=== PATIENT | female | born 1975 | race Caucasian/White ===

== ENCOUNTER 2024-03-06 19:29 | Inpatient (IN) ==
--- OUTSIDE RECORDS SUMMARY | 2024-03-06 19:34 | External Medical Summary | Summary of Care ---
Author Name Unknown Organization [facility] Address [address] [place] [address] Phone [phone] Care Team Providers Care Postie Name Role Phone Unavailable Primary Care Provider Unavailabl e Encounter Details Date Type Department Care Team (Late st Contact Info) Description 03/04/2024 Patient Reported Data Patient Survey Ortho OBERD Allergies Active Allergy Reactions Criticality Noted Date Comments Prochlorperazine Edisylate 8 Feeling of skin crawling Gabapentin 04/06/2018 Paresthesias Pregabalin 04/06/2018 [place] suicidal Penicillins 04/06/2018 Mom was allergic to PCN - they told her she was too Prochlorperazine 10/28/2019 Phenazopyridine Hcl Hives 04/06/2018 Sulfa Antibiotics Anaphylaxis High 04/06/2018 Closes airway documented as of this encounter (statuses as of 03/04/2024) Medications Medication Sig Dispensed Refills Start Date End Date Status [place]-3 Fatty Acids (FISH OIL) 1000 MG Capsule Take 1 Capsule by mouth in the morning. Active nystatin 454959 UNIT/GM creamIndications:Cu taneous candidiasis Apply topically to affected area 2 times a day. To affacted area for two weeks. 30 g 2 10/19/2019 Active Ventolin HFA 108 (90 Base) MCG/ACT Inhalation Aerosol SolutionIndications :Bronchitis, complicated Inhale 2 Puffs by mouth every 4 hours as needed for Cough, Shortness of Breath or Wheezing. 8 g 1 02/19/2021 Active Red Yeast Rice Extract 600 MG Oral Tablet Take by mouth . Active CPAP every night at bedtime . Active Ondansetron HCl 4 MG Oral Tablet (Zofran) Take 1 Tablet by mouth every 8 hours as needed for Nausea. 30 Tablet 09/19/2022 Active Clindamycin HCl 150 MG Oral Capsule (Cleocin) Take 1 Capsule by mouth. Take 4 capsules prior to procedures Active Naproxen Sodium 220 MG Oral Capsule Take 1 Capsule by mouth as needed for Headache. Active Aspirin 325 MG Oral Tablet Delayed ReleaseIndications: Hypertension goal BP (blood pressure) < 140/90 TAKE 1 TABLET BY MOUTH EVERY DAY IN THE MORNING 90 Tablet 3 05/06/2023 Active Probiotic Daily Oral Capsule Take 1 Capsule by mouth in the morning. Active Montelukast Sodium 10 MG Oral Tablet (Singulair) Take 1 Tablet by mouth in the morning. 90 Tablet 3 07/17/2023 Active Potassium Chloride ER 20 MEQ Oral Tablet Extended Release TAKE 1 TABLET BY MOUTH EVERY DAY IN THE MORNING 90 Tablet 3 09/17/2023 Active Rizatriptan Benzoate 10 MG Oral Tablet (Maxalt)Indications :Intractable migraine with aura without status migrainosus Take 1 Tablet by mouth as needed for Migraine. Can take a second dose 2 hours later if needed. No more than 20 mg (2 tablets) in 24 hours 10 Tablet 5 09/30/2023 Active Premarin 0.625 MG/GM Vaginal Cream (Estrogens Conjugated)Indicati ons:Vaginal dryness ADMINISTER INTO THE VAGINA AT BEDTIME. DIRECTED. 30 g 5 10/02/2023 Active Esomeprazole Magnesium 20 MG Oral Capsule Delayed ReleaseIndications: Epigastric pain,Nausea and vomiting, unspecified vomiting type Take 1 Capsule by mouth in the morning and 1 Capsule in the evening. 180 Capsule 3 11/12/2023 Active traZODone HCl 100 MG Oral Tablet (Desyrel) TAKE 2 TABLETS BY MOUTH AT BEDTIME 60 Tablet 3 12/26/2023 Active Cetirizine HCl 10 MG Oral Tablet (ZyrTEC) Take 1 Tablet by mouth in the morning. Active Losartan Potassium 25 MG Oral Tablet (Cozaar)Indications :HTN, goal below 130/80 Take 1 Tablet by mouth in the morning. 90 Tablet 1 02/24/2024 Active Fluticasone Propionate 50 MCG/ACT Nasal Suspension (Flonase)Indication s:Nasal congestion,Rhinorrh ea Administer 1 [place] into each nostril in the morning and 1 [place] before bedtime. 1 Each 5 02/25/2024 Active documented as of this encounter (statuses as of 03/04/2024) Active Problems Problem Noted Date Diagnosed Date S/P total knee arthroplasty, right 12/04/2022 On pre-exposure prophylaxis for HIV 10/17/2022 Status post total left knee replacement 09/07/19 Encounter for counseling bef ore starting and about pre-exposure prophylaxis for HIV 07/19/2022 High risk bisexual behavior 07/19/2022 Hyperlipidemia with target LDL less than 130 Restless legs syndrome (RLS) 04/01/2022 Athlete's foot, right 07/19/2021 Seasonal allergic rhinitis due to pollen 020 Tinnitus of both ears 10/01/2018 HTN, goal below 130/80 08/19/2018 Status post splenectomy 05/04/2018 Medical marijuana use 05/04/2018 Chronic left shoulder pain 05/04/2018 Fibromyalgia 04/06/2018 History of ITP 04/06/2018 Gastroesophageal reflux disease with esophagitis 04/06/2018 Pseudotumor cerebri 04/06/2018 Premature menopause 04/06/2018 documented as of this encounter (statuses as of 03/04/2024) Resolved Problems Problem Noted Date Diagnosed Date Resolved Date Disorder of iron metabolism, unspecified 04/01/2022 07/19/2022 Hypokalemia 04/01/2022 07/19/2022 Psychosocial stressors 10/18/202007/19 Female stress incontinence 05/04/2018 0 07/19/2022 Arthritis of right knee 04/10/201801/03 Chronic arthralgias of knees and hips 04/06/2018 01/17/2023 documented as of this encounter (statuses as of 03/04/2024) Immunizations Name Administration Dates Next Due COVID-19 mRNA, LNP-s, No Pre serve, 2-Dose Series (Values of n) 09/23/2020,08/23/2020 DTaP Dipth/Tet/Acell Pertussis (Infanrix), Peds 08/07/2016 Hepatitis B, 20+ yrs 01/20/2023,08/20/19 23,07/19/2022,2022(Deferred: Contraindication - Given 1st dose today . Other order Def) Meningococcal B, 2/3-Dose [place] (TRUMENBA) 07/19/2021,08/19/2018 Meningococcal MCV4O Conjugat e Vaccine (Menveo) 07/19/2021,08/19/2018 Pneumococcal Conjugate Vacc, 13 Valent (Prevnar) 08/19/2018 Pneumococcal Polysaccharide PPV23 (Pneumovax) 07/19/2021 Seasonal Influenza, PF, 6 M & above, IM , (FluLaval or Fluzone) 04/06/2018 TDAP (age 10 and older)(Boostrix) 03/05/2009 documented as of this encounter Social History Tobacco Use Types Packs/Day Years Used Date Smoking Tobacco: Former Cigarettes Q uit: 05/05/2005 Vaporizer Passive Smoke Exposure: Past Smokeless Tobacco: Never Comments:Quit smoking in 200 6 - Currently Vapes and smokes medical marijuana Alcohol Use Standard Drinks/Week Comments Yes 0 (1 standard drink = 0.6 oz pur e alcohol) occasional PHQ-2 Answer Date Recorded PHQ Adult Total Score 0 07/19/2022 Hunger Vital Sign Answer Date Recorded Within the past 12 months, y ou worried that your food would run out before you got the money to buy more. Never true 07/20/19 23 Within the past 12 months, t he food you bought just didn't last and you didn't have money to get more. Never true 07/19/2022 Personal Safety Answer Date Recorded Do you feel unsafe or have concerns for your saf ety? No 12/04/2022 Do you have concerns for you r family's safety? (Household - for ages 0-17 years) Not on file 12/04/2022 Utilities Answer Date Recorded Do you have trouble paying y our heating, water, or electric bill? (Adult - for ages 18 years and over) Not on file 12/05/2023 Is your family able to pay t he heat, water, or electric bill? (Household - for ages 0-17 years) Not on file 12/05/2023 Does your family have access to good internet? (Household - for ages 0-17 years) Not on file 12/05/2023 Social Connections Answer Date Recorded How often do you feel lonely or isolated from those around you? (Adult - for ages 18 years and over) Not on file 10/21/2023 Transportation Needs Answer Date Record ed READ ONLY Do you have troubl e getting a ride to medical visits or work? Never True 12/04/2022 Does your family have a hard time getting a ride to doctors visits? (Household - for ages 0-17 years) Not on file 12/04/2022 Has lack of transportation k ept you from medical appointments, meetings, work, or from getting things needed for daily living? Check all that apply. (Adult - for ages 18 years and over) Not on file 12/04/2022 Do you (or your family) have trouble finding or paying for a ride (transportation)? (Household - for ages 0-17 years) Not on file 12/04/2022 Housing Stability Answer Date Recorded Do you currently live in a s helter or have no steady place to sleep at night? (Adult - for ages 18 years and over) Not on file 12/04/2022 READ ONLY Do you think you a re at risk of becoming homeless? No 12/04/2022 Does your family worry about paying for your home or becoming homeless? (Household - for ages 0-17 years) Not on file 0 12/04/2022 Are you homeless or worried that you might be in the future? (Adult - for ages 18 years and over) Not on file Are you (or your family) neil eless or worried that you might be in the future? (Household - for ages 0-17 years) Not on file Food Insecurity Answer Date Recorded Do you need food for this week? No 12/04/2022 Are you able to get enough f ood for your family? (Household - for ages 0-17 years) Not on file 12/04/2022 Does your family need food t his week? (Household - for ages 0-17 years) Not on file 12/04/2022 Do you always have enough fo od for your family? (Household - for ages 0-17 years) Not on file 12/04/2022 Sex and Gender Information Value Date Recorded Sex Assigned at Female 08/27/2022 11:30 AM EDT Gender Identity Female 08/27/2022 11:30 AM EDT Sexual Orientation Bisexual 08/27/2022 11 :30 AM EDT Job Start Date Occupation Industry Not on file Not on file Not on file documented as of this encounter Functional Status Functional Status Response Date of Assess ment Are you deaf or do you have serious difficulty h earing? No 12/04/2022 Are you blind or do you have serious difficulty seeing, even when wearing glasses? No 12/04/2022 Do you have serious difficul ty walking or climbing stairs? (5 years old or older) No 12/04/2022 Do you have difficulty dress ing or bathing? (5 years old or older) No 12/04/2022 Because of a physical, menta l, or emotional condition, do you have difficulty doing errands alone such as visiting a doctor s office or shopping? (15 years old or older) No 12/05/19 Cognitive Status Response Date of Assessm ent Because of a physical, menta l, or emotional condition, do you have serious difficulty concentrating, remembering, or making decisions? (5 years old or older) No 12/04/2022 documented as of this encounter Plan of Treatment Upcoming Encounters Date Type Department Care Team (Late st Contact Info) Description 03/05/2024 9:30 AM EDT Office Visit Orthopaedics [facility] [address] [address] Dario Monge MD [address] [phone] 03/11/2024 1:30 PM EST Office Visit Orthopaedics [facility] [address] [address] Bobby Colunga PA-C [address] [place] [address] 08/04/2024 1:30 PM EDT Imaging Radiology [address] [place] [address] 11/08/2024 11:00 AM EDT Office Visit Family Medicine [address] [place] [phone] Vidya Mai MD [address] [place] [address] [place] [id number] Scheduled Procedures Name Priority Associated Diagnoses Date/Ti me COLONOSCOPY FLEXIBLE PROXIMA L DIAGNOSTIC Recall History of colonic polyps Health Maintenance Due Date Last Done Comments Cologuard 2022 Fecal Occult Blood Test 2022 Sigmoidoscopy 2022 Meningitis B Vaccine (Bexsero/Trumemba) (3 of 4 - Increased Risk Trumenba 3-dose series) 07/19/2022 07/19/2021, 08/19/2018 Depression Screening 07/20/2023 07/19/2022 COVID-19 Vaccine ( - season) 2024 09/23/2020, 08/23/2020 Influenza Vaccine (FLU shot) (#1) 2024 04/06/2018, 04/06/2018 Albumin/Creatinine Ratio 07/26/2024 07/26/2021 Mammogram 08/03/2024 08/04/2023, 04/0 05/2023, 07/30/2022, Additional history exists GFR 02/15/2025 02/16/2024, 01/04, 07/08/2023, Additional history exists Colonoscopy 10/29/2025 10/29/2022, 10/29/2022 Colorectal Cancer Screening 10/29/2025 MENINGOCOCCAL (MENACTRA/MENVEO) (3 - Risk 2-dose series) 07/19/2026 07/19/2021, 08/19/2018 Pneumococcal Vaccine: Pediatrics (0 to 5 Years) and At-Risk Patients (6 to 64 Years) (3 of 3 - PPSV23 or PCV20) 07/19/2026 07/19/2021, 08/19/2018 DTap/Tdap Vaccines (3 - Td or Tdap) 08/07/2026 08/07/2016, 03/05/2009 Diabetes Screening 02/15/2027 02/16/2024, 0 01/29/2024, 07/08/2023, Additional history exists Lipid Panel 01/28/2029 01/29/2024, 09/02, 07/19/2022, Additional history exists Hepatitis B Vaccine Completed 01/20/2023, 08/19/2022, 07/19/2022 HPV (Gardasil) Vaccine Aged Out No lo nger eligible based on patient's age to complete this topic documented as of this encounter Medical Devices Implanted Type Area Aerographer Device Identifier Shelf Expiration Date Model / Serial / Lot Zilver 518 Vascular Stent Implanted:Qty: 1 on 02/16/2020 by Remi Michaud MD at OR [facility] [place] [employer] 01/12/2023 ZIV5-1 8-12 5-8-80 / / [id number] Knee Triathlon Bead No Dmitri L 2 - [id number] Implanted:Qty: 1 on 08/13/2021 by Solomon Leon DO at OR [facility] Left: Knee NICHOLAS : ORTHOPAEDICS 09/23/2025 5517-F-201 / / [id number] Baseplate #2 Tritanium - [id number] Implanted:Qty: 1 on 08/13/2021 by Solomon Leon DO at OR [facility] Left: Knee NICHOLAS : ORTHOPAEDICS 10/12/2025 5536-B-200 / / [id number] Triathlon X3 Tibial Bearing Insert - Cs Implanted:Qty: 1 on 08/13/2021 by Solomon Leon DO at OR [facility] Left: Knee NICHOLAS : ORTHOPAEDICS 08/21/2025 5531-G-210 -E / / [id number] Cement Bone Simplex Hv & G - [id number] Implanted:Qty: 2 on 12/04/2022 by Solomon Leon DO at OR [facility] Right: Knee NICHOLAS : ORTHOPAEDICS 01/03/2024 6195-1-010 / / [id number] Knee Tria Syetric X3 8x27 - [id number] Implanted:Qty: 1 on 12/04/2022 by Solomon Leon DO at OR [facility] Right: Knee NICHOLAS : ORTHOPAEDICS 06/22/2024 5550-G-278 -E / / 51VA Knee Triathlon Cruciate Fe 2 R - [id number] Implanted:Qty: 1 on 12/04/2022 by Solomon Leon, DO at OR [facility] Right: Knee NICHOLAS : ORTHOPAEDICS 12/20/2026 5510-F-202 / / [id number] Knee Baseplate Tri Tib Sz 2 - [id number] Implanted:Qty: 1 on 12/04/2022 by Solomon Leon, DO at OR [facility] Right: Knee NICHOLAS : ORTHOPAEDICS 12/17/2025 5521-B-200 / / [id number] Triathlon X3 Tibial Bearing Insert- Cs Implanted:Qty: 1 on 12/04/2022 by Solomon Leon, DO at OR [facility] Right: Knee 10/16/2027 5531-G-210 -E / / [id number] documented as of this encounter Advance Directives * Full Code (Latest Code Status on File) Date Activated Date Inactivated Comments 12/04/2022 1:52 PM 12/05/2022 2:58 PM This order ref lects the patients wishes and were consensually agreed upon. Question Answer Comments Discussion of Advance Directives occurred with: Patient * Full Code Date Activated Date Inactivated Comments 08/13/2021 9:39 AM 08/14/2021 2:36 PM This order r eflects the patients wishes and were consensually agreed upon. * Full Code Date Activated Date Inactivated Comments 02/16/2020 11:48 AM 02/17/2020 6:55 PM This orde r reflects the patients wishes and were consensually agreed upon. * Full Code Date Activated Date Inactivated Comments 02/16/2020 9:10 AM 02/16/2020 11:48 AM This orde r reflects the patients wishes and were consensually agreed upon. * Full Code Date Activated Date Inactivated Comments 01/06/2020 1:16 PM 01/07/2020 4:50 PM This order ref lects the patients wishes and were consensually agreed upon. Question Answer Comments Discussion of Advance Directives occurred with: Not Discussed
--- OUTSIDE RECORDS SUMMARY | 2024-03-06 19:34 | External Medical Summary | Summary of Care ---
Author Name Unknown Organization [facility] Address [address] [place] [address] Phone [phone] Care Team Providers Care Caul Puller Name Role Phone Unavailable Primary Care Provider Unavailabl e Encounter Details Date Type Department Care Team (Late st Contact Info) Description 03/04/2024 Patient Reported Data Patient Survey Ortho OBERD Allergies Active Allergy Reactions Criticality Noted Date Comments Prochlorperazine Edisylate 8 Feeling of skin crawling Gabapentin 04/06/2018 Paresthesias Pregabalin 04/06/2018 [place] suicidal Penicillins 04/06/2018 Mom was allergic to PCN - they told her she was too Prochlorperazine 10/28/2019 Phenazopyridine Hcl Hives 04/06/2018 Sulfa Antibiotics Anaphylaxis High 04/06/2018 Closes airway documented as of this encounter (statuses as of 03/04/2024) Medications Medication Sig Dispensed Refills Start Date End Date Status [place]-3 Fatty Acids (FISH OIL) 1000 MG Capsule Take 1 Capsule by mouth in the morning. Active nystatin 314915 UNIT/GM creamIndications:Cu taneous candidiasis Apply topically to [...] Suspension (Flonase)Indication s:Nasal congestion,Rhinorrh ea Administer 1 [place] into each nostril in the morning and 1 [place] before bedtime. 1 Each 5 02/25/2024 Active [...] mRNA, LNP-s, No Pre serve, 2-Dose Series (Swyft) 09/23/2020,08/23/2020 DTaP Dipth/Tet/Acell Pertussis (Infanrix), Peds 08/07/2016 [...] 03/05/2024 9:30 AM EDT Office Visit Orthopaedics [facility] [address] [address] Dario Monge MD [address] [phone] 03/11/2024 1:30 PM EST Office Visit Orthopaedics [facility] [address] [address] Bobby Colunga PA-C [address] [place] [address] 08/04/2024 1:30 PM EDT Imaging Radiology [address] [place] [address] 11/08/2024 11:00 AM EDT Office Visit Family Medicine [address] [place] [phone] Vidya Mai MD [address] [place] [address] [place] [address] Scheduled Procedures Name [...] this encounter Medical Devices Implanted Type Area Wall Insulation Sprayer Device Identifier Shelf Expiration Date Model / Serial / Lot Zilver 518 Vascular Stent Implanted:Qty: 1 on 02/16/2020 [place] Remi Michaud [place] [facility] [place] [employer] 01/12/2023 ZIV5-1 8-12 5-8-80 / / [id number] Knee Triathlon Bead No Dmitri L 2 - [id number] Implanted:Qty: 1 on 08/13/2021 by [facility]: Knee NICHOLAS : ORTHOPAEDICS 09/23/2025 5517-F-201 / / [id number] Baseplate #2 Tritanium - [id number] Implanted:Qty: 1 on 08/13/2021 by [facility] DO [facility] Left: Knee NICHOLAS : ORTHOPAEDICS 10/12/2025 5536-B-200 / / [id number] Triathlon X3 Tibial Bearing Insert - Cs Implanted:Qty: 1 on 08/13/2021 by [facility] DO [facility] Left: Knee NICHOLAS : ORTHOPAEDICS 08/21/2025 5531-G-210 -E / / [id number] Cement Bone Simplex Hv & G - [id number] Implanted:Qty: 2 on 12/04/2022 by [facility] DO [facility] Right: Knee NICHOLAS : ORTHOPAEDICS 01/03/2024 6195-1-010 / / [id number] Knee Tria Syetric X3 8x27 - [id number] Implanted:Qty: 1 on 12/04/2022 by [facility] Right: Knee NICHOLAS : ORTHOPAEDICS 06/22/2024 5550-G-278 -E / / 51VA Knee Triathlon Cruciate Fe 2 R - [id number] Implanted:Qty: 1 on 12/04/2022 by Solomon Leon[facility] DO [facility] Right: Knee NICHOLAS : ORTHOPAEDICS 12/20/2026 5510-F-202 / / [id number] Knee Baseplate Tri Tib Sz 2 - [id number] Implanted:Qty: 1 on 12/04/2022 by Solomon Leon, DO [facility] Right: Knee NICHOLAS : ORTHOPAEDICS 12/17/2025 5521-B-200 / / [id number] Triathlon X3 Tibial Bearing Insert- Cs Implanted:Qty: 1 on 12/04/2022 by Solomon Leon[facility] DO [facility] Right: Knee 10/16/2027 5531-G-210 -E / / [...]
--- OUTSIDE RECORDS SUMMARY | 2024-03-06 19:34 | External Medical Summary | Summary of Care ---
Author Name Unknown Organization [facility] Address [address] [place] [address] Phone [phone] Care Team Providers Care Outsole Cutter Machine Name Role Phone Unavailable Primary Care Provider Unavailabl e Encounter Details Date Type Department Care Team (Late st Contact Info) Description 03/04/2024 Patient Reported Data Patient Survey Ortho OBERD Allergies Active Allergy Reactions Criticality Noted Date Comments Prochlorperazine Edisylate 8 Feeling of skin crawling Gabapentin 04/06/2018 Paresthesias Pregabalin 04/06/2018 [place] suicidal Penicillins 04/06/2018 Mom was allergic to PCN - they told her she was too Prochlorperazine 10/28/2019 Phenazopyridine Hcl Hives 04/06/2018 Sulfa Antibiotics Anaphylaxis High 04/06/2018 Closes airway documented as of this encounter (statuses as of 03/04/2024) Medications Medication Sig Dispensed Refills Start Date End Date Status [place]-3 Fatty Acids (FISH OIL) 1000 MG Capsule Take 1 Capsule by mouth in the morning. Active nystatin 743263 UNIT/GM creamIndications:Cu taneous candidiasis Apply topically to [...] Suspension (Flonase)Indication s:Nasal congestion,Rhinorrh ea Administer 1 [place] into each nostril in the morning and 1 [place] before bedtime. 1 Each 5 02/25/2024 Active [...] mRNA, LNP-s, No Pre serve, 2-Dose Series (Reunify) 09/23/2020,08/23/2020 DTaP Dipth/Tet/Acell Pertussis (Infanrix), Peds 08/07/2016 [...] 03/05/2024 9:30 AM EDT Office Visit Orthopaedics [facility] [address] [address] Dario Monge MD [address] [phone] 03/11/2024 1:30 PM EST Office Visit Orthopaedics [facility] [address] [address] Bobby Colunga PA-C [address] [place] [address] 08/04/2024 1:30 PM EDT Imaging Radiology [address] [place] [address] 11/08/2024 11:00 AM EDT Office Visit Family Medicine [address] [place] [phone] Vidya Mai MD [address] [place] [address] [place] [address] Scheduled Procedures Name [...] this encounter Medical Devices Implanted Type Area Quality Control Checker Device Identifier Shelf Expiration Date Model / Serial / Lot Zilver 518 Vascular Stent Implanted:Qty: 1 on 02/16/2020 by Remi Michaud [place] [facility] [place] [employer] 01/12/2023 ZIV5-1 8-12 5-8-80 / / [id number] Knee Triathlon Bead No Dmitri L 2 - [id number] Implanted:Qty: 1 on 08/13/2021 by Solomon Leon DO at OR [facility] Left: Knee NICHOLAS : ORTHOPAEDICS 09/23/2025 5517-F-201 / / [id number] Baseplate #2 Tritanium - [id number] Implanted:Qty: 1 on 08/13/2021 by Solomon Leon DO at OR [facility] Left: Knee NICHOLAS : ORTHOPAEDICS 10/12/2025 5536-B-200 / / [id number] Triathlon X3 Tibial Bearing Insert - Cs Implanted:Qty: 1 on 08/13/2021 by Solomon Leon DO at OR [facility] Left: Knee NICHOLAS : ORTHOPAEDICS 08/21/2025 5531-G-210 -E / / [id number] Cement Bone Simplex Hv & G - [id number] Implanted:Qty: 2 on 12/04/2022 by Solomon Leon DO at OR [facility] Right: Knee NICHOLAS : ORTHOPAEDICS 01/03/2024 6195-1-010 / / [id number] Knee Tria Syetric X3 8x27 - [id number] Implanted:Qty: 1 on 12/04/2022 by Solomon Leon DO at OR [facility] Right: Knee NICHOLAS : ORTHOPAEDICS 06/22/2024 5550-G-278 -E / / 51VA Knee Triathlon Cruciate Fe 2 R - [id number] Implanted:Qty: 1 on 12/04/2022 by Solomon Leon, DO at OR [facility] Right: Knee NICHOLAS : ORTHOPAEDICS 12/20/2026 5510-F-202 / / [id number] Knee Baseplate Tri Tib Sz 2 - [id number] Implanted:Qty: 1 on 12/04/2022 by Solomon Leon, DO at OR [facility] Right: Knee NICHOLAS : ORTHOPAEDICS 12/17/2025 5521-B-200 / / [id number] Triathlon X3 Tibial Bearing Insert- Cs Implanted:Qty: 1 on 12/04/2022 by Solomon Leon, DO at OR [facility] Right: Knee 10/16/2027 5531-G-210 -E / / [...]
--- OUTSIDE RECORDS SUMMARY | 2024-03-06 19:34 | External Medical Summary | Summary of Care ---
Author Name Unknown Organization [facility] Address [address] [place] [address] Phone [phone] Care Team Providers Care Manuscripts Archivist Name Role Phone Unavailable Primary Care Provider Unavailabl e Encounter Details Date Type Department Care Team (Late st Contact Info) Description 03/04/2024 Patient Reported Data Patient Survey Ortho [facility]BERD Allergies Active Allergy Reactions Criticality Noted Date Comments Prochlorperazine Edisylate 8 Feeling of skin crawling Gabapentin 04/06/2018 Paresthesias Pregabalin 04/06/2018 [place] suicidal Penicillins 04/06/2018 Mom was allergic to PCN - they told her she was too Prochlorperazine 10/28/2019 Phenazopyridine Hcl Hives 04/06/2018 Sulfa Antibiotics Anaphylaxis High 04/06/2018 Closes airway documented as of this encounter (statuses as of 03/04/2024) Medications Medication Sig Dispensed Refills Start Date End Date Status [place]-3 Fatty Acids (FISH OIL) 1000 MG Capsule Take 1 Capsule by mouth in the morning. Active nystatin 232580 UNIT/GM creamIndications:Cu taneous candidiasis Apply topically to [...] Suspension (Flonase)Indication s:Nasal congestion,Rhinorrh ea Administer 1 [place] into each nostril in the morning and 1 [place] before bedtime. 1 Each 5 02/25/2024 Active [...] mRNA, LNP-s, No Pre serve, 2-Dose Series ([employer]) 09/23/2020,08/23/2020 DTaP Dipth/Tet/Acell Pertussis (Infanrix), Peds 08/07/2016 [...] 03/05/2024 9:30 AM EDT Office Visit Orthopaedics [facility] [address] [address] Dario Monge MD [address] [phone] 03/11/2024 1:30 PM EST Office Visit Orthopaedics [facility] [address] [address] Bobby Colunga PA-C [address] [place] [address] 08/04/2024 1:30 PM EDT Imaging Radiology [address] [place] [address] 11/08/2024 11:00 AM EDT Office Visit Family Medicine [address] [place] [phone] Vidya Mai MD [address] [place] [address] [place] [id number] Scheduled Procedures Name [...] this encounter Medical Devices Implanted Type Area Oil Burner Journeyman Device Identifier Shelf Expiration Date Model / Serial / Lot Zilver 518 Vascular Stent Implanted:Qty: 1 on 02/16/2020 by Remi Michaud MD [place] [facility] [employer] 01/12/2023 ZIV5-1 8-12 5-8-80 / / [id number] Knee Triathlon Bead No Dmitri L 2 - [id number] Implanted:Qty: 1 on 08/13/2021 by Solomon Leon DO at OR [facility] Left: Knee NICHOLAS : ORTHOPAEDICS 09/23/2025 5517-F-201 / / [id number] Baseplate #2 Tritanium - [id number] Implanted:Qty: 1 on 08/13/2021 by Solomon Leon DO at OR [facility] Left: Knee NICHOLAS : ORTHOPAEDICS 10/12/2025 5536-B-200 / / [id number] Triathlon X3 Tibial Bearing Insert - Cs Implanted:Qty: 1 on 08/13/2021 by Solomon Leon DO at OR [facility] Left: Knee NICHOLAS : ORTHOPAEDICS 08/21/2025 5531-G-210 -E / / [id number] Cement Bone Simplex Hv & G - [id number] Implanted:Qty: 2 on 12/04/2022 by Solomon Leon DO at OR [facility] Right: Knee NICHOLAS : ORTHOPAEDICS 01/03/2024 6195-1-010 / / [id number] Knee Tria Syetric X3 8x27 - [id number] Implanted:Qty: 1 on 12/04/2022 by Solomon Leon DO at OR [facility] Right: Knee NICHOLAS : ORTHOPAEDICS 06/22/2024 5550-G-278 -E / / 51VA Knee Triathlon Cruciate Fe 2 R - [id number] Implanted:Qty: 1 on 12/04/2022 by Solomon Leon, DO at OR [facility] Right: Knee NICHOLAS : ORTHOPAEDICS 12/20/2026 5510-F-202 / / [id number] Knee Baseplate Tri Tib Sz 2 - [id number] Implanted:Qty: 1 on 12/04/2022 by Solomon Leon, DO at OR [facility] Right: Knee NICHOLAS : ORTHOPAEDICS 12/17/2025 5521-B-200 / / [id number] Triathlon X3 Tibial Bearing Insert- Cs Implanted:Qty: 1 on 12/04/2022 by Solomon Leon, DO at OR [facility] Right: Knee 10/16/2027 5531-G-210 -E / [...]
--- OUTSIDE RECORDS SUMMARY | 2024-03-06 19:34 | External Medical Summary | Summary of Care ---
Author Name Unknown Organization [facility] Address [address] [place] [address] Phone [phone] Care Team Providers Care Accounting Machine Operator Name Role Phone Unavailable Primary Care Provider Unavailabl e Encounter Details Date Type Department Care Team (Late st Contact Info) Description 03/04/2024 Patient Reported Data Patient Survey Ortho [facility] Allergies Active Allergy Reactions Criticality Noted Date Comments Prochlorperazine Edisylate 8 Feeling of skin crawling Gabapentin 04/06/2018 Paresthesias Pregabalin 04/06/2018 [place] suicidal Penicillins 04/06/2018 Mom was allergic to PCN - they told her she was too Prochlorperazine 10/28/2019 Phenazopyridine Hcl Hives 04/06/2018 Sulfa Antibiotics Anaphylaxis High 04/06/2018 Closes airway documented as of this encounter (statuses as of 03/04/2024) Medications Medication Sig Dispensed Refills Start Date End Date Status [place]-3 Fatty Acids (FISH OIL) 1000 MG Capsule Take 1 Capsule by mouth in the morning. Active nystatin 165870 UNIT/GM creamIndications:Cu taneous candidiasis Apply topically to [...] Suspension (Flonase)Indication s:Nasal congestion,Rhinorrh ea Administer 1 [place] into each nostril in the morning and 1 [place] before bedtime. 1 Each 5 02/25/2024 Active [...] mRNA, LNP-s, No Pre serve, 2-Dose Series ([employer]) 09/23/2020,08/23/2020 DTaP Dipth/Tet/Acell Pertussis (Infanrix), Peds 08/07/2016 [...] 03/05/2024 9:30 AM EDT Office Visit Orthopaedics [facility] [address] [address] Dario Monge MD [address] [phone] 03/11/2024 1:30 PM EST Office Visit Orthopaedics [facility] [address] [address] Bobby Colunga PA-C [address] [place] [address] 08/04/2024 1:30 PM EDT Imaging Radiology [address] [place] [address] 11/08/2024 11:00 AM EDT Office Visit Family Medicine [address] [place] [phone] Vidya Mai MD [address] [place] [address] [place] [address] Scheduled Procedures Name [...] this encounter Medical Devices Implanted Type Area Blind Hooker Device Identifier Shelf Expiration Date Model / Serial / Lot Zilver 518 Vascular Stent Implanted:Qty: 1 on 02/16/2020 by Remi Michaud MD at OR [facility] [employer] 01/12/2023 ZIV5-1 8-12 5-8-80 / / [id number] Knee Triathlon Bead No Dmitri L 2 - [id number] Implanted:Qty: 1 on 08/13/2021 by Solomon Leon DO at OR [facility] Left: Knee NICHOLAS : ORTHOPAEDICS 09/23/2025 5517-F-201 / / [id number] Baseplate #2 Tritanium - [id number] Implanted:Qty: 1 on 08/13/2021 by Solomon Leon DO at OR [facility] Left: Knee NICHOLAS : ORTHOPAEDICS 10/12/2025 5536-B-200 / / [id number] Triathlon X3 Tibial Bearing Insert - Cs Implanted:Qty: 1 on 08/13/2021 by Solomon Leon DO at OR [facility] Left: Knee NICHOLAS : ORTHOPAEDICS 08/21/2025 5531-G-210 -E / / [id number] Cement Bone Simplex Hv & G - [id number] Implanted:Qty: 2 on 12/04/2022 by Solomon Leon DO at OR [facility] Right: Knee NICHOLAS : ORTHOPAEDICS 01/03/2024 6195-1-010 / / [id number] Knee Tria Syetric X3 8x27 - [id number] Implanted:Qty: 1 on 12/04/2022 by Solomon Leon DO at OR [facility] Right: Knee NICHOLAS : ORTHOPAEDICS 06/22/2024 5550-G-278 -E / / 51VA Knee Triathlon Cruciate Fe 2 R - [id number] Implanted:Qty: 1 on 12/04/2022 by Solomon Leon, DO at OR [facility] Right: Knee NICHOLAS : ORTHOPAEDICS 12/20/2026 5510-F-202 / / [id number] Knee Baseplate Tri Tib Sz 2 - [id number] Implanted:Qty: 1 on 12/04/2022 by Solomon Leon, DO at OR [facility] Right: Knee NICHOLAS : ORTHOPAEDICS 12/17/2025 5521-B-200 / / [id number] Triathlon X3 Tibial Bearing Insert- Cs Implanted:Qty: 1 on 12/04/2022 by Solomon Leon, DO at OR [facility] Right: Knee 10/16/2027 5531-G-210 -E / [...]
--- OUTSIDE RECORDS SUMMARY | 2024-03-06 19:34 | External Medical Summary | Summary of Care ---
Author Name Unknown Organization [facility] Address [address] [place] [address] Phone [phone] Care Team Providers Care Firebrick And Refractory Tile Repairer Name Role Phone Unavailable Primary Care Provider Unavailabl e Encounter Details Date Type Department Care Team (Late st Contact Info) Description 03/04/2024 Patient Reported Data Patient Survey Ortho [facility] Allergies Active Allergy Reactions Criticality Noted Date Comments Prochlorperazine Edisylate 8 Feeling of skin crawling Gabapentin 04/06/2018 Paresthesias Pregabalin 04/06/2018 [place] suicidal Penicillins 04/06/2018 Mom was allergic to PCN - they told her she was too Prochlorperazine 10/28/2019 Phenazopyridine Hcl Hives 04/06/2018 Sulfa Antibiotics Anaphylaxis High 04/06/2018 Closes airway documented as of this encounter (statuses as of 03/04/2024) Medications Medication Sig Dispensed Refills Start Date End Date Status [place]-3 Fatty Acids (FISH OIL) 1000 MG Capsule Take 1 Capsule by mouth in the morning. Active nystatin 406836 UNIT/GM creamIndications:Cu taneous candidiasis Apply topically to [...] Suspension (Flonase)Indication s:Nasal congestion,Rhinorrh ea Administer 1 [place] into each nostril in the morning and 1 [place] before bedtime. 1 Each 5 02/25/2024 Active [...] mRNA, LNP-s, No Pre serve, 2-Dose Series ([employer]) 09/23/2020,08/23/2020 DTaP Dipth/Tet/Acell Pertussis (Infanrix), Peds 08/07/2016 [...] AM EDT Office Visit Orthopaedics [facility] [address] [address] Dario Monge MD [address] [phone] 03/11/2024 1:30 PM EST Office Visit Orthopaedics [facility] [address] [address] Bobby Colunga PA-C [address] [place] [address] 08/04/2024 1:30 PM EDT Imaging Radiology [address] [place] [address] 11/08/2024 11:00 AM EDT Office Visit Family Medicine [address] [place] [phone] Vidya aMi MD [address] [place] [address] [place] [id number] Scheduled Procedures Name [...] this encounter Medical Devices Implanted Type Area C Application Developer Device Identifier Shelf Expiration Date Model / Serial / Lot Zilver 518 Vascular Stent Implanted:Qty: 1 on 02/16/2020 by Remi Michaud MD at OR [facility] [employer] 01/12/2023 ZIV5-1 8-12 5-8-80 / / [id number] Knee Triathlon Bead No Dmitri L 2 - [id number] Implanted:Qty: 1 on 08/13/2021 by Solomon Leon DO at OR [facility] Left: Knee NICHOLAS : ORTHOPAEDICS 09/23/2025 5517-F-201 / / [id number] Baseplate #2 Tritanium - [id number] Implanted:Qty: 1 on 08/13/2021 by Solomon Leon DO at OR [facility] Left: Knee NICHOLAS : ORTHOPAEDICS 10/12/2025 5536-B-200 / / [id number] Triathlon X3 Tibial Bearing Insert - Cs Implanted:Qty: 1 on 08/13/2021 by Solomon Leon DO at OR [facility] Left: Knee NICHOLAS : ORTHOPAEDICS 08/21/2025 5531-G-210 -E / / [id number] Cement Bone Simplex Hv & G - [id number] Implanted:Qty: 2 on 12/04/2022 by Solomon Leon DO at OR [facility] Right: Knee NICHOLAS : ORTHOPAEDICS 01/03/2024 6195-1-010 / / [id number] Knee Tria Syetric X3 8x27 - [id number] Implanted:Qty: 1 on 12/04/2022 by Solomon Leon DO at OR [facility] Right: Knee NICHOLAS : ORTHOPAEDICS 06/22/2024 5550-G-278 -E / / 51VA Knee Triathlon Cruciate Fe 2 R - [id number] Implanted:Qty: 1 on 12/04/2022 by Solomon Leon, DO at OR [facility] Right: Knee NICHOLAS : ORTHOPAEDICS 12/20/2026 5510-F-202 / / [id number] Knee Baseplate Tri Tib Sz 2 - [id number] Implanted:Qty: 1 on 12/04/2022 by Soolmon Leon, DO at OR [facility] Right: Knee NICHOLAS : ORTHOPAEDICS 12/17/2025 5521-B-200 / / [id number] Triathlon X3 Tibial Bearing Insert- Cs Implanted:Qty: 1 on 12/04/2022 by Solomon Leon, DO at OR [facility] Right: Knee 10/16/2027 5531-G-210 -E / [...]
--- OUTSIDE RECORDS SUMMARY | 2024-03-06 19:34 | External Medical Summary | Summary of Care ---
Author Name Unknown Organization [facility] Address [address] [place] [address] Phone [phone] Care Team Providers Care Counter Clerk [employer]ractor [employer] Name Role Phone Unavailable Primary Care Provider Unavailabl e Reason for Referral * Evaluate & Treat - Unlimited Visits (Within 30 days (routine)) - Pending Review Specialty Diagnoses / Procedures Referred By Contact Referred To Contact Sports Medicine / Orthopedics Diagnoses Arthritis of both acromioclavicular joints Dario Monge MD [address] [place] [address] Referral ID Status Reason Start Date Expiration Date Visits Requested Visits Authorized [id number] Pending Review Specialty Services Required 03/05/[phone] Question Answer What body part is the patient being seen for? Shoulder What condition is the patient being seen for? Arthritis including related infection Referral Priority Within 30 days (routine) Where should this appointment be scheduled? [facility] Comments Ultrasound-guided AC joint injection left shoulder Reason for Visit * Reason Comments NEW PATIENT Left shoulder * Evaluate & Treat - Unlimited Visits (Within 10 days (routine)) - Pending Review Specialty Diagnoses / Procedures Referred By Ronnie kline Referred To Contact Orthopaedic Surgery / Orthopedics Diagnoses Chronic left shoulder pain June Horne CRNP [address] [place] [address] Referral ID Status Reason Start Date Expiration Date Visits Requested Visits Authorized [id number] Pending Review Specialty Services Required [phone] Encounter Details Date Type Department Care Team (Latest Contact Info) Description 03/05/2024 9:30 AM EDT Office Visit Orthopaedics [facility] [address] [place] [address] Dario Monge MD [address] [place] [phone] Arthritis of both acromioclavicular joints* Allergies Active Allergy Reactions Criticality Noted Date Comments Prochlorperazine Edisylate 8 Feeling of skin crawling Gabapentin 04/06/2018 Paresthesias Pregabalin 04/06/2018 [place] suicidal Penicillins 04/06/2018 Mom was allergic to PCN - they told her she was too Prochlorperazine 10/28/2019 Phenazopyridine Hcl Hives 04/06/2018 Sulfa Antibiotics Anaphylaxis High 04/06/2018 Closes airway documented as of this encounter (statuses as of 03/05/2024) Medications Medication Sig Dispensed Refills Start Date End Date Status Luray-3 Fatty Acids (FISH OIL) 1000 MG Capsule Take 1 Capsule by mouth in the morning. Active nystatin 066208 UNIT/GM creamIndications:Cu taneous candidiasis Apply topically to [...] Suspension (Flonase)Indication s:Nasal congestion,Rhinorrh ea Administer 1 Charlotte into each nostril in the morning and 1 [place] before bedtime. 1 Each 5 02/25/2024 Active documented as of this encounter (statuses as of 03/05/2024) Active Problems Problem Noted Date Diagnosed Date [...] as of this encounter (statuses as of 03/05/2024) Resolved Problems Problem Noted Date Diagnosed Date Resolved Date Disorder of iron metabolism, unspecified 04/01/2022 07/19/2022 Hypokalemia 04/01/2022 07/19/2022 Psychosocial stressors 10/18/202007/19 Female stress incontinence 05/04/2018 0 07/19/2022 Arthritis of right knee 04/10/201801/03 Chronic arthralgias of knees and hips 04/06/2018 01/17/2023 documented as of this encounter (statuses as of 03/05/2024) Immunizations Name Administration Dates Next Due COVID-19 mRNA, LNP-s, No Pre serve, 2-Dose Series (Pfizer) 09/23/2020,08/23/2020 DTaP Dipth/Tet/Acell Pertussis (Infanrix), Peds 08/07/2016 [...] No 12/04/2022 documented as of this encounter Progress Notes * Dario Monge MD - 03/05/2024 10:24 AM EDT CHIEF COMPLAINT: Chief Complaint Patient presents with NEW PATIENT Left shoulder Impression: (M19.011, M19.012) Arthritis of both acromioclavicular joints (primary encounter diagnosis) Left symptomatic Plan: We discussed the diagnosis and treatment options with the patient today. Patient's symptoms are consistent with AC joint inflammation impingement. At this time we feel she would benefit from a course of physical therapy which he is already scheduled for. We instructed her on ice and ppgi-obj-urditls anti-inflammatories. If her symptoms persist she may benefit from ultrasound-guided diagnostic injection to the AC joint. Follow Up: Return for Referral to nonoperative Sports Medicine, Clinic Visit. | For: Referral to nonoperative Sports Medicine, Clinic Visit There are no Patient Instructions on file for this visit. HISTORY OF PRESENT ILLNESS: Keiry York is a 48 year old right hand dominant female who presents to orthopedic Sports Medicine for consultation at the request of June MACIAS to us with a history of left shoulder pain . Patient states that she has been having left shoulder pain for the last 2 weeks. She localizes symptoms over the top of the shoulder. She states she thinks her symptoms have started when she was doing an exercise workout using her [employer] headset. She states she has difficulty with sleeping on that side. She has difficulty with raising the arm above her head. She denies any previous injury. Wakes at night? no. Physical Therapy? no. Injections? no. Nursing Notes: Hollie Barnard, MED ASSIST 11/01/24 0947 Signed Here for Today's visit regarding: shoulder side: left Injury: working out, heard pop in shoulder Recent Imaging: no Prior treatment: no Prior Surgery: no Date of injury or symptoms started: 2 weeks ago Goals for this appointment: Past Surgical History: Procedure Laterality Date ANESTHESIA, KNEE JOINT ARTHROSCOPY Right 1994 ARTHROPLASTY KNEE TOTAL Left 08/13/2021 ROBOTIC ARTHROPLASTY KNEE TOTAL performed by Solomon Leon DO at [facility] ARTHROPLASTY KNEE TOTAL Right 12/04/2022 ROBOTIC ARTHROPLASTY KNEE TOTAL performed by Solomon Leon DO at OR [facility] BREAST BIOPSY Right benign CAROTID (INTERNAL) ARTERY CATHETHER PLACEMENT N/A 12/24/2019 CATHETER PLACEMENT INTERNAL CAROTID ARTERY performed by Remi Michaud MD at [place] [facility] CAROTID (INTERNAL) ARTERY CATHETHER PLACEMENT Right 02/16/2020 CATHETER PLACEMENT INTERNAL CAROTID ARTERY performed by Remi Michaud MD at [facility] COLONOSCOPY, DIAGNOSTIC (RECTUM) 10/29/2022 diverticulosis/hemorrhoids/biopsies show adenomatous polyps/recall 3 years/COLONOSCOPY FLEXIBLE PROXIMAL DIAGNOSTIC performed by Rosendo Rodriguez MD at [facility] CREATE SPINAL SHUNT, W/LAMINECTOMY 2013 AUTO ELECTRICIAN Shunt EGD, FLEXIBLE, DIAGNOSTIC 04/10/2018 normal bx/ESOPHAGOGASTRODUODENOSCOPY (EGD), FLEXIBLE, TRANSORAL, DIAGNOSTIC performed by Barrett Petersen MD at [facility] EGD, FLEXIBLE, DIAGNOSTIC 09/23/2022 biopsies normal/ESOPHAGOGASTRODUODENOSCOPY (EGD), FLEXIBLE, TRANSORAL, DIAGNOSTIC performed by MD Genny at [facility] INFORMATION Right R CTR INFORMATION Laparoscopy for endometriosis x 4. INFORMATION . INTRACRANIAL INTRAVASCULAR STENT,INCL ANGIO Right 02/16/2020 TRANSCATHETER PLACEMENT OF INTRAVASCULAR STENTS, INTRACRANIAL performed by Remi Michaud MD at OR [facility] REMOVAL OF APPENDIX age 14 REMOVAL OF SPINAL SHUNT SYSTEM N/A 01/06/2020 REMOVAL SHUNT LUMBAR PERITONEAL WITHOUT REPLACEMENT performed by Remi Michaud MD at [facility] REMOVAL OF SPLEEN, TOTAL age 16 Dx ITP REMOVAL OF TONSILS, AGE 12+ age 16 REMOVE GALLBLADDER 2017 SINUS SURGERY PROCEDURE NEC 2002 TOTAL HYSTERECTOMY 2009 dx endometriosis VERTEBRAL ARTERY CATHETER PLACEMENT N/A 12/24/2019 CATHETER PLACEMENT VERTEBRAL ARTERY, performed by Remi Michaud MD at [facility] VERTEBRAL ARTERY CATHETER PLACEMENT Right 02/16/2020 CATHETER PLACEMENT VERTEBRAL ARTERY, performed by Remi Michaud MD at OR [facility] Review of patient's allergies indicates: Allergen Reactions Sulfa Antibiotics Anaphylaxis Closes airway Compazine [Prochlorperazine Edisylate] Feeling of skin crawling Gabapentin Paresthesias Lyrica [Pregabalin] [place] suicidal Penicillins Mom was allergic to PCN - they told her she was too Prochlorperazine Pyridium [Phenazopyridine Hcl] Hives Current Outpatient Medications Medication Sig Dispense Refill Luray-3 Fatty Acids (FISH OIL) 1000 MG Capsule Take 1 Capsule by mouth in the morning. nystatin 734057 UNIT/GM cream Apply topically to affected area 2 times a day. To affacted area for two weeks. 30 g 2 Ventolin HFA 108 (90 Base) MCG/ACT Inhalation Aerosol Solution Inhale 2 Puffs by mouth every 4 hours as needed for Cough, Shortness of Breath or Wheezing. 8 g 1 Red Yeast Rice Extract 600 MG Oral Tablet Take by mouth . CPAP every night at bedtime . (Patient not taking: Reported on 02/23/2024) Ondansetron HCl 4 MG Oral Tablet (Zofran) Take 1 Tablet by mouth every 8 hours as needed for Nausea. 30 Tablet 0 Clindamycin HCl 150 MG Oral Capsule (Cleocin) Take 1 Capsule by mouth. Take 4 capsules prior to procedures Naproxen Sodium 220 MG Oral Capsule Take 1 Capsule by mouth as needed for Headache. Aspirin 325 MG Oral Tablet Delayed Release TAKE 1 TABLET BY MOUTH EVERY DAY IN THE MORNING 90 Tablet 3 Probiotic Daily Oral Capsule Take 1 Capsule by mouth in the morning. Montelukast Sodium 10 MG Oral Tablet (Singulair) Take 1 Tablet by mouth in the morning. 90 Tablet 3 Potassium Chloride ER 20 MEQ Oral Tablet Extended Release TAKE 1 TABLET BY MOUTH EVERY DAY IN THE MORNING 90 Tablet 3 Rizatriptan Benzoate 10 MG Oral Tablet (Maxalt) Take 1 Tablet by mouth as needed for Migraine. Can take a second dose 2 hours later if needed. No more than 20 mg (2 tablets) in 24 hours 10 Tablet 5 Premarin 0.625 MG/GM Vaginal Cream (Estrogens Conjugated) ADMINISTER INTO THE VAGINA AT BEDTIME. ASDIRECTED. 30 g 5 Esomeprazole Magnesium 20 MG Oral Capsule Delayed Release Take 1 Capsule by mouth in the morning and 1 Capsule in the evening. 180 Capsule 3 traZODone HCl 100 MG Oral Tablet (Desyrel) TAKE 2 TABLETS BY MOUTH AT BEDTIME 60 Tablet 3 Cetirizine HCl 10 MG Oral Tablet (ZyrTEC) Take 1 Tablet by mouth in the morning. Losartan Potassium 25 MG Oral Tablet (Cozaar) Take 1 Tablet by mouth in the morning. 90 Tablet 1 Fluticasone Propionate 50 MCG/ACT Nasal Suspension (Flonase) Administer 1 Charlotte into each nostril in the morning and 1 Charlotte before bedtime. 1 Each 5 No current facility-administered medications for this visit. Social History Socioeconomic History Marital status: Tobacco Use Smoking status: Former Current packs/day: 0.00 Types: Cigarettes, Vaporizer Quit date: 05/05/2005 Years since quittin.8 Passive exposure: Past Smokeless tobacco: Never Tobacco comments: Quit smoking in 2005 - Currently Vapes and smokes medical marijuana Vaping Use Vaping status: Every Day Substances: THC Devices: Pre-filled or refillable cartridge Substance and Sexual Activity Alcohol use: Yes Comment: occasional Drug use: Yes Frequency: 14.0 times per week Types: Marijuana Comment: Medical marijuana. Social Determinants of Health Food Insecurity: No Food Insecurity (12/04/2022) Food Insecurity Do you need food for this week? (Adult - for ages 18 years and over): No Transportation Needs: No Transportation Needs (12/04/2022) Transportation Needs Do you have trouble getting a ride to medical visits or work? (Adult - for ages 18 years and over):Never True Social Connections Housing Stability: Low Risk (12/04/2022) Housing Stability Do you think you are at risk of becoming homeless? (Adult - for ages 18 years and over): No Family History Problem Relation Name Age of Onset Arthritis Mother knees replaced Other (ITP) Mother Prostate cancer Father Migraines Father Autism spectrum disorder Daughter Blood Disorder Daughter Arthritis Brother cervical spinal fusion Migraines Brother Breast Cancer No significant family history Past Medical History: Diagnosis Date Anxiety Cervical cancer (HCC) Chronic headaches Chronic pain of right knee 04/06/2018 COVID 05/24/2021 Endometriosis Esophageal ulcer Fibromyalgia Gastric ulcer GERD (gastroesophageal reflux disease) History of ITP age 16 HLD (hyperlipidemia) HTN (hypertension) Idiopathic thrombocytopenic purpura (ITP) (HCC) Medical marijuana use OA (osteoarthritis) Sleep apnea CPAP Sleep apnea, obstructive ROS: Constitional: No change in weight, No weakness, No fatigue, and No fevers, sweats, or chills Skin: No edema, No rash, and No itching Psychiatric: No depression, No anxiety, and No psychosis Xray: I personally reviewed the xrays. Patient underwent x-rays of the left shoulder. Those x-rays do not show any evidence fracture. No dislocation. No evidence of loose bodies. There is evidence ofdegeneration of the AC joint. PHYSICAL EXAM: General: generally well-nourished and in no acute distress HEENT: normocephalic, atraumatic, EOMI, sclera anicteric. Psych: mood and affect normal , cooperative Card: Peripheral pulses: normal in affected extremity (s) Resp: equal chest rise, non-tachypneic, non-labored breathing Skin: no rash, normal Neuro: Coordination: normal; Sensation: normal on affected extremity (s) Skin: normal. C-Spine evaluation: Does patient have neck symptoms and/or numbness/tingling in upper extremities: no Inspection: bilateral and symmetrical without apparent abnormality Shoulder ROM: ABD (170') - FROM Bilaterally ER (40') - FROM Bilaterally Passive ER -FROM Bilaterally IR (T10) - right T10 left T10 with the pain FF (180') - FROM Bilaterally Scapular elevation with forward flexion:negativeBilateral Tenderness/Location: yes - AC Inspection AC Joint Prominence: normal Cross-arm maneuver: positive Impingement sign: positive Sulcus sign: negative Lift-off test: negative Apprehension:negative [place]'s test: negative Load and shift: negative Speed's test: negative Drop-arm test: negative Instability Testing: Shoulder instability testing: not examined negative scapular winging negative scapular dyskinesis Strength: ABD: Right - 5/5 Left - 5/5 ER: Right - 5/5 Left - 5/5 IR: Right - 5/5 Left - 5/5 Biceps: Right - 5/5 Left - 5/5 "Empty can": Right - 5/5 Left - 5/5 Neurovascular assessment: negative for deficit Neck ROM: Extension 10 Flexion to the chest Spurlings test: Right negative Left negative Lateral bending and rotation pain: right negative left negative TTP: negative Ligamentous laxity testing: negative Bilateral Dario Monge MD Orthopaedics [facility] [address] [place] [address] Orthopedic Sports Medicine Surgery 03/05/2024 10:28 AM This chart was completed in part utilizing [employer] Speech Voice Recognition Software. Grammatical errors, random word insertions, pronoun errors, and incomplete sentences are an occasional consequence of this system due to software limitations, ambient noise, and hardware issues. Any formal questions or concerns about the content, text, or information contained within the body of this dictation should be directly addressed to the provider for clarification. documented in this encounter Nursing Notes * Hollie Barnard MED ASSIST - 03/05/2024 9:46 AM EDT Here for Today's visit regarding: shoulder side: left Injury: working out, heard pop in shoulder Recent Imaging: no Prior treatment: no Prior Surgery: no Date of injury or symptoms started: 2 weeks ago Goals for this appointment: documented in this encounter Plan of Treatment Upcoming Encounters Date Type Department Care Team (Late st Contact Info) Description 03/11/2024 1:30 PM EST Office Visit Orthopaedics [facility] [address] [place] [address] Bobby Colunga PA-C [facility] [place] [address] 03/29/2024 1:00 PM EST Office Visit Orthopaedics [facility] [address] [place] [address] Shannan Guerrero MD [address] [place] [address] 08/04/2024 1:30 PM EDT Imaging Radiology [address] [place] [address] 11/08/2024 11:00 AM EDT Office Visit Family Medicine [address] [place] [phone] Vidya Mai MD [address] [place] [address] [place] [address] Pending Results Name Type Priority Associated Diagnoses Date /Time XR SHOULDER, 2 OR MORE VIEWS Medical Imaging Routine 03/05/2024 9:54 AM EDT Scheduled Procedures Name Priority Associated Diagnoses Date/Ti me COLONOSCOPY FLEXIBLE PROXIMA L DIAGNOSTIC Recall History of colonic polyps Scheduled Referrals Name Type Priority Associated Diagnoses Orde r Schedule SPORTS MEDICINE REFERRAL OP Referral Within 30 days (routine) Arthritis of both acromioclavicular joints Ordered: 03/05/2024 Health Maintenance Due Date Last Done Comments Cologuard 2022 Fecal Occult Blood Test 2022 Sigmoidoscopy 2022 Meningitis B Vaccine (Bexsero/Trumemba) (3 of 4 - Increased Risk Trumenba 3-dose series) 07/19/2022 07/19/2021, 08/19/2018 Depression Screening 07/20/2023 07/19/2022 COVID-19 Vaccine ( season) 2024 09/23/2020, 08/23/2020 Influenza Vaccine (FLU [...] this encounter Medical Devices Implanted Type Area Life Management Teacher Device Identifier Shelf Expiration Date Model / Serial / Lot Zilver 518 Vascular Stent Implanted:Qty: 1 on 02/16/2020 by Remi Michaud MD at OR [facility] [employer] 01/12/2023 ZIV5-1 8-12 5-8-80 / / [id number] Knee Triathlon Bead No Dmitri L 2 - [id number] Implanted:Qty: 1 on 08/13/2021 by Solomon Leon DO at OR [facility] Left: Knee NICHOLAS : ORTHOPAEDICS 09/23/2025 5517-F-201 / / [id number] Baseplate #2 Tritanium - [id number] Implanted:Qty: 1 on 08/13/2021 by Solomon Leon DO at OR [facility] Left: Knee NICHOLAS : ORTHOPAEDICS 10/12/2025 5536-B-200 / / [id number] Triathlon X3 Tibial Bearing Insert - Cs Implanted:Qty: 1 on 08/13/2021 by Solomon Leon DO at OR [facility] Left: Knee NICHOLAS : ORTHOPAEDICS 08/21/2025 5531-G-210 -E / / [id number] Cement Bone Simplex Hv & G - [id number] Implanted:Qty: 2 on 12/04/2022 by Solomon Leon DO at OR [facility] Right: Knee NICHOLAS : ORTHOPAEDICS 01/03/2024 6195-1-010 / / [id number] Knee Tria Syetric X3 8x27 - [id number] Implanted:Qty: 1 on 12/04/2022 by Solomon Leon, DO at OR [facility] Right: Knee NICHOLAS : ORTHOPAEDICS 06/22/2024 5550-G-278 -E / / 51VA Knee Triathlon Cruciate Fe 2 R - [id number] Implanted:Qty: 1 on 12/04/2022 by Solomon Leon, DO at OR [facility] Right: Knee NICHOLAS : ORTHOPAEDICS 12/20/2026 5510-F-202 / / [id number] Knee Baseplate Tri Tib Sz 2 - [id number] Implanted:Qty: 1 on 12/04/2022 by Solomon Leon, DO at OR [facility] Right: Knee NICHOLAS : ORTHOPAEDICS 12/17/2025 5521-B-200 / / [id number] Triathlon X3 Tibial Bearing Insert- Cs Implanted:Qty: 1 on 12/04/2022 by Solomon Leon, at OR [facility] Right: Knee 10/16/2027 5531-G-210 -E / / [id number] documented as of this encounter Visit Diagnoses Diagnosis Arthritis of both acromioclavicular joints- Primary documented in this encounter Advance Directives * Full Code [...]
--- OUTSIDE RECORDS SUMMARY | 2024-03-06 19:34 | External Medical Summary | Summary of Care ---
Author Name Unknown Organization [facility] Address [address] [place] [address] Phone [phone] Care Team Providers Care Mogul Operator Name Role Phone Unavailable Primary Care Provider Unavailabl e Encounter Details Date Type Department Care Team (Late st Contact Info) Description 03/04/2024 Patient Reported Data Patient Survey Ortho [facility] Allergies Active Allergy Reactions Criticality Noted Date Comments Prochlorperazine Edisylate 8 Feeling of skin crawling Gabapentin 04/06/2018 Paresthesias Pregabalin 04/06/2018 [place] suicidal Penicillins 04/06/2018 Mom was allergic to PCN - they told her she was too Prochlorperazine 10/28/2019 Phenazopyridine Hcl Hives 04/06/2018 Sulfa Antibiotics Anaphylaxis High 04/06/2018 Closes airway documented as of this encounter (statuses as of 03/04/2024) Medications Medication Sig Dispensed Refills Start Date End Date Status Dowell-3 Fatty Acids (FISH OIL) 1000 MG Capsule Take 1 Capsule by mouth in the morning. Active nystatin 387923 UNIT/GM creamIndications:Cu taneous candidiasis Apply topically to [...] Suspension (Flonase)Indication s:Nasal congestion,Rhinorrh ea Administer 1 Roxana into each nostril in the morning and 1 Roxana before bedtime. 1 Each 5 02/25/2024 Active [...] mRNA, LNP-s, No Pre serve, 2-Dose Series ([place]) 09/23/2020,08/23/2020 DTaP Dipth/Tet/Acell Pertussis (Infanrix), Peds 08/07/2016 [...] 03/05/2024 9:30 AM EDT Office Visit Orthopaedics [facility] [address] [place] [address] Dario Monge MD [address] [place] [phone] 03/11/2024 1:30 PM EST Office Visit Orthopaedics [facility] [address] [place] [address] Bobby Colunga PA-C [address] [place] [address] 08/04/2024 1:30 PM EDT Imaging Radiology [address] [place] [address] 11/08/2024 11:00 AM EDT Office Visit Family Medicine [address] [place] [phone] Vidya Mai MD [address] [place] [address] [place] [address] Scheduled Procedures Name [...] this encounter Medical Devices Implanted Type Area Buffing Wheel Former Automatic Device Identifier Shelf Expiration Date Model / Serial / Lot Zilver 518 Vascular Stent Implanted:Qty: 1 on 02/16/2020 by Remi Michaud MD [place] [facility] [employer] 01/12/2023 ZIV5-1 8-12 5-8-80 / / [id number] Knee Triathlon Bead No Dmitri L 2 - [id number] Implanted:Qty: 1 on 08/13/2021 by Solomon Leon DO at OR [facility] Left: Knee NICHOLAS : ORTHOPAEDICS 09/23/2025 5517-F-201 / / [id number] Baseplate #2 Tritanium - [id number] Implanted:Qty: 1 on 08/13/2021 by Solomon Leon DO at OR [facility] Left: Knee NICHOLAS : ORTHOPAEDICS 10/12/2025 5536-B-200 / / [id number] Triathlon X3 Tibial Bearing Insert - Cs Implanted:Qty: 1 on 08/13/2021 by Solomon Leon DO at OR [facility] Left: Knee NICHOLAS : ORTHOPAEDICS 08/21/2025 5531-G-210 -E / / [id number] Cement Bone Simplex Hv & G - [id number] Implanted:Qty: 2 on 12/04/2022 by Solomon Leon DO at OR [facility] Right: Knee NICHOLAS : ORTHOPAEDICS 01/03/2024 6195-1-010 / / [id number] Knee Tria Syetric X3 8x27 - [id number] Implanted:Qty: 1 on 12/04/2022 by Solomon Leon DO at OR [facility] Right: Knee NICHOLAS : ORTHOPAEDICS 06/22/2024 5550-G-278 -E / / 51VA Knee Triathlon Cruciate Fe 2 R - [id number] Implanted:Qty: 1 on 12/04/2022 by Solomon Leon, DO at OR [facility] Right: Knee NICHOLAS : ORTHOPAEDICS 12/20/2026 5510-F-202 / / [id number] Knee Baseplate Tri Tib Sz 2 - [id number] Implanted:Qty: 1 on 12/04/2022 by Solomon Leon, DO at OR [facility] Right: Knee NICHOLAS : ORTHOPAEDICS 12/17/2025 5521-B-200 / / [id number] Triathlon X3 Tibial Bearing Insert- Cs Implanted:Qty: 1 on 12/04/2022 by Solomon Leon, DO at OR [facility] Right: Knee 10/16/2027 5531-G-210 -E [...]
--- OUTSIDE RECORDS SUMMARY | 2024-03-06 19:34 | External Medical Summary | Summary of Care ---
Author Name Unknown Organization [facility] Address [address] [place] [address] Phone [phone] Care Team Providers Care Wood Cutter Name Role Phone Unavailable Primary Care Provider Unavailabl e Encounter Details Date Type Department Care Team (Late st Contact Info) Description 03/04/2024 Patient Reported Data Patient Survey Ortho [facility] Allergies Active Allergy Reactions Criticality Noted Date Comments Prochlorperazine Edisylate 8 Feeling of skin crawling Gabapentin 04/06/2018 Paresthesias Pregabalin 04/06/2018 [place] suicidal Penicillins 04/06/2018 Mom was allergic to PCN - they told her she was too Prochlorperazine 10/28/2019 Phenazopyridine Hcl Hives 04/06/2018 Sulfa Antibiotics Anaphylaxis High 04/06/2018 Closes airway documented as of this encounter (statuses as of 03/04/2024) Medications Medication Sig Dispensed Refills Start Date End Date Status [place]-3 Fatty Acids (FISH OIL) 1000 MG Capsule Take 1 Capsule by mouth in the morning. Active nystatin 471474 UNIT/GM creamIndications:Cu taneous candidiasis Apply topically to [...] Suspension (Flonase)Indication s:Nasal congestion,Rhinorrh ea Administer 1 [place] into each nostril in the morning and 1 L[place] before bedtime. 1 Each 5 02/25/2024 Active [...] mRNA, LNP-s, No Pre serve, 2-Dose Series ([employer]) 09/23/2020,08/23/2020 DTaP Dipth/Tet/Acell Pertussis (Infanrix), Peds 08/07/2016 [...] 03/05/2024 9:30 AM EDT Office Visit Orthopaedics [facility] [address] [id number] Dario Monge MD [address] [phone] 03/11/2024 1:30 PM EST Office Visit Orthopaedics [facility] [address] [address] Bobby Colunga PA-C [address] [place] [address] 08/04/2024 1:30 PM EDT Imaging Radiology [address] [place] [id number] 11/08/2024 11:00 AM EDT Office Visit Family Medicine [address] [place] [phone] Vidya Mai MD [address] [place] [address] [place] [id number] Scheduled Procedures Name [...] this encounter Medical Devices Implanted Type Area Folder Inspector Device Identifier Shelf Expiration Date Model / Serial / Lot Zilver 518 Vascular Stent Implanted:Qty: 1 on 02/16/2020 by Remi Michaud [place] [facility] [employer] 01/12/2023 ZIV5-1 8-12 5-8-80 / / [id number] Knee Triathlon Bead No Dmitri L 2 - [id number] Implanted:Qty: 1 on 08/13/2021 by Solomon Leon DO at OR [facility] Left: Knee NICHOLAS : ORTHOPAEDICS 09/23/2025 5517-F-201 / / [id number] Baseplate #2 Tritanium - [id number] Implanted:Qty: 1 on 08/13/2021 by Solomon Leon DO at OR [facility] Left: Knee NICHOLAS : ORTHOPAEDICS 10/12/2025 5536-B-200 / / [id number] Triathlon X3 Tibial Bearing Insert - Cs Implanted:Qty: 1 on 08/13/2021 by Solomon Leon DO at OR [facility] Left: Knee NICHOLAS : ORTHOPAEDICS 08/21/2025 5531-G-210 -E / / [id number] Cement Bone Simplex Hv & G - [id number] Implanted:Qty: 2 on 12/04/2022 by Solomon Leon DO at OR [facility] Right: Knee NICHOLAS : ORTHOPAEDICS 01/03/2024 6195-1-010 / / [id number] Knee Tria Syetric X3 8x27 - [id number] Implanted:Qty: 1 on 12/04/2022 by Solomon Leon DO at OR [facility] Right: Knee NICHOLAS : ORTHOPAEDICS 06/22/2024 5550-G-278 -E / / 51VA Knee Triathlon Cruciate Fe 2 R - [id number] Implanted:Qty: 1 on 12/04/2022 by Solomon Leon, DO at OR [facility] Right: Knee NICHOLAS : ORTHOPAEDICS 12/20/2026 5510-F-202 / / [id number] Knee Baseplate Tri Tib Sz 2 - [id number] Implanted:Qty: 1 on 12/04/2022 by Solomon Leon, DO at OR [facility] Right: Knee NICHOLAS : ORTHOPAEDICS 12/17/2025 5521-B-200 / / [id number] Triathlon X3 Tibial Bearing Insert- Cs Implanted:Qty: 1 on 12/04/2022 by Solomon Leon, DO at OR [facility] Right: Knee 10/16/2027 5531-G-210 -E / [...]
--- OUTSIDE RECORDS SUMMARY | 2024-03-06 19:35 | External Medical Summary | Summary of Care ---
Author Name Unknown Organization [facility] Address [address] [place] [address] Phone [phone] Care Team Providers Care Vibration Analyst Name Role Phone Unavailable Primary Care Provider Unavailabl e Encounter Details Date Type Department Care Team (Late st Contact Info) Description 02/10/2024 Patient Reported Data Patient Survey Ortho [facility] Allergies Active Allergy Reactions Criticality Noted Date Comments Prochlorperazine Edisylate 8 Feeling of skin crawling Gabapentin 04/06/2018 Paresthesias Pregabalin 04/06/2018 [place] suicidal Penicillins 04/06/2018 Mom was allergic to PCN - they told her she was too Prochlorperazine 10/28/2019 Phenazopyridine Hcl Hives 04/06/2018 Sulfa Antibiotics Anaphylaxis High 04/06/2018 Closes airway documented as of this encounter (statuses as of 02/10/2024) Medications Medication Sig Dispensed Refills Start Date End Date Status [place]-3 Fatty Acids (FISH OIL) 1000 MG Capsule Take 1 Capsule by mouth in the morning. Active nystatin 171680 UNIT/GM creamIndications:Cu taneous candidiasis Apply topically to [...] needed for Nausea. 30 Tablet 09/19/2022 Active Fluticasone Propionate 50 MCG/ACT Nasal Suspension (Flonase)Indication s:Chronic maxillary sinusitis Administer 2 Sprays into each nostril in the morning. 1 Each 5 10/23/2022 Active Clindamycin HCl 150 MG Oral Capsule [...] THE VAGINA AT BEDTIME. DIRECTED. 30 g 10/02/2023 Active Esomeprazole Magnesium 20 MG Oral [...] 1 Tablet by mouth in the morning. 30 Tablet 5 01/29/2024 Active documented as of this encounter (statuses as of 02/10/2024) Active Problems Problem Noted Date Diagnosed Date [...] as of this encounter (statuses as of 02/10/2024) Resolved Problems Problem Noted Date Diagnosed Date Resolved Date Disorder of iron metabolism, unspecified 04/01/2022 07/19/2022 Hypokalemia 04/01/2022 07/19/2022 Psychosocial stressors 10/18/202007/19 Female stress incontinence 05/04/2018 0 07/19/2022 Arthritis of right knee 04/10/201801/03 Chronic arthralgias of knees and hips 04/06/2018 01/17/2023 documented as of this encounter (statuses as of 02/10/2024) Immunizations Name Administration Dates Next Due COVID-19 mRNA, LNP-s, No Pre serve, 2-Dose Series ([employer]) 09/23/2020,08/23/2020 DTaP Dipth/Tet/Acell Pertussis (Infanrix), Peds 08/07/2016 [...] Care Team (Late st Contact Info) Description 02/16/2024 11:20 AM EDT Office Visit Family Medicine [address] [place] [phone] David Limon[address] [place] [address] 02/24/2024 10:20 AM EDT Telemedicine Sleep Disorders [facility] [address] [phone] Bridgette Norwood DO [address] [address] 02/25/2024 11:00 AM EDT Office Visit Otolaryngology [facility] [address] [address] Geeg Duncan PA-C [address] [address] 03/11/2024 1:30 PM EST Office Visit Orthopaedics [facility] [address] [place] [address] Bobby Colunga PA-C [address] [place] [address] 08/04/2024 1:30 PM EDT Imaging Radiology [address] [place] [address] 11/08/2024 11:00 AM EDT Office Visit Family Medicine [address] [place] [phone] Vidya Mai MD [address] [place] [address] [place] [address] 11/14/2025 11:00 AM EDT Office Visit Family Medicine [address] [place] [phone] Vidya Mai MD [address] [place] [address] [place] [id number] Scheduled Procedures Name Priority Associated Diagnoses Date/Ti [...] Albumin/Creatinine Ratio 07/26/2024 07/26/2021 Mammogram 08/03/2024 08/04/2023, 0 05/2023, 07/30/2022, Additional history exists GFR 01/28/2025 01/29/2024, 09/2023, 04/14/2023, Additional history exists Colonoscopy 10/29/2025 10/29/2022, 10/29/2022 Colorectal Cancer Screening 10/29/2025 MENINGOCOCCAL (MENACTRA/MENVEO) (3 - Risk 2-dose series) 07/19/2026 07/19/2021, 08/19/2018 Pneumococcal Vaccine: Pediatrics (0 to 5 Years) and At-Risk Patients (6 to 64 Years) (3 of 3 - PPSV23 or PCV20) 07/19/2026 07/19/2021, 08/19/2018 DTap/Tdap Vaccines (3 - Td or Tdap) 08/07/2026 08/07/2016, 03/05/2009 Diabetes Screening 01/28/2027 01/29/2024, 0 07/08/2023, 04/14/2023, Additional history exists Lipid Panel 01/28/2029 01/29/2024, 09/02, 07/19/2022, Additional history exists Hepatitis B Vaccine Completed 01/20/2023, 08/19/2022, 07/19/2022 HPV (Gardasil) Vaccine Aged Out No lo nger eligible based on patient's age to complete this topic documented as of this encounter Medical Devices Implanted Type Area Prevocational/Rehabilitation Counselor Device Identifier Shelf Expiration Date Model / Serial / Lot Zilver 518 Vascular Stent Implanted:Qty: 1 on 02/16/2020 by Remi Michaud MD [place] [facility] [employer] 01/12/2023 ZIV5-1 8-12 5-8-80 / / [id number] Knee Triathlon Bead No Dmitri L 2 - [id number] Implanted:Qty: 1 on 08/13/2021 by Solomon Leon DO at OR [facility] Left: Knee NICHOLAS : ORTHOPAEDICS 09/23/2025 5517-F-201 / / [id number] Baseplate #2 Tritanium - [id number] Implanted:Qty: 1 on 08/13/2021 by Solomon Leon DO at OR [facility] Left: Knee NICHOLAS : ORTHOPAEDICS 10/12/2025 5536-B-200 / / [id number] Triathlon X3 Tibial Bearing Insert - Cs Implanted:Qty: 1 on 08/13/2021 by Solomon Leon DO at OR [facility] Left: Knee NICHOLAS : ORTHOPAEDICS 08/21/2025 5531-G-210 -E / / [id number] Cement Bone Simplex Hv & G - [id number] Implanted:Qty: 2 on 12/04/2022 by Solomon Leon DO at OR [facility] Right: Knee NICHOLAS : ORTHOPAEDICS 01/03/2024 6195-1-010 / / [id number] Knee Tria Syetric X3 8x27 - [id number] Implanted:Qty: 1 on 12/04/2022 by Solomon Leon DO at OR [facility] Right: Knee NICHOLAS : ORTHOPAEDICS 06/22/2024 5550-G-278 -E / / 51VA Knee Triathlon Cruciate Fe 2 R - [id number] Implanted:Qty: 1 on 12/04/2022 by Solomon Leon DO at OR [facility] Right: Knee NICHOLAS : ORTHOPAEDICS 12/20/2026 5510-F-202 / / [id number] Knee Baseplate Tri Tib Sz 2 - [id number] Implanted:Qty: 1 on 12/04/2022 by Solomon Leon DO at OR [facility] Right: Knee NICHOLAS : ORTHOPAEDICS 12/17/2025 5521-B-200 / / [id number] Triathlon X3 Tibial Bearing Insert- Cs Implanted:Qty: 1 on 12/04/2022 by Solomon Leon DO at OR [facility] Right: Knee 10/16/2027 5531-G-210 -E / [...]
--- OUTSIDE RECORDS SUMMARY | 2024-03-06 19:35 | External Medical Summary | Summary of Care ---
Author Name Unknown Organization [facility] Address [address] [place] [facility] [address] Phone [phone] Care Team Providers Care Branch Billing Payroll Clerk Name Role Phone Unavailable Primary Care Provider Unavailabl e Reason for Visit * Reason Comments NEW PATIENT * Evaluate & Treat - Unlimited Visits (Within 30 days (routine)) - Pending Review Specialty Diagnoses / Procedures Referred By Ronnie kline Referred To Contact Otolaryngology Diagnoses Sinus pressure Nasal congestion David Limon CRNP [address] [place] [address] [place] [id number] Referral ID Status Reason Start Date Expiration Date Visits Requested Visits Authorized [id number] Pending Review Specialty Services Required 01/29/[phone] Encounter Details Date Type Department Care Team (Late st Contact Info) Description 02/25/2024 11:00 AM EDT Office Visit Otolaryngology [facility] [address] [facility] [place] [address] Gege Duncan PA-C [address] [place] [address] Nasal congestion*; Rhinorrhea; Sinus pressure [J34.89] Allergies Active Allergy Reactions Criticality Noted Date Comments Prochlorperazine Edisylate 8 Feeling of skin crawling Gabapentin 04/06/2018 Paresthesias Pregabalin 04/06/2018 Beacon suicidal Penicillins 04/06/2018 Mom was allergic to PCN - they told her she was too Prochlorperazine 10/28/2019 Phenazopyridine Hcl Hives 04/06/2018 Sulfa Antibiotics Anaphylaxis High 04/06/2018 Closes airway documented as of this encounter (statuses as of 02/25/2024) Medications Medication Sig Dispensed Refills Start Date End Date Status [place]-3 Fatty Acids (FISH OIL) 1000 MG Capsule Take 1 Capsule by mouth in the morning. Active nystatin 879773 UNIT/GM creamIndications :Cutaneous candidiasis Apply topically to affected area 2 times a day. To affacted area for two weeks. 30 g 2 10/19/2019 Active Ventolin HFA 108 (90 Base) MCG/ACT Inhalation Aerosol SolutionIndicati ons:Bronchitis, complicated Inhale 2 Puffs by mouth every [...] Active Aspirin 325 MG Oral Tablet Delayed ReleaseIndicatio ns:Hypertension goal BP (blood pressure) < 140/90 TAKE [...] Active Rizatriptan Benzoate 10 MG Oral Tablet (Maxalt)Indicati ons:Intractable migraine with aura without status migrainosus Take 1 Tablet by mouth as needed for Migraine. Can take a second dose 2 hours later if needed. No more than 20 mg (2 tablets) in 24 hours 10 Tablet 5 09/30/2023 Active Premarin 0.625 MG/GM Vaginal Cream (Estrogens Conjugated)Indic ations:Vaginal dryness ADMINISTER INTO THE VAGINA AT BEDTIME. DIRECTED. 30 g 5 10/02/2023 Active Esomeprazole Magnesium 20 MG Oral Capsule Delayed ReleaseIndicatio ns:Epigastric pain,Nausea and vomiting, unspecified vomiting type Take [...] Active Losartan Potassium 25 MG Oral Tablet (Cozaar)Indicati ons:HTN, goal below 130/80 Take 1 Tablet by mouth in the morning. 90 Tablet 1 02/24/2024 Active Fluticasone Propionate 50 MCG/ACT Nasal Suspension (Flonase)Indicat ions:Nasal congestion,Rhino rrhea Administer 1 Hayden into each nostril in the morning and 1 Hayden before bedtime. 1 Each 5 02/25/2024 Active Fluticasone Propionate 50 MCG/ACT Nasal Suspension (Flonase)Indicat ions:Chronic maxillary sinusitis Administer 2 Sprays into each nostril in the morning. 1 Each 5 10/23/2022 4 Discontinued documented as of this encounter (statuses as of 02/25/2024) Active Problems Problem Noted Date Diagnosed Date S/P total knee arthroplasty, right 12/04/2022 On pre-exposure prophylaxis for HIV 10/17/2022 Status post total left knee replacement 09/07/19 Encounter for counseling bef [facility] starting and about pre-exposure prophylaxis for HIV [...] as of this encounter (statuses as of 02/25/2024) Resolved Problems Problem Noted Date Diagnosed Date Resolved Date Disorder of iron metabolism, unspecified 04/01/2022 07/19/2022 Hypokalemia 04/01/2022 07/19/2022 Psychosocial stressors 10/18/202007/19 Female stress incontinence 05/04/2018 0 07/19/2022 Arthritis of right knee 04/10/201801/03 Chronic arthralgias of knees and hips 04/06/2018 01/17/2023 documented as of this encounter (statuses as of 02/25/2024) Immunizations Name Administration Dates Next Due COVID-19 [...] on file documented as of this encounter Last Filed Vital Signs Vital Sign Reading Time Taken Comments Blood Pressure - - Pulse - - Temperature 36.3 C (97.4 F) 02/25/2024 10:39 AM E DT Respiratory Rate - - Oxygen Saturation - - Inhaled Oxygen Concentration - - Weight 89.9 kg (198 lb 4.8 oz) 02/25/2024 10:39 AM EDT Height 165.1 cm (5' 5") 02/25/2024 10:39 AM EDT Body Mass Index 33 02/25/2024 10:39 AM EDT documented in this encounter Functional Status Functional Status Response [...] No 12/04/2022 documented as of this encounter Patient Instructions * Patient Instructions* Gege Duncan PA-C - 02/25/2024 11:47 AM EDT Recommended nasal saline rinses twice daily. Use distilled water. Perform saline rinse in the shower leaning over so your nose is below your mouth. With gentle pressure use half of this saline rinse in each nostril. Following the saline rinse, instructed the patient to use a nasal steroid spray taking care to NOT spray towards the septum, but to point the spray outward toward the ear on the same side. Emphasized that this regimen needs to be repeated twice a day, everyday for 6 weeks to reach maximum effect, NOT on an as needed basis. documented in this encounter Progress Notes * Gege Duncan PA-C - 02/25/2024 11:09 AM EDT 02/25/2024 Nursing Notes: Sofia Jay LPN 02/25/24 1046 Signed Patient present today with Mom. She notes in 2000 had sinus surgery - in [place]. Had polyps removed. She is now having pressure under her eyes which is uncomfortable. In 2018 allergy testing was WNL. When she wakes up she can breath fine but then after that she has congestion and runny nose. She notes she has to take singulair in the morning. Then will find herself taking zyrtec. That will helpwith her symptoms. She will use Flonase as needed. Does not use any saline irrigation. She does wear bilateral hearing aids. She notes she quit smoking 2005. She Vapes and smoke marijuana. HISTORY OF PRESENT ILLNESS This 48 year old female is seen at the request of David MACIAS for the initial evaluationof sinus pressure, hx of nasal polyps. Pt here c/o sinus pressure for a long time, along with nasal congestion and rhinorrhea. Typically the congestion and drainage starts as soon as she wakes up. Can be either nostril for congestion and drianage. Drainage is always clear. Getting frontal and maxillary sinus pressure 24/7. Pt had sinus surgery in 2000 (in [place]), had polyps removed. Recalls having similar complaints back before her surgery. She moved to [place] in 2019 and felt her symptoms started again. Per allergy testing in 2019, blood testing came back normal although she is taking singulair and cetirizine. Using flonase as needed. Was told not to use routinely. She does get HAs from pseudotumor cerebri. Has trouble distinguishing those CONCEPCION from sinus issues attimes. Does not use routine nasal saline spray or irrigations. Had childhood asthma, no issues as an adult. Hx of smoking, quit in 2005. She currently vapes and uses medical marijuana. She does have a prior history of cocaine use. Problem List Patient Active Problem List Diagnosis Fibromyalgia History of ITP Gastroesophageal reflux disease with esophagitis Pseudotumor cerebri Premature menopause Status post splenectomy Medical marijuana use Chronic left shoulder pain HTN, goal below 130/80 Tinnitus of both ears Seasonal allergic rhinitis due to pollen Athlete's foot, right Restless legs syndrome (RLS) Encounter for counseling before starting and about pre-exposure prophylaxis for HIV High risk bisexual behavior Hyperlipidemia with target LDL less than 130 Status post total left knee replacement On pre-exposure prophylaxis for HIV S/P total knee arthroplasty, right Past Medical History: Diagnosis Date Anxiety Cervical cancer (HCC) Chronic headaches Chronic pain of right knee 04/06/2018 COVID 05/24/2021 Endometriosis Esophageal ulcer Fibromyalgia Gastric ulcer GERD (gastroesophageal reflux disease) History of ITP age 16 HLD (hyperlipidemia) HTN (hypertension) Idiopathic thrombocytopenic purpura (ITP) (HCC) Medical marijuana use OA (osteoarthritis) Sleep apnea CPAP Sleep apnea, obstructive Past Surgical History: Procedure Laterality Date ANESTHESIA, KNEE JOINT ARTHROSCOPY Right 1994 ARTHROPLASTY KNEE TOTAL Left 08/13/2021 ROBOTIC ARTHROPLASTY KNEE TOTAL performed by Solomon Leon DO at OR [facility] ARTHROPLASTY KNEE TOTAL Right 12/04/2022 ROBOTIC ARTHROPLASTY KNEE TOTAL performed by Solomon Leon DO at OR [facility] BREAST BIOPSY Right benign CAROTID (INTERNAL) ARTERY CATHETHER PLACEMENT N/A 12/24/2019 CATHETER PLACEMENT INTERNAL CAROTID ARTERY performed by Remi Michaud MD [place] [facility] CAROTID (INTERNAL) ARTERY CATHETHER PLACEMENT Right 02/16/2020 CATHETER PLACEMENT INTERNAL CAROTID ARTERY performed by Remi Michaud MD at [place] [facility] COLONOSCOPY, DIAGNOSTIC (RECTUM) 10/29/2022 diverticulosis/hemorrhoids/biopsies show adenomatous polyps/recall 3 years/COLONOSCOPY FLEXIBLE PROXIMAL DIAGNOSTIC performed by Rosendo Rodriguez MD at ENDOSCOPY [facility] CREATE SPINAL SHUNT, W/LAMINECTOMY 2013 [employer] Shunt EGD, FLEXIBLE, DIAGNOSTIC 04/10/2018 normal bx/ESOPHAGOGASTRODUODENOSCOPY (EGD), FLEXIBLE, TRANSORAL, DIAGNOSTIC performed by Barrett Petersen MD at ENDOSCOPY [facility] EGD, FLEXIBLE, DIAGNOSTIC 09/23/2022 biopsies normal/ESOPHAGOGASTRODUODENOSCOPY (EGD), FLEXIBLE, TRANSORAL, DIAGNOSTIC performed by MD Genny at ENDOSCOPY [facility] INFORMATION Right R CTR INFORMATION Laparoscopy for endometriosis x 4. INFORMATION . INTRACRANIAL INTRAVASCULAR STENT,INCL ANGIO Right 02/16/2020 TRANSCATHETER PLACEMENT OF INTRAVASCULAR STENTS, INTRACRANIAL performed by Remi Michaud MD at [place] [facility] REMOVAL OF APPENDIX age 14 REMOVAL OF SPINAL SHUNT SYSTEM N/A 01/06/2020 REMOVAL SHUNT LUMBAR PERITONEAL WITHOUT REPLACEMENT performed by Remi Michaud MD at [place] [facility] REMOVAL OF SPLEEN, TOTAL age 16 Dx ITP REMOVAL OF TONSILS, AGE 12+ age 16 REMOVE GALLBLADDER 2017 SINUS SURGERY PROCEDURE NEC 2002 TOTAL HYSTERECTOMY 2009 dx endometriosis VERTEBRAL ARTERY CATHETER PLACEMENT N/A 12/24/2019 CATHETER PLACEMENT VERTEBRAL ARTERY, performed by Remi Michaud MD at [place] [facility] VERTEBRAL ARTERY CATHETER PLACEMENT Right 02/16/2020 CATHETER PLACEMENT VERTEBRAL ARTERY, performed by Remi Michaud MD at [place] [facility] Medications Current Outpatient Medications Medication Sig Dispense Refill [place]-3 Fatty Acids (FISH OIL) 1000 MG Capsule Take 1 Capsule by mouth in the morning. nystatin 100202 UNIT/GM cream Apply topically to affected area [...] as needed for Nausea. 30 Tablet 0 Fluticasone Propionate 50 MCG/ACT Nasal Suspension (Flonase) Administer 2 Sprays into each nostril in the morning. 1 Each 5 Clindamycin HCl 150 MG Oral Capsule (Cleocin) [...] mouth in the morning. 90 Tablet 1 No current facility-administered medications for this visit. Allergies Review of patient's allergies indicates: Allergen Reactions Sulfa Antibiotics Anaphylaxis Closes airway Compazine [Prochlorperazine Edisylate] Feeling of skin crawling Gabapentin Paresthesias Lyrica [Pregabalin] Beacon suicidal Penicillins Mom was allergic to PCN - they told her she was too Prochlorperazine Pyridium [Phenazopyridine Hcl] Hives Family History Family History Problem Relation Name Age of Onset Arthritis Mother knees replaced Other (ITP) Mother Prostate cancer Father Migraines Father Autism spectrum disorder Daughter Blood Disorder Daughter Arthritis Brother cervical spinal fusion Migraines Brother Breast Cancer No significant family history Social History Social History Tobacco Use Smoking status: Former Current packs/day: 0.00 Types: Cigarettes, Vaporizer Quit date: 05/05/2005 Years since quittin.8 Passive exposure: Past Smokeless tobacco: Never Tobacco comments: Quit smoking in 2006 - Currently Vapes and smokes medical marijuana Substance Use Topics Alcohol use: Yes Comment: occasional Vaping/E-Cigarette Use Vaping/E-Cigarette Use Current Every Day User Comments prescribed Vaping/E-Cigarette Substances Nicotine No Other No Flavoring No THC Yes Cannabidiol (CBD) No Vaping/E-Cigarette Devices Disposable No Pre-filled or Refillable Cartridge Yes Refillable Tank No Pre-filled Pod No Review of Systems Negative for constitutional, eyes, cardiac, pulmonary, hepatic, renal, digestive, hematologic, epileptic, syncopal, musculo-skeletal, mental health, integumentary, hypertensive, lipid, arthritic, diabetic, thyroid, or neurologic disorders (except as listed in the PMH and Problem List). Physical Examination: Temp 36.3 C (97.4 F) (Tympanic) | Ht 1.651 m (5' 5") | Wt 89.9 kg (198 lb 4.8 oz) | BMI 33.00 kg/m | BSA 2.03 m Vital Signs: Filed Vitals: 02/25/24 1039 Temp: 36.3 C (97.4 F) TempSrc: Tympanic Weight: 89.9 kg (198 lb 4.8 oz) Height: 1.651 m (5' 5") General: this is a healthy appearing female who appears her stated age. The patient is alert and appropriately verbally conversant without hoarseness. Face: The face was inspected and no cutaneous masses or lesions were visualized. There was no erythema or edema noted. Facial movement was symmetric without weakness. No skin lesions were detected. There was no sinus tenderness elicited. The parotid and submandibular glands were normal to palpation. Eyes: Extra-ocular muscle function was intact. No nystagmus was observed. Pupils were equal. Nose: Examination of the nose revealed no masses, polyps, mucopus, or other lesion. There was clearrhinorrhea present. The nasal septum was non-obstructing. The turbinates were without acute abnormality. See procedure below: Oral Cavity: Examination of the oral cavity revealed no mass lesions nor infection. The palate was noted to be intact without evidence of clefting. The tongue exhibited normal mobility. Mucosa was moist without lesion. The lips were free of lesion. Gums were free of inflammation. Dentition: Unremarkable Oropharynx: The oral pharynx was free of mass lesion or mucosal abnormality. The palate was noted to be without lesion. The uvula was normal appearing. Ears: Examination of the ears revealed that the auricles were normally formed with no lesions. The external auditory canals were clear. The tympanic membranes were intact. There are no significant retraction pockets. There is no inflammation visualized. No effusions are seen. Neck: Visualization and palpation of the neck revealed no mass lesions, no thyromegaly or thyroid masses. No skin lesions or inflammatory processes were detected. The cervical musculature was normal to palpation. Lymphatics (cervical): There were no palpable lymph nodes in the posterior triangle, submandibular triangle, jugulodigastric region, or central neck. Lungs: The lungs were auscultated and breath sounds were clear bilaterally. Procedure: In order to assess the paranasal sinuses, endoscopy of the nose and paranasal sinuses was performed. The nose was decongested with topical oxymetazoline 0.05% spray and then anesthetized with topicalLidocaine 4% spray. The scope was used to examine each side of the nose. There were no masses visualized. The nasal mucosa was without lesion. The middle meatus on each side was clear of mass, polyp,or mucopus. There was clear rhinorrhea present. The septum was non- obstructing. The nasopharynx waswithout lesion. The patient tolerated the procedure well. Assessment: 48-year-old female with clear rhinorrhea, nasal congestion, and chronic sinus pressure. Plan: Advised to start nasal saline irrigations twice daily followed by routine Flonase nasal steroid spray 1 spray each nostril twice daily. Prescription sent to the pharmacy. No polyps visualized on exam today. Given clear nasal drainage we will repeat [place] allergen testing, we will contact her with the results once finalized. Can consider Astelin nasal spray if allergy testing comes positive or if clear nasal drainage persists Could consider CT of the sinuses if symptoms fail to resolve with conservative measures noted above. Follow-up in 8-10 weeks for recheck I spent a total of 30-39 minutes (exact time 30 mins) on the date of service in preparation, delivery, and documentation of the care provided to Keiry York excluding any time spent in the performance of separately billed services or time spent by another provider/QHP. Gege Duncan PA-C [facility]Y [facility] 02/25/2024 documented in this encounter Nursing Notes * Sofia Jay LPN - 02/25/2024 10:40 AM EDT Patient present today with Mom. She notes in 2000 had sinus surgery - in [place]. Had polyps removed. She is now having pressure under her eyes which is uncomfortable. In 2018 allergy testing was WNL. When she wakes up she can breath fine but then after that she has congestion and runny nose. She notes she has to take singulair in the morning. Then will find herself taking zyrtec. That will helpwith her symptoms. She will use Flonase as needed. Does not use any saline irrigation. She does wear bilateral hearing aids. She notes she quit smoking 2005. She Vapes and smoke marijuana. documented in this encounter Plan of Treatment Upcoming Encounters Date Type Department Care Team (Late st Contact Info) Description 03/11/2024 1:30 PM EST Office Visit Orthopaedics [facility] [address] [facility] [place] [address] Bobby Colunga PA-C [facility] [address] [place] [address] 08/04/2024 1:30 PM EDT Imaging Radiology [address] [place] [id number] 11/08/2024 11:00 AM EDT Office Visit Family Medicine [address] [place] [phone] Vidya Mai MD [address] [place] [address] [place] [phone] Pending Results Name Type Priority Associated Diagnoses Date /Time [facility] Lab Routine Nasal congestion Rhinorrhea 02/25/2024 12:04 PM EDT Scheduled Orders Name Type Priority Associated Diagnoses Orde r Schedule [facility] Lab Routine Nasal congestion Rhinorrhea Expected: 02/25/2024, Expires: 02/24/2025 Scheduled Procedures Name Priority Associated Diagnoses Date/Ti [...] this encounter Medical Devices Implanted Type Area Thread Cutter Tender Device Identifier Shelf Expiration Date Model / Serial / Lot Zilver 518 Vascular Stent Implanted:Qty: 1 on 02/16/2020 by Remi Michaud MD [place] [facility] [employer] 01/12/2023 [id number] 8-12 5-8-80 / / [id number] Knee Triathlon Bead No Dmitri L 2 - [id number] Implanted:Qty: 1 on 08/13/2021 by Solomon Leon DO at OR [facility] Left: Knee NICHOLAS : ORTHOPAEDICS 09/23/2025 5517-F-201 / / [id number] Baseplate #2 Tritanium - [id number] Implanted:Qty: 1 on 08/13/2021 by Solomon Leon DO at OR [facility] Left: Knee NICHOLAS : ORTHOPAEDICS 10/12/2025 5536-B-200 / / [id number] Triathlon X3 Tibial Bearing Insert - Cs Implanted:Qty: 1 on 08/13/2021 by Solomon Leon DO at OR [facility] Left: Knee NICHOLAS : ORTHOPAEDICS 08/21/2025 5531-G-210 -E / / [id number] Cement Bone Simplex Hv & G - [id number] Implanted:Qty: 2 on 12/04/2022 by Solomon Leon DO at OR [facility] Right: Knee NICHOLAS : ORTHOPAEDICS 01/03/2024 6195-1-010 / / [id number] Knee Tria Syetric X3 8x27 - [id number] Implanted:Qty: 1 on 12/04/2022 by Solomon Leon, DO at OR [facility] Right: Knee NICHOLAS : ORTHOPAEDICS 06/22/2024 5550-G-278 -E / / [id number] Knee Triathlon Cruciate Fe 2 R - [id number] Implanted:Qty: 1 on 12/04/2022 by Solomon Leon, DO at OR [facility] Right: Knee NICHOLAS : ORTHOPAEDICS 12/20/2026 5510-F-202 / / [id number] Knee Baseplate Tri Tib Sz 2 - [id number] Implanted:Qty: 1 on 12/04/2022 by Solomon Leon, DO at OR [facility] Right: Knee NICHOLAS : ORTHOPAEDICS 12/17/2025 5521-B-200 / / [id number] Triathlon X3 Tibial Bearing Insert- Cs Implanted:Qty: 1 on 12/04/2022 by Solomon Leon, at OR [facility] Right: Knee 10/16/2027 5531-G-210 -E / / [id number] documented as of this encounter Visit Diagnoses Diagnosis Nasal congestion- Primary Other diseases of nasal cavity and sinuses Rhinorrhea Other diseases of nasal cavity and sinuses Sinus pressure [J34.89] Other diseases of nasal cavity and sinuses documented in this encounter Advance Directives * [...]
--- OUTSIDE RECORDS SUMMARY | 2024-03-06 19:35 | External Medical Summary | Summary of Care ---
Author Name Unknown Organization [facility] Address [address] [place] [address] Phone [phone] Care Team Providers Care Refractory Tile Helper Name Role Phone Unavailable Primary Care Provider Unavailabl e Encounter Details Date Type Department Care Team (Late st Contact Info) Description 02/23/2024 Orders Only Outcomes Research Department [address] [place], [place] [id number] Merline Walter CHRA MyCode Research Other*[id number] Allergies Active Allergy Reactions Criticality Noted Date Comments Prochlorperazine Edisylate 8 Feeling of skin crawling Gabapentin 04/06/2018 Paresthesias Pregabalin 04/06/2018 [place] suicidal Penicillins 04/06/2018 Mom was allergic to PCN - they told her she was too Prochlorperazine 10/28/2019 Phenazopyridine Hcl Hives 04/06/2018 Sulfa Antibiotics Anaphylaxis High 04/06/2018 Closes airway documented as of this encounter (statuses as of 02/23/2024) Medications Medication Sig Dispensed Refills Start Date End Date Status [place]-3 Fatty Acids (FISH OIL) 1000 MG Capsule Take 1 Capsule by mouth in the morning. Active nystatin 517235 UNIT/GM creamIndications:Cu taneous candidiasis Apply topically to [...] as of this encounter (statuses as of 02/23/2024) Active Problems Problem Noted Date Diagnosed Date [...] as of this encounter (statuses as of 02/23/2024) Resolved Problems Problem Noted Date Diagnosed Date Resolved Date Disorder of iron metabolism, unspecified 04/01/2022 07/19/2022 Hypokalemia 04/01/2022 07/19/2022 Psychosocial stressors 10/18/202007/19 Female stress incontinence 05/04/2018 0 07/19/2022 Arthritis of right knee 04/10/201801/03 Chronic arthralgias of knees and hips 04/06/2018 01/17/2023 documented as of this encounter (statuses as of 02/23/2024) Immunizations Name Administration Dates Next Due COVID-19 mRNA, LNP-s, No Pre serve, 2-Dose Series ([employer]) 09/23/2020,08/23/2020 DTaP Dipth/Tet/Acell Pertussis (Infanrix), Peds 08/07/2016 [...] Care Team (Late st Contact Info) Description 02/24/2024 10:20 AM EDT Telemedicine Sleep Disorders Ctr [facility] [address] [place] [address] [phone] Bridgette Norwood DO [address] [address] 02/25/2024 11:00 AM EDT Office Visit Otolaryngology [facility] [address] [address] Gege Duncan PA-C [address] [address] 03/11/2024 1:30 PM EST Office Visit Orthopaedics [facility] [address] [place] [address] [address] Bobby Colunga PA-C [address] [address] [employer] [place] [address] 08/04/2024 1:30 PM EDT Imaging Radiology [address] [place] [address] 11/08/2024 11:00 AM EDT Office Visit Family Medicine [address] [place] [phone] Vidya Mai MD [address] [place] [address] [place] [id number] Scheduled Orders Name Type Priority Associated Diagnoses Orde r Schedule MYCODE SUBSEQUENT ADULT Lab Routine MyCode Research Other*[id number] Every 6 Months for 2 Occurrences starting 02/23/2024 until 03/14/2025 Scheduled Procedures Name Priority Associated Diagnoses Date/Ti [...] this encounter Medical Devices Implanted Type Area Stock Ranch Supervisor Device Identifier Shelf Expiration Date Model / Serial / Lot Zilver 518 Vascular Stent Implanted:Qty: 1 on 02/16/2020 by Remi Michaud MD at OR [facility] [place] [employer] 01/12/2023 ZIV5-1 8-12 5-8-80 / / [id number] Knee Triathlon Bead No Dmitri L 2 - [id number] Implanted:Qty: 1 on 08/13/2021 by Solomon Leon DO at OR [facility] Left: Knee NICHOLAS : [employer] 09/23/2025 5517-F-201 / / [id number] Baseplate #2 Tritanium - [id number] Implanted:Qty: 1 on 08/13/2021 by Solomon Leon DO at OR [facility] Left: Knee NICHOLAS : ORTHOPAEDICS 10/12/2025 5536-B-200 / / [id number] Triathlon X3 Tibial Bearing Insert - Cs Implanted:Qty: 1 on 08/13/2021 by Solomon Leon DO at OR [facility] Left: Knee NICHOLAS : ORTHOPAEDICS 08/21/2025 5531-G-210 -E / / [id number] Cement Bone Simplex Hv & G - [id number] Implanted:Qty: 2 on 12/04/2022 by Solomon Leon, DO at OR [facility] Right: Knee NCIHOLAS : ORTHOPAEDICS 01/03/2024 6195-1-010 / / [id number] Knee Tria Syetric X3 8x27 - [id number] Implanted:Qty: 1 on 12/04/2022 by Solomon Leon, at OR [facility] Right: Knee NICHOLAS : ORTHOPAEDICS 06/22/2024 5550-G-278 -E / / 51VA Knee Triathlon Cruciate Fe 2 R - [id number] Implanted:Qty: 1 on 12/04/2022 by Solomon Leon, at OR [facility] Right: Knee NICHOLAS : ORTHOPAEDICS 12/20/2026 5510-F-202 / / [id number] Knee Baseplate Tri Tib Sz 2 - [id number] Implanted:Qty: 1 on 12/04/2022 by Solomon Leon, at OR [facility] Right: Knee NICHOLAS : ORTHOPAEDICS 12/17/2025 5521-B-200 / / [id number] Triathlon X3 Tibial Bearing Insert- Cs Implanted:Qty: 1 on 12/04/2022 by Solomon Leon, at OR [facility] Right: Knee 10/16/2027 5531-G-210 -E / / [id number] documented as of this encounter Visit Diagnoses Diagnosis MyCode Research Other*[id number] documented in this encounter Advance Directives * [...]
--- OUTSIDE RECORDS SUMMARY | 2024-03-06 19:35 | External Medical Summary | Summary of Care ---
Author Name Unknown Organization [facility] Address [address] [place] [address] Phone [phone] Care Team Providers Care Dioramist Name Role Phone Unavailable Primary Care Provider Unavailabl e Reason for Visit * Reason Comments Outpatient Testing Encounter Details Date Type Department Care Team (Late st Contact Info) Description 02/16/2024 12:00 PM EDT Laboratory Laboratory [address] [place] [phone] [address] [place] [address] HTN, goal below 130/80 Allergies Active Allergy Reactions Criticality Noted Date Comments Prochlorperazine Edisylate 8 Feeling of skin crawling Gabapentin 04/06/2018 Paresthesias Pregabalin 04/06/2018 [place] suicidal Penicillins 04/06/2018 Mom was allergic to PCN - they told her she was too Prochlorperazine 10/28/2019 Phenazopyridine Hcl Hives 04/06/2018 Sulfa Antibiotics Anaphylaxis High 04/06/2018 Closes airway documented as of this encounter (statuses as of 02/16/2024) Medications Medication Sig Dispensed Refills Start Date End Date Status [place]-3 Fatty Acids (FISH OIL) 1000 MG Capsule Take 1 Capsule by mouth in the morning. Active nystatin 859049 UNIT/GM creamIndications:Cu taneous candidiasis Apply topically to [...] as of this encounter (statuses as of 02/16/2024) Active Problems Problem Noted Date Diagnosed Date [...] as of this encounter (statuses as of 02/16/2024) Resolved Problems Problem Noted Date Diagnosed Date Resolved Date Disorder of iron metabolism, unspecified 04/01/2022 07/19/2022 Hypokalemia 04/01/2022 07/19/2022 Psychosocial stressors 10/18/202007/19 Female stress incontinence 05/04/2018 0 07/19/2022 Arthritis of right knee 04/10/201801/03 Chronic arthralgias of knees and hips 04/06/2018 01/17/2023 documented as of this encounter (statuses as of 02/16/2024) Immunizations Name Administration Dates Next Due COVID-19 [...] money to buy more. Never true 07/20/19 Within the past 12 months, t he [...] 10:20 AM EDT Telemedicine Sleep Disorders Ctr [facility] [address] [phone] Bridgette Norwood DO [address] [address] 02/25/2024 11:00 AM EDT Office Visit Otolaryngology [facility] [address] [address] Gege Duncan PA-C [address] [address] 03/11/2024 1:30 PM EST Office Visit Orthopaedics [facility] [address] [place] [address] Bobby Colunga PA-C [address] [place] [address] 08/04/2024 1:30 PM EDT Imaging Radiology [address] [place] [address] 11/08/2024 11:00 AM EDT Office Visit Family Medicine [address] [phone] Vidya Mai MD [address] [place] [address] [place] [address] 11/14/2025 11:00 AM EDT Office Visit Family Medicine [address] [place] [phone] Vidya Mai MD [address] [place] [address] [place] [id number] Pending Results Name Type Priority Associated Diagnoses Date /Time BASIC METABOLIC PANEL Lab Routine HTN, goal below 130/80 02/16/2024 11:36 AM EDT Scheduled Procedures Name Priority Associated [...] this encounter Medical Devices Implanted Type Area Personnel Arbitrator Device Identifier Shelf Expiration Date Model / Serial / Lot Zilver 518 Vascular Stent Implanted:Qty: 1 on 02/16/2020 by Remi Michaud MD at OR [facility] [place] [place] [employer] 01/12/2023 ZIV5-1 8-12 5-8-80 / / [id number] Knee Triathlon Bead No Dmitri L 2 - [id number] Implanted:Qty: 1 on 08/13/2021 by Solomon Leon DO at OR [facility] Left: Knee NICHOLAS : ORTHOPAEDICS 09/23/2025 5517-F-201 / / [id number] Baseplate #2 Tritanium - [id number] Implanted:Qty: 1 on 08/13/2021 by Solomon Leon DO at OR [facility] Left: Knee NICHOLAS : ORTHOPAEDICS 10/12/2025 5536-B-200 / / [id number] Triathlon X3 Tibial Bearing Insert - Cs Implanted:Qty: 1 on 08/13/2021 by Solomon Leon DO at OR [facility] Left: Knee NICHOLAS : ORTHOPAEDICS 08/21/2025 5531-G-210 -E / / [id number] Cement Bone Simplex Hv & G - [id number] Implanted:Qty: 2 on 12/04/2022 by Solomon Leon DO at OR [facility] Right: Knee NICHOLAS : ORTHOPAEDICS 01/03/2024 6195-1-010 / / [id number] Knee Tria Syetric X3 8x27 - [id number] Implanted:Qty: 1 on 12/04/2022 by Solomon Leon DO at OR [facility] Right: Knee NICHOLAS : ORTHOPAEDICS 06/22/2024 5550-G-278 -E / / 51VA Knee Triathlon Cruciate Fe 2 R - [id number] Implanted:Qty: 1 on 12/04/2022 by Solomon Leon DO at OR [facility] Right: Knee NICHOLAS : ORTHOPAEDICS 12/20/2026 5510-F-202 / / [id number] Knee Baseplate Tri Tib Sz 2 - [id number] Implanted:Qty: 1 on 12/04/2022 by Solomon Leon DO at OR [facility] Right: Knee NICHOLAS : ORTHOPAEDICS 12/17/2025 5521-B-200 / / [id number] Triathlon X3 Tibial Bearing Insert- Cs Implanted:Qty: 1 on 12/04/2022 by Solomon Leon DO at OR [facility] Right: Knee 10/16/2027 5531-G-210 -E / / [id number] documented as of this encounter Visit Diagnoses Diagnosis HTN, goal below 130/80 Unspecified essential hypertension documented in this encounter Advance Directives * [...]
--- OUTSIDE RECORDS SUMMARY | 2024-03-06 19:35 | External Medical Summary ---
Author Name Unknown Address Unknown Organization K01:LABORATORY [facility] [place] - [facility] [address] [facility] [address] Laboratory Report Ordering Provider Test Date Status BAILEY CHEATHAM 02/16/2024 11:36:38 Final Observation Date Value Abnormality Reference (Units ) Status BUN 02/16/2024 11:36:38 13 6-20 (mg/dL) Final Creatinine 02/16/2024 11:36:38 0.9 0.5-1.0 (mg/dL) Final Glomerular filtration rate/1.73 sq M.predicted [Volume Rate/Area] in Serum, Plasma or Blood by Creatinine-based formula (CKD-EPI) 02/16/2024 11:36:38 83 >=60 (mL/min) Final eGFR is calculated based on the CKD-EPI 2020 equation. Sodium 02/16/2024 11:36:38 143 135-146 (m mol/L) Final Potassium 02/16/2024 11:36:38 4.3 3.5-5.1 (m mol/L) Final Cl 02/16/2024 11:36:38 107 98-107 (mm ol/L) Final CO2 02/16/2024 11:36:38 24 22-32 (mmo l/L) Final Anion gap 02/16/2024 11:36:38 12 7-15 (mmol /L) Final Glucose 02/16/2024 11:36:38 86 70-120 (mg /dL) Final Calcium 02/16/2024 11:36:38 9.6 8.4-10.2 ( mg/dL) Final Performing Location LAB[facility]ORY [facility] - [facility] [address] [facility] [address]
--- OUTSIDE RECORDS SUMMARY | 2024-03-06 19:35 | External Medical Summary | Summary of Care ---
Author Name Unknown Organization [facility] Address [address] [facility] [place] [address] Phone [phone] Care Team Providers Care Coil Former Name Role Phone Unavailable Primary Care Provider Unavailabl e Reason for Visit * Reason Comments Physical-Exam Encounter Details Date Type Department Care Team (Late st Contact Info) Description 02/16/2024 11:20 AM EDT Office Visit Family Medicine [address] [phone] David Limon [address] [place], [place] [id number] HTN, goal below 130/80*; Hyperlipidemia with target LDL less than 130; Gastroesophageal reflux disease with esophagitis without hemorrhage; Seasonal allergic rhinitis due to pollen; Intractable migraine with aura without status migrainosus Allergies Active Allergy Reactions Criticality Noted Date Comments Prochlorperazine Edisylate 8 Feeling of skin crawling Gabapentin 04/06/2018 Paresthesias Pregabalin 04/06/2018 [place] suicidal Penicillins 04/06/2018 Mom was allergic to PCN - they told her she was too Prochlorperazine 10/28/2019 Phenazopyridine Hcl Hives 04/06/2018 Sulfa Antibiotics Anaphylaxis High 04/06/2018 Closes airway documented as of this encounter (statuses as of 02/16/2024) Medications Medication Sig Dispensed Refills Start Date End Date Status [place]-3 Fatty Acids (FISH OIL) 1000 MG Capsule Take 1 Capsule by mouth in the morning. Active nystatin 311038 UNIT/GM creamIndications:Cu taneous candidiasis Apply topically to [...] Passive Smoke Exposure: Past Smokeless Tobacco: Never Tobacco Cessation:Counseling Given: Not Answered Comments:Quit smoking in 2005 - Currently Vapes and [...] Sign Reading Time Taken Comments Blood Pressure 120/72 02/16/2024 11:05 AM EDT Pulse 75 02/16/2024 11:05 AM EDT Temperature 36.2 C (97.1 F) 02/16/2024 11:05 AM E DT Respiratory Rate 16 02/16/2024 11:05 AM EDT Oxygen Saturation 95% 02/16/2024 11:05 AM EDT Inhaled Oxygen Concentration - - Weight 90.9 kg (200 lb 8 oz) 02/16/2024 11:05 AM EDT Height - - Body Mass Index 33.36 06/30/2023 9:23 AM EST documented in this encounter Functional Status Functional [...] as of this encounter Progress Notes * David Limon CRNP - 02/16/2024 11:11 AM EDT Images from the original note were not included. History of Present Illness Keiry York is a 48 year old female that presents for Physical-Exam Past medical hx of HTN, HLD, fibromyalgia, pseudotumor cerebri, allergic rhinitis, GERD, RLS, migraines. HTN evaluated about 2 weeks ago. Stopped hctz and started Losartan. Since starting medication has been doing well without any adverse effects. Checking bp at home which has been running 120's/70-80's. Asymptomatic denies any headaches, vision changes, chest pain, sob. Hx of JONY following with sleep medicine / not currently requiring CPAP. HLD not on any statin / recent LDL was 181. Recently restarted taking red yeast rice and omega 3 and made lifestyle changes. Opting to try these measures first. GERD on esomeprazole. Well controlled. Migraine hx / worse with season changes Has Rizatriptan for abortive therapy using occasionally. Also uses Tylenol/Ibuprofen which helps. Not on any preventative therapy. Allergic rhinitis on Zyrtec, Singulair, flonase. Ongoing nasal congestion/lost of smell and hx of nasal polyps. Going to be seeing ENT in a few weeks for this. Patient Active Problem List Diagnosis Fibromyalgia History [...] for HIV S/P total knee arthroplasty, right Current Outpatient Medications Medication Sig Dispense Refill [place]-3 Fatty Acids (FISH OIL) 1000 MG Capsule Take 1 Capsule by mouth in the morning. nystatin 058357 UNIT/GM cream Apply topically to affected area [...] . CPAP every night at bedtime . Ondansetron HCl 4 MG Oral Tablet (Zofran) [...] mouth in the morning. 30 Tablet 5 No current facility-administered medications for this visit. Review of patient's allergies indicates: Allergen Reactions Sulfa Antibiotics Anaphylaxis Closes airway Compazine [Prochlorperazine Edisylate] Feeling of skin crawling Gabapentin Paresthesias Lyrica [Pregabalin] [place] suicidal Penicillins Mom was allergic to PCN - they told her she was too Prochlorperazine Pyridium [Phenazopyridine Hcl] Hives Past Medical History: Diagnosis Date Anxiety Cervical [...] 08/13/2021 ROBOTIC ARTHROPLASTY KNEE TOTAL performed by oSlomon Leon DO at [facility] ARTHROPLASTY KNEE TOTAL Right 12/04/2022 ROBOTIC ARTHROPLASTY KNEE TOTAL performed by Solomon Leon DO at OR [facility] BREAST BIOPSY Right benign CAROTID (INTERNAL) ARTERY CATHETHER PLACEMENT N/A 12/24/2019 CATHETER PLACEMENT INTERNAL CAROTID ARTERY performed by Remi Michaud MD at OR [facility] CAROTID (INTERNAL) ARTERY CATHETHER PLACEMENT Right 02/16/2020 CATHETER PLACEMENT INTERNAL CAROTID ARTERY performed by Remi Michaud MD at [facility] COLONOSCOPY, DIAGNOSTIC (RECTUM) 10/29/2022 diverticulosis/hemorrhoids/biopsies show adenomatous polyps/recall 3 years/COLONOSCOPY FLEXIBLE PROXIMAL DIAGNOSTIC performed by Rosendo Rodriguez MD at ENDOSCOPY [facility] [address] CREATE SPINAL SHUNT, W/LAMINECTOMY 2013 [employer] Shunt EGD, FLEXIBLE, DIAGNOSTIC 04/10/2018 normal bx/ESOPHAGOGASTRODUODENOSCOPY (EGD), FLEXIBLE, TRANSORAL, DIAGNOSTIC performed by Barrett Petersen MD at ENDOSCOPY [facility] [address] EGD, FLEXIBLE, DIAGNOSTIC 09/23/2022 biopsies normal/ESOPHAGOGASTRODUODENOSCOPY (EGD), FLEXIBLE, TRANSORAL, DIAGNOSTIC performed by MD Genny at ENDOSCOPY [facility] [address] INFORMATION Right R CTR INFORMATION Laparoscopy for endometriosis x 4. INFORMATION . INTRACRANIAL INTRAVASCULAR STENT,INCL ANGIO Right 02/16/2020 TRANSCATHETER PLACEMENT OF INTRAVASCULAR STENTS, INTRACRANIAL performed by Remi Michaud MD at OR [facility] REMOVAL OF APPENDIX age 14 REMOVAL OF SPINAL SHUNT SYSTEM N/A 01/06/2020 REMOVAL SHUNT LUMBAR PERITONEAL WITHOUT REPLACEMENT performed by Remi Michaud MD at [facility] REMOVAL OF SPLEEN, TOTAL age 16 Dx ITP REMOVAL OF TONSILS, AGE 12+ age 16 REMOVE GALLBLADDER 2017 SINUS SURGERY PROCEDURE NEC 2002 TOTAL HYSTERECTOMY 2009 dx endometriosis VERTEBRAL ARTERY CATHETER PLACEMENT N/A 12/24/2019 CATHETER PLACEMENT VERTEBRAL ARTERY, performed by Remi Michaud MD at [facility] VERTEBRAL ARTERY CATHETER PLACEMENT Right 02/16/2020 CATHETER PLACEMENT VERTEBRAL ARTERY, performed by Remi Michaud MD at OR [facility] Social History Socioeconomic History Marital status: Spouse name: Not on file Number of children: Not on file Years of education: Not on file Highest education level: Not on file Occupational History Not on file Tobacco Use Smoking status: Former Current packs/day: 0.00 Types: Cigarettes, Vaporizer Quit date: 05/05/2005 Years since quittin.7 Passive exposure: Past Smokeless tobacco: Never Tobacco comments: Quit smoking in 2006 - Currently Vapes and smokes medical marijuana Vaping Use Vaping status: Every Day Substances: THC Devices: Pre-filled or refillable cartridge Substance and Sexual Activity Alcohol use: Yes Comment: occasional Drug use: Yes Frequency: 28.0 times per week Types: Marijuana Comment: Medical marijuana. Sexual activity: Not on file Other Topics Concern Not on file Social History Narrative Not on file Social Determinants of Health Financial Resource Strain: Not on file Food Insecurity: No Food Insecurity (12/04/2022) Food Insecurity Do you need food for this week? (Adult - for ages 18 years and over): No Are you able to get enough food for your family? (Household - for ages 0-17 years): Not on file Does your family need food this week? (Household - for ages 0-17 years): Not on file Do you always have enough food for your family? (Household - for ages 0-17 years): Not on file Transportation Needs: No Transportation Needs (12/04/2022) Transportation Needs Do you have trouble getting a ride to medical visits or work? (Adult - for ages 18 years and over):Never True Does your family have a hard time getting a ride to doctors visits? (Household - for ages 0-17 years): Not on file Has lack of transportation kept you from medical appointments, meetings, work, or from getting things needed for daily living? Check all that apply. (Adult - for ages 18 years and over): Not on file Do you (or your family) have trouble finding or paying for a ride (transportation)? (Household - for ages 0-17 years): Not on file Social Connections: Unknown (10/21/2023) Social Connections How often do you feel lonely or isolated from those around you? (Adult - for ages 18 years and over): Not on file Housing Stability: Low Risk (12/04/2022) Housing Stability Do you currently live in a prison or have no steady place to sleep at night? (Adult - for ages 18 years and over): Not on file Do you think you are at risk of becoming homeless? (Adult - for ages 18 years and over): No Does your family worry about paying for your home or becoming homeless? (Household - for ages 0-17 years): Not on file Are you homeless or worried that you might be in the future? (Adult - for ages 18 years and over): Not on file Are you (or your family) homeless or worried that you might be in the future? (Household - for ages0-17 years): Not on file Physical Exam Vitals: 02/16/24 1105 Temp: 36.2 C (97.1 F) Pulse: 75 Resp: 16 SpO2: 95% BP: 120/72 General: A&Ox3 and no distress Head: Normocephalic and atraumatic Eye Exam: PERRLA, conjunctiva are pink and non-injected, sclera clear Ears: External ears normal, Canals clear, TM's Normal / wears hearing aides Nose: no mucosal erythema, no mucosal edema, no purulent discharge Oropharynx: no exudate, no erythema, lips, buccal mucosa, and tongue normal, and mucous membranes are moist Neck: supple, no adenopathy, thyroid normal size, non-tender, without nodularity Heart: regular rate & rhythm, no murmur, no gallops, S-1 normal, and S-2 normal Lungs: normal respiratory rate and rhythm, lungs clear to auscultation Abdomen: abdomen soft, non-tender, normal bowel sounds Extremities: no BLE edema Skin: warm and dry Psych: normal mood and normal affect I have reviewed the following results: BMP results Recent Labs Units 01/29/24 1036 07/08/23 1626 04/14/23 1036 SODIUM - [facility] mmol/L 141 139 140 POTASSIUM - [facility] mmol/L 4.2 4.1 4.1 CHLORIDE - [facility] mmol/L 105 102 102 CO2 - [facility] mmol/L 25 28 27 CREATININE - [facility] mg/dL 0.8 0.9 0.9 BUN - [facility] mg/dL 19 15 14 Lipid panel results Recent Labs Units 01/29/24 1036 07/19/22 1557 CHOLESTEROL - [facility] mg/dL 257* 264* HDL CHOLESTEROL - [facility] mg/dL 49* 48* TRIGLYCERIDES - [facility] mg/dL 135 116 Assessment and Plan HTN, goal below 130/80 - recheck BMP since starting Lisinopril - BASIC METABOLIC PANEL; Future Hyperlipidemia with target LDL less than 130 - opting for supplements/lifestyle changes - discussed rechecking in about 6 months Gastroesophageal reflux disease with esophagitis without hemorrhage - well controlled on Esomeprazole Seasonal allergic rhinitis due to pollen - continue singulair and zyrtec - follow up with ENT as scheduled Intractable migraine with aura without status migrainosus - discussed magnesium/riboflavin for prevention - Rizatriptan for abortive - OTC Tylenol/Ibuprofen as needed Wrap-Up Check-out note: 6-8 months as scheduled with Dr. Yang in November Time: I spent a total of 30-39 minutes (exact time 33 mins) on the date of service in preparation, delivery, and documentation of the care provided to Keiry York excluding any time spent in the performance of separately billed services. documented in this encounter Nursing Notes * Elena Gómez LPN - 02/16/2024 11:03 AM EDT Physical Doing well with Losartan. documented in this encounter Plan of Treatment Upcoming Encounters Date Type Department Care Team (Late st Contact Info) Description 02/16/2024 12:00 PM EDT Laboratory Laboratory [address] [place] [phone] [place] [address] HTN, goal below 130/80 02/24/2024 10:20 AM EDT Telemedicine Sleep Disorders Ctr [facility] [address] [facility] [place] [phone] Bridgette Norwood, [address] [place] [address] 02/25/2024 11:00 AM EDT Office Visit Otolaryngology [facility] [address] [place] [address] Gege Duncan PA-C [address] [place] [address] 03/11/2024 1:30 PM EST Office Visit Orthopaedics [facility] [address] [place] [address] Bobby Colunga PA-C [address] [place] [address] 08/04/2024 1:30 PM EDT Imaging Radiology [address] [place] [address] 11/08/2024 11:00 AM EDT [address] [address] [phone] Vidya Mai MD [address] [place] [address] [place] [address] 11/14/2025 11:00 AM EDT Office Visit Family Medicine [address] [place] [phone] Vidya Mai MD [address] [place] [address] [place] [address] Pending Results Name Type Priority Associated Diagnoses Date /Time BASIC METABOLIC PANEL Lab Routine HTN, goal below 130/80 02/16/2024 11:36 AM EDT Scheduled Orders Name Type Priority Associated Diagnoses Orde r Schedule BASIC METABOLIC PANEL Lab Routine HTN, goal below 130/80 Expected: 02/16/2024 (Approximate), Expires: 02/15/2025 Scheduled Procedures Name Priority Associated Diagnoses Date/Ti [...] 04/0 05/2023, 07/30/2022, Additional history exists GFR 01/28/2025 01/29/2024, 03/0 09/2023, 04/14/2023, Additional history exists Colonoscopy 10/29/2025 [...] Additional history exists Lipid Panel 01/28/2029 01/29/2024, 051 12/2022, 07/19/2022, Additional history exists Hepatitis B Vaccine Completed 01/20/2023, 08/19/2022, 07/19/2022 HPV (Gardasil) Vaccine Aged Out No lo nger eligible based on patient's age to complete this topic documented as of this encounter Medical Devices Implanted Type Area Medical Associate Device Identifier Shelf Expiration Date Model / Serial / Lot [id number] Vascular Stent Implanted:Qty: 1 on 02/16/2020 by Remi Michaud MD at OR [facility] [employer] 01/12/2023 ZIV5-1 8-12 5-8-80 / / [id number] Knee Triathlon Bead No Dmitri L 2 - [id number] Implanted:Qty: 1 on 08/13/2021 by Solomon Leon DO at OR [facility] Left: Knee NICHOLAS : ORTHOPAEDICS 09/23/2025 5517-F-201 / / [id number] Baseplate #2 Tritanium - [id number] Implanted:Qty: 1 on 08/13/2021 by Solomon Leon DO at OR [facility] Left: Knee NICHOLAS : ORTHOPAEDICS 10/12/2025 5536-B-200 / / [id number] Triathlon X3 Tibial Bearing Insert - Cs Implanted:Qty: 1 on 08/13/2021 by Solomon Leon DO at OR [facility] Left: Knee NICHOLAS : ORTHOPAEDICS 08/21/2025 5531-G-210 -E / / [id number] Cement Bone Simplex Hv & G - [id number] Implanted:Qty: 2 on 12/04/2022 by Solomon Leon DO at OR [facility] Right: Knee NICHOLAS : ORTHOPAEDICS 01/03/2024 6195-1-010 / / [id number] Knee Tria Syetric X3 8x27 - [id number] Implanted:Qty: 1 on 12/04/2022 by Solomon Leon DO at OR [facility] Right: Knee NICHOLAS : ORTHOPAEDICS 06/22/2024 5550-G-278 -E / / [id number] Knee Triathlon Cruciate Fe 2 R - [id number] Implanted:Qty: 1 on 12/04/2022 by Solomon Leon DO at OR [facility] Right: Knee NICHOLAS : ORTHOPAEDICS 12/20/2026 5510-F-202 / / [id number] Knee Baseplate Tri Tib Sz 2 - [id number] Implanted:Qty: 1 on 12/04/2022 by Solomon Leon, at OR [facility] Right: Knee NICHOLAS : ORTHOPAEDICS 12/17/2025 5521-B-200 / / [id number] Triathlon X3 Tibial Bearing Insert- Cs Implanted:Qty: 1 on 12/04/2022 by Solomon Leon, at OR [facility] Right: Knee 10/16/2027 5531-G-210 -E / / [id number] documented as of this encounter Visit Diagnoses Diagnosis HTN, goal below 130/80- Primary Unspecified essential hypertension Hyperlipidemia with target LDL less than 130 Other and unspecified hyperlipidemia Gastroesophageal reflux disease with esophagitis without hemorrhage Seasonal allergic rhinitis due to pollen Intractable migraine with aura without status migrainosus Migraine with aura, with intractable migraine, so stated, without mention of status migrainosus HTN, goal below 130/80 Unspecified essential hypertension [...]
--- OUTSIDE RECORDS SUMMARY | 2024-03-06 19:35 | External Medical Summary ---
Author Name Unknown Address Unknown Organization [id number]:LABORATORY [facility] - [address] [place] [address] Laboratory Report Ordering Provider Test Date Status CRYSTAL SILVESTRE 02/25/2024 12:04:36 Final Observation Date Value Abnormality Reference (Units ) Status MYCODE SPECIMEN-SST 02/25/2024 12:04:36 Freezing of extracted DNA, whole blood and/or serum. Final Performing Location [facility] [address] [facility] [address]
--- OUTSIDE RECORDS SUMMARY | 2024-03-06 19:35 | External Medical Summary | Summary of Care ---
Author Name Unknown Organization [facility] Address [address] [place] [address] Phone [phone] Care Team Providers Care Group Teacher Name Role Phone Unavailable Primary Care Provider Unavailabl e Encounter Details Date Type Department Care Team (Late st Contact Info) Description 02/10/2024 Patient Reported Data Patient Survey Ortho [facility] Allergies Active Allergy Reactions Criticality Noted Date Comments Prochlorperazine Edisylate 8 Feeling of skin crawling Gabapentin 04/06/2018 Paresthesias Pregabalin 04/06/2018 [place] suicidal Penicillins 04/06/2018 Mom was allergic to PCN - they told her she was too Prochlorperazine 10/28/2019 Phenazopyridine Hcl Hives 04/06/2018 Sulfa Antibiotics Anaphylaxis High 04/06/2018 Closes airway documented as of this encounter (statuses as of 02/10/2024) Medications Medication Sig Dispensed Refills Start Date End Date Status [place]-3 Fatty Acids (FISH OIL) 1000 MG Capsule Take 1 Capsule by mouth in the morning. Active nystatin 640061 UNIT/GM creamIndications:Cu taneous candidiasis Apply topically to [...] mRNA, LNP-s, No Pre serve, 2-Dose Series (CTB Group) 09/23/2020,08/23/2020 DTaP Dipth/Tet/Acell Pertussis (Infanrix), Peds 08/07/2016 [...] 11:20 AM EDT Office Visit Family Medicine [address] [place] [phone] David Limon[address] [place] [address] 02/24/2024 10:20 AM EDT Telemedicine Sleep Disorders Ctr [facility] [address] [place] [phone] Bridgette Norwood DO [address] [place] [address] 02/25/2024 11:00 AM EDT Office Visit Otolaryngology [facility] [address] [place] [address] Gege Duncan PA-C [address] [place] [address] 03/11/2024 1:30 PM EST Office Visit Orthopaedics [facility] [address] [place] [address] Bobby Colunga PA-C [address] [place] [address] 08/04/2024 1:30 PM EDT Imaging Radiology [address] [place] [address] 11/08/2024 11:00 AM EDT Office Visit Family Medicine [address] [place] [phone] Vidya Mai MD [address] [place] [address] [place] [address] 11/14/2025 11:00 AM EDT Office Visit Family Medicine [address] [place] [phone] Vidya Mai MD [address] [place] [address] [place] [address] Scheduled Procedures Name Priority Associated Diagnoses Date/Ti [...] this encounter Medical Devices Implanted Type Area Bottom Filler Device Identifier Shelf Expiration Date Model / Serial / Lot Zilver 518 Vascular Stent Implanted:Qty: 1 on 02/16/2020 by Remi Michaud MD at OR [facility] [employer] 01/12/2023 ZIV5-1 8-12 5-8-80 / / [id number] Knee Triathlon Bead No Dmitri L 2 - [id number] Implanted:Qty: 1 on 08/13/2021 by Solomon Leon DO at OR [facility] Left: Knee NICHOLAS : ORTHOPAEDICS 09/23/2025 5517-F-201 / / [id number] Baseplate #2 Tritanium - [id number] Implanted:Qty: 1 on 08/13/2021 by Solomon Leon DO at OR [facility] Left: Knee NICHOLAS : ORTHOPAEDICS 10/12/2025 5536-B-200 / / [id number] Triathlon X3 Tibial Bearing Insert - Cs Implanted:Qty: 1 on 08/13/2021 by Solomon Leon DO at OR [facility] Left: Knee NICHOLAS : ORTHOPAEDICS 08/21/2025 5531-G-210 -E / / [id number] Cement Bone Simplex Hv & G - [id number] Implanted:Qty: 2 on 12/04/2022 by Solomon Leon DO at OR [facility] Right: Knee NICHOLAS : ORTHOPAEDICS 01/03/2024 6195-1-010 / / [id number] Knee Tria Syetric X3 8x27 - [id number] Implanted:Qty: 1 on 12/04/2022 by Solomon Leon DO at OR [facility] Right: Knee NICHOLAS : ORTHOPAEDICS 06/22/2024 5550-G-278 -E / / 51VA Knee Triathlon Cruciate Fe 2 R - [id number] Implanted:Qty: 1 on 12/04/2022 by Solomon Leon DO at OR [facility] Right: Knee NICHOLAS : ORTHOPAEDICS 12/20/2026 5510-F-202 / / [id number] Knee Baseplate Tri Tib Sz 2 - [id number] Implanted:Qty: 1 on 12/04/2022 by Solomon Leon DO at OR [facility] Right: Knee NICHOLAS : ORTHOPAEDICS 12/17/2025 5521-B-200 / / [id number] Triathlon X3 Tibial Bearing Insert- Cs Implanted:Qty: 1 on 12/04/2022 by Solomon Leon DO at OR [facility] Right: Knee 10/16/2027 5531-G-210 -E [...]
--- OUTSIDE RECORDS SUMMARY | 2024-03-06 19:35 | External Medical Summary | Summary of Care ---
Author Name Unknown Organization [facility] Address [address] [place] [address] Phone [phone] Care Team Providers Care Story Writer Name Role Phone Unavailable Primary Care Provider Unavailabl e Encounter Details Date Type Department Care Team (Late st Contact Info) Description 02/10/2024 Patient Reported Data Patient Survey Ortho OBERD Allergies Active Allergy Reactions Criticality Noted Date Comments Prochlorperazine Edisylate 8 Feeling of skin crawling Gabapentin 04/06/2018 Paresthesias Pregabalin 04/06/2018 [place] suicidal Penicillins 04/06/2018 Mom was allergic to PCN - they told her she was too Prochlorperazine 10/28/2019 Phenazopyridine Hcl Hives 04/06/2018 Sulfa Antibiotics Anaphylaxis High 04/06/2018 Closes airway documented as of this encounter (statuses as of 02/10/2024) Medications Medication Sig Dispensed Refills Start Date End Date Status [place]-3 Fatty Acids (FISH OIL) 1000 MG Capsule Take 1 Capsule by mouth in the morning. Active nystatin 720831 UNIT/GM creamIndications:Cu taneous candidiasis Apply topically to [...] mRNA, LNP-s, No Pre serve, 2-Dose Series (ActionPlanner) 09/23/2020,08/23/2020 DTaP Dipth/Tet/Acell Pertussis (Infanrix), Peds 08/07/2016 [...] 11:20 AM EDT Office Visit Family Medicine [address] [place] [phone] David Limon[address] [place] [address] 02/24/2024 10:20 AM EDT Telemedicine Sleep Disorders Ctr [facility] [place] [address] [place] [phone] Bridgette Norwood DO [address] [place] [address] 02/25/2024 11:00 AM EDT Office Visit Otolaryngology [facility] [address] [place] [address] Gege Duncan PA-C [address] [place] [address] 03/11/2024 1:30 PM EST Office Visit Orthopaedics [facility] [address] [place] [address] Bobby Colunga PA-C [address] [place] [address] 08/04/2024 1:30 PM EDT Imaging Radiology [address] [place] [address] 11/08/2024 11:00 AM EDT Office Visit Family Medicine [address] [place] [phone] Vidya Mai MD [address] [place] [address] [place] [address] 11/14/2025 11:00 AM EDT Office Visit Family Medicine [address] [place] [phone] Vidya Mai MD [address] [place] [address] [place] [address] Scheduled Procedures Name Priority Associated Diagnoses Date/Ti [...] this encounter Medical Devices Implanted Type Area Real Estate Financial Analyst Device Identifier Shelf Expiration Date Model / Serial / Lot Zilver 518 Vascular Stent Implanted:Qty: 1 on 02/16/2020 by Remi Michaud MD at OR [facility] [employer] 01/12/2023 ZIV5-1 8-12 5-8-80 / / [id number] Knee Triathlon Bead No Dmitri L 2 - [id number] Implanted:Qty: 1 on 08/13/2021 by Solomon Leon DO at OR [facility] Left: Knee NICHOLAS : ORTHOPAEDICS 09/23/2025 5517-F-201 / / [id number] Baseplate #2 Tritanium - [id number] Implanted:Qty: 1 on 08/13/2021 by Solomon Leon DO at OR [facility] Left: Knee NICHOLAS : ORTHOPAEDICS 10/12/2025 5536-B-200 / / [id number] Triathlon X3 Tibial Bearing Insert - Cs Implanted:Qty: 1 on 08/13/2021 by Solomon Leon DO at OR [facility] Left: Knee NICHOLAS : ORTHOPAEDICS 08/21/2025 5531-G-210 -E / / [id number] Cement Bone Simplex Hv & G - [id number] Implanted:Qty: 2 on 12/04/2022 by Solomon Leon DO at OR [facility] Right: Knee NICHOLAS : ORTHOPAEDICS 01/03/2024 6195-1-010 / / [id number] Knee Tria Syetric X3 8x27 - [id number] Implanted:Qty: 1 on 12/04/2022 by Solomon Leon DO at OR [facility] Right: Knee NICHOLAS : ORTHOPAEDICS 06/22/2024 5550-G-278 -E / / 51VA Knee Triathlon Cruciate Fe 2 R - [id number] Implanted:Qty: 1 on 12/04/2022 by Solomon Leon DO at OR [facility] Right: Knee NICHOLAS : ORTHOPAEDICS 12/20/2026 5510-F-202 / / [id number] Knee Baseplate Tri Tib Sz 2 - [id number] Implanted:Qty: 1 on 12/04/2022 by Solomon Leon DO at OR [facility] Right: Knee NICHOLAS : ORTHOPAEDICS 12/17/2025 5521-B-200 / / [id number] Triathlon X3 Tibial Bearing Insert- Cs Implanted:Qty: 1 on 12/04/2022 by Solomon Leon DO at OR [facility] Right: Knee 10/16/2027 5531-G-210 -E / [...]
--- OUTSIDE RECORDS SUMMARY | 2024-03-06 19:35 | External Medical Summary | Summary of Care ---
Author Name Unknown Organization [facility] Address [address] [place] [facility] [place] [address] Phone [phone] Care Team Providers Care Audit Clerks Supervisor Name Role Phone Unavailable Primary Care Provider Unavailabl e Reason for Visit * Reason Onset Date Comments Medication Refill 02/23/2024 Encounter Details Date Type Department Care Team (Late st Contact Info) Description 02/23/2024 Refill Family Medicine [address] [phone] David Limon [address] [place] [phone] HTN, goal below 130/80 Allergies Active Allergy Reactions Criticality Noted Date Comments Prochlorperazine Edisylate 8 Feeling of skin crawling Gabapentin 04/06/2018 Paresthesias Pregabalin 04/06/2018 [place] suicidal Penicillins 04/06/2018 Mom was allergic to PCN - they told her she was too Prochlorperazine 10/28/2019 Phenazopyridine Hcl Hives 04/06/2018 Sulfa Antibiotics Anaphylaxis High 04/06/2018 Closes airway documented as of this encounter (statuses as of 02/24/2024) Medications Medication Sig Dispensed Refills Start Date End Date Status [place]-3 Fatty Acids (FISH OIL) 1000 MG Capsule Take 1 Capsule by mouth in the morning. Active nystatin 134806 UNIT/GM creamIndications: Cutaneous candidiasis Apply topically to affected area 2 times a day. To affacted area for two weeks. 30 g 2 10/19/2019 Active Ventolin HFA 108 (90 Base) MCG/ACT Inhalation Aerosol SolutionIndicatio ns:Bronchitis, complicated Inhale 2 Puffs by mouth every [...] Active Fluticasone Propionate 50 MCG/ACT Nasal Suspension (Flonase)Indicati ons:Chronic maxillary sinusitis Administer 2 Sprays into each nostril in the morning. 1 Each 5 10/23/2022 Active Clindamycin HCl 150 MG Oral Capsule (Cleocin) Take 1 Capsule by mouth. Take 4 capsules prior to procedures Active Naproxen Sodium 220 MG Oral Capsule Take 1 Capsule by mouth as needed for Headache. Active Aspirin 325 MG Oral Tablet Delayed ReleaseIndication s:Hypertension goal BP (blood pressure) < 140/90 TAKE [...] Active Rizatriptan Benzoate 10 MG Oral Tablet (Maxalt)Indicatio ns:Intractable migraine with aura without status migrainosus Take 1 Tablet by mouth as needed for Migraine. Can take a second dose 2 hours later if needed. No more than 20 mg (2 tablets) in 24 hours 10 Tablet 5 09/30/2023 Active Premarin 0.625 MG/GM Vaginal Cream (Estrogens Conjugated)Indica tions:Vaginal dryness ADMINISTER INTO THE VAGINA AT BEDTIME. DIRECTED. 30 g 5 10/02/2023 Active Esomeprazole Magnesium 20 MG Oral Capsule Delayed ReleaseIndication s:Epigastric pain,Nausea and vomiting, unspecified vomiting type Take [...] Active Losartan Potassium 25 MG Oral Tablet (Cozaar)Indicatio ns:HTN, goal below 130/80 Take 1 Tablet by mouth in the morning. 90 Tablet 1 02/24/2024 Active Losartan Potassium 25 MG Oral Tablet (Cozaar)Indicatio ns:HTN, goal below 130/80 Take 1 Tablet by mouth in the morning. 30 Tablet 5 01/29/2024 Discontinue d(Refill) documented as of this encounter (statuses as of 02/24/2024) Active Problems Problem Noted Date Diagnosed Date [...] as of this encounter (statuses as of 02/24/2024) Resolved Problems Problem Noted Date Diagnosed Date Resolved Date Disorder of iron metabolism, unspecified 04/01/2022 07/19/2022 Hypokalemia 04/01/2022 07/19/2022 Psychosocial stressors 10/18/202007/19 Female stress incontinence 05/04/2018 0 07/19/2022 Arthritis of right knee 04/10/201801/03 Chronic arthralgias of knees and hips 04/06/2018 01/17/2023 documented as of this encounter (statuses as of 02/24/2024) Immunizations Name Administration Dates Next Due COVID-19 [...] No 12/04/2022 documented as of this encounter Miscellaneous Notes * Telephone Encounter - Lena Solomon MD - 02/24/2024 10:15 AM EDT Signed Prescriptions: Disp Refills Losartan Potassium 25 MG Oral Tablet (Coza*90 Tab*1 Sig: Take 1 Tablet by mouth in the morning. Authorizing Provider: LENA SOLOMON * Telephone Encounter - Pearl Fang RN - 02/24/2024 7:49 AM EDTPending Prescriptions: Disp Refills Losartan Potassium 25 MG Oral Tablet (Coza*90 Tab*1 Sig: Take 1 Tablet by mouth in the morning. * Telephone Encounter - Lily Roper OSA - 02/23/2024 3:13 PM EDT Did you pend patient's preferred pharmacy and medication before forwarding?yes Pharmacy: [id number] Pending Prescriptions: Disp Refills Losartan Potassium 25 MG Oral Tablet (Coz*30 Tab*5 Sig: Take 1 Tablet by mouth in the morning. Last Visit: 02/16/2024 (in office), 07/25/2023 (telemedicine) Next Visit: 11/08/2024 If no future appointments scheduled, and last appointment is greater than a year ago, please schedule patient for a follow-up appointment Last date the medication was ordered: 01.29.24 Is this request for a controlled substance?No Urine Drug Screen:No results found for this or any previous visit. Patient Phone Numbers Labs: Lab Results Component Value Date/Time CREAT 0.9 02/16/2024 11:36 AM CREAT 0.7 02/17/2020 03:48 AM POTASSIUM 4.3 02/16/2024 11:36 AM POTASSIUM 3.9 02/17/2020 03:48 AM TSH 1.72 04/01/2022 01:08 PM TSH 1.18 01/14/2019 02:09 PM LDL 181 (H) 01/29/2024 10:36 AM LDLCALC 166 08/21/2017 12:00 AM ALT 14 01/29/2024 10:36 AM ALT 24 10/15/2019 02:24 PM HGBA1C 5.3 11/13/2022 09:24 AM documented in this encounter Plan of Treatment Upcoming Encounters Date Type Department Care Team (Late st Contact Info) Description 02/25/2024 11:00 AM EDT Office Visit Otolaryngology [facility] [address] [facility] [place] [address] Gege Duncan PA-C 132 [facility] [place] [address] 03/11/2024 1:30 PM EST Office Visit Orthopaedics [facility] [address] [facility] [place] [address] Bobby Colunga PA-C [address] [place] [address] 08/04/2024 1:30 PM EDT Imaging Radiology [address] [place] [address] 11/08/2024 11:00 AM EDT Office Visit Family Medicine [address] [place] [phone] Vidya Mai MD [address] [place] [address] [place] [address] Scheduled Procedures Name Priority Associated Diagnoses Date/Ti [...] Albumin/Creatinine Ratio 07/26/2024 07/26/2021 Mammogram 08/03/2024 08/04/2023, /05/2023, 07/30/2022, Additional history exists GFR 02/15/2025 02/16/2024, [...] this encounter Medical Devices Implanted Type Area Sheet Finisher Device Identifier Shelf Expiration Date Model / Serial / Lot Zilver 518 Vascular Stent Implanted:Qty: 1 on 02/16/2020 by Remi iMchaud MD at [place] [facility] [employer] 01/12/2023 ZIV5-1 8-12 5-8-80 / / [id number] Knee Triathlon Bead No Dmitri L 2 - [id number] Implanted:Qty: 1 on 08/13/2021 by Solomon Leon DO at OR [facility] Left: Knee NICHOLAS : ORTHOPAEDICS 09/23/2025 5517-F-201 / / [id number] Baseplate #2 Tritanium - [id number] Implanted:Qty: 1 on 08/13/2021 by Solomon Leon DO at OR [facility] Left: Knee NICHOLAS : ORTHOPAEDICS 10/12/2025 5536-B-200 / / [id number] Triathlon X3 Tibial Bearing Insert - Cs Implanted:Qty: 1 on 08/13/2021 by Solomon Leon DO at OR [facility] Left: Knee NICHOLAS : ORTHOPAEDICS 08/21/2025 5531-G-210 -E / / [id number] Cement Bone Simplex Hv & G - [id number] Implanted:Qty: 2 on 12/04/2022 by Solomon Leon DO at OR [facility] Right: Knee NICHOLAS : ORTHOPAEDICS 01/03/2024 6195-1-010 / / [id number] Knee Tria Syetric X3 8x27 - [id number] Implanted:Qty: 1 on 12/04/2022 by Solomon Leon DO at OR [facility] Right: Knee NICHOLAS : ORTHOPAEDICS 06/22/2024 5550-G-278 -E / / 51VA Knee Triathlon Cruciate Fe 2 R - [id number] Implanted:Qty: 1 on 12/04/2022 by Solomon Leon DO at OR [facility] Right: Knee NICHOLAS : ORTHOPAEDICS 12/20/2026 5510-F-202 / / [id number] Knee Baseplate Tri Tib Sz 2 - [id number] Implanted:Qty: 1 on 12/04/2022 by Solomon Leon DO at OR [facility] Right: Knee NICHOLAS : ORTHOPAEDICS 12/17/2025 5521-B-200 / / [id number] Triathlon X3 Tibial Bearing Insert- Cs Implanted:Qty: 1 on 12/04/2022 by Solomon Leon, at OR [facility] Right: Knee 10/16/2027 5531-G-210 -E [...]
--- OUTSIDE RECORDS SUMMARY | 2024-03-06 19:35 | External Medical Summary | Summary of Care ---
Author Name Unknown Organization [facility] Address [address] [place] [facility] [place] [address] Phone [phone] Care Team Providers Care Procurement Director Name Role Phone Unavailable Primary Care Provider Unavailabl e Reason for Visit * Reason Comments Follow Up Encounter Details Date Type Department Care Team (Late st Contact Info) Description 02/24/2024 10:20 AM EDT Telemedicine Sleep Disorders Ctr [facility] [address] [place] [phone] [facility] [address] [place] [address] Insomnia, unspecified type*; RLS (restless legs syndrome); JONY (obstructive sleep apnea) Allergies Active Allergy Reactions Criticality Noted Date Comments Prochlorperazine Edisylate 8 Feeling of skin crawling Gabapentin 04/06/2018 Paresthesias Pregabalin 04/06/2018 [place] suicidal Penicillins 04/06/2018 Mom was allergic to PCN - they told her she was too Prochlorperazine 10/28/2019 Phenazopyridine Hcl Hives 04/06/2018 Sulfa Antibiotics Anaphylaxis High 04/06/2018 Closes airway documented as of this encounter (statuses as of 02/24/2024) Medications Medication Sig Dispensed Refills Start Date End Date Status [place]-3 Fatty Acids (FISH OIL) 1000 MG Capsule Take 1 Capsule by mouth in the morning. Active nystatin 570992 UNIT/GM creamIndications: Cutaneous candidiasis Apply topically to [...] in the morning. 30 Tablet 5 01/29/2024 4 Discontinue d(Refill) documented as of this encounter [...] Pressure - - Pulse - - Temperature - - Respiratory Rate - - Oxygen Saturation - - Inhaled Oxygen Concentration - - Weight - - Height 165.1 cm (5' 5") 02/23/2024 8:31 AM EDT Body Mass Index - - documented in this encounter Functional Status Functional [...] as of this encounter Progress Notes * Bridgette Norwood, - 02/24/2024 10:41 AM EDT Sleep Medicine Follow-Up Patient location: HOME. I was in a hospital or clinic location. After connecting through televideo,patient was verified with two unique identifiers. Patient (or authorized legal business banking representative) was then informed that this was a Telemedicine visit and being conducted confidentially over secure lines. Methods to assure confidentiality were taken. Patient acknowledged consent and understanding of pr ivacy and security of the Telemedicine visit. The patient agreed to participate. HISTORY: Keiry York is a 48 year old female for follow up of JONY, insomnia. Initially seen 06/17/2019 with sleep-maintenance insomnia, snoring, fatigue/feeling like in a fog, hx JONY which had improved with weight loss. Tinnitus made it more difficult to fall asleep after nighttime awakenings. Nocturia x2. Snoring, morning headaches, RLS symptoms. [place] was 6. Hx HTN, pseudotumor cerebri, fibromyalgia. PSG 10/29/2019 with AHI 5.4, REM AHI 10.4, SpO2 blanca 88%, time <89% 0.1 minute. Used CPAP initially 5-20 cwp, subsequently adjusted to 9-18 cwp, then 6-12 cwp following weight loss. PSG 05/22/23 (188 lbs): no sleep apnea. AHI 0.8, RDI 1.1. SpO2 blanca in sleep 89%. Limited by the absence of supine sleep. Mildly elevated PLMI of 17.5, PLMAI 0.1. Ferritin 86. She sleeps on her side. Sleeping well with trazodone 200 mg nightly. No SEs. Weight stable. Still working to lose more weight, but has had some knee and shoulder issues. Not using CPAP since the updated PSG had showed sleep apnea resolved after weight loss. Occasional very light snoring noted by her . No gasping or witnessed apneas (which he had noticed previously). Restless legs: "the same". Not keeping her awake. She awakens at least once to go to the bathroom, and will notice restless legs sxs then. Able to get to sleep and back to sleep okay with being on the trazodone. Daytime sleepiness: no Daytime napping: occasionally watching TV and relaxing Drowsy driving: none Morning headaches: stable, no recent changes, "headaches all the time" [place] Sleepiness Scale: 6 [place] Sleepiness Scale Question 02/23/2024 8:34 AM EDT - Filed by Janny Diaz LPN What is the chance you will doze off in the following situation? Sitting and reading Slight chance of dozing Watching TV Moderate chance of dozing Sitting inactive in a public place, such as a theater or meeting No chance of dozing As a passenger in a car for an hour without a break Slight chance of dozing Lying down to rest in the afternoon when circumstances permit Moderate chance of dozing When sitting and talking to someone No chance of dozing When sitting quietly after lunch without alcohol No chance of dozing In a car, while stopped for a few minutes in traffic No chance of dozing Score (range: 0 - 24) 6 Patient Active Problem List Diagnosis Fibromyalgia History [...] Current Outpatient Medications Medication Sig Dispense Refill Cetirizine HCl 10 MG Oral Tablet (ZyrTEC) Take 1 Tablet by mouth in the morning. traZODone HCl 100 MG Oral Tablet (Desyrel) TAKE 2 TABLETS BY MOUTH AT BEDTIME 60 Tablet 3 Esomeprazole Magnesium 20 MG Oral Capsule Delayed Release Take 1 Capsule by mouth in the morning and 1 Capsule in the evening. 180 Capsule 3 Premarin 0.625 MG/GM Vaginal Cream (Estrogens Conjugated) ADMINISTER INTO THE VAGINA AT BEDTIME. ASDIRECTED. 30 g 5 Rizatriptan Benzoate 10 MG Oral Tablet (Maxalt) Take 1 Tablet by mouth as needed for Migraine. Can take a second dose 2 hours later if needed. No more than 20 mg (2 tablets) in 24 hours 10 Tablet 5 Potassium Chloride ER 20 MEQ Oral Tablet Extended Release TAKE 1 TABLET BY MOUTH EVERY DAY IN THE MORNING 90 Tablet 3 Montelukast Sodium 10 MG Oral Tablet (Singulair) Take 1 Tablet by mouth in the morning. 90 Tablet 3 Probiotic Daily Oral Capsule Take 1 Capsule by mouth in the morning. Aspirin 325 MG Oral Tablet Delayed Release TAKE 1 TABLET BY MOUTH EVERY DAY IN THE MORNING 90 Tablet 3 Clindamycin HCl 150 MG Oral Capsule (Cleocin) Take 1 Capsule by mouth. Take 4 capsules prior to procedures Naproxen Sodium 220 MG Oral Capsule Take 1 Capsule by mouth as needed for Headache. Fluticasone Propionate 50 MCG/ACT Nasal Suspension (Flonase) Administer 2 Sprays into each nostril in the morning. 1 Each 5 Ondansetron HCl 4 MG Oral Tablet (Zofran) Take 1 Tablet by mouth every 8 hours as needed for Nausea. 30 Tablet 0 Red Yeast Rice Extract 600 MG Oral Tablet Take by mouth . Ventolin HFA 108 (90 Base) MCG/ACT Inhalation Aerosol Solution Inhale 2 Puffs by mouth every 4 hours as needed for Cough, Shortness of Breath or Wheezing. 8 g 1 nystatin 771520 UNIT/GM cream Apply topically to affected area 2 times a day. To affacted area for two weeks. 30 g 2 [place]-3 Fatty Acids (FISH OIL) 1000 MG Capsule Take 1 Capsule by mouth in the morning. Losartan Potassium 25 MG Oral Tablet (Cozaar) Take 1 Tablet by mouth in the morning. 90 Tablet 1 CPAP every night at bedtime . (Patient not taking: Reported on 02/23/2024) No current facility-administered medications for this visit. PHYSICAL EXAM: Filed Vitals: 02/23/24 0831 Height: 1.651 m (5' 5") Recent weight 200 lbs Body mass index is 33.36 kg/m. PE limited due to telemedicine. Patient does not appear to be in distress. No rash on visible skin on face. Breathing does not appear to be labored. No audible stridor. Speech is clear and appropriate. Appropriate affect. ASSESSMENT/PLAN: Obstructive sleep apnea - resolved with weight loss. Discussed to return to care if sxs recur. - Continue to avoid driving when feeling sleepy/drowsy. Chronic insomnia - well managed with trazodone 200 mg nightly, without SEs. Continue with current dosing. Restless legs sxs, PLMS (without significant associated arousals) - note ferritin >75 - discussed symptomatic relief (stretching, massage, warm vs cool, pressure), evening leg stretching - not significantly interrupting sleep; no additional medication for RLS needed at this time. Follow-up with Sleep Medicine in 1 year (or PRN). If sleep remains stable and PCP is okay with managing trazodone, then okay to follow up with PCP. Bridgette Norwood DO documented in this encounter Nursing Notes * Janny Diaz LPN - 02/23/2024 8:34 AM EDT Pt for f/u JONY, not using CPAP. [place] Sleepiness Scale Question 02/23/2024 8:34 AM EDT - Filed by Janny Diaz LPN What is the chance you will doze off in the following situation? Sitting and reading Slight chance of dozing Watching TV Moderate chance of dozing Sitting inactive in a public place, such as a theater or meeting No chance of dozing As a passenger in a car for an hour without a break Slight chance of dozing Lying down to rest in the afternoon when circumstances permit Moderate chance of dozing When sitting and talking to someone No chance of dozing When sitting quietly after lunch without alcohol No chance of dozing In a car, while stopped for a few minutes in traffic No chance of dozing Score (range: 0 - 24) 6 documented in this encounter Plan of Treatment Upcoming Encounters Date Type Department Care Team (Late st Contact Info) Description 02/25/2024 11:00 AM EDT Office Visit [facility] [address] [place] [address] Gege Duncan PA-C [address] [place] [address] 03/11/2024 1:30 PM EST Office Visit [facility]opaedics [facility] [address] [place] [address] Bobby Colunga PA-C [address] [place] [address] 08/04/2024 1:30 PM EDT Imaging Radiology [address] [place] [address] 11/08/2024 11:00 AM EDT Office Visit Family Medicine [address] [place] [phone] Vidya Mai MD [address] [place] [address] [place] [address] Scheduled Procedures Name [...] this encounter Medical Devices Implanted Type Area Ultrasonic Hand Solderer Device Identifier Shelf Expiration Date Model / Serial / Lot Zilver 518 Vascular Stent Implanted:Qty: 1 on 02/16/2020 by Remi Michaud MD [place] [facility] [employer] 01/12/2023 ZIV5-1 8-12 5-8-80 / / [id number] Knee Triathlon Bead No Dmitri L 2 - [id number] Implanted:Qty: 1 on 08/13/2021 by Solomon Leon DO at OR [facility] Left: Knee NICHOLAS : ORTHOPAEDICS 09/23/2025 5517-F-201 / / [id number] Baseplate #2 Tritanium - [id number] Implanted:Qty: 1 on 08/13/2021 by Solomon Leon DO at OR [facility] Left: Knee NICHOLAS : ORTHOPAEDICS 10/12/2025 5536-B-200 / / [id number] Triathlon X3 Tibial Bearing Insert - Cs Implanted:Qty: 1 on 08/13/2021 by Solomon Leon DO at OR [facility] Left: Knee NICHOLAS : ORTHOPAEDICS 08/21/2025 5531-G-210 -E / / [id number] Cement Bone Simplex Hv & G - [id number] Implanted:Qty: 2 on 12/04/2022 by Solomon Leon DO at OR [facility] Right: Knee NICHOLAS : ORTHOPAEDICS 01/03/2024 6195-1-010 / / [id number] Knee Tria Syetric X3 8x27 - [id number] Implanted:Qty: 1 on 12/04/2022 by Solomon Leon DO at OR [facility] Right: Knee NICHOLAS : ORTHOPAEDICS 06/22/2024 5550-G-278 -E / / 51VA Knee Triathlon Cruciate Fe 2 R - [id number] Implanted:Qty: 1 on 12/04/2022 by Solomon Leon, DO at OR [facility] Right: Knee NICHOLAS : ORTHOPAEDICS 12/20/2026 5510-F-202 / / [id number] Knee Baseplate Tri Tib Sz 2 - [id number] Implanted:Qty: 1 on 12/04/2022 by Solomon Leon, DO at OR [facility] Right: Knee NICHOLSA : ORTHOPAEDICS 12/17/2025 5521-B-200 / / [id number] Triathlon X3 Tibial Bearing Insert- Cs Implanted:Qty: 1 on 12/04/2022 by Solomon Leon, DO at OR [facility] Right: Knee 10/16/2027 5531-G-210 -E / / [id number] documented as of this encounter Visit Diagnoses Diagnosis Insomnia, unspecified type- Primary RLS (restless legs syndrome) Restless legs syndrome (RLS) JONY (obstructive sleep apnea) Obstructive sleep apnea (adult) (pediatric) documented in this encounter Advance Directives * [...]
--- OUTSIDE RECORDS SUMMARY | 2024-03-06 19:35 | External Medical Summary ---
Author Name Unknown Address Unknown Organization K01:LAB[facility]ATORY [facility] [place] - [address] [place] [address] Laboratory Report Ordering Provider Test Date Status CRYSTAL SILVESTRE 02/25/2024 12:04:36 Final Observation Date Value Abnormality Reference (Units ) Status MYCODE SPECIMEN-SST 02/25/2024 12:04:36 Freezing of extracted DNA, whole blood and/or serum. Final Performing Location [facility] [place] - [address] [facility] [address]
--- OUTSIDE RECORDS SUMMARY | 2024-03-06 19:35 | External Medical Summary | Summary of Care ---
Author Name Unknown Organization [facility] Address [address] [place] [address] Phone [phone] Care Team Providers Care Outside Cutter Name Role Phone Unavailable Primary Care Provider Unavailabl e Reason for Visit * Reason Comments Outpatient Testing Encounter Details Date Type Department Care Team (Late st Contact Info) Description 02/25/2024 12:20 PM EDT Laboratory Laboratory, [facility] [address] [place] [phone] [facility] [address] [place] [address] Breather Other*[id number]; Nasal congestion; Rhinorrhea Allergies Active Allergy Reactions Criticality Noted Date Comments Prochlorperazine Edisylate 8 Feeling of skin crawling Gabapentin 04/06/2018 Paresthesias Pregabalin 04/06/2018 [place] suicidal Penicillins 04/06/2018 Mom was allergic to PCN - they told her she was too Prochlorperazine 10/28/2019 Phenazopyridine Hcl Hives 04/06/2018 Sulfa Antibiotics Anaphylaxis High 04/06/2018 Closes airway documented as of this encounter (statuses as of 02/25/2024) Medications Medication Sig Dispensed Refills Start Date End Date Status [place]-3 Fatty Acids (FISH OIL) 1000 MG Capsule Take 1 Capsule by mouth in the morning. Active nystatin 344527 UNIT/GM creamIndications:Cu taneous candidiasis Apply topically to [...] Suspension (Flonase)Indication s:Nasal congestion,Rhinorrh ea Administer 1 [place] into each nostril in the morning and 1 [place] before bedtime. 1 Each 5 02/25/2024 Active [...] PM EST Office Visit Orthopaedics [facility] [address] [facility] [place] [address] Bobby Colunga PA-C [address] [place] [id number] 08/04/2024 1:30 PM EDT Imaging Radiology [address] [place] [address] 11/08/2024 11:00 AM EDT Office Visit Family Medicine [address] [place] [phone] Vidya Mai MD [address] [place] [address] [place] [id number] Pending Results Name Type Priority Associated Diagnoses Date /Time MYCODE SUBSEQUENT ADULT Lab Routine MyCode Research Other*[id number] 02/25/2024 12:04 PM EDT [facility] Lab Routine Nasal congestion Rhinorrhea 02/25/2024 12:04 PM EDT MYCODE SST1 Lab Routine MyCode Research Other*[id number] 02/25/2024 12:04 PM EDT MYCODE SST2 Lab Routine MyCode Research Other*[id number] 02/25/2024 12:04 PM EDT Scheduled Procedures Name Priority Associated Diagnoses [...] this encounter Medical Devices Implanted Type Area Slurry Mixer Device Identifier Shelf Expiration Date Model / Serial / Lot Zilver 518 Vascular Stent Implanted:Qty: 1 on 02/16/2020 by Remi Michaud MD at OR [facility] [place] [employer] 01/12/2023 ZIV5-1 8-12 5-8-80 / / [id number] Knee Triathlon Bead No Dmitri L 2 - [id number] Implanted:Qty: 1 on 08/13/2021 by Solomon Leon DO at OR [facility] Left: Knee NICHOLAS : ORTHOPAEDICS 09/23/2025 5517-F-201 / / [id number] Baseplate #2 Tritanium - [id number] Implanted:Qty: 1 on 08/13/2021 by Solomon Leon DO at OR [facility] Left: Knee NICHOLAS : ORTHOPAEDICS 10/12/2025 5536-B-200 / / [id number] Triathlon X3 Tibial Bearing Insert - Cs Implanted:Qty: 1 on 08/13/2021 by Solomon Leon DO at OR [facility] Left: Knee NICHOLAS : ORTHOPAEDICS 08/21/2025 5531-G-210 -E / / [id number] Cement Bone Simplex Hv & G - [id number] Implanted:Qty: 2 on 12/04/2022 by Solomon Leon DO at OR [facility] Right: Knee NICHOLAS : ORTHOPAEDICS 01/03/2024 6195-1-010 / / [id number] Knee Tria Syetric X3 8x27 - [id number] Implanted:Qty: 1 on 12/04/2022 by Solomon Leon, at OR [facility] Right: Knee NICHOLAS : ORTHOPAEDICS 06/22/2024 5550-G-278 -E / / [id number] Knee Triathlon Cruciate Fe 2 R - [id number] Implanted:Qty: 1 on 12/04/2022 by Solomon Leon, at OR [facility] Right: Knee NICHOLAS : ORTHOPAEDICS 12/20/2026 5510-F-202 / / [id number] Knee Baseplate Tri Tib Sz 2 - [id number] Implanted:Qty: 1 on 12/04/2022 by Solomon Leon, at OR [facility] Right: Knee NICHOLAS : ORTHOPAEDICS 12/17/2025 5521-B-200 / / [id number] Triathlon X3 Tibial Bearing Insert- Cs Implanted:Qty: 1 on 12/04/2022 by Solomon Leon DO at OR [facility] Right: Knee 10/16/2027 5531-G-210 -E / / [id number] documented as of this encounter Visit Diagnoses Diagnosis MyCode Research Other*[id number] Nasal congestion Other diseases of nasal cavity and sinuses [...]
--- OUTSIDE RECORDS SUMMARY | 2024-03-06 19:35 | External Medical Summary ---
Author Name Unknown Address Unknown Organization K01:[place] [facility] [place] [address] [facility] [address] Laboratory Report Ordering Provider Test Date Status SUZY ARAUJO 02/25/2024 12:04:36 Final Observation Date Value Abnormality Reference (Units ) Status Dust Mite IgE, pteronyssinus 02/25/2024 12:04:36 <0.10 <0.10 (kUa/L) Final Dust Mite IgE, farinae 02/25/2024 12:04:36 <0.10 <0.10 (kUa/L) Final Cat Epithelium IgE 02/25/2024 12:04:36 <0.10 <0.10 (kUa/L) Final Dog Dander IgE 02/25/2024 12:04:36 <0.10 <0.10 (kUa/L) Final Bermuda grass IgE 02/25/2024 12:04:36 <0.10 <0.10 (kUa/L) Final Jeovanny IgE 02/25/2024 12:04:36 <0.10 <0.10 (kUa/L) Final Penicillium notatum IgE 02/25/2024 12:04:36 <0.10 <0.10 (kUa/L) Final Cladosporium IgE 02/25/2024 12:04:36 <0.10 <0.10 (kUa/L) Final Aspergillus IgE 02/25/2024 12:04:36 <0.10 <0.10 (kUa/L) Final Alternaria IgE 02/25/2024 12:04:36 <0.10 <0.10 (kUa/L) Final Setomelanomma rostrata IgE Ab [Units/volume] in Serum 02/25/2024 12:04:36 <0.10 <0.10 (kUa/L) Final Pullularia IgE 02/25/2024 12:04:36 <0.10 <0.10 (kUa/L) Final Acremonium sp IgE Ab [Units/volume] in Serum 02/25/2024 12:04:36 <0.10 <0.10 (kUa/L) Final Maple IgE Ab [Units/volume] in Serum 02/25/2024 12:04:36 <0.10 <0.10 (kUa/L) Final Silver Birch IgE Ab [Units/volume] in Serum 02/25/2024 12:04:36 <0.10 <0.10 (kUa/L) Final Avera IgE 02/25/2024 12:04:36 <0.10 <0.10 (kUa/L) Final Elm IgE 02/25/2024 12:04:36 <0.10 <0.10 (kUa/L) Final Bon [place] tree IgE 02/25/2024 12:04:36 <0.10 <0.10 (kUa/L) Final Hayes IgE 02/25/2024 12:04:36 <0.10 <0.10 (kUa/L) Final White Jamie IgE 02/25/2024 12:04:36 <0.10 <0.10 (kUa/L) Final Pecan or [place] Tree IgE 02/25/2024 12:04:36 <0.10 <0.10 (kUa/L) Final Common ragweed [place] (nAmb a) 1 IgE Ab [Units/volume] in Serum 02/25/2024 12:04:36 <0.10 <0.10 (kUa/L) Final Mugwort IgE 02/25/2024 12:04:36 <0.10 <0.10 (kUa/L) Final Plaintain (Panamanian) IgE 02/25/2024 12:04:36 <0.10 <0.10 (kUa/L) Final Flores's Quarters IgE 02/25/2024 12:04:36 <0.10 <0.10 (kUa/L) Final Cocklebur IgE Ab [Units/volume] in Serum 02/25/2024 12:04:36 <0.10 <0.10 (kUa/L) Final Pigweed common IgE 02/25/2024 12:04:36 <0.10 <0.10 (kUa/L) Final Sheep sorrel IgE 02/25/2024 12:04:36 <0.10 <0.10 (kUa/L) Final Performing Location [facility] [facility] [place] [address] [facility] [address]
--- OUTSIDE RECORDS SUMMARY | 2024-03-06 19:35 | External Medical Summary | Summary of Care ---
Author Name Unknown Organization [facility] Address [address] [place] [address] Phone [phone] Care Team Providers Care Necktie Maker Name Role Phone Unavailable Primary Care Provider Unavailabl e Reason for Referral * Evaluate & Treat - Unlimited Visits (Within 10 days (routine)) - Pending Review Specialty Diagnoses / Procedures Referred By Ronnie kline Referred To Contact Orthopaedic Surgery / Orthopedics Diagnoses Chronic left shoulder pain June Horne CRNP [address] [place] [address] Referral ID Status Reason Start Date Expiration Date Visits Requested Visits Authorized [id number] Pending Review Specialty Services Required [phone] Question Answer Referral Priority Within 10 days (routine) Where should this appointment be scheduled? [facility] What body part is the patient being seen for? Shoulder What condition is the patient being seen for? Sprain/Strain/Tear/Other * Evaluate & Treat - Unlimited Visits (Within 10 days (routine)) - Pending Review Specialty Diagnoses / Procedures Referred By Ronnie kline Referred To Contact Physical Therapy / Physical Medicine And Rehab Diagnoses Chronic left shoulder pain June Horne CRNP [address] [place] [address] Referral ID Status Reason Start Date Expiration Date Visits Requested Visits Authorized [id number] Pending Review Specialty Services Required [phone] Question Answer Referral Priority Within 10 days (routine) Where should this appointment be scheduled? [facility] Encounter Details Date Type Department Care Team (Late st Contact Info) Description 03/02/2024 1:20 PM EDT Telemedicine Family Practice [facility] [address] [place] [address] June Horne CRNP [address] [place] [address] Chronic left shoulder pain* Allergies Active Allergy Reactions Criticality Noted Date Comments Prochlorperazine Edisylate 8 Feeling of skin crawling Gabapentin 04/06/2018 Paresthesias Pregabalin 04/06/2018 [place] suicidal Penicillins 04/06/2018 Mom was allergic to PCN - they told her she was too Prochlorperazine 10/28/2019 Phenazopyridine Hcl Hives 04/06/2018 Sulfa Antibiotics Anaphylaxis High 04/06/2018 Closes airway documented as of this encounter (statuses as of 03/02/2024) Medications Medication Sig Dispensed Refills Start Date End Date Status [place]-3 Fatty Acids (FISH OIL) 1000 MG Capsule Take 1 Capsule by mouth in the morning. Active nystatin 654568 UNIT/GM creamIndications:Cu taneous candidiasis Apply topically to [...] Suspension (Flonase)Indication s:Nasal congestion,Rhinorrh ea Administer 1 [place] into each nostril in the morning and 1 [place] before bedtime. 1 Each 5 02/25/2024 Active documented as of this encounter (statuses as of 03/02/2024) Active Problems Problem Noted Date Diagnosed Date [...] as of this encounter (statuses as of 03/02/2024) Resolved Problems Problem Noted Date Diagnosed Date Resolved Date Disorder of iron metabolism, unspecified 04/01/2022 07/19/2022 Hypokalemia 04/01/2022 07/19/2022 Psychosocial stressors 10/18/202007/19 Female stress incontinence 05/04/2018 0 07/19/2022 Arthritis of right knee 04/10/201801/03 Chronic arthralgias of knees and hips 04/06/2018 01/17/2023 documented as of this encounter (statuses as of 03/02/2024) Immunizations Name Administration Dates Next Due COVID-19 [...] as of this encounter Progress Notes * June Horne CRNP - 03/02/2024 1:43 PM EDT Images from the original note were not included. History of Present Illness Keiry York is a 48 year old female that presents for No chief complaint on file. HPI Video visit for L shoulder pain Has been doing [employer] fitness program with [employer] L shoulder pain started Friday before past Friday No specific injury or at least not that she can tell because of her fibro pain Really noticeable when she woke up in morning Pain is in anterior shoulder Can't reach behind her Using cannabis because she doesn't like opiates for pain Also using some tylenol and motrin Pain is worst at night when trying to go to bed Neck is a little more stiff than usual No numbness or tingling into the hand Current Outpatient Medications Medication Sig Dispense Refill Fluticasone Propionate 50 MCG/ACT Nasal Suspension (Flonase) Administer 1 [place] into each nostril in the morning and 1 [place] before bedtime. 1 Each 5 Losartan Potassium 25 MG Oral Tablet (Cozaar) Take 1 Tablet by mouth in the morning. 90 Tablet 1 Cetirizine HCl 10 MG Oral Tablet (ZyrTEC) [...] Capsule by mouth as needed for Headache. Ondansetron HCl 4 MG Oral Tablet (Zofran) Take 1 Tablet by mouth every 8 hours as needed for Nausea. 30 Tablet 0 CPAP every night at bedtime . (Patient not taking: Reported on 02/23/2024) Red Yeast Rice Extract 600 MG Oral Tablet Take by mouth . Ventolin HFA 108 (90 Base) MCG/ACT Inhalation Aerosol Solution Inhale 2 Puffs by mouth every 4 hours as needed for Cough, Shortness of Breath or Wheezing. 8 g 1 nystatin 862439 UNIT/GM cream Apply topically to affected area 2 times a day. To affacted area for two weeks. 30 g 2 [place]-3 Fatty Acids (FISH OIL) 1000 MG Capsule Take 1 Capsule by mouth in the morning. No current facility-administered medications for this visit. Physical Exam There were no vitals filed for this visit. Physical Exam Constitutional: General: She is not in acute distress. Musculoskeletal: Comments: Tender to palpation of anterior shoulder Neurological: Mental Status: She is alert and oriented to person, place, and time. Psychiatric: Behavior: Behavior normal. Thought Content: Thought content normal. Assessment and Plan Chronic left shoulder pain She'd like to start with some PT and schedule ortho follow up in case she does not have good improvement as she's concerned about wait time to get into ortho - PHYSICAL THERAPY REFERRAL OP - ORTHOPAEDICS REFERRAL OP Wrap-Up Check-out note: PT referral - [facility] Schedule ortho Time: I spent a total of 20-29 minutes (exact time 20 mins) on the date of service in preparation, delivery, and documentation of the care provided to Keiry York excluding any time spent in the performance of separately billed services. documented in this encounter Plan of Treatment Upcoming Encounters Date Type Department Care Team (Late st Contact Info) Description 03/11/2024 1:30 PM EST Office Visit Orthopaedics [facility] [address] [facility] [place] [address] Bobby Colunga PA-C [address] [place] [address] 08/04/2024 1:30 PM EDT Imaging Radiology [address] [place] [address] 11/08/2024 11:00 AM EDT Office Visit Family Medicine [address] [place] [phone] Vidya Mai MD [address] [place] [address] [place] [address] Scheduled Procedures Name Priority Associated Diagnoses Date/Ti me COLONOSCOPY FLEXIBLE PROXIMA L DIAGNOSTIC Recall History of colonic polyps Scheduled Referrals Name Type Priority Associated Diagnoses Order Schedule PHYSICAL THERAPY REFERRAL OP Referral Within 10 days (routine) Chronic left shoulder pain Ordered: 03/02/2024 ORTHOPAEDICS REFERRAL OP Referral Within 10 days (routine) Chronic left shoulder pain Ordered: 03/02/2024 Health Maintenance Due Date Last Done Comments [...] this encounter Medical Devices Implanted Type Area Occupational Analyst Device Identifier Shelf Expiration Date Model / Serial / Lot Zilver 518 Vascular Stent Implanted:Qty: 1 on 02/16/2020 by Remi Michaud MD at OR [facility] [place] [employer] 01/12/2023 ZIV5-1 8-12 5-8-80 / / [id number] Knee Triathlon Bead No Dmitri L 2 - [id number] Implanted:Qty: 1 on 08/13/2021 by Solomon Leon DO at OR [facility] Left: Knee NICHOLAS : ORTHOPAEDICS 09/23/2025 5517-F-201 / / [id number] Baseplate #2 Tritanium - [id number] Implanted:Qty: 1 on 08/13/2021 by Solomon Leon DO at OR [facility] Left: Knee NICHOLAS : ORTHOPAEDICS 10/12/2025 5536-B-200 / / [id number] Triathlon X3 Tibial Bearing Insert - Cs Implanted:Qty: 1 on 08/13/2021 by Solomon Leon DO at OR [facility] Left: Knee NICHOLAS : ORTHOPAEDICS 08/21/2025 5531-G-210 -E / / [id number] Cement Bone Simplex Hv & G - [id number] Implanted:Qty: 2 on 12/04/2022 by Solomon Leon DO at OR [facility] Right: Knee NICHOLAS : ORTHOPAEDICS 01/03/2024 6195-1-010 / / [id number] Knee Tria Syetric X3 8x27 - [id number] Implanted:Qty: 1 on 12/04/2022 by Solomon Leon DO at OR [facility] Right: Knee NICHOLAS : ORTHOPAEDICS 06/22/2024 5550-G-278 -E / / 51VA Knee Triathlon Cruciate Fe 2 R - [id number] Implanted:Qty: 1 on 12/04/2022 by Solomon Leon DO at OR [facility] Right: Knee NICHOLAS : ORTHOPAEDICS 12/20/2026 5510-F-202 / / [id number] Knee Baseplate Tri Tib Sz 2 - [id number] Implanted:Qty: 1 on 12/04/2022 by Solomon Leon DO at OR [facility] Right: Knee NICHOLAS : ORTHOPAEDICS 12/17/2025 5521-B-200 / / [id number] Triathlon X3 Tibial Bearing Insert- Cs Implanted:Qty: 1 on 12/04/2022 by Solomon Leon DO at OR [facility] Right: Knee 10/16/2027 5531-G-210 -E / / [id number] documented as of this encounter Visit Diagnoses Diagnosis Chronic left shoulder pain- Primary Pain in joint, shoulder region documented in this encounter Advance Directives * [...] 02/16/2020 11:48 AM 02/17/2020 6:55 PM This ord er reflects the patients wishes and were consensually [...]
--- OUTSIDE RECORDS SUMMARY | 2024-03-06 19:36 | External Medical Summary ---
Author Name Unknown Address Unknown Organization K01:[place] [facility] [place] [address] [facility] [address] Laboratory Report Ordering Provider Test Date Status BAILEY CHEATHAM 01/29/2024 10:36:19 Final Observation Date Value Abnormality Reference (Units ) Status Triglyceride 01/29/2024 10:36:19 135 <=174 ( mg/dL) Final Triglyceride Reference Range s (mg/dL):
<150 Acceptable
150-174 Borderline high
175-499 High
>=500 Very high Cholesterol 01/29/2024 10:36:19 257 Above high normal <200 (mg/dL) Final Total Cholesterol Reference Ranges (mg/dL):
<200 Desirable
200-239 Borderline high
>=240 High HDL 01/29/2024 10:36:19 49 Below low normal >49 (mg/dL) Final HDL Cholesterol Reference Ra nges (mg/dL):
>=60 High (Desirable)
<50 Low (Undesirable) For Females
<40 Low (Undesirable) For Males NON-HDL CHOLESTEROL 01/29/2024 10:36:19 208 Above high normal <=159 (mg/dL) Final Non-HDL Cholesterol Referenc e Range (mg/dL):
<100 Target level for high risk ASCVD patient
<130 Optimal for general population
130-159 Near optimal for general population
160-189 Borderline High
190-219 High
>=220 Very High LDL, (calculated) 01/29/2024 10:36:19 181 Above high n ormal <=129 (mg/dL) Final LDL Cholesterol Reference Ra nges (mg/dL):
<70 Target level for high risk ASCVD patient
<100 Optimal for general population
100-129 Near optimal for general population
130-159 Borderline high
160-189 High
>=190 Very high Performing Location [facility] [facility] [place] [address] [facility] [address]
--- OUTSIDE RECORDS SUMMARY | 2024-03-06 19:36 | External Medical Summary | Summary of Care ---
Author Name Unknown Organization [facility] Address [address] [place] [address] Phone [phone] Care Team Providers Care Drill Instructor Name Role Phone Unavailable Primary Care Provider Unavailabl e Encounter Details Date Type Department Care Team (Late st Contact Info) Description 12/01/2023 Patient Reported Data Patient Survey Ortho OBERD Allergies Active Allergy Reactions Criticality Noted Date Comments Prochlorperazine Edisylate 8 Feeling of skin crawling Gabapentin 04/06/2018 Paresthesias Pregabalin 04/06/2018 [place] suicidal Penicillins 04/06/2018 Mom was allergic to PCN - they told her she was too Prochlorperazine 10/28/2019 Phenazopyridine Hcl Hives 04/06/2018 Sulfa Antibiotics Anaphylaxis High 04/06/2018 Closes airway documented as of this encounter (statuses as of 12/01/2023) Medications Medication Sig Dispensed Refills Start Date End Date Status [place]-3 Fatty Acids (FISH OIL) 1000 MG Capsule Take 1 Capsule by mouth in the morning. Active nystatin 869700 UNIT/GM creamIndications:Cu taneous candidiasis Apply topically to [...] the morning. 90 Tablet 3 07/17/2023 Active traZODone HCl 100 MG Oral Tablet (Desyrel) TAKE 2 TABLETS BY MOUTH AT BEDTIME 60 Tablet 3 08/19/2023 Active Potassium Chloride ER 20 MEQ Oral [...] the evening. 180 Capsule 3 11/12/2023 Active hydroCHLOROthiazide 12.5 MG Oral CapsuleIndications: HTN, goal below 130/80 Take 1 Capsule by mouth in the morning. Every morning.. 90 Capsule 1 11/12/2023 Active documented as of this encounter (statuses as of 12/01/2023) Active Problems Problem Noted Date Diagnosed Date [...] as of this encounter (statuses as of 12/01/2023) Resolved Problems Problem Noted Date Diagnosed Date Resolved Date Disorder of iron metabolism, unspecified 04/01/2022 07/19/2022 Hypokalemia 04/01/2022 07/19/2022 Psychosocial stressors 10/18/202007/19 Female stress incontinence 05/04/2018 0 07/19/2022 Arthritis of right knee 04/10/201801/03 Chronic arthralgias of knees and hips 04/06/2018 01/17/2023 documented as of this encounter (statuses as of 12/01/2023) Immunizations Name Administration Dates Next Due COVID-19 [...] y our heating, water, or electric bill? No 12/04/2022 Is your family able to pay t he heat, water, or electric bill? (Household - for ages 0-17 years) Not on file 12/04/2022 Does your family have access to good internet? (Household - for ages 0-17 years) Not on file 12/04/2022 Social Connections Answer Date Recorded How often [...] Care Team (Late st Contact Info) Description 01/01/2024 1:00 PM EDT Office Visit Orthopaedics [facility] 132 [facility] [place] [address] Bobby Colunga PA-C [facility] [employer] [place] [id number] 08/04/2024 1:30 PM EDT Imaging Radiology [address] [place] [address] Scheduled Procedures Name Priority Associated Diagnoses Date/Ti me COLONOSCOPY FLEXIBLE PROXIMA L DIAGNOSTIC Recall History of colonic polyps Health Maintenance Due Date Last Done Comments Cologuard 2022 Fecal Occult Blood Test 2022 Sigmoidoscopy 2022 Meningitis B Vaccine (Bexsero/Trumemba) (3 of 4 - Increased Risk Trumenba 3-dose series) 07/19/2022 07/19/2021, 08/19/2018 COVID-19 Vaccine (3 - 2022- season) 2023 09/23/2020, 08/23/2020 Depression Screening 07/20/2023 07/19/2022 Influenza Vaccine (FLU shot) (#1) 2024 04/06/2018, 04/06/2018 GFR 07/07/2024 07/08/2023, 04/04, 02/03/2023, Additional history exists Albumin/Creatinine Ratio 07/26/2024 07/26/2021 Mammogram 08/03/2024 08/04/2023, 04/0 05/2023, 07/30/2022, Additional history exists Colonoscopy 10/29/2025 10/29/2022, 10/29/2022 Colorectal Cancer Screening 10/29/2025 Diabetes Screening 07/07/2026 07/08/2023, 1 06/15/2022, 02/03/2023, Additional history exists MENINGOCOCCAL (MENACTRA/MENVEO) (3 - Risk 2-dose series) 07/19/2026 07/19/2021, 08/19/2018 Pneumococcal Vaccine: Pediatrics (0 to 5 Years) and At-Risk Patients (6 to 64 Years) (3 of 3 - PPSV23 or PCV20) 07/19/2026 07/19/2021, 08/19/2018 DTaP,Tdap,and Td Vaccines (3 - Td or Tdap) 08/07/2026 08/07/2016, 03/05/2009 Lipid Panel 09/20/2027 09/19/2022, 07/03, 08/21/2017 Hepatitis B Vaccine Completed 01/20/2023, 08/19/2022, 07/19/2022 HPV (Gardasil) Vaccine Aged Out No lo nger eligible based on patient's age to complete this topic documented as of this encounter Medical Devices Implanted Type Area Traffic Maintenance Supervisor Device Identifier Shelf Expiration Date Model / Serial / Lot Zilver 518 Vascular Stent Implanted:Qty: 1 on 02/16/2020 by Remi Michaud MD [place] [facility] [place] [employer] 01/12/2023 ZIV5-1 8-12 5-8-80 / / [id number] Knee Triathlon Bead No Dmitri L 2 - [id number] Implanted:Qty: 1 on 08/13/2021 by Solomon Leon DO at OR [facility] Left: Knee NICHOLAS : ORTHOPAEDICS 09/23/2025 5517-F-201 / / [id number] Baseplate #2 Tritanium - [id number] Implanted:Qty: 1 on 08/13/2021 by Solomon Leon DO at OR [facility] Left: Knee NICHOLAS : ORTHOPAEDICS 10/12/2025 5536-B-200 / / [id number] Triathlon X3 Tibial Bearing Insert - Cs Implanted:Qty: 1 on 08/13/2021 by Solomon Leon DO at OR [facility] Left: Knee NICHOLAS : ORTHOPAEDICS 08/21/2025 5531-G-210 -E / / [id number] Cement Bone Simplex Hv & G - [id number] Implanted:Qty: 2 on 12/04/2022 by Solomon Leon DO at OR [facility] Right: Knee NICHOLAS : ORTHOPAEDICS 01/03/2024 6195-1-010 / / [id number] Knee Tria Syetric X3 8x27 - [id number] Implanted:Qty: 1 on 12/04/2022 by Solomon Leon DO at OR [facility] Right: Knee NICHOLAS : ORTHOPAEDICS 06/22/2024 5550-G-278 -E / / 51VA Knee Triathlon Cruciate Fe 2 R - [id number] Implanted:Qty: 1 on 12/04/2022 by Solomon Leon DO at OR [facility] Right: Knee NICHOLAS : ORTHOPAEDICS 12/20/2026 5510-F-202 / / [id number] Knee Baseplate Tri Tib Sz 2 - [id number] Implanted:Qty: 1 on 12/04/2022 by Solomon Leon DO at OR [facility] Right: Knee NICHOLAS : ORTHOPAEDICS 12/17/2025 5521-B-200 / / [id number] Triathlon X3 Tibial Bearing Insert- Cs Implanted:Qty: 1 on 12/04/2022 by Solomon Leon DO at OR [facility] Right: Knee 10/16/2027 5531-G-210 -E / [...]
--- OUTSIDE RECORDS SUMMARY | 2024-03-06 19:36 | External Medical Summary | Summary of Care ---
Author Name Unknown Organization [facility] Address [address] [place] [address] Phone [phone] Care Team Providers Care Industrial Engineering Name Role Phone Unavailable Primary Care Provider Unavailabl e Encounter Details Date Type Department Care Team (Late st Contact Info) Description 12/01/2023 Patient Reported Data Patient Survey Ortho OBERD Allergies Active Allergy Reactions Criticality Noted Date Comments Prochlorperazine Edisylate 8 Feeling of skin crawling Gabapentin 04/06/2018 Paresthesias Pregabalin 04/06/2018 [place] suicidal Penicillins 04/06/2018 Mom was allergic to PCN - they told her she was too Prochlorperazine 10/28/2019 Phenazopyridine Hcl Hives 04/06/2018 Sulfa Antibiotics Anaphylaxis High 04/06/2018 Closes airway documented as of this encounter (statuses as of 12/01/2023) Medications Medication Sig Dispensed Refills Start Date End Date Status [place]-3 Fatty Acids (FISH OIL) 1000 MG Capsule Take 1 Capsule by mouth in the morning. Active nystatin 760464 UNIT/GM creamIndications:Cu taneous candidiasis Apply topically to [...] 01/01/2024 1:00 PM EDT Office Visit Orthopaedics [facility] 132 [facility] [place] [address] Bobby Colunga PA-C [facility] [employer] [place] [phone] 08/04/2024 1:30 PM EDT Imaging Radiology [address] [place] [address] Scheduled Procedures Name Priority Associated Diagnoses Date/Ti [...] this encounter Medical Devices Implanted Type Area Vice President Of Engineering Device Identifier Shelf Expiration Date Model / Serial / Lot Zilver 518 Vascular Stent Implanted:Qty: 1 on 02/16/2020 by Remi Michaud MD at [place] [facility] [place] [employer] 01/12/2023 ZIV5-1 8-12 5-8-80 / / [id number] Knee Triathlon Bead No Dmitri L 2 - [id number] Implanted:Qty: 1 on 08/13/2021 by Solomon Leon DO at OR [facility] Left: Knee NICHOLAS : ORTHOPAEDICS 09/23/2025 5517-F-201 / / [id number] Baseplate #2 Tritanium - [id number] Implanted:Qty: 1 on 08/13/2021 by Solomon Leon DO at OR [facility] Left: Knee NICHOLAS : ORTHOPAEDICS 10/12/2025 5536-B-200 / / [id number] Triathlon X3 Tibial Bearing Insert - Cs Implanted:Qty: 1 on 08/13/2021 by Solomon Leon DO at OR [facility] Left: Knee NICHOLAS : ORTHOPAEDICS 08/21/2025 5531-G-210 -E / / [id number] Cement Bone Simplex Hv & G - [id number] Implanted:Qty: 2 on 12/04/2022 by Solomon Leon DO at OR [facility] Right: Knee NICHOLAS : ORTHOPAEDICS 01/03/2024 6195-1-010 / / [id number] Knee Tria Syetric X3 8x27 - [id number] Implanted:Qty: 1 on 12/04/2022 by Solomon Leon DO at OR [facility] Right: Knee NICHOLAS : ORTHOPAEDICS 06/22/2024 5550-G-278 -E / / 51VA Knee Triathlon Cruciate Fe 2 R - [id number] Implanted:Qty: 1 on 12/04/2022 by Solomon Leon DO at OR [facility] Right: Knee NICHOLAS : ORTHOPAEDICS 12/20/2026 5510-F-202 / / [id number] Knee Baseplate Tri Tib Sz 2 - [id number] Implanted:Qty: 1 on 12/04/2022 by Solomon Leon [...]
--- OUTSIDE RECORDS SUMMARY | 2024-03-06 19:36 | External Medical Summary | Summary of Care ---
Author Name Unknown Organization [facility] Address [address] [place] [address] Phone [phone] Care Team Providers Care Oil Seal Assembler Name Role Phone Unavailable Primary Care Provider Unavailabl e Encounter Details Date Type Department Care Team (Late st Contact Info) Description 12/05/2023 Patient Reported Data Patient Survey Ortho OBERD Allergies Active Allergy Reactions Criticality Noted Date Comments Prochlorperazine Edisylate 8 Feeling of skin crawling Gabapentin 04/06/2018 Paresthesias Pregabalin 04/06/2018 [place] suicidal Penicillins 04/06/2018 Mom was allergic to PCN - they told her she was too Prochlorperazine 10/28/2019 Phenazopyridine Hcl Hives 04/06/2018 Sulfa Antibiotics Anaphylaxis High 04/06/2018 Closes airway documented as of this encounter (statuses as of 12/05/2023) Medications Medication Sig Dispensed Refills Start Date End Date Status [place]-3 Fatty Acids (FISH OIL) 1000 MG Capsule Take 1 Capsule by mouth in the morning. Active nystatin 562630 UNIT/GM creamIndications:Cu taneous candidiasis Apply topically to [...] as of this encounter (statuses as of 12/05/2023) Active Problems Problem Noted Date Diagnosed Date [...] as of this encounter (statuses as of 12/05/2023) Resolved Problems Problem Noted Date Diagnosed Date Resolved Date Disorder of iron metabolism, unspecified 04/01/2022 07/19/2022 Hypokalemia 04/01/2022 07/19/2022 Psychosocial stressors 10/18/202007/19 Female stress incontinence 05/04/2018 0 07/19/2022 Arthritis of right knee 04/10/201801/03 Chronic arthralgias of knees and hips 04/06/2018 01/17/2023 documented as of this encounter (statuses as of 12/05/2023) Immunizations Name Administration Dates Next Due COVID-19 [...] 01/01/2024 1:00 PM EDT Office Visit Orthopaedics [facility] 132 [facility] [place] [address] Bobby Colunga PA-C [facility] [employer] [place] [phone] 08/04/2024 1:30 PM EDT Imaging Radiology [address] [place] [address] Scheduled Procedures Name Priority Associated Diagnoses Date/Ti [...] Hepatitis B Vaccine Completed 01/20/2023, 08/19/2022, 07/19/2022 Hepatitis C Screening Completed 02/03/2023 , 02/03/2023, 02/03/2023, Additional history exists HIV Screening Completed 07/08/2023, 04/04, 02/03/2023, Additional history exists HPV (Gardasil) Vaccine Aged Out No lo nger eligible based on patient's age to complete this topic documented as of this encounter Medical Devices Implanted Type Area Adjunct Professor Of Voice Device Identifier Shelf Expiration Date Model / Serial / Lot Zilver 518 Vascular Stent Implanted:Qty: 1 on 02/16/2020 by Remi Michaud MD at OR [facility] [place] [email or web address] 01/12/2023 ZIV5-1 8-12 5-8-80 / / [id number] Knee Triathlon Bead No Dmitri L 2 - [id number] Implanted:Qty: 1 on 08/13/2021 by Solomon Leon DO at OR [facility] Left: Knee NICHOLAS : ORTHOPAEDICS 09/23/2025 5517-F-201 / / [id number] Baseplate #2 Tritanium - [id number] Implanted:Qty: 1 on 08/13/2021 by Solomon Leon DO at OR [facility] Left: Knee NICHOLAS : ORTHOPAEDICS 10/12/2025 5536-B-200 / / [id number] Triathlon X3 Tibial Bearing Insert - Cs Implanted:Qty: 1 on 08/13/2021 by Solomon Leon DO at OR [facility] Left: Knee NICHOLAS : ORTHOPAEDICS 08/21/2025 5531-G-210 -E / / [id number] Cement Bone Simplex Hv & G - [id number] Implanted:Qty: 2 on 12/04/2022 by Solomon Leon DO at OR [facility] Right: Knee NICHOLAS : ORTHOPAEDICS 01/03/2024 6195-1-010 / / [id number] Knee Tria Syetric X3 8x27 - [id number] Implanted:Qty: 1 on 12/04/2022 by Solomon Leon DO at OR [facility] Right: Knee INCHOLAS : ORTHOPAEDICS 06/22/2024 5550-G-278 -E / / 51VA Knee Triathlon Cruciate Fe 2 R - [id number] Implanted:Qty: 1 on 12/04/2022 by Solomon Leon DO at OR [facility] Right: Knee NICHOLAS : ORTHOPAEDICS 12/20/2026 5510-F-202 / / [id number] Knee Baseplate Tri Tib Sz 2 - [id number] Implanted:Qty: 1 on 12/04/2022 by Solomon Leon DO at OR [facility] Right: Knee NICHOLAS : ORTHOPAEDICS 12/17/2025 5521-B-200 / / [id number] Triathlon X3 Tibial Bearing Insert- Cs Implanted:Qty: 1 on 12/04/2022 by Solomon Leon DO at OR [facility] Right: Knee 10/16/2027 5531-G-210 -E [...]
--- OUTSIDE RECORDS SUMMARY | 2024-03-06 19:36 | External Medical Summary | Summary of Care ---
Author Name Unknown Organization [facility] Address [address] [place] [address] Phone [phone] Care Team Providers Care Veterans Employment Representative Name Role Phone Unavailable Primary Care Provider Unavailabl e Reason for Visit * Reason Comments Outpatient Testing Encounter Details Date Type Department Care Team (Late st Contact Info) Description 01/29/2024 10:40 AM EDT Laboratory Laboratory [address] [place] [phone] [place] [address] [employer] Other*[id number]; HTN, goal below 130/80 Allergies Active Allergy Reactions Criticality Noted Date Comments Prochlorperazine Edisylate 8 Feeling of skin crawling Gabapentin 04/06/2018 Paresthesias Pregabalin 04/06/2018 [place] suicidal Penicillins 04/06/2018 Mom was allergic to PCN - they told her she was too Prochlorperazine 10/28/2019 Phenazopyridine Hcl Hives 04/06/2018 Sulfa Antibiotics Anaphylaxis High 04/06/2018 Closes airway documented as of this encounter (statuses as of 01/29/2024) Medications Medication Sig Dispensed Refills Start Date End Date Status [place]-3 Fatty Acids (FISH OIL) 1000 MG Capsule Take 1 Capsule by mouth in the morning. Active nystatin 056633 UNIT/GM creamIndications:Cu taneous candidiasis Apply topically to [...] as of this encounter (statuses as of 01/29/2024) Active Problems Problem Noted Date Diagnosed Date [...] as of this encounter (statuses as of 01/29/2024) Resolved Problems Problem Noted Date Diagnosed Date Resolved Date Disorder of iron metabolism, unspecified 04/01/2022 07/19/2022 Hypokalemia 04/01/2022 07/19/2022 Psychosocial stressors 10/18/202007/19 Female stress incontinence 05/04/2018 0 07/19/2022 Arthritis of right knee 04/10/201801/03 Chronic arthralgias of knees and hips 04/06/2018 01/17/2023 documented as of this encounter (statuses as of 01/29/2024) Immunizations Name Administration Dates Next Due COVID-19 [...] 11:20 AM EDT Office Visit Family Medicine [address] [place] [phone] David Limon [address] [place] [address] 02/25/2024 11:00 AM EDT Office Visit Otolaryngology [facility] [address] [place] [address] Gege Duncan PA-C 132 [place] [address] 03/11/2024 1:30 PM EST Office Visit Orthopaedics [facility] [address] [place] [place] [address] Bobby Colunga PA-C [address] [place] [address] 08/04/2024 1:30 PM EDT Imaging Radiology [address] [place] [address] 11/08/2024 11:00 AM EDT Office Visit Family Medicine [address] [place] [phone] Vidya Mai MD [address] [place] [address] [place] [address] 11/14/2025 11:00 AM EDT Office Visit Family [address] [place] [phone] Vidya Mai MD [address] [place] [address] [place] [address] Scheduled Orders Name Type Priority Associated Diagnoses Orde r Schedule MYCODE SST1 Lab Routine [employer] Other*[id number] Ordered: 01/29/2024 MYCODE SST2 Lab Routine [employer] Other*[id number] Ordered: 01/29/2024 Scheduled Procedures Name Priority Associated Diagnoses Date/Ti [...] this encounter Medical Devices Implanted Type Area Instrumentation Technician Device Identifier Shelf Expiration Date Model / Serial / Lot Zilver 518 Vascular Stent Implanted:Qty: 1 on 02/16/2020 by Remi Michaud MD at OR [facility] [place] [employer] 01/12/2023 ZIV5-1 8-12 5-8-80 / / [id number] Knee Triathlon Bead No Dmitri L 2 - [id number] Implanted:Qty: 1 on 08/13/2021 by Solomon Leon DO at OR [facility] Left: Knee NICHOLAS : ORTHOPAEDICS 09/23/2025 5517-F-201 / / [id number] Baseplate #2 Tritanium - [id number] Implanted:Qty: 1 on 08/13/2021 by Solomon Leon DO at OR [facility] Left: Knee NICHOLAS : ORTHOPAEDICS 10/12/2025 5536-B-200 / / [id number] Triathlon X3 Tibial Bearing Insert - Cs Implanted:Qty: 1 on 08/13/2021 by Solomon Leon DO at OR [facility] Left: Knee NICHOLAS : ORTHOPAEDICS 08/21/2025 5531-G-210 -E / / [id number] Cement Bone Simplex Hv & G - [id number] Implanted:Qty: 2 on 12/04/2022 by Solomon Leon DO at OR [facility] Right: Knee NICHOLAS : ORTHOPAEDICS 01/03/2024 6195-1-010 / / [id number] Knee Tria Syetric X3 8x27 - [id number] Implanted:Qty: 1 on 12/04/2022 by Solomon Leon DO at OR [facility] Right: Knee NICHOLAS : ORTHOPAEDICS 06/22/2024 5550-G-278 -E / / 51VA Knee Triathlon Cruciate Fe 2 R - [id number] Implanted:Qty: 1 on 12/04/2022 by Solomon Leon DO at OR [facility] Right: Knee NICHOLAS : ORTHOPAEDICS 12/20/2026 5510-F-202 / / [id number] Knee Baseplate Tri Tib Sz 2 - [id number] Implanted:Qty: 1 on 12/04/2022 by Solomon Leon DO at OR [facility] Right: Knee NICHOLAS : ORTHOPAEDICS 12/17/2025 5521-B-200 / / [id number] Triathlon X3 Tibial Bearing Insert- Cs Implanted:Qty: 1 on 12/04/2022 by Solomon Leon DO at OR [facility] Right: Knee 10/16/2027 5531-G-210 -E / / [id number] documented as of this encounter Visit Diagnoses Diagnosis [employer] Other*[id number] HTN, goal below 130/80 Unspecified essential hypertension [...]
--- OUTSIDE RECORDS SUMMARY | 2024-03-06 19:36 | External Medical Summary | Summary of Care ---
Author Name Unknown Organization [facility] Address [address] [place] [address] Phone [phone] Care Team Providers Care Maintenance Machine Repairer Name Role Phone Unavailable Primary Care Provider Unavailabl e Encounter Details Date Type Department Care Team (Late st Contact Info) Description 01/28/2024 Patient Reported Data Patient Survey Ortho FORCE Allergies Active Allergy Reactions Criticality Noted Date Comments Prochlorperazine Edisylate 8 Feeling of skin crawling Gabapentin 04/06/2018 Paresthesias Pregabalin 04/06/2018 [place] suicidal Penicillins 04/06/2018 Mom was allergic to PCN - they told her she was too Prochlorperazine 10/28/2019 Phenazopyridine Hcl Hives 04/06/2018 Sulfa Antibiotics Anaphylaxis High 04/06/2018 Closes airway documented as of this encounter (statuses as of 01/28/2024) Medications Medication Sig Dispensed Refills Start Date End Date Status [place]-3 Fatty Acids (FISH OIL) 1000 MG Capsule Take 1 Capsule by mouth in the morning. Active nystatin 131173 UNIT/GM creamIndications:Cu taneous candidiasis Apply topically to [...] Every morning.. 90 Capsule 1 11/12/2023 Active traZODone HCl 100 MG Oral Tablet (Desyrel) TAKE 2 TABLETS BY MOUTH AT BEDTIME 60 Tablet 3 12/26/2023 Active documented as of this encounter (statuses as of 01/28/2024) Active Problems Problem Noted Date Diagnosed Date [...] as of this encounter (statuses as of 01/28/2024) Resolved Problems Problem Noted Date Diagnosed Date Resolved Date Disorder of iron metabolism, unspecified 04/01/2022 07/19/2022 Hypokalemia 04/01/2022 07/19/2022 Psychosocial stressors 10/18/202007/19 Female stress incontinence 05/04/2018 0 07/19/2022 Arthritis of right knee 04/10/201801/03 Chronic arthralgias of knees and hips 04/06/2018 01/17/2023 documented as of this encounter (statuses as of 01/28/2024) Immunizations Name Administration Dates Next Due COVID-19 [...] Team (Late st Contact Info) Description 01/29/2024 10:00 AM EDT Office Visit Family Medicine [address] [place] [phone] David Limon [address] [place] [address] 03/11/2024 1:30 PM EST Office Visit Orthopaedics [facility] 132 [facility] [place] [address] Bobby Colunga PA-C [facility] [employer] [place] [address] 08/04/2024 1:30 PM EDT Imaging Radiology [address] [place] [address] Scheduled Procedures Name Priority Associated Diagnoses Date/Ti me COLONOSCOPY FLEXIBLE PROXIMA L DIAGNOSTIC Recall History of colonic polyps Health Maintenance Due Date Last Done Comments Cologuard 2022 Fecal Occult Blood Test 2022 Sigmoidoscopy 2022 Meningitis B Vaccine (Bexsero/Trumemba) (3 of 4 - Increased Risk Trumenba 3-dose series) 07/19/2022 07/19/2021, 08/19/2018 Depression Screening 07/20/2023 07/19/2022 COVID-19 Vaccine (3 - 2023- season) 2024 09/23/2020, 08/23/2020 Influenza Vaccine (FLU shot) (#1) 2024 04/06/2018, 04/06/2018 GFR 07/07/2024 07/08/2023, 04/04, 02/03/2023, Additional history exists Albumin/Creatinine Ratio 07/26/2024 07/26/2021 Mammogram 08/03/2024 08/04/2023, 04/05/2023, 07/30/2022, Additional history exists Colonoscopy 10/29/2025 10/29/2022, [...] this encounter Medical Devices Implanted Type Area Narrow Gauge Brakeman Device Identifier Shelf Expiration Date Model / Serial / Lot Zilver 518 Vascular Stent Implanted:Qty: 1 on 02/16/2020 by Remi Michaud MD at OR [facility] 01/12/2023 ALEXV5-1 8-12 5-8-80 / / [id number] Knee Triathlon Bead No Dmitri L 2 - [id number] Implanted:Qty: 1 on 08/13/2021 by Solomon Leon DO at OR [facility] Left: Knee NICHOLAS : ORTHOPAEDICS 09/23/2025 5517-F-201 / / [id number] Baseplate #2 Tritanium - [id number] Implanted:Qty: 1 on 08/13/2021 by Solomon Leon DO at OR [facility] Left: Knee NICHOLAS : ORTHOPAEDICS 10/12/2025 5536-B-200 / / [id number] Triathlon X3 Tibial Bearing Insert - Cs Implanted:Qty: 1 on 08/13/2021 by Solomon Leon DO at OR [facility] Left: Knee NICHOLAS : ORTHOPAEDICS 08/21/2025 5531-G-210 -E / / [id number] Cement Bone Simplex Hv & G - [id number] Implanted:Qty: 2 on 12/04/2022 by Solomon Leon DO at OR [facility] Right: Knee NICHOLAS : ORTHOPAEDICS 01/03/2024 6195-1-010 / / [id number] Knee Tria Syetric X3 8x27 - [id number] Implanted:Qty: 1 on 12/04/2022 by Solomon Leon DO at OR [facility] Right: Knee NICHOLAS : ORTHOPAEDICS 06/22/2024 5550-G-278 -E / / 51VA Knee Triathlon Cruciate Fe 2 R - [id number] Implanted:Qty: 1 on 12/04/2022 by Solomon Leon DO at OR [facility] Right: Knee NICHOLAS : ORTHOPAEDICS 12/20/2026 5510-F-202 / / [id number] Knee Baseplate Tri Tib Sz 2 - [id number] Implanted:Qty: 1 on 12/04/2022 by Solomon Leon DO at OR [facility] Right: Knee NICHOLAS : ORTHOPAEDICS 12/17/2025 5521-B-200 / / [id number] Triathlon X3 Tibial Bearing Insert- Cs Implanted:Qty: 1 on 12/04/2022 by Solomon Leon, at OR [facility] Right: Knee 10/16/2027 5531-G-210 -E / [...]
--- OUTSIDE RECORDS SUMMARY | 2024-03-06 19:36 | External Medical Summary | Summary of Care ---
Author Name Unknown Organization [facility] Address [address] [facility]WORKMarifer [facility] [address] Phone [phone] Care Team Providers Care Assistant Customer Service Manager Name Role Phone Unavailable Primary Care Provider Unavailabl e Reason for Referral * Evaluate & Treat - Unlimited Visits (Within 3 days (urgent)) - Pending Review Specialty Diagnoses / Procedures Referred By Ronnie kline Referred To Contact Physical Therapy / Physical Medicine And Rehab Diagnoses Acute pain of left knee Pes anserinus bursitis of left knee Pes anserinus tendinitis of left lower extremity Bobby Colunga PA-C [address] [place] [address] Referral ID Status Reason Start Date Expiration Date Visits Requested Visits Authorized [id number] Pending Review Specialty Services Required 11/20/[phone] Question Answer Referral Priority Within 3 days (urgent) Where should this appointment be scheduled? [facility] Comments Left knee rehabilitation for pes anserinus bursitis and tendinitis. Strengthening, pain relief, and modalities as indicated. Reason for Visit * Reason Comments Follow Up Right TKA Encounter Details Date Type Department Care Team (Late st Contact Info) Description 11/20/2023 1:00 PM EDT Office Visit Orthopaedics [address] [place] [address] Bobby Colunga PA-C [address] [place] [address] Status post total right knee replacement*; Acute pain of left knee; Pes anserinus bursitis of left knee; Pes anserinus tendinitis of left lower extremity Allergies Active Allergy Reactions Criticality Noted Date Comments Prochlorperazine Edisylate 8 Feeling of skin crawling Gabapentin 04/06/2018 Paresthesias Pregabalin 04/06/2018 [place] suicidal Penicillins 04/06/2018 Mom was allergic to PCN - they told her she was too Prochlorperazine 10/28/2019 Phenazopyridine Hcl Hives 04/06/2018 Sulfa Antibiotics Anaphylaxis High 04/06/2018 Closes airway documented as of this encounter (statuses as of 11/20/2023) Medications Medication Sig Dispensed Refills Start Date End Date Status [place]-3 Fatty Acids (FISH OIL) 1000 MG Capsule Take 1 Capsule by mouth in the morning. Active nystatin 955786 UNIT/GM creamIndications:Cu taneous candidiasis Apply topically to [...] as of this encounter (statuses as of 11/20/2023) Active Problems Problem Noted Date Diagnosed Date [...] as of this encounter (statuses as of 11/20/2023) Resolved Problems Problem Noted Date Diagnosed Date Resolved Date Disorder of iron metabolism, unspecified 04/01/2022 07/19/2022 Hypokalemia 04/01/2022 07/19/2022 Psychosocial stressors 10/18/202007/19 Female stress incontinence 05/04/2018 0 07/19/2022 Arthritis of right knee 04/10/201801/03 Chronic arthralgias of knees and hips 04/06/2018 01/17/2023 documented as of this encounter (statuses as of 11/20/2023) Immunizations Name Administration Dates Next Due COVID-19 [...] as of this encounter Progress Notes * Bobby Colunga PA-C - 11/20/2023 12:44 PM EDT ORTHOPAEDIC SURGERY - Clinic Note SUBJECTIVE: Keiry York is a 48 year old female. Chief Complaint Patient presents with Follow Up Right TKA HPI: Keiry is a very pleasant 48-year-old female who presents to the clinic today for her 1 year postoperative visit after total right knee arthroplasty. Today she reports that she is doing remarkably well with regard to her right knee. She reports excellent range of motion, excellent function, and no pain. She reports that her knee feels like it did when she was a teenager. She is quite pleasedwith her surgical outcome. Of note She is also roughly 2 years removed from total left knee replacement. She does report increased pain and feelings of stiffness in the left knee which she states has been ongoing for roughly 2months. She localizes the majority of the pain to the medial aspect pointing to the distal quad and following the line of the pes anserinus tendons. She reports that she is quite active with boxing a nd extensive workouts including bicycling, plyometric work, and squatting. She reports no instability, loss of range of motion, or significant swelling. Review of Systems: Constitutional ROS: No fevers, sweats, or chills Cardiovascular ROS: No chest pain Respiratory ROS: No breathing difficulty Gastrointestinal ROS: No abdominal pain Musculoskeletal/Extremities ROS: Left knee pain Neurologic ROS: No numbness or tingling Review of patient's allergies indicates: Allergen Reactions Sulfa Antibiotics Anaphylaxis Closes airway Compazine [Prochlorperazine Edisylate] Feeling of skin crawling Gabapentin Paresthesias Lyrica [Pregabalin] [place] suicidal Penicillins Mom was allergic to PCN - they told her she was too Prochlorperazine Pyridium [Phenazopyridine Hcl] Hives Current Outpatient Medications Medication Sig Dispense Refill [place]-3 Fatty Acids (FISH OIL) 1000 MG Capsule Take 1 Capsule by mouth in the morning. nystatin [id number] UNIT/GM cream Apply topically to affected area [...] mouth in the morning. 90 Tablet 3 traZODone HCl 100 MG Oral Tablet (Desyrel) TAKE 2 TABLETS BY MOUTH AT BEDTIME 60 Tablet 3 Potassium Chloride ER 20 MEQ [...] Capsule in the evening. 180 Capsule 3 hydroCHLOROthiazide 12.5 MG Oral Capsule Take 1 Capsule by mouth in the morning. Every morning.. 90Capsule 1 No current facility-administered medications for this visit. Patient Active Problem List Diagnosis Fibromyalgia History [...] performed by Solomon Leon DO at OR [facility] ARTHROPLASTY KNEE TOTAL Right 12/04/2022 ROBOTIC ARTHROPLASTY KNEE TOTAL performed by Solomon Leon DO at [facility] BREAST BIOPSY Right benign CAROTID (INTERNAL) ARTERY CATHETHER PLACEMENT N/A 12/24/2019 CATHETER PLACEMENT INTERNAL CAROTID ARTERY performed by Remi Michaud MD at [facility] CAROTID (INTERNAL) ARTERY CATHETHER PLACEMENT Right 02/16/2020 CATHETER PLACEMENT INTERNAL CAROTID ARTERY performed by Remi Michaud MD at [facility] COLONOSCOPY, DIAGNOSTIC (RECTUM) 10/29/2022 diverticulosis/hemorrhoids/biopsies show adenomatous polyps/recall 3 years/COLONOSCOPY FLEXIBLE PROXIMAL DIAGNOSTIC performed by Rosendo Rodriguez MD at [facility] CREATE SPINAL SHUNT, W/LAMINECTOMY 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 INFORMATION . INTRACRANIAL INTRAVASCULAR STENT,INCL ANGIO Right 02/16/2020 TRANSCATHETER PLACEMENT OF INTRAVASCULAR STENTS, INTRACRANIAL performed by Remi Michaud MD at OR [facility] REMOVAL OF APPENDIX age 14 REMOVAL OF SPINAL SHUNT SYSTEM N/A 01/06/2020 REMOVAL SHUNT LUMBAR PERITONEAL WITHOUT REPLACEMENT performed by Remi Michaud MD at [facility] REMOVAL OF SPLEEN, TOTAL age 16 Dx ITP REMOVAL OF TONSILS, AGE 12+ age 16 REMOVE GALLBLADDER 2017 SINUS SURGERY PROCEDURE NEC 2002 TOTAL HYSTERECTOMY 2009 dx endometriosis VERTEBRAL ARTERY CATHETER PLACEMENT N/A 12/24/2019 CATHETER PLACEMENT VERTEBRAL ARTERY, performed by Remi Michaud MD at [facility] VERTEBRAL ARTERY CATHETER PLACEMENT Right 02/16/2020 CATHETER PLACEMENT VERTEBRAL ARTERY, performed by Remi Michaud MD at OR [facility] Social History Tobacco Use Smoking status: Former Current packs/day: 0.00 Types: Cigarettes, Vaporizer Quit date: 05/05/2005 Years since quittin.5 Passive exposure: Past Smokeless tobacco: Never Tobacco comments: Quit smoking in 2006 - Currently Vapes and smokes medical marijuana Vaping Use Vaping status: Every Day Substances: THC Devices: Pre-filled or refillable cartridge Substance Use Topics Alcohol use: Yes Comment: occasional Drug use: Yes Frequency: 28.0 times per week Types: Marijuana Comment: Medical marijuana. Family history: Noncontributory OBJECTIVE: Diagnostic Testing: Updated radiographs of the right knee obtained in the office today were viewed, independently interpreted, compared with previous, and demonstrate a stable total right knee arthroplasty prosthesis without evidence of hardware complication or loosening. Updated radiographs of the left knee obtained in the office today were viewed, independently interpreted, compared with previous, and demonstrate a stable total left knee arthroplasty prosthesis without evidence of hardware complication or loosening. Vital Signs: There were no vitals taken for this visit. Physical Exam: General: Alert and oriented x3 female, in no acute distress, appears currently stated age, appears well nourished, and converses appropriately. Psych: Mood and affect pleasant, cooperative, and without any positive/concerning findings. HEENT: Head is atraumatic, normocephalic, eyes are equal and round and without appreciated scleral injection, oral and nasal cavities are patent without obvious exudate. Respiratory: Patient's breathing is unlabored. Skin: Generally pink, warm and dry without gross visible diaphoresis, rash, erythema, ecchymosis, breakdown, or visible trauma. Musculoskeletal: Examination of the right knee reveals a well-healed surgical incision without evidence of complication or infection. There is no erythema, ecchymosis, deformity, or skin breakdown. There is no tenderness to palpation. She is able to demonstrate a a straight leg raise and range the knee from full extension to roughly 140 flexion without difficulty or pain. Collateral stability is intact. She demonstrates excellent strength. Calf is supple and nontender. She is distally neurovascularly intact with appropriate sensation to light touch, palpable pulses, and intact distal motor function. Examination of the left knee reveals no deformity, erythema, ecchymosis, or skin breakdown. There is no palpable effusion. There is a well-healed surgical incision without evidence of complication. There is tenderness to palpation quite exquisitely over the pes anserinus bursa and tenderness to palpation of a similar significant degree over the pes anserinus tendons. No significant tenderness to palpation elsewhere. She is able to demonstrate a straight leg raise and excellent range of motion from full extension to roughly 130-135 degrees flexion without difficulty. There is some pain with range of motion. Collateral stability is intact and without laxity. Calf is supple and nontender. She is distally neurovascularly intact with appropriate sensation to light touch, palpable pulses, and intact distal motor function. Gait assessment is minimally antalgic and protected for the left lower extremity. ASSESSMENT: Status post total right knee replacement (Primary) - XR KNEE 3 VIEWS Acute pain of left knee - XR KNEE 1-2 VIEWS - PHYSICAL THERAPY REFERRAL OP Pes anserinus bursitis of left knee - PHYSICAL THERAPY REFERRAL OP Pes anserinus tendinitis of left lower extremity - PHYSICAL THERAPY REFERRAL OP Follow Up: Return in about 2 months (around 01/21/2024) for Clinic Visit. | For: Clinic Visit PLAN: She is doing remarkably well 1 year removed from her right knee replacement. Her x-rays were reviewed in the office today. She demonstrates excellent function and is quite pleased with her surgical outcome. She has no pain and is tolerating all of her activities to include her strict workout regimen. I recommended continued progression of her activities as tolerated. I would like patient to follow up in 2 years for repeat x-rays and re-evaluation for the right knee. With regard to the left knee, I do believe patient's symptoms are most consistent with pes anserinus bursitis and tendinitis which is quite apparent on exam today. We discussed her updated left knee x-rays to demonstrate no obvious evidence of periprosthetic complication or loosening. I recommendeda formal course of physical therapy of which she is in agreement. A referral was placed accordinglytoday. I would like patient to follow up in roughly 2 months for clinical re-evaluation and assessment of response. Certainly corticosteroid injection may be discussed at that time, however we will attempt to avoid if possible given her TKA status. Patient was certainly urged to contact clinic in the interim with any questions, concerns, or worsening of symptoms. Patient is comfortable with the plan, and all questions were answered. This chart was completed in part utilizing [employer] Speech Voice Recognition Software. Grammatical errors, random word insertions, pronoun errors, and incomplete sentences are an occasional consequence of this system due to software limitations, ambient noise, and hardware issues. Any formal questions or concerns about the content, text, or information contained within the body of this dictation should be directly addressed to the provider for clarification. Bobby Colunga PA-C 11/20/2023 12:44 PM documented in this encounter Nursing Notes * Hollie Barnard MED ASSIST - 11/20/2023 12:53 PM EDT Here for 9 month follow up on right TKA. Doing well with right knee. Does note that she is still having some stiffness and pain with her left knee after her TKA. documented in this encounter Plan of Treatment Upcoming Encounters Date Type Department Care Team (Late st Contact Info) Description 01/01/2024 1:00 PM EDT Office Visit Orthopaedics [facility] [address] [facility] [place] [address] Bobby Colunga PA-C [facility] [employer] [facility] [place] [address] 08/04/2024 1:30 PM EDT Imaging Radiology [address] [place] [address] Pending Results Name Type Priority Associated Diagnoses Date /Time XR KNEE 3 VIEWS Medical Imaging Routine Status post total right knee replacement 11/20/2023 1:00 PM EDT XR KNEE 1-2 VIEWS Medical Imaging Routine Acute pain of left knee 11/20/2023 1:22 PM EDT Scheduled Procedures Name Priority Associated Diagnoses Date/Ti me COLONOSCOPY FLEXIBLE PROXIMA L DIAGNOSTIC Recall History of colonic polyps Scheduled Referrals Name Type Priority Associated Diagnoses Orde r Schedule PHYSICAL THERAPY REFERRAL OP Referral Within 3 days (urgent) Acute pain of left knee Pes anserinus bursitis of left knee Pes anserinus tendinitis of left lower extremity Ordered: 11/20/2023 Health Maintenance Due Date Last Done Comments [...] this encounter Medical Devices Implanted Type Area Blacking Machine Operator Device Identifier Shelf Expiration Date Model / Serial / Lot Zilver 518 Vascular Stent Implanted:Qty: 1 on 02/16/2020 by Remi Michaud MD at OR [facility] [employer] 01/12/2023 ZIV5-1 8-12 5-8-80 / / [id number] Knee Triathlon Bead No Dmitri L 2 - [id number] Implanted:Qty: 1 on 08/13/2021 by Solomon Leon DO at OR [facility] Left: Knee NICHOLAS : ORTHOPAEDICS 09/23/2025 5517-F-201 / / [id number] Baseplate #2 Tritanium - [id number] Implanted:Qty: 1 on 08/13/2021 by Solomon Leon DO at OR [facility] Left: Knee NICHOLAS : ORTHOPAEDICS 10/12/2025 5536-B-200 / / [id number] Triathlon X3 Tibial Bearing Insert - Cs Implanted:Qty: 1 on 08/13/2021 by Solomon Leon DO at OR [facility] Left: Knee NICHOLAS : ORTHOPAEDICS 08/21/2025 5531-G-210 -E / / [id number] Cement Bone Simplex Hv & G - [id number] Implanted:Qty: 2 on 12/04/2022 by Solomon Leon DO at OR [facility] Right: Knee NICHOLAS : ORTHOPAEDICS 01/03/2024 6195-1-010 / / [id number] Knee Tria Syetric X3 8x27 - [id number] Implanted:Qty: 1 on 12/04/2022 by Solomon Leon DO at OR [facility] Right: Knee NICHOLAS : ORTHOPAEDICS 06/22/2024 5550-G-278 -E / / [id number] Knee Triathlon Cruciate Fe 2 R - [id number] Implanted:Qty: 1 on 12/04/2022 by Solomon Leon DO at OR [facility] Right: Knee NICHOLAS : ORTHOPAEDICS 12/20/2026 5510-F-202 / / [id number] Knee Baseplate Tri Tib Sz 2 - [id number] Implanted:Qty: 1 on 12/04/2022 by Solomon Leon DO at OR [facility] Right: Knee NICHOLAS : ORTHOPAEDICS 12/17/2025 5521-B-200 / / [id number] Triathlon X3 Tibial Bearing Insert- Cs Implanted:Qty: 1 on 12/04/2022 by Solomon Leon DO at OR [facility] Right: Knee 10/16/2027 5531-G-210 -E / / [id number] documented as of this encounter Visit Diagnoses Diagnosis Status post total right knee replacement- Primary Acute pain of left knee Pes anserinus bursitis of left knee Pes anserinus tendinitis or bursitis Pes anserinus tendinitis of left lower extremity documented in this encounter Advance Directives * [...] 02/16/2020 9:10 AM 02/16/2020 11:48 AM This ord er reflects the patients wishes and were consensually agreed upon. * Full Code Date Activated Date Inactivated Comments 01/06/2020 1:16 PM 01/07/2020 4:50 PM This order ref lects the patients wishes and were consensually agreed upon. Question Answer Comments Discussion of Advance Directives occurred with: Not Discussed"
--- OUTSIDE RECORDS SUMMARY | 2024-03-06 19:36 | External Medical Summary | Summary of Care ---
Author Name Unknown Organization [facility] Address [address] [facility] [place] [address] Phone [phone] Care Team Providers Care Director Emergency Services Name Role Phone Unavailable Primary Care Provider Unavailabl e Reason for Visit * Reason Comments eRx-Medication Refill Encounter Details Date Type Department Care Team (Late st Contact Info) Description 12/24/2023 Refill [facility] [address] [place] [phone] Elisabeth York DO [address] [place] [address] Allergies Active Allergy Reactions Criticality Noted Date Comments Prochlorperazine Edisylate 8 Feeling of skin crawling Gabapentin 04/06/2018 Paresthesias Pregabalin 04/06/2018 [place] suicidal Penicillins 04/06/2018 Mom was allergic to PCN - they told her she was too Prochlorperazine 10/28/2019 Phenazopyridine Hcl Hives 04/06/2018 Sulfa Antibiotics Anaphylaxis High 04/06/2018 Closes airway documented as of this encounter (statuses as of 12/26/2023) Medications Medication Sig Dispensed Refills Start Date End Date Status [place]-3 Fatty Acids (FISH OIL) 1000 MG Capsule Take 1 Capsule by mouth in the morning. Active nystatin 437790 UNIT/GM creamIndications :Cutaneous candidiasis Apply topically to [...] the evening. 180 Capsule 3 11/12/2023 Active hydroCHLOROthiaz sia 12.5 MG Oral CapsuleIndicatio ns:HTN, goal below 130/80 Take 1 Capsule by mouth in the morning. Every morning.. 90 Capsule 1 11/12/2023 Active traZODone HCl 100 MG Oral Tablet (Desyrel) TAKE 2 TABLETS BY MOUTH AT BEDTIME 60 Tablet 3 12/26/2023 Active traZODone HCl 100 MG Oral Tablet (Desyrel) TAKE 2 TABLETS BY MOUTH AT BEDTIME 60 Tablet 3 08/19/2023 Discontinued documented as of this encounter (statuses as of 12/26/2023) Active Problems Problem Noted Date Diagnosed Date [...] as of this encounter (statuses as of 12/26/2023) Resolved Problems Problem Noted Date Diagnosed Date Resolved Date Disorder of iron metabolism, unspecified 04/01/2022 07/19/2022 Hypokalemia 04/01/2022 07/19/2022 Psychosocial stressors 10/18/202007/19 Female stress incontinence 05/04/2018 0 07/19/2022 Arthritis of right knee 04/10/201801/03 Chronic arthralgias of knees and hips 04/06/2018 01/17/2023 documented as of this encounter (statuses as of 12/26/2023) Immunizations Name Administration Dates Next Due COVID-19 [...] encounter Miscellaneous Notes * Telephone Encounter - Elisabeth York DO - 12/26/2023 9:04 AM EDTSigned Prescriptions: Disp Refills traZODone HCl 100 MG Oral Tablet (Desyrel) 60 Tab*3 Sig: TAKE 2TABLETS BY MOUTH AT BEDTIMEAuthorizing Provider: ELISABETH YORK documented in this encounter Plan of Treatment Upcoming Encounters Date Type Department Care Team (Late st Contact Info) Description 01/01/2024 1:00 PM EDT Office Visit Orthopaedics [facility] [address] [place] [address] Bobby Colunga PA-C [address] [place] [address] 08/04/2024 1:30 PM EDT Imaging Radiology [address] [place] [address] Scheduled Procedures Name Priority Associated Diagnoses Date/Ti me COLONOSCOPY FLEXIBLE PROXIMA L DIAGNOSTIC Recall History of colonic polyps Health Maintenance Due Date Last Done Comments Cologuard 2022 Fecal Occult Blood Test 2022 Sigmoidoscopy 2022 Meningitis B Vaccine (Bexsero/Trumemba) (3 of 4 - Increased Risk Trumenba 3-dose series) 07/19/2022 07/19/2021, 08/19/2018 COVID-19 Vaccine ( - season) 2023 09/23/2020, 08/23/2020 Depression Screening 07/20/2023 [...] this encounter Medical Devices Implanted Type Area Endoscopy Registered Nurse Device Identifier Shelf Expiration Date Model / Serial / Lot Zilver 518 Vascular Stent Implanted:Qty: 1 on 02/16/2020 by Remi Michaud MD at OR [facility] [employer] 01/12/2023 ZIV5-1 8-12 5-8-80 / / [id number] Knee Triathlon Bead No Dmitri L 2 - [id number] Implanted:Qty: 1 on 08/13/2021 by Solomon Leon DO at OR [facility] Left: Knee NICHOLAS : ORTHOPAEDICS 09/23/2025 5517-F-201 / / [id number] Baseplate #2 Tritanium - [id number] Implanted:Qty: 1 on 08/13/2021 by Solomon Leon DO at OR [facility] Left: Knee NICHOLAS : ORTHOPAEDICS 10/12/2025 5536-B-200 / / [id number] Triathlon X3 Tibial Bearing Insert - Cs Implanted:Qty: 1 on 08/13/2021 by Solomon Leon DO at OR [facility] Left: Knee NICHOLAS : ORTHOPAEDICS 08/21/2025 5531-G-210 -E / / [id number] Cement Bone Simplex Hv & G - [id number] Implanted:Qty: 2 on 12/04/2022 by Solomon Leon DO at OR [facility] Right: Knee NICHOLAS : ORTHOPAEDICS 01/03/2024 6195-1-010 / / [id number] Knee Tria Syetric X3 8x27 - [id number] Implanted:Qty: 1 on 12/04/2022 by Solomon Leon DO at OR [facility] Right: Knee NICHOLAS : ORTHOPAEDICS 06/22/2024 5550-G-278 -E / / 51VA Knee Triathlon Cruciate Fe 2 R - [id number] Implanted:Qty: 1 on 12/04/2022 by Solomon Leon DO at OR [facility] Right: Knee NICHOLAS : ORTHOPAEDICS 12/20/2026 5510-F-202 / / [id number] Knee Baseplate Tri Tib Sz 2 - [id number] Implanted:Qty: 1 on 12/04/2022 by Solomon Leon DO at OR [facility] Right: Knee NICHOLAS : ORTHOPAEDICS 12/17/2025 5521-B-200 / / [id number] Triathlon X3 Tibial Bearing Insert- Cs Implanted:Qty: 1 on 12/04/2022 by Solomon Leon DO at OR [facility] Right: Knee 10/16/2027 5531-G-210 -E / [...]
--- OUTSIDE RECORDS SUMMARY | 2024-03-06 19:36 | External Medical Summary ---
Author Name Unknown Address Unknown Organization K01:[facility] [place] [address] [facility] [place] [facility] [address] Laboratory Report Ordering Provider Test Date Status KONRADCRYSTAL 01/29/2024 10:36:19 Final Observation Date Value Abnormality Reference (Units ) Status MYCODE SPECIMEN-SST 01/29/2024 10:36:19 Freezing of extracted DNA, whole blood and/or serum. Final Performing Location [facility] [place] [address] [facility] [address]
--- OUTSIDE RECORDS SUMMARY | 2024-03-06 19:36 | External Medical Summary | Summary of Care ---
Author Name Unknown Organization [facility] Address [address] [place] [address] Phone [phone] Care Team Providers Care Warehouse Shipping Supervisor Name Role Phone Unavailable Primary Care Provider Unavailabl e Encounter Details Date Type Department Care Team (Late st Contact Info) Description 11/16/2023 Patient Reported Data Patient Survey Ortho OBERD Allergies Active Allergy Reactions Criticality Noted Date Comments Prochlorperazine Edisylate 8 Feeling of skin crawling Gabapentin 04/06/2018 Paresthesias Pregabalin 04/06/2018 [place] suicidal Penicillins 04/06/2018 Mom was allergic to PCN - they told her she was too Prochlorperazine 10/28/2019 Phenazopyridine Hcl Hives 04/06/2018 Sulfa Antibiotics Anaphylaxis High 04/06/2018 Closes airway documented as of this encounter (statuses as of 11/16/2023) Medications Medication Sig Dispensed Refills Start Date End Date Status D [place]-3 Fatty Acids (FISH OIL) 1000 MG Capsule Take 1 Capsule by mouth in the morning. Active nystatin 558441 UNIT/GM creamIndications:Cu taneous candidiasis Apply topically to [...] as of this encounter (statuses as of 11/16/2023) Active Problems Problem Noted Date Diagnosed Date [...] as of this encounter (statuses as of 11/16/2023) Resolved Problems Problem Noted Date Diagnosed Date Resolved Date Disorder of iron metabolism, unspecified 04/01/2022 07/19/2022 Hypokalemia 04/01/2022 07/19/2022 Psychosocial stressors 10/18/202007/19 Female stress incontinence 05/04/2018 0 07/19/2022 Arthritis of right knee 04/10/201801/03 Chronic arthralgias of knees and hips 04/06/2018 01/17/2023 documented as of this encounter (statuses as of 11/16/2023) Immunizations Name Administration Dates Next Due COVID-19 [...] 11/20/2023 1:00 PM EDT Office Visit Orthopaedics [facility] [address] [facility] [place] [address] Bobby Colunga PA-C [facility] [employer] [place] [phone] 08/04/2024 1:30 PM EDT Imaging Radiology [address] [place] [address] Scheduled Procedures Name Priority Associated Diagnoses Date/Ti [...] this encounter Medical Devices Implanted Type Area Freight Clerk Device Identifier Shelf Expiration Date Model / Serial / Lot Zilver 518 Vascular Stent Implanted:Qty: 1 on 02/16/2020 by Remi Michaud MD at OR [facility] [employer] 01/12/2023 ZIV5-1 8-12 5-8-80 / / [id number] Knee Triathlon Bead No Dmitri L 2 - [id number] Implanted:Qty: 1 on 08/13/2021 by Solomon Leon DO at OR [facility] Left: Knee NICHOLAS : ORTHOPAEDICS 09/23/2025 5517-F-201 / / [id number] Baseplate #2 Tritanium - [id number] Implanted:Qty: 1 on 08/13/2021 by Solomon Leon DO at OR [facility] Left: Knee NICHOLAS : ORTHOPAEDICS 10/12/2025 5536-B-200 / / [id number] Triathlon X3 Tibial Bearing Insert - Cs Implanted:Qty: 1 on 08/13/2021 by Solomon Leon DO at OR [facility] Left: Knee NICHOLAS : ORTHOPAEDICS 08/21/2025 5531-G-210 -E / / [id number] Cement Bone Simplex Hv & G - [id number] Implanted:Qty: 2 on 12/04/2022 by Solomon Leon DO at OR [facility] Right: Knee NICHOLAS : ORTHOPAEDICS 01/03/2024 6195-1-010 / / [id number] Knee Tria Syetric X3 8x27 - [id number] Implanted:Qty: 1 on 12/04/2022 by Solomon Leon DO at OR [facility] Right: Knee NICHOLAS : ORTHOPAEDICS 06/22/2024 5550-G-278 -E / / [id number] Knee Triathlon Cruciate Fe 2 R - [id number] Implanted:Qty: 1 on 12/04/2022 by Solomon Leon DO at OR [facility] Right: Knee NICHOLAS : ORTHOPAEDICS 12/20/2026 5510-F-202 / / [id number] Knee Baseplate Tri Tib Sz 2 - [id number] Implanted:Qty: 1 on 12/04/2022 by Solomon Leon DO at OR [facility] Right: Knee NICHOLAS : ORTHOPAEDICS 12/17/2025 5521-B-200 / / [id number] Triathlon X3 Tibial Bearing Insert- Cs Implanted:Qty: 1 on 12/04/2022 by Solomon Leon DO at OR [facility] Right: Knee 10/16/2027 5531-G-210 -E / [...]
--- OUTSIDE RECORDS SUMMARY | 2024-03-06 19:36 | External Medical Summary | Summary of Care ---
Author Name Unknown Organization [facility] Address [address] [place] [address] Phone [phone] Care Team Providers Care Optomechanical Technician Name Role Phone Unavailable Primary Care Provider Unavailabl e Encounter Details Date Type Department Care Team (Late st Contact Info) Description 12/01/2023 Patient Reported Data Patient Survey Ortho OBERD Allergies Active Allergy Reactions Criticality Noted Date Comments Prochlorperazine Edisylate 8 Feeling of skin crawling Gabapentin 04/06/2018 Paresthesias Pregabalin 04/06/2018 [place] suicidal Penicillins 04/06/2018 Mom was allergic to PCN - they told her she was too Prochlorperazine 10/28/2019 Phenazopyridine Hcl Hives 04/06/2018 Sulfa Antibiotics Anaphylaxis High 04/06/2018 Closes airway documented as of this encounter (statuses as of 12/01/2023) Medications Medication Sig Dispensed Refills Start Date End Date Status [place]-3 Fatty Acids (FISH OIL) 1000 MG Capsule Take 1 Capsule by mouth in the morning. Active nystatin 960645 UNIT/GM creamIndications:Cu taneous candidiasis Apply topically to [...] 01/01/2024 1:00 PM EDT Office Visit Orthopaedics [facility] [address] [facility] [place] [address] Bobby Colunga PA-C [facility] [employer] [place] [id number] 08/04/2024 1:30 PM EDT Imaging Radiology [address] [place] [address] Scheduled Procedures Name Priority Associated Diagnoses Date/Ti [...] this encounter Medical Devices Implanted Type Area Infection Control Rn Device Identifier Shelf Expiration Date Model / Serial / Lot Zilver 518 Vascular Stent Implanted:Qty: 1 on 02/16/2020 by Remi Michaud MD at OR [facility] [employer] 01/12/2023 ZIV5-1 8-12 5-8-80 / / [id number] Knee Triathlon Bead No Dmitri L 2 - [id number] Implanted:Qty: 1 on 08/13/2021 by Solomon Leon DO at OR [facility] Left: Knee NICHOLAS : ORTHOPAEDICS 09/23/2025 5517-F-201 / / [id number] Baseplate #2 Tritanium - [id number] Implanted:Qty: 1 on 08/13/2021 by Solomon Leon DO at OR [facility] Left: Knee NICHOLAS : ORTHOPAEDICS 10/12/2025 5536-B-200 / / [id number] Triathlon X3 Tibial Bearing Insert - Cs Implanted:Qty: 1 on 08/13/2021 by Solomon Leon DO at OR [facility] Left: Knee NICHOLAS : ORTHOPAEDICS 08/21/2025 5531-G-210 -E / / [id number] Cement Bone Simplex Hv & G - [id number] Implanted:Qty: 2 on 12/04/2022 by Solomon Leon DO at OR [facility] Right: Knee NICHOLAS : ORTHOPAEDICS 01/03/2024 6195-1-010 / / [id number] Knee Tria Syetric X3 8x27 - [id number] Implanted:Qty: 1 on 12/04/2022 by Solomon Leon DO at OR [facility] Right: Knee NICHOLAS : ORTHOPAEDICS 06/22/2024 5550-G-278 -E / / 51VA Knee Triathlon Cruciate Fe 2 R - [id number] Implanted:Qty: 1 on 12/04/2022 by Solomon Leon DO at OR [facility] Right: Knee NICHOLAS : ORTHOPAEDICS 12/20/2026 5510-F-202 / / [id number] Knee Baseplate Tri Tib Sz 2 - [id number] Implanted:Qty: 1 on 12/04/2022 by Solomon Leon DO at OR [facility] Right: Knee NICHOLAS : ORTHOPAEDICS 12/17/2025 5521-B-200 / / [id number] Triathlon X3 Tibial Bearing Insert- Cs Implanted:Qty: 1 on 12/04/2022 by Solomon Leon DO at OR [facility] Right: Knee 10/16/2027 5531-G-210 -E [...]
--- OUTSIDE RECORDS SUMMARY | 2024-03-06 19:36 | External Medical Summary | Summary of Care ---
Author Name Unknown Organization [facility] Address [address] [facility] [address] Phone [phone] Care Team Providers Care Commercial Finance Analyst Name Role Phone Unavailable Primary Care Provider Unavailabl e Reason for Referral * Evaluate & Treat - Unlimited Visits (Within 3 days (urgent)) - Pending Review Specialty Diagnoses / Procedures Referred By Ronnie kline Referred To Contact Physical Therapy / Physical Medicine And Rehab Diagnoses It band syndrome, left Bobby Colunga PA-C [address] [place] [id number] Referral ID Status Reason Start Date Expiration Date Visits Requested Visits Authorized [id number] Pending Review Specialty Services Required 01/01/[phone] Question Answer Referral Priority Within 3 days (urgent) Where should this appointment be scheduled? [facility] Comments Rehabilitation for left IT band syndrome. Range of motion, strengthening, pain relief, and modalities as indicated. Reason for Visit * Reason Comments Follow Up L knee Encounter Details Date Type Department Care Team (Late st Contact Info) Description 01/01/2024 1:00 PM EDT Office Visit Orthopaedics [facility] [address] [facility] [place] [address] Bobby Colunga PA-C [address] [id number] Pes anserinus bursitis of left knee*; It band syndrome, left Allergies Active Allergy Reactions Criticality Noted Date Comments Prochlorperazine Edisylate 8 Feeling of skin crawling Gabapentin 04/06/2018 Paresthesias Pregabalin 04/06/2018 [place] suicidal Penicillins 04/06/2018 Mom was allergic to PCN - they told her she was too Prochlorperazine 10/28/2019 Phenazopyridine Hcl Hives 04/06/2018 Sulfa Antibiotics Anaphylaxis High 04/06/2018 Closes airway documented as of this encounter (statuses as of 01/01/2024) Medications Medication Sig Dispensed Refills Start Date End Date Status [place]-3 Fatty Acids (FISH OIL) 1000 MG Capsule Take 1 Capsule by mouth in the morning. Active nystatin 123405 UNIT/GM creamIndications:Cu taneous candidiasis Apply topically to [...] as of this encounter (statuses as of 01/01/2024) Active Problems Problem Noted Date Diagnosed Date S/P total knee arthroplasty, right 12/04/2022 On pre-exposure prophylaxis for HIV 10/17/2022 Status post total left knee replacement 09/07/19 Encounter for counseling bef [facility] starting and about pre-exposure prophylaxis for HIV [...] as of this encounter (statuses as of 01/01/2024) Resolved Problems Problem Noted Date Diagnosed Date Resolved Date Disorder of iron metabolism, unspecified 04/01/2022 07/19/2022 Hypokalemia 04/01/2022 07/19/2022 Psychosocial stressors 10/18/202007/19 Female stress incontinence 05/04/2018 0 07/19/2022 Arthritis of right knee 04/10/201801/03 Chronic arthralgias of knees and hips 04/06/2018 01/17/2023 documented as of this encounter (statuses as of 01/01/2024) Immunizations Name Administration Dates Next Due COVID-19 mRNA, LNP-s, No Pre serve, 2-Dose Series (Vamo) 09/23/2020,08/23/2020 DTaP Dipth/Tet/Acell Pertussis (Infanrix), Peds 08/07/2016 [...] as of this encounter Progress Notes * OsBobby foss PA-C - 01/01/2024 12:59 PM EDT ORTHOPAEDIC SURGERY - Clinic Note SUBJECTIVE: Keiry York is a 48 year old female. Chief Complaint Patient presents with Follow Up L knee HPI: Keiry is a very pleasant 48-year-old female who presents to the clinic today for 2 month follow-up for assessment of response to physical therapy with regard to her left knee suspected pes anserinus bursitis and tendinitis. Today she reports that she is doing quite well, and that her symptomson the medial aspect of her knee over the pes anserinus bursa and tendons has all but resolved. Shereports that her knee feels quite good, and that she has no symptoms performing her daily activities, although she does report occasional stiffness, grinding, and exquisite pain over the lateral aspect of the knee with palpation or pressure. She reports that she has begun to notices pain as the pain in the medial aspect has resolved. Review of Systems: Constitutional ROS: No fevers, sweats, or chills Cardiovascular ROS: No chest pain Respiratory ROS: No breathing difficulty Gastrointestinal ROS: No abdominal pain Musculoskeletal/Extremities ROS: Left knee pain Neurologic ROS: No numbness or tingling Review of patient's allergies indicates: Allergen Reactions Sulfa Antibiotics Anaphylaxis Closes airway Compazine [Prochlorperazine Edisylate] Feeling of skin crawling Gabapentin Paresthesias Lyrica [Pregabalin] [place] suicidal Penicillins Mom was allergic to PCN - they told her she was too Prochlorperazine Pyridium [Phenazopyridine Hcl] Hives Current Outpatient Medications Medication Sig Dispense Refill [place]-3 Fatty Acids (FISH OIL) 1000 MG Capsule Take 1 Capsule by mouth in the morning. nystatin 905467 UNIT/GM cream Apply topically to affected area [...] in the morning. Every morning.. 90Capsule 1 traZODone HCl 100 MG Oral Tablet (Desyrel) TAKE 2 TABLETS BY MOUTH AT BEDTIME 60 Tablet 3 No current facility-administered medications for this visit. [...] TOTAL performed by Solomon Leon DO at [facility] ARTHROPLASTY KNEE TOTAL Right 12/04/2022 ROBOTIC ARTHROPLASTY KNEE TOTAL performed by Solomon Leon DO at OR [facility] BREAST BIOPSY Right benign CAROTID (INTERNAL) ARTERY CATHETHER PLACEMENT N/A 12/24/2019 CATHETER PLACEMENT INTERNAL CAROTID ARTERY performed by Remi Michaud MD [place] [facility] CAROTID (INTERNAL) ARTERY CATHETHER PLACEMENT Right 02/16/2020 CATHETER PLACEMENT INTERNAL CAROTID ARTERY performed by Remi Michaud MD at [place] [facility] COLONOSCOPY, DIAGNOSTIC (RECTUM) 10/29/2022 diverticulosis/hemorrhoids/biopsies show adenomatous polyps/recall 3 years/COLONOSCOPY FLEXIBLE PROXIMAL DIAGNOSTIC performed by Rosendo Rodriguez MD at ENDOSCOPY [facility] CREATE SPINAL SHUNT, W/LAMINECTOMY 2013 DOCUMENT IMPROVEMENT SPECIALIST Shunt EGD, FLEXIBLE, DIAGNOSTIC 04/10/2018 normal bx/ESOPHAGOGASTRODUODENOSCOPY (EGD), FLEXIBLE, TRANSORAL, DIAGNOSTIC performed by Barrett Petersen MD at ENDOSCOPY [facility] EGD, FLEXIBLE, DIAGNOSTIC 09/23/2022 biopsies normal/ESOPHAGOGASTRODUODENOSCOPY (EGD), FLEXIBLE, TRANSORAL, DIAGNOSTIC performed by MD Genny at ENDOSCOPY [facility] INFORMATION Right R CTR INFORMATION Laparoscopy for endometriosis x 4. INFORMATION . INTRACRANIAL INTRAVASCULAR STENT,INCL ANGIO Right 02/16/2020 TRANSCATHETER PLACEMENT OF INTRAVASCULAR STENTS, INTRACRANIAL performed by Remi Michaud MD at [place] [facility] REMOVAL OF APPENDIX age 14 REMOVAL OF SPINAL SHUNT SYSTEM N/A 01/06/2020 REMOVAL SHUNT LUMBAR PERITONEAL WITHOUT REPLACEMENT performed by Remi Michaud MD at [place] [facility] REMOVAL OF SPLEEN, TOTAL age 16 Dx ITP REMOVAL OF TONSILS, AGE 12+ age 16 REMOVE GALLBLADDER 2017 SINUS SURGERY PROCEDURE NEC 2002 TOTAL HYSTERECTOMY 2009 dx endometriosis VERTEBRAL ARTERY CATHETER PLACEMENT N/A 12/24/2019 CATHETER PLACEMENT VERTEBRAL ARTERY, performed by Remi Michaud MD at [place] [facility] VERTEBRAL ARTERY CATHETER PLACEMENT Right 02/16/2020 CATHETER PLACEMENT VERTEBRAL ARTERY, performed by Remi Michaud MD at [place] [facility] Social History Tobacco Use Smoking status: Former Current packs/day: 0.00 Types: Cigarettes, Vaporizer Quit date: 05/05/2005 Years since quittin.6 Passive exposure: Past Smokeless tobacco: Never Tobacco comments: Quit smoking in 2006 - Currently Vapes and smokes medical marijuana Vaping Use Vaping status: Every Day Substances: THC Devices: Pre-filled or refillable cartridge Substance Use Topics Alcohol use: Yes Comment: occasional Drug use: Yes Frequency: 28.0 times per week Types: Marijuana Comment: Medical marijuana. Family history: Noncontributory OBJECTIVE: Diagnostic Testing: None today Vital Signs: There were no vitals taken [...] or visible trauma. Musculoskeletal: Examination of the left knee reveals no gross deformity or palpable defect. There is no palpable effusion. There is tenderness of an exquisite degree over the lateral aspect of the knee with tenderness to palpation and radiating tenderness along the distal IT band. There is no tende rness today over the pes anserinus bursa or tendon confluence. She is able to demonstrate a straight leg raise and range the knee from full extension to roughly 130-140 degrees flexion without difficulty. Collateral stability is intact. Calf is supple and nontender. She is distally neurovascularly intact. Gait assessment is nonantalgic. ASSESSMENT: Pes anserinus bursitis of left knee (Primary) It band syndrome, left - PHYSICAL THERAPY REFERRAL OP Follow Up: Return in about 2 months (around 03/02/2024) for Clinic Visit. | For: Clinic Visit PLAN: She is doing quite well, and has seen resolution in her pes anserinus symptoms as a result of her diligence with formal physical therapy. We discussed her continued excellent range of motion following joint replacement surgery. Unfortunately she has developed some level of IT band syndrome which I believe is contributing to her feelings of stiffness and grinding over the lateral aspect. We discussed treatment options in the office today to include continued formal physical therapy for suspectedIT band syndrome in the weeks ahead. Patient is preferable to proceed with such. A referral was placed accordingly today. I would like patient to follow up in 2 months' time for clinical re-evaluation and assessment of response. I anticipate release at that time if she is doing well or if symptoms have improved. Patient was certainly urged to contact clinic in the interim with any questions, concerns, or worsening of symptoms. Patient is comfortable with the plan, and all questions were answered. This chart was completed in part utilizing [employer] Speech Voice Recognition Software. Grammatical errors, random word insertions, pronoun errors, and incomplete sentences are an occasional consequence of this system due to software limitations, ambient noise, and hardware issues. Any formal questions or concerns about the content, text, or information contained within the body of this dictation should be directly addressed to the provider for clarification. Bobby Colunga PA-C 01/01/2024 12:59 PM documented in this encounter Nursing Notes * Mary Dawson LPN - 01/01/2024 1:02 PM EDT Pt presents for 6 week follow up L knee, going to PT 2 times/week. States the painful area is no longer an issue, now c/o pain on the lateral side. Describes the feeling of 'sand filled in to the knee'. documented in this encounter Plan of Treatment Upcoming Encounters Date Type Department Care Team (Late st Contact Info) Description 03/11/2024 1:30 PM EST Office Visit Orthopaedics [facility] [address] [facility] [place] [address] Bobby Colunga PA-C [facility] [employer] [place] [address] 08/04/2024 1:30 PM EDT Imaging Radiology [address] [place] [address] Scheduled Procedures Name Priority Associated Diagnoses Date/Ti me COLONOSCOPY FLEXIBLE PROXIMA L DIAGNOSTIC Recall History of colonic polyps Scheduled Referrals Name Type Priority Associated Diagnoses Orde r Schedule PHYSICAL THERAPY REFERRAL OP Referral Within 3 days (urgent) It band syndrome, left Ordered: 01/01/2024 Health Maintenance Due Date Last Done Comments Cologuard 2022 Fecal Occult Blood Test 2022 Sigmoidoscopy 2022 Meningitis B Vaccine (Bexsero/Trumemba) (3 of 4 - Increased Risk Trumenba 3-dose series) 07/19/2022 07/19/2021, 08/19/2018 COVID-19 Vaccine ( season) 2023 09/23/2020, 08/23/2020 Depression Screening 07/20/2023 [...] this encounter Medical Devices Implanted Type Area Model Builder Display Device Identifier Shelf Expiration Date Model / Serial / Lot Zilver 518 Vascular Stent Implanted:Qty: 1 on 02/16/2020 by Remi Michaud MD [place] [facility] [employer] 01/12/2023 ZIV5-1 8-12 5-8-80 / / [id number] Knee Triathlon Bead No Dmitri L 2 - [id number] Implanted:Qty: 1 on 08/13/2021 by Solomon Leon DO at OR [facility] Left: Knee NICHOLAS : ORTHOPAEDICS 09/23/2025 5517-F-201 / / [id number] Baseplate #2 Tritanium - [id number] Implanted:Qty: 1 on 08/13/2021 by Solomon Leon DO at OR [facility] Left: Knee NICHOLAS : ORTHOPAEDICS 10/12/2025 5536-B-200 / / [id number] Triathlon X3 Tibial Bearing Insert - Cs Implanted:Qty: 1 on 08/13/2021 by Solomon Leon DO at OR [facility] Left: Knee NICHOLAS : ORTHOPAEDICS 08/21/2025 5531-G-210 -E / / [id number] Cement Bone Simplex Hv & G - [id number] Implanted:Qty: 2 on 12/04/2022 by Solomon Leon DO at OR [facility] Right: Knee NICHOLAS : ORTHOPAEDICS 01/03/2024 6195-1-010 / / [id number] Knee Tria Syetric X3 8x27 - [id number] Implanted:Qty: 1 on 12/04/2022 by Solomon Leon DO at OR [facility] Right: Knee NICHOLAS : ORTHOPAEDICS 06/22/2024 5550-G-278 -E / / 51VA Knee Triathlon Cruciate Fe 2 R - [id number] Implanted:Qty: 1 on 12/04/2022 by Solomon Leon DO at OR [facility] Right: Knee NICHOLAS : ORTHOPAEDICS 12/20/2026 5510-F-202 / / [id number] Knee Baseplate Tri Tib Sz 2 - [id number] Implanted:Qty: 1 on 12/04/2022 by Solomon Leon, DO at OR [facility] Right: Knee NICHOLAS : ORTHOPAEDICS 12/17/2025 5521-B-200 / / [id number] Triathlon X3 Tibial Bearing Insert- Cs Implanted:Qty: 1 on 12/04/2022 by Solomon Leon, DO at OR [facility] Right: Knee 10/16/2027 5531-G-210 -E / / [id number] documented as of this encounter Visit Diagnoses Diagnosis Pes anserinus bursitis of left knee- Primary Pes anserinus tendinitis or bursitis It band syndrome, left documented in this encounter Advance Directives * [...]
--- OUTSIDE RECORDS SUMMARY | 2024-03-06 19:36 | External Medical Summary ---
Author Name Unknown Address Unknown Organization [id number]:[facility] - [address] [facility] [address] Laboratory Report Ordering Provider Test Date Status BAILEY CHEATHAM 01/29/2024 10:36:19 Final Observation Date Value Abnormality Reference (Units ) Status BUN 01/29/2024 10:36:19 19 6-20 (mg/dL) Final Creatinine 01/29/2024 10:36:19 0.8 0.5-1.0 (mg/dL) Final Glomerular filtration rate/1.73 sq M.predicted [Volume Rate/Area] in Serum, Plasma or Blood by Creatinine-based formula (CKD-EPI) 01/29/2024 10:36:19 >90 >=60 (mL/min) Final eGFR is calculated based on the CKD-EPI 2020 equation. Sodium 01/29/2024 10:36:19 141 135-146 (m mol/L) Final Potassium 01/29/2024 10:36:19 4.2 3.5-5.1 (m mol/L) Final Cl 01/29/2024 10:36:19 105 98-107 (mm ol/L) Final CO2 01/29/2024 10:36:19 25 22-32 (mmo l/L) Final Anion gap 01/29/2024 10:36:19 11 7-15 (mmol /L) Final Glucose 01/29/2024 10:36:19 92 70-120 (mg /dL) Final Albumin 01/29/2024 10:36:19 4.4 3.8-5.0 (g /dL) Final AST (Aspartate aminotransferase) 01/29/2024 10:36:19 18 10-35 (U/L) Final Alk Phos 01/29/2024 10:36:19 71 35-130 (U/ L) Final Bilirubin, Total 01/29/2024 10:36:19 <0.2 <=1 .2 (mg/dL) Final Calcium 01/29/2024 10:36:19 9.5 8.4-10.2 ( mg/dL) Final Protein 01/29/2024 10:36:19 6.7 6.0-8.3 (g /dL) Final ALT (Alanine aminotransferase) 01/29/2024 10:36:19 14 10-35 (U/L) Final Performing Location [facility] - [facility] [address]. [facility] [address]
--- OUTSIDE RECORDS SUMMARY | 2024-03-06 19:36 | External Medical Summary ---
Author Name Unknown Address Unknown Organization K01:[facility] [address] [facility] [address] [facility] [id number] Laboratory Report Ordering Provider Test Date Status KONRADCRYSTAL 01/29/2024 10:36:19 Final Observation Date Value Abnormality Reference (Units ) Status MYCODE SPECIMEN-SST 01/29/2024 10:36:19 Freezing of extracted DNA, whole blood and/or serum. Final Performing Location [facility] [address] [facility] [address]
--- OUTSIDE RECORDS SUMMARY | 2024-03-06 19:36 | External Medical Summary | Summary of Care ---
Author Name Unknown Organization [facility] Address [address] [place] [address] Phone [phone] Care Team Providers Care Refrigeration Houseman Name Role Phone Unavailable Primary Care Provider Unavailabl e Reason for Referral * Evaluate & Treat - Unlimited Visits (Within 30 days (routine)) - Pending Review Specialty Diagnoses / Procedures Referred By Ronnie kline Referred To Contact Otolaryngology Diagnoses Sinus pressure Nasal congestion David Limon CRNP [address] [place] [address] [place] [id number] Referral ID Status Reason Start Date Expiration Date Visits Requested Visits Authorized [id number] Pending Review Specialty Services Required 01/29/[phone] Question Answer Referral Priority Within 30 days (routine) Where should this appointment be scheduled? [facility] Reason for Referral Nasal/Sinus/Allergy Conditions Specific Condition: Nasal Congestion/Obstruction Comments Hx of nasal polyps Reason for Visit * Reason Comments Acute Encounter Details Date Type Department Care Team (Late st Contact Info) Description 01/29/2024 10:00 AM EDT Office Visit Family Medicine [address] [place] [phone] David Limon CRNP [address] [place] [address] [place] [id number] Sinus pressure*; Nasal congestion; HTN, goal below 130/80; Hyperlipidemia with target LDL less than 130 Allergies Active Allergy Reactions Criticality Noted Date Comments Prochlorperazine Edisylate 8 Feeling of skin crawling Gabapentin 04/06/2018 Paresthesias Pregabalin 04/06/2018 [place] suicidal Penicillins 04/06/2018 Mom was allergic to PCN - they told her she was too Prochlorperazine 10/28/2019 Phenazopyridine Hcl Hives 04/06/2018 Sulfa Antibiotics Anaphylaxis High 04/06/2018 Closes airway documented as of this encounter (statuses as of 01/29/2024) Medications Medication Sig Dispensed Refills Start Date End Date Status [place]-3 Fatty Acids (FISH OIL) 1000 MG Capsule Take 1 Capsule by mouth in the morning. Active nystatin 057829 UNIT/GM creamIndications: Cutaneous candidiasis Apply topically to [...] the morning. 30 Tablet 5 01/29/2024 Active hydroCHLOROthiazi de 12.5 MG Oral CapsuleIndication s:HTN, goal below 130/80 Take 1 Capsule by mouth in the morning. Every morning.. 90 Capsule 1 11/12/2023 4 Discontinue d(Medicatio n/Dose Changed) documented as of this encounter (statuses as [...] Cessation:Counseling Given: Not Answered Comments:Quit smoking in 2006 - Currently Vapes and [...] Sign Reading Time Taken Comments Blood Pressure 124/76 01/29/2024 9:57 AM EDT Pulse 111 01/29/2024 9:57 AM EDT Temperature 36.6 C (97.9 F) 01/29/2024 9:57 AM ED T Respiratory Rate 16 01/29/2024 9:57 AM EDT Oxygen Saturation 94% 01/29/2024 9:57 AM EDT Inhaled Oxygen Concentration - - Weight 90.9 kg (200 lb 5 oz) 01/29/2024 9:57 AM EDT Height - - Body Mass Index 33.33 06/30/2023 9:23 AM EST documented in this [...] No 12/04/2022 documented as of this encounter Nursing Notes * Elena Gómez LPN - 01/29/2024 9:55 AM EDT Hx sinus polyps and had them removed. Taking allergy meds. Taking singulair and Zyrtec. Now mouth breathing at night. Had allergy testing done in 2019 and was negative for everything. Headaches every day documented in this encounter Plan of Treatment Upcoming Encounters Date Type Department Care Team (Late st Contact Info) Description 02/16/2024 11:20 AM EDT Office Visit Family Medicine [address] [place] [phone] David Limon [address] [place] [address] 02/25/2024 11:00 AM EDT Office Visit Otolaryngology [facility] [address] [facility] [place] [address] Gege Duncan PA-C [address] [place] [address] 03/11/2024 1:30 PM EST Office Visit Orthopaedics [facility] [address] [place] [address] Bobby Colunga PA-C [address] [place] [address] 08/04/2024 1:30 PM EDT Imaging Radiology [address] [place] [address] 11/08/2024 11:00 AM EDT Office Visit Family Medicine [address] [place] [phone] Vidya Mai MD [address] [place] [address] [place] [address] 11/14/2025 11:00 AM EDT Office Visit [address] [place] [phone] Vidya Mai MD [address] [place] [address] [place] [address] Scheduled Orders Name Type Priority Associated Diagnoses Orde r Schedule LIPID PANEL WITH DIRECT LDL IF TG IS HIGH Lab Routine Hyperlipidemia with target LDL less than 130 Expected: 01/29/2024, Expires: 01/28/2025 COMPREHENSIVE METABOLIC PANEL Lab Routine HTN, goal below 130/80 Expected: 01/29/2024 (Approximate), Expires: 01/28/2025 Scheduled Procedures Name Priority Associated Diagnoses Date/Ti me COLONOSCOPY FLEXIBLE PROXIMA L DIAGNOSTIC Recall History of colonic polyps Scheduled Referrals Name Type Priority Associated Diagnoses Order Schedule ADULT/PEDS OTOLARYNGOLOGY REFERRAL OP Referral Within 30 days (routine) Sinus pressure Nasal congestion Ordered: 01/29/2024 Health Maintenance Due Date Last Done Comments Cologuard 2022 Fecal Occult Blood Test 2022 Sigmoidoscopy 2022 Meningitis B Vaccine (Bexsero/Trumemba) (3 of 4 - Increased Risk Trumenba 3-dose series) 07/19/2022 07/19/2021, 08/19/2018 Depression Screening 07/20/2023 07/19/2022 COVID-19 Vaccine (3 - season) 2024 09/23/2020, 08/23/2020 Influenza Vaccine [...] this encounter Medical Devices Implanted Type Area Stone Planer Device Identifier Shelf Expiration Date Model / Serial / Lot Zilver 518 Vascular Stent Implanted:Qty: 1 on 02/16/2020 by Remi Michaud MD at OR [facility] [employer] 01/12/2023 ZIV5-1 8-12 5-8-80 / / [id number] Knee Triathlon Bead No Dmitri L 2 - [id number] Implanted:Qty: 1 on 08/13/2021 by Solomon Leon DO at OR [facility] Left: Knee NICHOLAS : ORTHOPAEDICS 09/23/2025 5517-F-201 / / [id number] Baseplate #2 Tritanium - [id number] Implanted:Qty: 1 on 08/13/2021 by Solomon Leon DO at OR [facility] Left: Knee NICHOLAS : ORTHOPAEDICS 10/12/2025 5536-B-200 / / [id number] Triathlon X3 Tibial Bearing Insert - Cs Implanted:Qty: 1 on 08/13/2021 by Solomon Leon DO at OR [facility] Left: Knee NICHOLAS : ORTHOPAEDICS 08/21/2025 5531-G-210 -E / / [id number] Cement Bone Simplex Hv & G - [id number] Implanted:Qty: 2 on 12/04/2022 by Solomon Leon DO at OR [facility] Right: Knee NICHOLAS : ORTHOPAEDICS 01/03/2024 6195-1-010 / / [id number] Knee Tria Syetric X3 8x27 - [id number] Implanted:Qty: 1 on 12/04/2022 by Solomon Leon DO at OR [facility] Right: Knee NICHOLAS : ORTHOPAEDICS 06/22/2024 5550-G-278 -E / / 51VA Knee Triathlon Cruciate Fe 2 R - [id number] Implanted:Qty: 1 on 12/04/2022 by Solomon Leon DO at OR [facility] Right: Knee NICHOLAS : ORTHOPAEDICS 12/20/2026 5510-F-202 / / [id number] Knee Baseplate Tri Tib Sz 2 - [id number] Implanted:Qty: 1 on 12/04/2022 by Solomon Leon DO at OR [facility] Right: Knee NICHOLAS : ORTHOPAEDICS 12/17/2025 5521-B-200 / / [id number] Triathlon X3 Tibial Bearing Insert- Cs Implanted:Qty: 1 on 12/04/2022 by Solomon Leon, at OR [facility] Right: Knee 10/16/2027 5531-G-210 -E / / [id number] documented as of this encounter Visit Diagnoses Diagnosis Sinus pressure- Primary Other diseases of nasal cavity and sinuses Nasal congestion Other diseases of nasal cavity and sinuses HTN, goal below 130/80 Unspecified essential hypertension Hyperlipidemia with target LDL less than 130 Other and unspecified hyperlipidemia documented in this encounter Advance Directives * [...]
--- OUTSIDE RECORDS SUMMARY | 2024-03-06 19:36 | External Medical Summary | Summary of Care ---
Author Name Unknown Organization [facility] Address [address] [place] [address] Phone [phone] Care Team Providers Care Animal Cytologist Name Role Phone Unavailable Primary Care Provider Unavailabl e Encounter Details Date Type Department Care Team (Late st Contact Info) Description 11/16/2023 Patient Reported Data Patient Survey Ortho OBERD Allergies Active Allergy Reactions Criticality Noted Date Comments Prochlorperazine Edisylate 8 Feeling of skin crawling Gabapentin 04/06/2018 Paresthesias Pregabalin 04/06/2018 [place] suicidal Penicillins 04/06/2018 Mom was allergic to PCN - they told her she was too Prochlorperazine 10/28/2019 Phenazopyridine Hcl Hives 04/06/2018 Sulfa Antibiotics Anaphylaxis High 04/06/2018 Closes airway documented as of this encounter (statuses as of 11/16/2023) Medications Medication Sig Dispensed Refills Start Date End Date Status [place]-3 Fatty Acids (FISH OIL) 1000 MG Capsule Take 1 Capsule by mouth in the morning. Active nystatin 196747 UNIT/GM creamIndications:Cu taneous candidiasis Apply topically to [...] 11/20/2023 1:00 PM EDT Office Visit Orthopaedics [facility] 132 [facility] [place] [address] Bobby Colunga PA-C [facility] [employer] [place] [phone] 08/04/2024 1:30 PM EDT Imaging Radiology [address] [place] [address] Scheduled Procedures Name Priority Associated Diagnoses Date/Ti [...] this encounter Medical Devices Implanted Type Area Mat Cutter Device Identifier Shelf Expiration Date Model / Serial / Lot Zilver 518 Vascular Stent Implanted:Qty: 1 on 02/16/2020 by Remi Michaud MD at OR [facility] [employer] 01/12/2023 ZIV5-1 8-12 5-8-80 / / [id number] Knee Triathlon Bead No Dmitri L 2 - [id number] Implanted:Qty: 1 on 08/13/2021 by Solomon Leon DO at OR [facility] Left: Knee NICHOLAS : ORTHOPAEDICS 09/23/2025 5517-F-201 / / [id number] Baseplate #2 Tritanium - [id number] Implanted:Qty: 1 on 08/13/2021 by Solomon Leon DO at OR [facility] Left: Knee NICHOLAS : ORTHOPAEDICS 10/12/2025 5536-B-200 / / [id number] Triathlon X3 Tibial Bearing Insert - Cs Implanted:Qty: 1 on 08/13/2021 by Solomon Leon DO at OR [facility] Left: Knee NICHOLAS : ORTHOPAEDICS 08/21/2025 5531-G-210 -E / / [id number] Cement Bone Simplex Hv & G - [id number] Implanted:Qty: 2 on 12/04/2022 by Solomon Leon DO at OR [facility] Right: Knee NICHOLAS : ORTHOPAEDICS 01/03/2024 6195-1-010 / / [id number] Knee Tria Syetric X3 8x27 - [id number] Implanted:Qty: 1 on 12/04/2022 by Solomon Leon DO at OR [facility] Right: Knee NICHOLAS : ORTHOPAEDICS 06/22/2024 5550-G-278 -E / / 51VA Knee Triathlon Cruciate Fe 2 R - [id number] Implanted:Qty: 1 on 12/04/2022 by Solomon Leon DO at OR [facility] Right: Knee NICHOLAS : ORTHOPAEDICS 12/20/2026 5510-F-202 / / [id number] Knee Baseplate Tri Tib Sz 2 - [id number] Implanted:Qty: 1 on 12/04/2022 by Solomon Leon [...]
--- OUTSIDE RECORDS SUMMARY | 2024-03-06 19:37 | External Medical Summary | Summary of Care ---
Author Name Unknown Organization [facility] Address [address] [place] [facility] [place] [address] Phone [phone] Care Team Providers Care Fur Blower Name Role Phone Unavailable Primary Care Provider Unavailabl e Reason for Visit * Reason Onset Date Comments Medication Refill 11/12/2023 Encounter Details Date Type Department Care Team (Late st Contact Info) Description 11/12/2023 Refill Family Medicine [address] [phone] Shayna Walker PA-C [address] [place] [address] [place] [id number] Epigastric pain; Nausea and vomiting, unspecified vomiting type; HTN, goal below 130/80 Allergies Active Allergy Reactions Criticality Noted Date Comments Prochlorperazine Edisylate 8 Feeling of skin crawling Gabapentin 04/06/2018 Paresthesias Pregabalin 04/06/2018 [place] suicidal Penicillins 04/06/2018 Mom was allergic to PCN - they told her she was too Prochlorperazine 10/28/2019 Phenazopyridine Hcl Hives 04/06/2018 Sulfa Antibiotics Anaphylaxis High 04/06/2018 Closes airway documented as of this encounter (statuses as of 11/12/2023) Medications Medication Sig Dispensed Refills Start Date End Date Status [place]-3 Fatty Acids (FISH OIL) 1000 MG Capsule Take 1 Capsule by mouth in the morning. Active nystatin 454987 UNIT/GM creamIndications: Cutaneous candidiasis Apply topically to [...] the evening. 180 Capsule 3 11/12/2023 Active hydroCHLOROthiazi de 12.5 MG Oral CapsuleIndication s:HTN, goal below 130/80 Take 1 Capsule by mouth in the morning. Every morning.. 90 Capsule 1 11/12/2023 Active Esomeprazole Magnesium 20 MG Oral Capsule Delayed ReleaseIndication s:Epigastric pain,Nausea and vomiting, unspecified vomiting type Take 1 Capsule by mouth in the morning and 1 Capsule in the evening. 180 Capsule 3 09/19/2022 4 Discontinue d(Refill) hydroCHLOROthiazi de 12.5 MG Oral Capsule (Hydrodiuril)Abi cations:HTN, goal below 130/80 TAKE 1 CAPSULE BY MOUTH EVERY MORNING 90 Capsule 1 05/05/2023 4 Discontinue d(Refill) documented as of this encounter (statuses as of 11/12/2023) Active Problems Problem Noted Date Diagnosed Date [...] as of this encounter (statuses as of 11/12/2023) Resolved Problems Problem Noted Date Diagnosed Date Resolved Date Disorder of iron metabolism, unspecified 04/01/2022 07/19/2022 Hypokalemia 04/01/2022 07/19/2022 Psychosocial stressors 10/18/202007/19 Female stress incontinence 05/04/2018 0 07/19/2022 Arthritis of right knee 04/10/201801/03 Chronic arthralgias of knees and hips 04/06/2018 01/17/2023 documented as of this encounter (statuses as of 11/12/2023) Immunizations Name Administration Dates Next Due COVID-19 [...] encounter Miscellaneous Notes * Telephone Encounter - Rohit Brown MD - 11/12/2023 9:20 AM EDT Signed Prescriptions: Disp Refills Esomeprazole Magnesium 20 MG Oral Capsule *180 Ca*3 Sig: Take 1 Capsule by mouth in the morning and 1 Capsule in the evening. Authorizing Provider: SELLATHURAI, THIVIYANATH hydroCHLOROthiazide 12.5 MG Oral Capsule 90 Cap*1 Sig: Take 1 Capsule by mouth in the morning. Every morning.. Authorizing Provider: Hernan BROWN * Telephone Encounter - Ary Avitia CMA - 11/12/2023 9:19 AM EDTPending Prescriptions: Disp Refills Esomeprazole Magnesium 20 MG Oral Capsule *180 Ca*3 Sig: Take 1 Capsule by mouth in the morning and 1 Capsule in the evening. hydroCHLOROthiazide 12.5 MG Oral Capsule 90 Cap*1 Sig: Take 1 Capsule by mouth in the morning. Every morning.. * Telephone Encounter - Ashley Ibarra OSA - 11/12/2023 9:00 AM EDT Did you pend patient's preferred pharmacy and medication before forwarding?yes Pharmacy: [id number] Pending Prescriptions: Disp Refills Esomeprazole Magnesium 20 MG Oral Capsule*180 Ca*3 Sig: Take 1 Capsule by mouth in the morning and 1 Capsule in the evening. hydroCHLOROthiazide 12.5 MG Oral Capsule 90 Cap*1 Sig: Take 1 Capsule by mouth in the morning. Every morning.. Last Visit: 07/17/2023 (in office), 07/25/2023 (telemedicine) Next Visit: Visit date not found If no future appointments scheduled, and last appointment is greater than a year ago, please schedule patient for a follow-up appointment Last date the medication was ordered: 09/19/22 Is this request for a controlled substance?No Urine Drug Screen:No results found for this or any previous visit. Patient Phone Numbers Labs: Lab Results Component Value Date/Time CREAT 0.9 07/08/2023 04:26 PM CREAT 0.7 02/17/2020 03:48 AM POTASSIUM 4.1 07/08/2023 04:26 PM POTASSIUM 3.9 02/17/2020 03:48 AM TSH 1.72 04/01/2022 01:08 PM TSH 1.18 01/14/2019 02:09 PM LDLCALC 193 (H) 07/19/2022 03:57 PM LDLCALC 166 08/21/2017 12:00 AM LDLDIRECT 154 (H) 09/19/2022 09:48 AM ALT 20 07/08/2023 04:26 PM ALT 24 10/15/2019 02:24 PM HGBA1C 5.3 11/13/2022 09:24 AM documented in this encounter Plan of Treatment Upcoming Encounters Date Type Department Care Team (Late st Contact Info) Description 11/20/2023 1:00 PM EDT Office Visit Orthopaedics [facility] [address] [place] [address] Bobby Colunga PA-C [facility] [employer] [place] [phone] 08/04/2024 1:30 PM EDT Imaging Radiology [address] [place] [address] Scheduled Procedures Name Priority Associated Diagnoses Date/Ti me COLONOSCOPY FLEXIBLE PROXIMA L DIAGNOSTIC Recall History of colonic polyps Health Maintenance Due Date Last Done Comments Cologuard 2022 Fecal Occult Blood Test 2022 Sigmoidoscopy 2022 Meningitis B Vaccine (Bexsero/Trumemba) (3 of 4 - Increased Risk Trumenba 3-dose series) 07/19/2022 07/19/2021, 08/19/2018 COVID-19 Vaccine (3 - 2022-24 season) 2023 09/23/2020, 08/23/2020 Depression Screening 07/20/2023 [...] this encounter Medical Devices Implanted Type Area Senior Restaurant Manager Device Identifier Shelf Expiration Date Model / Serial / Lot Zilver 518 Vascular Stent Implanted:Qty: 1 on 02/16/2020 by Remi Michaud MD at OR [facility] [employer] 01/12/2023 ZIV5-1 8-12 5-8-80 / / [id number] Knee Triathlon Bead No Dmitri L 2 - [id number] Implanted:Qty: 1 on 08/13/2021 by Solomon Leon DO at OR [facility] Left: Knee NICHOLAS : ORTHOPAEDICS 09/23/2025 5517-F-201 / / [id number] Baseplate #2 Tritanium - [id number] Implanted:Qty: 1 on 08/13/2021 by Solomon Leon DO at OR [facility] Left: Knee NICHOLAS : ORTHOPAEDICS 10/12/2025 5536-B-200 / / [id number] Triathlon X3 Tibial Bearing Insert - Cs Implanted:Qty: 1 on 08/13/2021 by Solomon Leon DO at OR [facility] Left: Knee NICHOLAS : ORTHOPAEDICS 08/21/2025 5531-G-210 -E / / [id number] Cement Bone Simplex Hv & G - [id number] Implanted:Qty: 2 on 12/04/2022 by Solomon Leon DO at OR [facility] Right: Knee NICHOLAS : ORTHOPAEDICS 01/03/2024 6195-1-010 / / [id number] Knee Tria Syetric X3 8x27 - [id number] Implanted:Qty: 1 on 12/04/2022 by Solomon Leon DO at OR [facility] Right: Knee NICHOLAS : ORTHOPAEDICS 06/22/2024 5550-G-278 -E / / 51VA Knee Triathlon Cruciate Fe 2 R - [id number] Implanted:Qty: 1 on 12/04/2022 by Solomon Leon DO at OR [facility] Right: Knee NICHOLAS : ORTHOPAEDICS 12/20/2026 5510-F-202 / / [id number] Knee Baseplate Tri Tib Sz 2 - [id number] Implanted:Qty: 1 on 12/04/2022 by Solomon Leon DO at OR [facility] Right: Knee NICHOLAS : ORTHOPAEDICS 12/17/2025 5521-B-200 / / [id number] Triathlon X3 Tibial Bearing Insert- Cs Implanted:Qty: 1 on 12/04/2022 by Solomon Leon DO at OR [facility] Right: Knee 10/16/2027 5531-G-210 -E / / [id number] documented as of this encounter Visit Diagnoses Diagnosis Epigastric pain Abdominal pain, epigastric Nausea and vomiting, unspecified vomiting type HTN, goal below 130/80 Unspecified essential hypertension [...]
--- OUTSIDE RECORDS SUMMARY | 2024-03-06 19:37 | External Medical Summary | Summary of Care ---
Author Name Unknown Organization [facility] Address [address] [place] [address] Phone [phone] Care Team Providers Care Trial Justice Name Role Phone Unavailable Primary Care Provider Unavailabl e Encounter Details Date Type Department Care Team (Late st Contact Info) Description 11/16/2023 Patient Reported Data Patient Survey Ortho OBERD Allergies Active Allergy Reactions Criticality Noted Date Comments Prochlorperazine Edisylate 8 Feeling of skin crawling Gabapentin 04/06/2018 Paresthesias Pregabalin 04/06/2018 [place] suicidal Penicillins 04/06/2018 Mom was allergic to PCN - they told her she was too Prochlorperazine 10/28/2019 Phenazopyridine Hcl Hives 04/06/2018 Sulfa Antibiotics Anaphylaxis High 04/06/2018 Closes airway documented as of this encounter (statuses as of 11/16/2023) Medications Medication Sig Dispensed Refills Start Date End Date Status [place]-3 Fatty Acids (FISH OIL) 1000 MG Capsule Take 1 Capsule by mouth in the morning. Active nystatin 384047 UNIT/GM creamIndications:Cu taneous candidiasis Apply topically to [...] 11/20/2023 1:00 PM EDT Office Visit Orthopaedics [facility] 132 [facility] [place] [address] Bobby Colunga PA-C [facility] [employer] [place] [phone] 08/04/2024 1:30 PM EDT Imaging Radiology [address] [place] [id number] Scheduled Procedures Name Priority Associated Diagnoses Date/Ti [...] this encounter Medical Devices Implanted Type Area Talent Sourcer Device Identifier Shelf Expiration Date Model / Serial / Lot Zilver 518 Vascular Stent Implanted:Qty: 1 on 02/16/2020 by Remi Michaud MD at OR [facility] [employer] 01/12/2023 ZIV5-1 8-12 5-8-80 / / [id number] Knee Triathlon Bead No Dmitri L 2 - [id number] Implanted:Qty: 1 on 08/13/2021 by Solomon Leon DO at OR [facility] Left: Knee NICHOLAS : ORTHOPAEDICS 09/23/2025 5517-F-201 / / [id number] Baseplate #2 Tritanium - [id number] Implanted:Qty: 1 on 08/13/2021 by Solomon Loen DO at OR [facility] Left: Knee NICHOLAS : ORTHOPAEDICS 10/12/2025 5536-B-200 / / [id number] Triathlon X3 Tibial Bearing Insert - Cs Implanted:Qty: 1 on 08/13/2021 by Solomon Leon DO at OR [facility] Left: Knee NICHOLAS : ORTHOPAEDICS 08/21/2025 5531-G-210 -E / / [id number] Cement Bone Simplex Hv & G - [id number] Implanted:Qty: 2 on 12/04/2022 by Solomon Leon DO at OR [facility] Right: Knee NICHOLAS : ORTHOPAEDICS 01/03/2024 6195-1-010 / / [id number] Knee Tria Syetric X3 8x27 - [id number] Implanted:Qty: 1 on 12/04/2022 by Solomon Leon DO at OR [facility] Right: Knee NICHOLAS : ORTHOPAEDICS 06/22/2024 5550-G-278 -E / / 51VA Knee Triathlon Cruciate Fe 2 R - [id number] Implanted:Qty: 1 on 12/04/2022 by Solomon Leon DO at OR [facility] Right: Knee NICHOLAS : ORTHOPAEDICS 12/20/2026 5510-F-202 / / [id number] Knee Baseplate Tri Tib Sz 2 - [id number] Implanted:Qty: 1 on 12/04/2022 by Solomon Leon DO at OR [facility] Right: Knee NICHOLAS : ORTHOPAEDICS 12/17/2025 5521-B-200 / / [id number] Triathlon X3 Tibial Bearing Insert- Cs Implanted:Qty: 1 on 12/04/2022 by Solomon Leon DO at OR [facility] Right: Knee 10/16/2027 5531-G-210 -E / [...]
--- NOTE | 2024-03-06 19:51 | Emergency Department Note ---
History of Present Illness General Chief complaint: Diarrhea Stated complaint: DIARRHEA, ABD PAIN, CRAMPING Time Seen by Provider: 03/06/24 19:33 History of Present Illness Maximum Pain Intensity: 7 This 48-year-old female presents to ER complaining of abdominal cramping and diarrhea for the past week. She does drink [place]. No recent antibiotics. Patient has had a splenectomy and appendectomy in the past. Patient denies chest pain, dyspnea, fever, chills, vomiting, urinary symptoms, flank pain. Home Medications Medication Instructions Recorded Confirmed Type No Known Home Medications 10/28/19 10/28/19 History Allergies Allergy/AdvReac Type Severity Reaction Status Date / Time Penicillins Allergy Verified 10/28/19 13:36 pregabalin [From Lyrica] Allergy Verified 10/28/19 13:36 prochlorperazine Allergy Verified 10/28/19 13:36 [From Compazine] Sulfa (Sulfonamide Allergy Verified 10/28/19 13:36 Antibiotics) Past Med/Surg History Problem List (Updated 03/07/24 @ 00:23 by Merline Sanchez PA-C) Leukocytosis (Acute) Diarrhea (Acute) Intractable generalized abdominal pain (Acute) Tinnitus of both ears Sensorineural hearing loss History of adverse effect of anesthesia ANXIETY GERD (gastroesophageal reflux disease) Autoimmune disorder ITP Seasonal allergies Acute asthma Bleeding disorder ITP Hypertension Hyperacusis of both ears Medical History (Updated 03/07/24 @ 00:23 by Merline Sanchez PA-C) Cerebritis Stomach ulcer Surgical History History of surgery 3 LP SHUNTS History of hysterectomy History of sinus surgery POLYPECTOMY History of laparoscopy History of tonsillectomy History of knee surgery RIGHT KNEE History of surgery SPLEEN History of appendectomy Family History Mother Hearing loss Hypertension Grandmother Stroke Father Cancer Other Allergies Family history of bleeding disorder Social History Smoking Status: Former smoker Hx Alcohol Use: Yes Alcohol Intake Frequency Comment: Once a week Hx Substance Use: No Preferred Language: Kiswahili marital status: current occupational status: employed current occupation: [employer] Feels Safe at Home: Yes Review of Systems A total of 10 systems reviewed and were otherwise negative Physical Exam Vital Signs Vital Signs - 24 hr 03/06/24 19:32 03/06/24 19:42 03/06/24 20:17 Pulse Rate 106 H 91 H Pulse Rate from SpO2 Sensor Respiratory Rate 16 Respiratory Effort / Characteristics Non-Labored Respiratory Depth Normal Blood Pressure 152/92 H Blood Pressure Mean 112 Pulse Oximetry 95 97 Oxygen Delivery Method Room Air Room Air Sepsis Recent Fever Within 48 Hours No Sepsis New/Unexplained Change in Mental Status No Sepsis Action Taken by Nursing No Action Required 03/06/24 20:18 03/06/24 21:00 03/06/24 21:00 Pulse Rate 93 H 85 Pulse Rate from SpO2 Sensor 93 H 81 Respiratory Rate 19 15 Respiratory Effort / Characteristics Respiratory Depth Blood Pressure 110/72 122/85 122/85 Blood Pressure Mean 84 97 98 Pulse Oximetry 95 94 Oxygen Delivery Method Sepsis Recent Fever Within 48 Hours Sepsis New/Unexplained Change in Mental Status Sepsis Action Taken by Nursing 03/06/24 22:21 03/06/24 22:26 03/06/24 22:26 Pulse Rate Pulse Rate from SpO2 Sensor 81 Respiratory Rate Respiratory Effort / Characteristics Respiratory Depth Blood Pressure 121/91 121/91 Blood Pressure Mean 96 96 Pulse Oximetry 94 Oxygen Delivery Method Sepsis Recent Fever Within 48 Hours Sepsis New/Unexplained Change in Mental Status Sepsis Action Taken by Nursing 03/06/24 23:00 03/06/24 23:30 03/07/24 00:15 Pulse Rate 78 87 81 Pulse Rate from SpO2 Sensor 80 85 Respiratory Rate 18 14 Respiratory Effort / Characteristics Respiratory Depth Blood Pressure 116/73 135/85 Blood Pressure Mean 79 101 Pulse Oximetry 93 90 Oxygen Delivery Method Room Air Room Air Sepsis Recent Fever Within 48 Hours Sepsis New/Unexplained Change in Mental Status Sepsis Action Taken by Nursing VITALS: Vitals are noted on the nurse's note and reviewed by myself. Vital signs stable. GENERAL: Pleasant female, in no acute distress, nondiaphoretic, well-developed well-nourished. SKIN: Capillary reflex less than 2 seconds. HEENT: Normocephalic. PERRLA. EOMI. Nares patent. Mucous membranes moist. Neck is supple without nuchal rigidity. HEART: Regular rate and rhythm LUNGS: Clear to auscultation bilaterally without wheezes, rales or rhonchi. No retractions or accessory muscle use. ABDOMEN: Positive bowel sounds x 4. Normal tympanic percussion. Soft, tender to palpation lower abdomen, without masses or organomegaly. Jones sign negative. No guarding or rebound tenderness. no CVA tenderness MUSCULOSKELETAL: No gross musculoskeletal defects. NEURO: Patient was alert and oriented to person place and time. No focal neurological deficits. Course Administered Medications Discontinued Medications Dicyclomine HCl (Dicyclomine Hcl 10 Mg/Ml 2 Ml Amp/Vial) 20 mg IM NOW ONE Stop: 03/06/24 19:43 Last Admin: 03/06/24 20:05 Dose: 20 mg Documented By: DOMINIQUE Acetaminophen (Ofirmev) 1,000 mg in 100 mls @ 400 mls/hr IV NOW STA Stop: 03/06/24 19:56 Last Infusion: 03/06/24 21:00 Dose: Infused Documented By: Admin: 03/06/24 20:05 Dose: 400 mls/hr Documented By: DOMINIQUE Sodium Chloride (Nss) 1,000 mls @ 999 mls/hr IV .Q1H1M ONE Stop: 03/06/24 20:42 Last Infusion: 03/06/24 22:08 Dose: Infused Documented By: Admin: 03/06/24 20:10 Dose: 999 mls/hr Documented By: DOMINIQUE Sodium Chloride (Nss) 1,000 mls @ 999 mls/hr IV .Q1H1M ONE Stop: 03/06/24 21:37 Last Admin: 03/06/24 21:03 Dose: Not Given Documented By: DOMINIQUE Ioversol (Optiray 320 100ml) 92 ml IV ONCE ONE Stop: 03/06/24 20:41 Last Admin: 03/06/24 20:40 Dose: 92 ml Documented By: CHENCHO Ketorolac Tromethamine (Ketorolac Tromethamine 15 Mg/Ml Vial) 10 mg IV NOW STA Stop: 03/06/24 23:41 Last Admin: 03/07/24 00:03 Dose: 10 mg Documented By: GAIL Morphine Sulfate (Morphine Sulfate 4 Mg/Ml 1 Ml Carp\Vial) 4 mg IV NOW STA Stop: 03/06/24 21:04 Last Admin: 03/06/24 21:18 Dose: 4 mg Documented By: DOMINIQUE Morphine Sulfate (Morphine Sulfate 4 Mg/Ml 1 Ml Carp\Vial) 4 mg IV NOW STA Stop: 03/06/24 22:22 Last Admin: 03/06/24 22:25 Dose: 4 mg Documented By: DOMINIQUE Ondansetron HCl (Ondansetron Inj 2 Mg/Ml 2 Ml Vial) 4 mg IV NOW STA Stop: 03/06/24 19:43 Last Admin: 03/06/24 20:05 Dose: 4 mg Documented By: DOMINIQUE Potassium Chloride (Potassium Chloride Pwd 20 Meq Pack) 40 meq PO NOW STA Stop: 03/06/24 23:45 Last Admin: 03/07/24 00:07 Dose: 40 meq Documented By: GAIL Medical Decision Making Medical Records Attestation: I reviewed the patient's medical records. Home Medications Current Medication List: was personally reviewed by me Laboratory Data Attestation: I reviewed the patient's lab results. 03/06/24 19:53 03/06/24 19:53 Lab Results 03/06/24 03/06/24 Range/Units 19:53 Unknown WBC 17.15 H (4.8-10.8) K/ul RBC 4.33 (4.20-5.40) M/uL Hgb 13.2 (12.0-16.0) g/dl Hct 39.1 (37.0-47.0) % MCV 90.3 (80.0-100.0) fL MCH 30.5 (25.0-34.0) pg MCHC 33.8 (32.0-36.0) g/dL RDW Std Deviation 46.0 (36.4-46.3) fL RDW Coeff of Brent 13.8 (11.5-14.5) % Plt Count 245 (130-400) K/uL MPV 11.9 (9.4-12.4) fL Immature Gran % (Auto) 0.3 % Neut % (Auto) 64.9 % Lymph % (Auto) 27.1 % [place] % (Auto) 5.5 % Eos % (Auto) 1.4 % Baso % (Auto) 0.8 % Neut # (Auto) 11.12 H (1.40-6.50) K/uL Lymph # (Auto) 4.64 H (1.20-3.40) K/uL [place] # (Auto) 0.95 H (0.11-0.59) K/uL Eos # (Auto) 0.24 (0.00-0.50) K/uL Baso # (Auto) 0.14 (0.00-0.20) K/uL Immature Gran # (Auto) 0.06 (0.01-0.20) K/uL Sodium 140 (136-145) mmol/L Potassium 3.4 L (3.5-5.1) mmol/L Chloride 106 (98-107) mmol/L Carbon Dioxide 26 (21-32) mmol/L Anion Gap 8 (3-11) BUN 11 (6-23) mg/dl Creatinine 0.79 (0.6-1.2) mg/dl Est Cr Clr Drug Dosing Not Reportable eGFR 93.37 BUN/Creatinine Ratio 13.9 (10-20) Glucose 118 H (70-99(Fasting)) mg/dl Calcium 8.8 (8.6-10.3) mg/dl Magnesium 1.8 (1.7-2.4) mg/dl Total Bilirubin 0.3 (0.2-1.0) mg/dl AST 16 (13-39) U/L ALT 18 (7-52) U/L Alkaline Phosphatase 75 (34-104) U/L Total Protein 7.1 (6.0-8.3) gm/dl Albumin 3.9 (3.4-5.0) gm/dl Globulin 3.2 (2.5-4.0) gm/dl Albumin/Globulin Ratio 1.2 (0.9-2) Lipase 15 (11-82) U/L HCG, Qual Negative (Negative) Urine Color Yellow Urine Appearance Cloudy A (Clear) Urine pH 7.0 (4.5-7.5) Ur Specific [place] 1.013 (1.000-1.030) Urine Protein Negative (Negative) Urine Glucose (UA) Negative (Negative) Urine Ketones Negative (Negative) Urine Blood Negative (Negative) Urine Nitrite Negative (Negative) Urine Bilirubin Negative (Negative) Urine Urobilinogen Negative (Negative) Ur Leukocyte Esterase Negative (Negative) Urine WBC (Auto) 0-5 (0-5) /hpf Urine RBC (Auto) >20 H (0-2) /hpf U Hyaline Cast (Auto) 0-2 (0-2) /lpf U Epithel Cells (Auto) 0-2 (0-2) /hpf Urine Bacteria (Auto) 1+ H (None Seen) Imaging Data Attestation: I personally reviewed and interpreted this imaging study as follows: Radiologist's Impression: Abdomen/Pelvis CT 03/06/24 19:42 Exam(s): CT ABDOMEN + PELVIS With Contrast IV Amt: optiray 320 92ml EXAM: CT Abdomen and Pelvis With Intravenous Contrast CLINICAL HISTORY: Reason for exam: mid abd pain, D, no spleen. TECHNIQUE: Axial computed tomography images of the abdomen and pelvis with intravenous contrast. Automated exposure control was utilized for the study. A dose lowering technique was utilized adhering to the principles of ALARA. CONTRAST: Patient received optiray 320 92ml of IV contrast COMPARISON: None. FINDINGS: Lung bases: Posteriorly subpleural linear/platelike areas of atelectasis. No mass. No consolidation. An elevated right hemidiaphragm. ABDOMEN: Liver: Unremarkable. No mass. Gallbladder and bile ducts: Gallbladder is not seen, either contracted or surgically removed. No ductal dilation. Pancreas: Pancreatic tail is not visualized. No mass. No ductal dilation. Spleen: Absence of the spleen. Adrenals: Unremarkable. No mass. Kidneys and ureters: A 1.3 x 1.0 cm calculus in the right renal pelvis with mild fullness of the right renal collecting system. Small rounded nonobstructive left renal calculi. No solid mass. No hydronephrosis. Stomach and bowel: A distended stomach filled with ingested fluid/food debris and gas. Fluid/gas filled normal caliber small bowel loops. Liquid stool in the ascending and transverse colon. Circumferential mucosal low density mild thickening of the terminal ileum and cecum/ascending colon (series 300 image 33, 39, series 2 image 51). No obstruction. PELVIS: Appendix: No acute findings in the region of the appendix. Bladder: A partially decompressed bladder. No mass. Reproductive: Prior hysterectomy. ABDOMEN and PELVIS: Intraperitoneal space: No free air. No significant fluid collection. Bones/joints: No acute fracture. No dislocation. Soft tissues: Unremarkable. Vasculature: Unremarkable. No abdominal aortic aneurysm. Lymph nodes: Few centimeter/subcentimeter mesenteric lymph nodes seen. No lymphadenopathy by CT size criteria... IMPRESSION: Bilateral nephrolithiasis. No hydronephrosis. Circumferential low-density mild mucosal/wall thickening of the terminal ileum and cecum/ascending colon. Liquid stool in the ascending and transverse colon. Question Crohn's disease in the appropriate clinical context. . Electronically signed by: Elicia Miller MD, DABR 03/06/24 23:32 PM MDM Narrative Prior records/ancillary studies reviewed. Triage Nursing notes reviewed. Additional history obtained from the family. The patient's history was concerning for nausea, diarrhea, and abdominal pain. Differential diagnosis: Etiologies such as stool infection, Giardia, gastroenteritis, food borne illness, infections, appendicitis, diverticulitis, inflammatory bowel disease, obstruction, GI bleed, biliary pathology, as well as others were entertained. Physical examination findings: As above. Abdominal examination revealed lower abdominal tenderness. Vital signs reviewed and revealed stable. ER treatment provided: IV hydration 1 L NSS. Zofran, Tylenol and Bentyl were ordered morphine, Toradol and fentanyl were ordered On reassessment the patient felt better. Patient was tolerating p.o. intake. Diagnostics interpretation by me: The labs Independently Interpreted by myself revealed leukocytosis, negative urine Imaging studies: CT was reviewed and read by radiology as above Consultation: A consultation was placed with the hospitalist. The case was discussed and diagnostics were reviewed. The patient was evaluated in the ER for further treatment. This appears to be consistent with intractable abdominal pain. Patient was unable to provide a stool sample while in the ER. She is still in severe amount of pain and is requesting admission. Medicine was consulted and the case is discussed. She will be evaluated for possible admission. By the evaluation outlined above emergent etiologies such as appendicitis, diverticulitis, obstruction, cardiac sources, mesenteric ischemia, aortic pathology, renal colic, PUD, biliary pathology, UTI, as well as others were deemed relatively unlikely. The pt informed about the findings as listed above. All questions were answered and pleased with the treatment. The chart was completed utilizing [employer] Speech voice recognition software. Grammatical errors, random word insertions, pronoun errors, and incomplete sentences are an occassional consequence of this system due to software limitations, ambient noise, and hardware issues. Any formal questions or concerns about the content, text, or information contained within the body of this dictation should be directly addressed to the physician photo studio assistant for clarification. Impression & Plan Intractable generalized abdominal pain, Diarrhea, Leukocytosis Discharge Plan Visit Data Chief Complaint: Diarrhea Stated Complaint: DIARRHEA, ABD PAIN, CRAMPING ED Provider: Jennifer Giordano ED Midlevel Provider: Merline Sanchez Discharge Problem: Intractable generalized abdominal pain, Diarrhea, Leukocytosis Patient Disposition: Admitted As Inpatient Condition: Good Forms Stand Alone Forms: [facility] Prescriptions Prescriptions: No Action No Known Home Medications Referrals Referrals: Vidya Yang MD [Primary Care Provider] -
[2024-03-06] MEDS: ONDANSETRON INJ 2 MG/ML 2 ML VIAL IV STA (20:05)
[2024-03-06] MEDS: ACETAMINOPHEN 1,000 MG/100 ML VIAL IV STA (20:05)
[2024-03-06] MEDS: DICYCLOMINE HCL 10 MG/ML 2 ML AMP/VIAL IM ONE (20:05)
[2024-03-06] MEDS: SODIUM CHLORIDE 0.9% 1,000 ML IV ONE ×2 (20:10→21:03)
[2024-03-06 20:22] LABS: Alanine Aminotransferase 18 U/L (7-52); Albumin Globulin Ratio 1.2 (0.9-2); Albumin Level 3.9 gm/dl (3.4-5.0); Alkaline Phosphatase 75 U/L (34-104); Anion Gap 8 (3-11); Aspartate Aminotransferase 16 U/L (13-39); BUN Creatinine Ratio 13.9 (10-20); Bilirubin,Total 0.3 mg/dl (0.2-1.0); Blood Urea Nitrogen 11 mg/dl (6-23); Calcium 8.8 mg/dl (8.6-10.3); Carbon Dioxide 26 mmol/L (21-32); Chloride 106 mmol/L (98-107); Globulin 3.2 gm/dl (2.5-4.0); Glucose 118 mg/dl (70-99(Fasting)); Lipase 15 U/L (11-82); Magnesium 1.8 mg/dl (1.7-2.4); Potassium 3.4 mmol/L (3.5-5.1); Sodium 140 mmol/L (136-145); Total Protein 7.1 gm/dl (6.0-8.3)
[2024-03-06 20:23] LABS: Pregnancy Test, Serum Negative (Negative)
[2024-03-06 20:35] LABS: Basophils # (auto) 0.14 K/uL (0.00-0.20); Basophils % (auto) 0.8 %; Eosinophils # (auto) 0.24 K/uL (0.00-0.50); Eosinophils % (auto) 1.4 %; Hematocrit (blood only) 39.1 % (37.0-47.0); Hemoglobin 13.2 g/dl (12.0-16.0); Immature Granulocytes # (auto) 0.06 K/uL (0.01-0.20); Immature Granulocytes % (auto) 0.3 %; Lymphocytes # (auto) 4.64 K/uL (1.20-3.40); Lymphocytes % (auto) 27.1 %; Mean Corpuscular Hemoglobin 30.5 pg (25.0-34.0); Mean Corpuscular Hgb Conc 33.8 g/dL (32.0-36.0); Mean Corpuscular Volume 90.3 fL (80.0-100.0); Mean Platelet Volume 11.9 fL (9.4-12.4); Monocytes # (auto) 0.95 K/uL (0.11-0.59); Monocytes % (auto) 5.5 %; Neutrophils # (auto) 11.12 K/uL (1.40-6.50); Neutrophils % (auto) 64.9 %; Platelet Count 245 K/uL (130-400); RDW Coefficient of Variation 13.8 % (11.5-14.5); Red Blood Count 4.33 M/uL (4.20-5.40); White Blood Count 17.15 K/ul (4.8-10.8)
[2024-03-06] MEDS: OPTIRAY 320 100ml IV ONE (20:40)
[2024-03-06 21:13] LABS: Appearance Urine Cloudy (Clear); Bacteria Urine Automated 1+ (None Seen); Bilirubin Urine Negative (Negative); Blood Urine Negative (Negative); Cast Urine Automated 0-2 /lpf (0-2); Color Urine Yellow; Epithelial Cell Urine Auto 0-2 /hpf (0-2); Glucose Urine UA Negative (Negative); Ketones Urine Negative (Negative); Leukocyte Esterase Urine Negative (Negative); Nitrite Urine Negative (Negative); Protein Urine Negative (Negative); RBC Urine Automated >20 /hpf (0-2); Specific Gravity Urine 1.013 (1.000-1.030); Urobilinogen Urine Negative (Negative); WBC Urine Automated 0-5 /hpf (0-5)
[2024-03-06] MEDS: MoRPHine SULFATE 4 MG/ML 1 ML CARP\\VIAL IV STA ×2 (21:18→22:25)
--- NOTE | 2024-03-06 23:34 | CT Scan Report ---
Exam(s): CT ABDOMEN + PELVIS With Contrast IV Amt: optiray 320 92ml EXAM: CT Abdomen and Pelvis With Intravenous Contrast CLINICAL HISTORY: Reason for exam: mid abd pain, D, no spleen. TECHNIQUE: Axial computed tomography images of the abdomen and pelvis with intravenous contrast. Automated exposure control was utilized for the study. A dose lowering technique was utilized adhering to the principles of ALARA. CONTRAST: Patient received optiray 320 92ml of IV contrast COMPARISON: None. FINDINGS: Lung bases: Posteriorly subpleural linear/platelike areas of atelectasis. No mass. No consolidation. An elevated right hemidiaphragm. ABDOMEN: Liver: Unremarkable. No mass. Gallbladder and bile ducts: Gallbladder is not seen, either contracted or surgically removed. No ductal dilation. Pancreas: Pancreatic tail is not visualized. No mass. No ductal dilation. Spleen: Absence of the spleen. Adrenals: Unremarkable. No mass. Kidneys and ureters: A 1.3 x 1.0 cm calculus in the right renal pelvis with mild fullness of the right renal collecting system. Small rounded nonobstructive left renal calculi. No solid mass. No hydronephrosis. Stomach and bowel: A distended stomach filled with ingested fluid/food debris and gas. Fluid/gas filled normal caliber small bowel loops. Liquid stool in the ascending and transverse colon. Circumferential mucosal low density mild thickening of the terminal ileum and cecum/ascending colon (series 300 image 33, 39, series 2 image 51). No obstruction. PELVIS: Appendix: No acute findings in the region of the appendix. Bladder: A partially decompressed bladder. No mass. Reproductive: Prior hysterectomy. ABDOMEN and PELVIS: Intraperitoneal space: No free air. No significant fluid collection. Bones/joints: No acute fracture. No dislocation. Soft tissues: Unremarkable. Vasculature: Unremarkable. No abdominal aortic aneurysm. Lymph nodes: Few centimeter/subcentimeter mesenteric lymph nodes seen. No lymphadenopathy by CT size criteria... IMPRESSION: Bilateral nephrolithiasis. No hydronephrosis. Circumferential low-density mild mucosal/wall thickening of the terminal ileum and cecum/ascending colon. Liquid stool in the ascending and transverse colon. Question Crohn's disease in the appropriate clinical context. . Electronically signed by: Elicia Miller MD, COMFORTR 03/06/24 23:32 PM
[2024-03-06] MEDS ORDERED: fentaNYL citrate PF 100 MCG/2 ML VIAL IV PRN (23:40)
[2024-03-06] MEDS ORDERED: ACETAMINOPHEN 325 MG TAB PO PRN (23:52)
[2024-03-06] MEDS ORDERED: oxyCODONE HCL IR 5 MG TAB (IMMEDIATE RELEASE) PO PRN (23:52)
--- NOTE | 2024-03-06 23:54 | History & Physical Report ---
Date of Service March 06, 2024 Assessment & Plan (1) Abdominal pain: Plan: Ileocolitis on CT Rule out infectious etiology Hypokalemia secondary to illness hypertension, stable hyperlipidemia, not on statin Rx JONY currently not requiring CPAP pseudotumor cerebri status post surgery/migraine, chronic headache symptoms hx GERD ITP status postsplenectomy cervical cancer/endometriosis status post surgery fibromyalgia/RLS Hyperglycemia rule out DM past tobacco abuse OBS Medical floor Analgesia Clear liquid diet for now Stool cultures, stool C. difficile GI consult if with persistent symptoms and unremarkable stool workup Replace potassium Check hemoglobin A1c DVT prophylaxis. Lovenox subcu Full code Text document was generated using [employer] voice recognition software. It may contain grammatical or spelling errors. Kindly contact undersigned for clarification of any documentation item in question. History of Present Illness Chief Complaint: Abdominal pain, diarrhea Primary Care Provider: Vidya Yang MD History obtained from patient, family, and records. Medical history significant for hypertension, hyperlipidemia, JONY currently not requiring CPAP, pseudotumor cerebri status post surgery, migraine, GERD, IBS constipation predominant as per patient, ITP status postsplenectomy, cervical cancer status post surgery, endometriosis, fibromyalgia, RLS, allergic rhinitis, past tobacco abuse. 1 week history of achy lower abdominal pain with watery neon green diarrhea symptoms. Some nausea without emesis symptoms. Usual headache symptoms. Denies chest pain, SOB. No fever, no chills. Not sure about recent sick contacts. No recent out-of-town travel or new restaurants. No recent antibiotic Rx. Medical History as above 2022 colonoscopy showed diverticulosis/internal hemorrhoids/adenomatous polyps Surgical History : Knee surgeries, breast biopsy, vascular procedures, VPS, laparoscopy for endometriosis, section, splenectomy, tonsillectomy, cholecystectomy, sinus surgery, [facility] Family History : Migraine, ITP, autism; negative IBD Personal/Social history : Past tobacco abuse, occasional EtOH intake, homemaker Allergies Allergy/AdvReac Type Severity Reaction Status Date / Time Penicillins Allergy Verified 10/28/19 13:36 pregabalin [From Lyrica] Allergy Verified 10/28/19 13:36 prochlorperazine Allergy Verified 10/28/19 13:36 [From Compazine] Sulfa (Sulfonamide Allergy Verified 10/28/19 13:36 Antibiotics) Home Medications Medication Instructions Recorded Confirmed Type Maxalt 10 mg PO DIRECTED PRN Migraine 03/07/24 03/07/24 History Headache [place] 3 Fish Oil 1,000 mg PO DAILY 03/07/24 03/07/24 History Ventolin HFA 108 mcg inhalation DIRECTED PRN 03/07/24 03/07/24 History Cough Zofran 4 mg PO DIRECTED PRN Nausea And 03/07/24 03/07/24 History Vomiting aspirin 325 mg tablet,delayed 325 mg PO DAILY 03/07/24 03/07/24 History release cetirizine 10 mg tablet (Zyrtec) 10 mg PO AC 03/07/24 03/07/24 History conjugated estrogens 0.625 mg/gram 0.625 mg vaginal HS 03/07/24 03/07/24 History vaginal cream (Premarin) esomeprazole magnesium 20 mg 20 mg PO BID 03/07/24 03/07/24 History capsule,delayed release fluticasone propionate 50 50 mcg intranasal BID 03/07/24 03/07/24 History mcg/actuation nasal spray,suspension losartan 25 mg tablet 25 mg PO DAILY 03/07/24 03/07/24 History montelukast 10 mg tablet 10 mg PO DAILY 03/07/24 03/07/24 History nystatin 100,000 units topical 2XD 03/07/24 03/07/24 History potassium chloride 20 mEq 20 meq PO DAILY 03/07/24 03/07/24 History tablet,extended release red yeast rice extract 600 mg PO DAILY 03/07/24 03/07/24 History trazodone 100 mg tablet 200 mg PO HS 03/07/24 03/07/24 History Past Med/Surg History Problem List (Updated 03/07/24 @ 01:31 EDT by Ector Van MD) Abdominal pain Leukocytosis (Acute) Diarrhea (Acute) Intractable generalized abdominal pain (Acute) Tinnitus of both ears Sensorineural hearing loss History of adverse effect of anesthesia ANXIETY GERD (gastroesophageal reflux disease) Autoimmune disorder ITP Seasonal allergies Acute asthma Bleeding disorder ITP Hypertension Hyperacusis of both ears Medical History (Updated 03/07/24 @ 01:31 EDT by Ector Van MD) Cerebritis Stomach ulcer Surgical History History of surgery 3 LP SHUNTS History of hysterectomy History of sinus surgery POLYPECTOMY History of laparoscopy History of tonsillectomy History of knee surgery RIGHT KNEE History of surgery SPLEEN History of appendectomy Family History Mother Hearing loss Hypertension Grandmother Stroke Father Cancer Other Allergies Family history of bleeding disorder Social History Smoking Status: Former smoker Do You Dip or Chew Tobacco: No; Hx Alcohol Use: Yes Alcohol type: hard liquor Alcohol Intake Frequency Comment: Once a week Hx Substance Use: Yes Preferred Language: Bruneian Communication Ability: Effective Distribution Analyst Required: No Beliefs That Will Affect Care: None marital status: Current Living Situation: Spouse current occupational status: employed current occupation: [employer] Feels Safe at Home: Yes Safety Concerns: Feels Safe At This Time Assistive Devices: Hearing Aid - Bilateral Review of Systems Review of Systems: As per HPI, all other systems reviewed and negative Physical Exam Physical Exam: GENERAL: Obese, uncomfortable, no respiratory distress SKIN: Normal color, warm HEENT: Munjor palpebral conjunctivae, no ptosis, dry buccal mucosa NECK : Supple, short neck, no tenderness CHEST : CTA, no tenderness HEART : RRR, no obvious murmurs ABDOMEN: Some distention, central abdominal tenderness EXTREMITIES : Minimal LE swelling, no LE tenderness, left shoulder tenderness (chronic as per patient), no other conspicuous deformities noted NEUROLOGIC : Coherent, no facial asymmetry, no other gross focality Results & Data Results & Data Vital Signs (Past 12 Hours) Vital Signs Pulse Resp BP Pulse Ox O2 Del Method 03/06/24 23:30 87 14 135/85 90 Room Air 03/06/24 23:00 78 18 116/73 93 Room Air 03/06/24 22:26 121/91 03/06/24 22:26 121/91 03/06/24 22:21 94 03/06/24 21:00 122/85 03/06/24 21:00 85 15 122/85 94 03/06/24 20:18 93 H 19 110/72 95 03/06/24 20:17 91 H 03/06/24 19:42 97 Room Air 03/06/24 19:32 106 H 16 152/92 H 95 Room Air Laboratory Results Laboratory Results WBC 17.15 K/ul (4.8-10.8) H 03/06/24 19:53 RBC 4.33 M/uL (4.20-5.40) 03/06/24 19:53 Hgb 13.2 g/dl (12.0-16.0) 03/06/24 19:53 Hct 39.1 % (37.0-47.0) 03/06/24 19:53 MCV 90.3 fL (80.0-100.0) 03/06/24 19:53 MCH 30.5 pg (25.0-34.0) 03/06/24 19:53 MCHC 33.8 g/dL (32.0-36.0) 03/06/24 19:53 RDW Std Deviation 46.0 fL (36.4-46.3) 03/06/24 19:53 RDW Coeff of Brent 13.8 % (11.5-14.5) 03/06/24 19:53 Plt Count 245 K/uL (130-400) 03/06/24 19:53 MPV 11.9 fL (9.4-12.4) 03/06/24 19:53 Immature Gran % (Auto) 0.3 % 03/06/24 19:53 Neut % (Auto) 64.9 % 03/06/24 19:53 Lymph % (Auto) 27.1 % 03/06/24 19:53 [place] % (Auto) 5.5 % 03/06/24 19:53 Eos % (Auto) 1.4 % 03/06/24 19:53 Baso % (Auto) 0.8 % 03/06/24 19:53 Neut # (Auto) 11.12 K/uL (1.40-6.50) H 03/06/24 19:53 Lymph # (Auto) 4.64 K/uL (1.20-3.40) H 03/06/24 19:53 [place] # (Auto) 0.95 K/uL (0.11-0.59) H 03/06/24 19:53 Eos # (Auto) 0.24 K/uL (0.00-0.50) 03/06/24 19:53 Baso # (Auto) 0.14 K/uL (0.00-0.20) 03/06/24 19:53 Immature Gran # (Auto) 0.06 K/uL (0.01-0.20) 03/06/24 19:53 Sodium 140 mmol/L (136-145) 03/06/24 19:53 Potassium 3.4 mmol/L (3.5-5.1) L 03/06/24 19:53 Chloride 106 mmol/L (98-107) 03/06/24 19:53 Carbon Dioxide 26 mmol/L (21-32) 03/06/24 19:53 Anion Gap 8 (3-11) 03/06/24 19:53 BUN 11 mg/dl (6-23) 03/06/24 19:53 Creatinine 0.79 mg/dl (0.6-1.2) 03/06/24 19:53 Est Cr Clr Drug Dosing Not Reportable 03/06/24 19:53 eGFR 93.37 03/06/24 19:53 BUN/Creatinine Ratio 13.9 (10-20) 03/06/24 19:53 Glucose 118 mg/dl (70-99(Fasting)) H 03/06/24 19:53 Calcium 8.8 mg/dl (8.6-10.3) 03/06/24 19:53 Magnesium 1.8 mg/dl (1.7-2.4) 03/06/24 19:53 Total Bilirubin 0.3 mg/dl (0.2-1.0) 03/06/24 19:53 AST 16 U/L (13-39) 03/06/24 19:53 ALT 18 U/L (7-52) 03/06/24 19:53 Alkaline Phosphatase 75 U/L (34-104) 03/06/24 19:53 Total Protein 7.1 gm/dl (6.0-8.3) 03/06/24 19:53 Albumin 3.9 gm/dl (3.4-5.0) 03/06/24 19:53 Globulin 3.2 gm/dl (2.5-4.0) 03/06/24 19:53 Albumin/Globulin Ratio 1.2 (0.9-2) 03/06/24 19:53 Lipase 15 U/L (11-82) 03/06/24 19:53 HCG, Qual Negative (Negative) 03/06/24 19:53 Urine Color Yellow 03/06/24 Unknown Urine Appearance Cloudy (Clear) A 03/06/24 Unknown Urine pH 7.0 (4.5-7.5) 03/06/24 Unknown Ur Specific [place] 1.013 (1.000-1.030) 03/06/24 Unknown Urine Protein Negative (Negative) 03/06/24 Unknown Urine Glucose (UA) Negative (Negative) 03/06/24 Unknown Urine Ketones Negative (Negative) 03/06/24 Unknown Urine Blood Negative (Negative) 03/06/24 Unknown Urine Nitrite Negative (Negative) 03/06/24 Unknown Urine Bilirubin Negative (Negative) 03/06/24 Unknown Urine Urobilinogen Negative (Negative) 03/06/24 Unknown Ur Leukocyte Esterase Negative (Negative) 03/06/24 Unknown Urine WBC (Auto) 0-5 /hpf (0-5) 03/06/24 Unknown Urine RBC (Auto) >20 /hpf (0-2) H 03/06/24 Unknown U Hyaline Cast (Auto) 0-2 /lpf (0-2) 03/06/24 Unknown U Epithel Cells (Auto) 0-2 /hpf (0-2) 03/06/24 Unknown Urine Bacteria (Auto) 1+ (None Seen) H 03/06/24 Unknown Impressions Abdomen/Pelvis CT 03/06/24 19:42 Exam(s): CT ABDOMEN + PELVIS With Contrast IV Amt: optiray 320 92ml EXAM: CT Abdomen and Pelvis With Intravenous Contrast CLINICAL HISTORY: Reason for exam: mid abd pain, D, no spleen. TECHNIQUE: Axial computed tomography images of the abdomen and pelvis with intravenous contrast. Automated exposure control was utilized for the study. A dose lowering technique was utilized adhering to the principles of ALARA. CONTRAST: Patient received optiray 320 92ml of IV contrast COMPARISON: None. FINDINGS: Lung bases: Posteriorly subpleural linear/platelike areas of atelectasis. No mass. No consolidation. An elevated right hemidiaphragm. ABDOMEN: Liver: Unremarkable. No mass. Gallbladder and bile ducts: Gallbladder is not seen, either contracted or surgically removed. No ductal dilation. Pancreas: Pancreatic tail is not visualized. No mass. No ductal dilation. Spleen: Absence of the spleen. Adrenals: Unremarkable. No mass. Kidneys and ureters: A 1.3 x 1.0 cm calculus in the right renal pelvis with mild fullness of the right renal collecting system. Small rounded nonobstructive left renal calculi. No solid mass. No hydronephrosis. Stomach and bowel: A distended stomach filled with ingested fluid/food debris and gas. Fluid/gas filled normal caliber small bowel loops. Liquid stool in the ascending and transverse colon. Circumferential mucosal low density mild thickening of the terminal ileum and cecum/ascending colon (series 300 image 33, 39, series 2 image 51). No obstruction. PELVIS: Appendix: No acute findings in the region of the appendix. Bladder: A partially decompressed bladder. No mass. Reproductive: Prior hysterectomy. ABDOMEN and PELVIS: Intraperitoneal space: No free air. No significant fluid collection. Bones/joints: No acute fracture. No dislocation. Soft tissues: Unremarkable. Vasculature: Unremarkable. No abdominal aortic aneurysm. Lymph nodes: Few centimeter/subcentimeter mesenteric lymph nodes seen. No lymphadenopathy by CT size criteria... IMPRESSION: Bilateral nephrolithiasis. No hydronephrosis. Circumferential low-density mild mucosal/wall thickening of the terminal ileum and cecum/ascending colon. Liquid stool in the ascending and transverse colon. Question Crohn's disease in the appropriate clinical context. . Electronically signed by: Elicia Miller MD, COMFORTR 03/06/24 23:32 PM
[2024-03-07] MEDS: KETOROLAC TROMETHAMINE 15 MG/ML VIAL IV STA (00:03)
[2024-03-07] MEDS: POTASSIUM CHLORIDE PWD 20 MEQ PACK PO STA (00:07)
[2024-03-07] MEDS ORDERED: MAXALT 10 MG PO PRN (01:12)
[2024-03-07] MEDS: POTASSIUM CHLORIDE 20 MEQ in LACTATED RINGER'S 1,000 ML IV ONE (01:26)
[2024-03-07] MEDS: KETOROLAC TROMETHAMINE 15 MG/ML VIAL IV ONE (01:32)
[2024-03-07] MEDS: traZODone HCL 100 MG TAB PO ONE (01:32)
[2024-03-07] MEDS: HYDROCODONE/ACETAMOPHEN 5/325MG TAB PO PRN (02:11)
[2024-03-07] MEDS: LORazepam 0.5 MG TAB PO PRN (07:05)
[2024-03-07 07:22] LABS: Estimated Average Glucose 105 mg/dl; Hemoglobin A1C 5.3 % (4.5-5.6)
[2024-03-07 07:27] LABS: BUN Creatinine Ratio 16.9 (10-20); Calcium 8.4 mg/dl (8.6-10.3); Creatinine Clr Calc Pharmacy 119.6 ml/min; Potassium 3.7 mmol/L (3.5-5.1)
[2024-03-07] MEDS ORDERED: MONTELUKAST SODIUM 10 MG TABLET PO SCH (07:30)
[2024-03-07] MEDS ORDERED: ASPIRIN 325 MG ECTAB PO SCH (07:30)
[2024-03-07] MEDS ORDERED: CETIRIZINE HCL 10 MG TABLET PO SCH (07:30)
[2024-03-07] MEDS ORDERED: LOSARTAN POTASSIUM 25 MG TAB PO SCH (07:30)
[2024-03-07 07:51] LABS: Hematocrit (blood only) 35.9 % (37.0-47.0); Mean Corpuscular Hemoglobin 30.4 pg (25.0-34.0); Mean Corpuscular Hgb Conc 33.4 g/dL (32.0-36.0); Mean Corpuscular Volume 90.9 fL (80.0-100.0); Mean Platelet Volume 11.8 fL (9.4-12.4); Platelet Count 224 K/uL (130-400); RDW Coefficient of Variation 13.8 % (11.5-14.5); RDW Standard Deviation 46.4 fL (36.4-46.3); Red Blood Count 3.95 M/uL (4.20-5.40); White Blood Count 16.69 K/ul (4.8-10.8)
[2024-03-07 07:52] LABS: Basophils # (auto) 0.12 K/uL (0.00-0.20); Basophils % (auto) 0.7 %; Eosinophils # (auto) 0.28 K/uL (0.00-0.50); Eosinophils % (auto) 1.7 %; Howell-Jolly Bodies 1+; Immature Granulocytes # (auto) 0.06 K/uL (0.01-0.20); Immature Granulocytes % (auto) 0.4 %; Lymphocytes # (auto) 3.61 K/uL (1.20-3.40); Lymphocytes % (auto) 21.6 %; Monocytes # (auto) 1.37 K/uL (0.11-0.59); Monocytes % (auto) 8.2 %; Neutrophils # (auto) 11.25 K/uL (1.40-6.50); Neutrophils % (auto) 67.4 %; Polychromasia 1+
[2024-03-07] MEDS: POTASSIUM CHLORIDE CRTAB 20 MEQ TABCR PO SCH (08:11)
[2024-03-07] MEDS: ASPIRIN 325 MG ECTAB PO SCH (08:11)
[2024-03-07] MEDS: FLUTICASONE PROPIONATE NA SPR 16 GM BTL SCH (08:12)
[2024-03-07] MEDS: PANTOprazole 40 MG TAB PO SCH (08:12)
[2024-03-07] MEDS: LOSARTAN POTASSIUM 25 MG TAB PO SCH (08:13)
[2024-03-07] MEDS: MONTELUKAST SODIUM 10 MG TABLET PO SCH (08:13)
[2024-03-07] MEDS: CETIRIZINE HCL 10 MG TABLET PO SCH (08:13)
[2024-03-07] MEDS: ENOXAPARIN INJ 40 MG/0.4 ML SYR SQ SCH (08:16)
[2024-03-07] MEDS: HYOSCYAMINE SULFATE 0.125 MG TAB SL STA (08:56)
[2024-03-07] MEDS: FAMOTIDINE 20MG IV PUSH 20 MG/5 ML SYR IV STA (10:10)
[2024-03-07] MEDS: metroNIDAZOLE 500 MG TAB PO SCH (10:13)
[2024-03-07] MEDS: CIPROFLOXACIN / D5W 400 MG/200 ML BAG IV SCH (10:14)
--- NOTE | 2024-03-07 12:12 | Gastrointestinal Consultation ---
Date of Consultation March 07, 2024 Assessment & Plan (1) Abdominal pain: Given her presentation and imaging findings could be IBD vs infectious etiology. She has no known family history of IBD. Plan Rec: Agree with stool studies for infectious work up and empiric antibiotics IBD panel Fecal Calprotectin History of Present Illness Reason for Consultation: Epigastric Pain Requesting Physician: Corinne Arevalo Attending Physician: Corinne Arevalo MD History of Present Illness 48 yo WF had a week of diarrhea and abdominal pain. It got severe over the last three days and finally decided to come into the hospital. Here imaging showed a distended stomach and inflammation and slight narrowing of the distal ileum and proximal colon. Allergies Allergy/AdvReac Type Severity Reaction Status Date / Time Penicillins Allergy Verified 10/28/19 13:36 pregabalin [From Lyrica] Allergy Verified 10/28/19 13:36 prochlorperazine Allergy Verified 10/28/19 13:36 [From Compazine] Sulfa (Sulfonamide Allergy Verified 10/28/19 13:36 Antibiotics) Home Medications Medication Instructions Recorded Confirmed Type Maxalt 10 mg PO DIRECTED PRN Migraine 03/07/24 03/07/24 History Headache [place] 3 Fish Oil 1,000 mg PO DAILY 03/07/24 03/07/24 History Ventolin HFA 108 mcg inhalation DIRECTED PRN 03/07/24 03/07/24 History Cough Zofran 4 mg PO DIRECTED PRN Nausea And 03/07/24 03/07/24 History Vomiting aspirin 325 mg tablet,delayed 325 mg PO DAILY 03/07/24 03/07/24 History release cetirizine 10 mg tablet (Zyrtec) 10 mg PO AC 03/07/24 03/07/24 History conjugated estrogens 0.625 mg/gram 0.625 mg vaginal HS 03/07/24 03/07/24 History vaginal cream (Premarin) esomeprazole magnesium 20 mg 20 mg PO BID 03/07/24 03/07/24 History capsule,delayed release fluticasone propionate 50 50 mcg intranasal BID 03/07/24 03/07/24 History mcg/actuation nasal spray,suspension losartan 25 mg tablet 25 mg PO DAILY 03/07/24 03/07/24 History montelukast 10 mg tablet 10 mg PO DAILY 03/07/24 03/07/24 History nystatin 100,000 units topical 2XD 03/07/24 03/07/24 History potassium chloride 20 mEq 20 meq PO DAILY 03/07/24 03/07/24 History tablet,extended release red yeast rice extract 600 mg PO DAILY 03/07/24 03/07/24 History trazodone 100 mg tablet 200 mg PO HS 03/07/24 03/07/24 History Patient History Medical History Cerebritis Stomach ulcer Surgical History (Updated 03/07/24 @ 12:06 by Capo Oquendo MD) History of surgery 3 LP SHUNTS History of hysterectomy History of sinus surgery POLYPECTOMY History of laparoscopy Resulting in Splenectomy and cholecystectomy Surgeries for endometriosis. History of tonsillectomy History of knee surgery RIGHT KNEE History of surgery SPLEEN History of appendectomy Family History (Updated 03/07/24 @ 12:07 by Capo Oquendo MD) Mother Hearing loss Hypertension Grandmother Stroke Father Cancer Prostate Other Allergies Family history of bleeding disorder Social History (Updated 03/07/24 @ 12:09 by Capo Oquendo MD) Smoking Status: Former smoker Do You Dip or Chew Tobacco: No; Hx Alcohol Use: Yes Alcohol type: hard liquor Alcohol Intake Frequency Comment: Once a week Hx Substance Use: Yes Preferred Language: Bengali Communication Ability: Effective Communication Ability Comment: Marijuana daily; Quit tobacco in 2005 Booking Police Officer Required: No Beliefs That Will Affect Care: None marital status: Current Living Situation: Spouse current occupational status: employed 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 Her last antibiotic usage was about 1 year ago. He last colonoscopy was in 2022 and showed diverticulosis Her last EGD was in 2022 and she states it was a follow up of her ulcer disease and her ulcers had healed. Gastrointestinal: Some nausea with her abdominal pain but no vomiting. Genitourinary: Dark, concentrated urine but no hematuria or dysuria Physical Exam Physical Exam: WD WN WF obviously uncomfortable but in no acute distress Constitutional: Afebrile VSS Eyes: Sclera anicteric Conjunctiva not pale ENMT: No sublingual icterus Respiratory: Clear Cardiovascular: Reg Gastrointestinal (Abdomen): NL BS Soft but tender in the RLQ and suprapubic area without guarding or rebound Musculoskeletal: LE withoug CCE Neurologic: A/O Results & Data Vital Signs (Past 12 Hours) Vital Signs Temp Pulse Resp BP Pulse Ox O2 Del Method 03/07/24 07:57 36.5 C 78 16 125/82 94 Room Air 03/07/24 01:10 EST 36.5 C 75 18 134/89 95 Room Air PG Care Time/CCT Total # of Minutes Spent Total Time Spent with Patient: Total time spent is greater than 50% in coordination of care (as documented) at patient's floor/unit and/or counseling patient: Coding Level of Care Code 97291 IN/OBS CONSULT LVL 4,60M Diagnoses Abdominal pain R10.9
[2024-03-07] MEDS: KETOROLAC TROMETHAMINE 15 MG/ML VIAL IV PRN (12:15)
[2024-03-07] MEDS: ACETAMINOPHEN 500 MG TAB PO PRN (12:15)
--- NOTE | 2024-03-07 12:30 | Urology Consultation ---
Date of Consultation March 07, 2024 Assessment & Plan (1) Nephrolithiasis: (2) Abdominal pain: (3) Diarrhea: (4) GERD (gastroesophageal reflux disease): (5) Autoimmune disorder: Plan New patient. Admitted for increasing bowel issues diarrhea abdominal pain and discomfort. Has complicated history of stone disease with multiple interventions for stone. Previously been told had calcium stones. Patient has been having increasing issues with discomfort in the abdomen. Has not improved. Had undergone CT examination. Concern for possible inflammation in the bowel. Is undergoing supportive care hydration and close monitoring with the primary team. Patient was found to have bilateral stones. Stone greater than a centimeter was discovered. Did not appear to be obstructing however did have some signs of possible hydronephrosis/inflammation around the kidney. Reviewed extensively concerns and issues. Patient has not had blood in the urine has seen darkening of the urine over the last few days. Reviewed extensively different options moving forward. Patient is currently tolerating liquid diet. Patient independently assessed, examined, interviewed, and evaluated. Agree with note as above. Patient's vitals and labs were all reviewed. Hemoglobin 12.0, white cells 16.69, creatinine 0.65. Imaging was reviewed interpreted by myself. Large 1.3 cm stone of the right renal pelvis with mild inflammation versus hydronephrosis. No signs of significant obstruction. Stone does not appear to be at the [facility]. Patient additionally has bilateral stones. Pertinent values in the HPI and plan section. Imaging was reviewed interpreted by myself. Agree with read. Vitals were reviewed. Discussed findings extensively with patient and family. Reviewed with nurse practitioner as well as consulting physicians/team. Patient's complicated medical and surgical history was reviewed and summarized above. Patient's surgical, medical, social, and family history were all reviewed with pertinent values as above. Discussed patient's current diagnosis as well as concerns and issues. Reviewed different options moving forward. Discussed potential risks and benefits as well as possible options and concerns. Reviewed potential surgical options and interventions. Discussed potential issues and concerns related to intervention. Risk and benefits were discussed extensively with patient and any available family. Discussed potential risks related to anesthesia. Discussed risks of bleeding infection and injury. Discussed options for conservative measure and maximum expulsion medical therapy and symptom controlled. Discussed ESWL. Discussed Ureteroscopy with extraction and/or laser lithotripsy. Risks and benefits were discussed. Stone free rates were also discussed as well as possibility of multiple procedures. Ureteral stents were discussed as well as post-operative issues and pain management. All questions were answered. Patient is currently dealing with issues related to abdominal pain and bowel issues. He is undergoing supportive care for this. Will plan to continue to monitor for now. Patient is actively tolerating a liquid diet. Will plan to continue to monitor over time continue with supportive care. Recommend maximum expulsion therapy utilizing analgesia, tamsulosin, hydration, and close monitoring. If necessary could consider moving forward with stent for stone treatment. Patient currently afebrile no signs of severe sepsis or other major issues. Creatinine is in the normal range. Most recent temp was 36.5. Will plan to have patient set up for outpatient follow-up after resolution of bowel issues and less other intervention is necessary prior. History of Present Illness Attending Physician: Corinne Arevalo MD History of Present Illness New consultation for patient with stone, discomfort, obstruction, and ill feelings. Patient mated with bowel issues. He is currently dealing with major issues he is however tolerating diet. Has been monitored closely. Has long complicated history of stone disease has undergone multiple interventions for previous stones including previous lithotripsy. Patient admitted with bowel discomfort. Has had intermittent episodes of flank pain. Patient had undergone CT analysis which found possible inflammation around the bowel with bilateral stones and large nonobstructing stone patient developed sudden onset of pain into flank going down and radiating into groin and back in waves comes and goes. Can be severe at times. Discussed and reviewed patient's family history for any history of stone disease. Also, discussed patient's medical surgery history especially related to any history of urinary issues or stone disease. Patient was admitted and is undergoing observation. Allergies Allergy/AdvReac Type Severity Reaction Status Date / Time Penicillins Allergy Verified 10/28/19 13:36 pregabalin [From Lyrica] Allergy Verified 10/28/19 13:36 prochlorperazine Allergy Verified 10/28/19 13:36 [From Compazine] Sulfa (Sulfonamide Allergy Verified 10/28/19 13:36 Antibiotics) Home Medications Medication Instructions Recorded Confirmed Type Maxalt 10 mg PO DIRECTED PRN Migraine 03/07/24 03/07/24 History Headache Sinking Spring 3 Fish Oil 1,000 mg PO DAILY 03/07/24 03/07/24 History Ventolin HFA 108 mcg inhalation DIRECTED PRN 03/07/24 03/07/24 History Cough Zofran 4 mg PO DIRECTED PRN Nausea And 03/07/24 03/07/24 History Vomiting aspirin 325 mg tablet,delayed 325 mg PO DAILY 03/07/24 03/07/24 History release cetirizine 10 mg tablet (Zyrtec) 10 mg PO AC 03/07/24 03/07/24 History conjugated estrogens 0.625 mg/gram 0.625 mg vaginal HS 03/07/24 03/07/24 History vaginal cream (Premarin) esomeprazole magnesium 20 mg 20 mg PO BID 03/07/24 03/07/24 History capsule,delayed release fluticasone propionate 50 50 mcg intranasal BID 03/07/24 03/07/24 History mcg/actuation nasal spray,suspension losartan 25 mg tablet 25 mg PO DAILY 03/07/24 03/07/24 History montelukast 10 mg tablet 10 mg PO DAILY 03/07/24 03/07/24 History nystatin 100,000 units topical 2XD 03/07/24 03/07/24 History potassium chloride 20 mEq 20 meq PO DAILY 03/07/24 03/07/24 History tablet,extended release red yeast rice extract 600 mg PO DAILY 03/07/24 03/07/24 History trazodone 100 mg tablet 200 mg PO HS 03/07/24 03/07/24 History Patient History Medical History Cerebritis Stomach ulcer Surgical History History of surgery 3 LP SHUNTS History of hysterectomy History of sinus surgery POLYPECTOMY History of laparoscopy Resulting in Splenectomy and cholecystectomy Surgeries for endometriosis. History of tonsillectomy History of knee surgery RIGHT KNEE History of surgery SPLEEN History of appendectomy Family History Mother Hearing loss Hypertension Grandmother Stroke Father Cancer Prostate Other Allergies Family history of bleeding disorder Social History Smoking Status: Former smoker Smoking End Date: 2005; Do You Dip or Chew Tobacco: No; Hx Alcohol Use: Yes Alcohol type: hard liquor Alcohol Intake Frequency Comment: Once a week Hx Substance Use: Yes Preferred Language: Malaysian Communication Ability: Effective Communication Ability Comment: Marijuana daily; Quit tobacco in 2006 Ms Access Database Developer Required: No Beliefs That Will Affect Care: None marital status: Current Living Situation: Spouse current occupational status: employed current occupation: [employer] Feels Safe at Home: Yes Safety Concerns: Feels Safe At This Time Assistive Devices: Hearing Aid - Bilateral Review of Systems Review of Systems: All systems reviewed & are unremarkable except as noted in HPI & below Physical Exam Physical Exam: General: Alert and oriented x 3 in no acute distress. HEENT: Normocephalic Atraumatic. Inspection normal. Cranial Nerves 2-12 Grossly intact. Nares are clear. Neck is supple. Normal inspection of face. Normal inspection of neck. Neurologic: No deficits on inspection. Baseline for motor function and sensory. Psychologic: Normal affect. Respiratory: Nonlabored. No use of accessory muscles. No tachypnea or dyspnea. Cardiovascular: No tachycardia Skin: [place] and Dry. No rashes or visible lesions. Extremities: Moving without issues. No motor deficits on inspection Lymphatics: No edema Abdomen: Soft Non-distended. No rebound or guarding. Results & Data Vital Signs (Past 12 Hours) Vital Signs Temp Pulse Resp BP Pulse Ox O2 Del Method 03/07/24 07:57 36.5 C 78 16 125/82 94 Room Air 03/07/24 01:10 EST 36.5 C 75 18 134/89 95 Room Air PG Care Time/CCT Total # of Minutes Spent Total Time Spent with Patient: Total time spent is greater than 50% in coordination of care (as documented) at patient's floor/unit and/or counseling patient: Coding Level of Care Code 77138 IN/OBS CONSULT LVL 5,80M Diagnoses Nephrolithiasis N20.0 Abdominal pain R10.9 Diarrhea R19.7 GERD (gastroesophageal reflux disease) K21.9 Autoimmune disorder D89.89
--- NOTE | 2024-03-07 12:49 | Hospitalist Progress Note ---
Date of Service March 07, 2024 Assessment & Plan (1) Abdominal pain: Plan: Ms York is a 48 year old woman with history of hypertension, hyperlipidemia, JONY currently not requiring CPAP, pseudotumor cerebri status post surgery, migraine, GERD, IBS constipation predominant as per patient, ITP status postsplenectomy, cervical cancer status post surgery, endometriosis, fibromyalgia, RLS, allergic rhinitis, past tobacco abuse who is admitted for 1 week of progressive abdominal pain with diarrhea. Patient endorsing extreme amount of discomfort on exam. CT noted circumferential wall thickening of terminal ileum/ascending colon with liquid stool Also with 1.3x 1cm right sided nephrolithiasis with mild fullness of right renal collecting system #Ileocolitis #Acute abdominal pain CT with ileocolitis and liquid stool Stool cultures ordered GI consulted: need for scope? -IBD panel ordered -Fecal procaltectin ordered Cipro & flagyl IV CLD #Bilateral nephrolithiasis #Mild hydronephrosis, right side CT with 1cm nephrolithasis and signs of impending obstruction Urology consulted given signs of hydro and size -Expulsive therapy with tamsulosin started -Will have OP follow up coordinated as bowel condition controlled #leukocytosis iso gi illness UA negative, GI work up pending Cipro & flagyl IV iso colitis #Electrolyte abnormalities likely iso diarrhea replace prn #JONY dose not use CPAP #HTN continue losartan #Hyperglycemia rule out DM 5.3% A1C on admission Other chronic conditions: resume home medications DVT prophylaxis. Lovenox subcu Full code Admission and Anticipated Discharge Date Admission Date: March 06, 2024 Subjective Still with severe abdominal pain and cramping, minimal output today per patient Reports no blood in bowel, but diffuse discomfort with BM Still passing gas at this time Patient able to tolerate jello without nausea has not passed stool at this time Physical Exam Constitutional: visibly uncomfortable, grasping abdomen Respiratory: normal respiratory effort, lungs clear to auscultation Cardiovascular: RRR, no murmur, no edema Gastrointestinal (Abdomen): soft, tenderness noted periumbilical, +CVAT on right Results & Data Results & Data Vital Signs (Past 12 Hours) Vital Signs Temp Pulse Resp BP Pulse Ox O2 Del Method 03/07/24 07:57 36.5 C 78 16 125/82 94 Room Air 03/07/24 01:10 EST 36.5 C 75 18 134/89 95 Room Air Laboratory Results Short CBC 03/06/24 03/07/24 Range/Units 19:53 06:59 WBC 17.15 H 16.69 H (4.8-10.8) K/ul Hgb 13.2 12.0 (12.0-16.0) g/dl Hct 39.1 35.9 L (37.0-47.0) % Plt Count 245 224 (130-400) K/uL BMP 03/06/24 03/07/24 19:53 06:59 Sodium 140 142 Potassium 3.4 L 3.7 Chloride 106 111 H Carbon Dioxide 26 26 BUN 11 11 Creatinine 0.79 0.65 Glucose 118 H 92 Calcium 8.8 8.4 L Liver Function 03/06/24 Range/Units 19:53 Total Bilirubin 0.3 (0.2-1.0) mg/dl AST 16 (13-39) U/L ALT 18 (7-52) U/L Alkaline Phosphatase 75 (34-104) U/L Albumin 3.9 (3.4-5.0) gm/dl Urine 03/06/24 Range/Units Unknown Urine Color Yellow Urine Appearance Cloudy A (Clear) Urine pH 7.0 (4.5-7.5) Ur Specific Browns 1.013 (1.000-1.030) Urine Protein Negative (Negative) Urine Glucose (UA) Negative (Negative) Medications Administered Home Medications Medication Instructions Recorded Confirmed Last Taken Maxalt 10 mg PO DIRECTED PRN Migraine 03/07/24 03/07/24 Unknown Headache Cool 3 Fish Oil 1,000 mg PO DAILY 03/07/24 03/07/24 Unknown Ventolin HFA 108 mcg inhalation DIRECTED PRN 03/07/24 03/07/24 Unknown Cough Zofran 4 mg PO DIRECTED PRN Nausea And 03/07/24 03/07/24 Unknown Vomiting aspirin 325 mg tablet,delayed 325 mg PO DAILY 03/07/24 03/07/24 Unknown release cetirizine 10 mg tablet (Zyrtec) 10 mg PO AC 03/07/24 03/07/24 Unknown conjugated estrogens 0.625 mg/gram 0.625 mg vaginal HS 03/07/24 03/07/24 Unknown vaginal cream (Premarin) esomeprazole magnesium 20 mg 20 mg PO BID 03/07/24 03/07/24 Unknown capsule,delayed release fluticasone propionate 50 50 mcg intranasal BID 03/07/24 03/07/24 Unknown mcg/actuation nasal spray,suspension losartan 25 mg tablet 25 mg PO DAILY 03/07/24 03/07/24 Unknown montelukast 10 mg tablet 10 mg PO DAILY 03/07/24 03/07/24 Unknown nystatin 100,000 units topical 2XD 03/07/24 03/07/24 Unknown potassium chloride 20 mEq 20 meq PO DAILY 03/07/24 03/07/24 Unknown tablet,extended release red yeast rice extract 600 mg PO DAILY 03/07/24 03/07/24 Unknown trazodone 100 mg tablet 200 mg PO HS 03/07/24 03/07/24 Unknown Active Medications Generic Name Dose Route Start Last Admin Trade Name Freq PRN Reason Stop Dose Admin Acetaminophen 500 mg 03/07/24 01:35 EST 03/07/24 12:15 Acetaminophen 500 Mg Tab PO 04/06/24 01:34 500 mg Q6H PRN Administration fever/pain Hydrocodone Bitart/Acetaminophen 1 tab 03/07/24 01:35 EST 03/07/24 08:10 Hydrocodone/Acetamophen 5/325mg Tab PO 03/21/24 01:34 1 tab QID PRN Administration Pain Aspirin 325 mg 03/07/24 09:00 03/07/24 08:11 Aspirin 325 Mg Ectab PO 04/06/24 08:59 325 mg DAILY ROBLES Administration Cetirizine HCl 10 mg 03/07/24 09:00 03/07/24 08:13 Cetirizine Hcl 10 Mg Tablet PO 04/06/24 08:59 10 mg DAILY ROBLES Administration Enoxaparin Sodium 40 mg 03/07/24 09:00 03/07/24 08:16 Enoxaparin Inj 40 Mg/0.4 Ml Syr SQ 04/06/24 08:59 Not Given QAM ROBLES Fluticasone Propionate 2 sprays 03/07/24 09:00 03/07/24 08:12 Fluticasone Propionate Na Spr 16 Gm Btl NA 04/06/24 08:59 2 sprays DAILY ROBLES Administration Ciprofloxacin 400 mg in 200 mls @ 100 mls/hr 03/07/24 09:00 03/07/24 12:33 Cipro / D5w IV 03/11/24 08:59 Infused Q12H ROBLES Infusion Protocol Ketorolac Tromethamine 15 mg 03/06/24 23:44 03/07/24 12:15 Ketorolac Tromethamine 15 Mg/Ml Vial IV 03/11/24 23:43 15 mg Q6H PRN Administration Pain Lorazepam 0.5 mg 03/06/24 23:52 03/07/24 07:05 Lorazepam 0.5 Mg Tab PO 04/05/24 23:51 0.5 mg TID PRN Administration Anxiety Losartan Potassium 25 mg 03/07/24 09:00 03/07/24 08:13 Losartan Potassium 25 Mg Tab PO 04/06/24 08:59 25 mg DAILY ROBLES Administration Metronidazole 500 mg 03/07/24 09:00 03/07/24 10:13 Metronidazole 500 Mg Tab PO 03/11/24 08:59 500 mg Q8H ROBLES Administration Protocol Montelukast Sodium 10 mg 03/07/24 09:00 03/07/24 08:13 Montelukast Sodium 10 Mg Tablet PO 04/06/24 08:59 10 mg DAILY ROBLES Administration Pantoprazole Sodium 40 mg 03/07/24 09:00 03/07/24 08:12 Pantoprazole 40 Mg Tab PO 04/06/24 08:59 40 mg BID ROBLES Administration Potassium Chloride 20 meq 03/07/24 09:00 03/07/24 08:11 Potassium Chloride Crtab 20 Meq Tabcr PO 04/06/24 08:59 20 meq QAM ROBLES Administration
[2024-03-07] MEDS: TAMSULOSIN HCL 0.4 MG CAP PO SCH (13:15)
--- NOTE | 2024-03-07 17:39 | Electrocardiogram Report ---
Test Reason : Blood Pressure : */* mmHG Vent. Rate : 69 BPM Atrial Rate : 69 BPM P-R Int : 156 ms QRS Dur : 76 ms QT Int : 424 ms P-R-T Axes : 46 -15 3 degrees QTcB Int : 454 ms Sinus rhythm with sinus arrhythmia with occasional Premature ventricular complexes Low voltage QRS Nonspecific T wave abnormality Abnormal ECG No previous ECGs available Confirmed by Sofia Simon (Feliciano) on 03/07/2024 5:38:46 PM Referred By: REFERRED SELF Confirmed By: Sofia Simon
[2024-03-07] MEDS: ONDANSETRON INJ 2 MG/ML 2 ML VIAL IV PRN (19:05)
[2024-03-07] MEDS: traZODone HCL 100 MG TAB PO SCH (20:02)
[2024-03-08] MEDS: RIZATRIPTAN BENZOATE 10 MG TAB PO PRN (01:03)
[2024-03-08] MEDS: DOCUSATE SODIUM 100 MG CAP PO ONE (02:08)
[2024-03-08 05:59] LABS: Hematocrit (blood only) 36.4 % (37.0-47.0); Platelet Count 238 K/uL (130-400); RDW Coefficient of Variation 13.8 % (11.5-14.5); RDW Standard Deviation 46.5 fL (36.4-46.3); White Blood Count 10.95 K/ul (4.8-10.8)
[2024-03-08 06:18] LABS: Albumin Globulin Ratio 1.3 (0.9-2); Albumin Level 3.6 gm/dl (3.4-5.0); BUN Creatinine Ratio 13.2 (10-20); Bilirubin,Total 0.4 mg/dl (0.2-1.0); Calcium 8.8 mg/dl (8.6-10.3); Creatinine Clr Calc Pharmacy 114.3 ml/min; Globulin 2.8 gm/dl (2.5-4.0); Potassium 3.5 mmol/L (3.5-5.1); Total Protein 6.4 gm/dl (6.0-8.3)
[2024-03-08] MEDS: DICYCLOMINE HCL 10 MG CAP PO SCH (09:53)
--- NOTE | 2024-03-08 11:02 | Gastroenterology Progress Note ---
<Statement entered by Capo Oquendo MD - 03/08/24 14:05> Patient still with abdominal pain and no BMs Will try to induce a BM so we can obtain stool to study. IBD panel also pending. Date of Service March 08, 2024 Assessment & Plan (1) Abdominal pain: Plan Patient with ongoing stomach pain, and some nausea. Case was discussed with Dr. Oquendo who also saw and examined the patient. - start miralax 17gm daily as well as dulcolax 10mg once daily. - await IBD panel results. - she was advised that she is written for zofran for nausea, but she needs to ask for this when needed. Admission and Anticipated Discharge Date Admission Date: March 08, 2024 Subjective Patient tells me that she has not had a bowel movement since she was hospitalized. still having some abdominal discomfort. feels nauseated. She was only able to tolerate a small amount of eggs for breakfast. no emesis. Review of Systems Review of Systems: All systems reviewed & are unremarkable except as noted in HPI & below Physical Exam Constitutional: WD/WN, vitals as above Respiratory: normal respiratory effort, lungs clear to auscultation Cardiovascular: Rate/Rhythm: regular rate and regular rhythm Gastrointestinal (Abdomen): mild diffuse tenderness, no guarding, soft, normal bowel sounds. Psychiatric: Orientation: alert and oriented x 3 Affect: euthymic affect Results & Data Results & Data Vital Signs (Past 12 Hours) Vital Signs Temp Pulse Pulse Resp BP Pulse Ox O2 Del Method 03/08/24 09:12 78 126/86 03/08/24 08:43 98.2 F 72 16 125/86 93 Room Air Coding Level of Care Code 39337 SUB INP/OBS CARE 2/35MIN Diagnoses Abdominal pain R10.9
[2024-03-08] MEDS: POLYETHYLENE (MIRALAX) 17 GM PACK PO SCH (11:50)
--- NOTE | 2024-03-08 12:12 | Hospitalist Progress Note ---
Date of Service March 08, 2024 Assessment & Plan (1) Ileocolitis: (2) Irritable bowel syndrome: (3) GERD (gastroesophageal reflux disease): (4) Autoimmune disorder: Plan Suspect patient presented with an infectious colitis, patient seems to be improving with antibiotics as evidenced by improving WBCs. Subsequently believes she may have a flare of her irritable bowel syndrome that she has had since her teenage years. Trial of Bentyl scheduled for her abdominal cramping Reviewed gastroenterology consultation, trialing MiraLAX Encouraged activity Transition to all oral medications Increase diet as tolerated Patient may shower Inflammatory bowel laboratory studies pending, continue to follow through with gastroenterology Admission and Anticipated Discharge Date Admission Date: March 08, 2024 Subjective Patient still complaining of abdominal pain. She does report that it is somewhat crampy and comes in waves of intensity but is always present. She is asking to increase her diet however. Patient reports that as a teenager she had severe irritable bowel syndrome. Despite presenting with severe diarrhea, patient has not had any stools here in the hospital to test Physical Exam Physical Exam: Constitutional: Alert, ill in appearance HEENT: Mucous membranes moist. Lungs: Clear to auscultation, decreased, no wheezes rales or rhonchi CV: S1-S2, regular Abdomen: Soft, epigastric and periumbilical tenderness, no guarding, no rigidity Extremities: No significant edema Neuro: No focal deficits Psych: Cooperative, normal mood Results & Data Results & Data Vital Signs (Past 12 Hours) Vital Signs Temp Pulse Pulse Resp BP Pulse Ox O2 Del Method 03/08/24 09:12 78 126/86 03/08/24 08:43 36.8 C 72 16 125/86 93 Room Air Diagnostic Findings Reviewed imaging, laboratory and diagnostic studies. Pertinent findings as below. WBCs 10.9 Hemoglobin 12.0 Electrolytes stable Renal function within normal ranges Patient has not had any stools to test here in the hospital
[2024-03-08] MEDS: RIZATRIPTAN BENZOATE 10 MG TAB PO STA (18:05)
[2024-03-08] MEDS: CIPROFLOXACIN 500 MG TAB PO SCH (20:56)
[2024-03-08] MEDS: bisacodyL 10 MG SUPP PR PRN (21:02)
[2024-03-09 01:30] LABS: Cdiff Toxin B Gene (2yr or >) Positive Cdiff Gene (Neg)
[2024-03-09 01:48] LABS: Adenovirus F 40/41 PCR Not Detected (NotDetected); Astrovirus PCR Not Detected (NotDetected); Campylobacter PCR Not Detected (NotDetected); Cryptosporidium PCR Not Detected (NotDetected); Cyclospora cayetanensis PCR Not Detected (NotDetected); Entamoeba histolytica PCR Not Detected (NotDetected); Enteroaggregative E.coli(EAEC) Not Detected (NotDetected); Enteropathogenic E.coli (EPEC) Not Detected (NotDetected); Enterotoxigenic E.coli (ETEC) Not Detected (NotDetected); Giardia lamblia PCR Not Detected (NotDetected); Norovirus GI/GII PCR Not Detected (NotDetected); Plesiomonas shigelloides PCR Not Detected (NotDetected); Rotavirus A PCR Not Detected (NotDetected); Salmonella PCR Not Detected (NotDetected); Sapovirus PCR Not Detected (NotDetected); Shiga-like Toxin E.coli (STEC) Not Detected (NotDetected); Shigella/Enteroinvasive E.coli Not Detected (NotDetected); Vibrio cholerae PCR Not Detected (NotDetected); Vibrio species PCR Not Detected (NotDetected)
[2024-03-09 01:52] LABS: Yersinia enterocolitica PCR DETECTED (NotDetected)
[2024-03-09 03:17] LABS: Cdiff Antigen Negative; Cdiff Toxin A+B Negative Cdiff Toxin (Negative)
--- NOTE | 2024-03-09 10:06 | Hospitalist Progress Note ---
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 Carito to be GoLytely sensitive to this. Patient's diarrhea significantly improved therefore suspect this is effective treatment. WBCs have also significantly improved. Would treat for a total of 7 days. Will continue oral Flagyl at this time. Patient is a carrier of C. difficile gene, will continue Flagyl as long as she is on the ciprofloxacin. Increase Bentyl for her abdominal pain and cramping. I suspect her irritable bowel syndrome has flared in the setting of this acute colitis. Scheduled Tylenol for pain control As needed oxycodone Continue MiraLAX and senna to prevent constipation Communication with GI, in agreement with plan Check WBCs in a.m. as well as electrolytes. Anticipate discharge home in 1 to 2 days if pain has significantly improved. Admission and Anticipated Discharge Date Admission Date: March 08, 2024 Subjective Patient states her abdominal pain is slightly better. Did have a bowel movement since yesterday. Physical Exam Physical Exam: Constitutional: Alert, less ill in appearance HEENT: Mucous membranes moist. Lungs: Clear to auscultation, decreased, no wheezes rales or rhonchi CV: S1-S2, regular Abdomen: Soft, diffusely tender, minimal guarding, no rigidity, no distention Extremities: No significant edema Neuro: No focal deficits Psych: Cooperative, normal mood Results & Data Results & Data Vital Signs (Past 12 Hours) Vital Signs Temp Pulse Resp BP Pulse Ox O2 Del Method 03/09/24 07:04 36.7 C 69 17 114/77 94 Room Air Diagnostic Findings Reviewed imaging, laboratory and diagnostic studies. Pertinent findings as below. Stool BioFire significant for Yersinia enterocolitis and C. difficile gene positive
--- NOTE | 2024-03-09 10:18 | Gastroenterology Progress Note ---
<Statement entered by Capo Oquendo MD - 03/09/24 13:35> Patient seen and examined, case discussed with MARCO A Gamez. Yersinia infection. Agree with antibiotic therapy and symptomatic treatment. Would advance to lactose restricted diet as tolerated. Should have OP evaluation with repeat CT or colonoscopy in about 8 weeks if stable. IP GI Service will sign off. 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 - would continue with Cipro 500mg bid. - she should follow with her usual GI group at [facility] upon discharge. she tells me she has seen them in the past for colonoscopy. Admission and Anticipated Discharge Date Admission Date: March 08, 2024 Subjective Patient was found to test positive for Yersinia through stool. cipro was started and with this she has seen improvement in pain. no further diarrhea. overall, she feels she is improving. no new GI concerns. Review of Systems Review of Systems: All systems reviewed & are unremarkable except as noted in HPI & below Physical Exam Constitutional: WD/WN, vitals as above Respiratory: normal respiratory effort, lungs clear to auscultation Cardiovascular: Rate/Rhythm: regular rate and regular rhythm Gastrointestinal (Abdomen): normal bowel sounds, soft, nontender, no hepatosplenomegaly Psychiatric: Orientation: alert and oriented x 3 Affect: euthymic affect Results & Data Results & Data Vital Signs (Past 12 Hours) Vital Signs Temp Pulse Resp BP Pulse Ox O2 Del Method 03/09/24 07:04 98.1 F 69 17 114/77 94 Room Air Coding Level of Care Code 80687 SUB INP/OBS CARE 05/29MIN Diagnoses 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
[2024-03-09] MEDS: oxyCODONE HCL IR 5 MG TAB (IMMEDIATE RELEASE) PO PRN (12:23)
[2024-03-09] MEDS: DICYCLOMINE HCL 10 MG CAP PO SCH (14:03)
[2024-03-09] MEDS: ACETAMINOPHEN 500 MG TAB PO SCH (14:03)
[2024-03-09] MEDS: SENNA 8.6 MG TAB PO SCH (21:18)
[2024-03-10 06:00] LABS: Hematocrit (blood only) 37.2 % (37.0-47.0); Hemoglobin 12.2 g/dl (12.0-16.0); Mean Corpuscular Hemoglobin 29.5 pg (25.0-34.0); Mean Corpuscular Hgb Conc 32.8 g/dL (32.0-36.0); Mean Corpuscular Volume 90.1 fL (80.0-100.0); Mean Platelet Volume 11.5 fL (9.4-12.4); Platelet Count 266 K/uL (130-400); RDW Coefficient of Variation 13.5 % (11.5-14.5); RDW Standard Deviation 44.5 fL (36.4-46.3); Red Blood Count 4.13 M/uL (4.20-5.40); White Blood Count 8.94 K/ul (4.8-10.8)
[2024-03-10 06:16] LABS: Calcium 8.8 mg/dl (8.6-10.3); Creatinine Clr Calc Pharmacy 90.4 ml/min; Magnesium 1.8 mg/dl (1.7-2.4); Phosphorus 4.2 mg/dl (2.5-4.9); Potassium 3.6 mmol/L (3.5-5.1)
--- NOTE | 2024-03-10 09:28 | Hospitalist Progress Note ---
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 WBCs have also significantly improved. Would treat for a total of 7 days. Will continue oral Flagyl at this time. Patient is a carrier of C. difficile gene, will continue Flagyl as long as she is on the ciprofloxacin. Pt continues to have abdominal pain and discomfort, minimal po intake Cont. Bentyl for her abdominal pain and cramping. suspect her irritable bowel syndrome has flared in the setting of this acute colitis. Scheduled Tylenol for pain control As needed oxycodone Continue MiraLAX and senna to prevent constipation GI consulted - Agree with antibiotic therapy and symptomatic treatment. Would advance to lactose restricted diet as tolerated. Should have OP evaluation with repeat CT or colonoscopy in about 8 weeks if stable. Check WBCs in a.m. as well as electrolytes. Anticipate discharge home in 1 to 2 days if pain has significantly improved. Nephrolithiasis - urology consulted - follow-up with urology outpatient Admission and Anticipated Discharge Date Admission Date: March 08, 2024 Subjective Pt seen in follow up of Yersinia colitis Continues to have abd. pain and cramping, overall feels uncomfortable, minimal po intake Had 2 loose stools today also reports headache Review of Systems Review of Systems: All systems reviewed & are unremarkable except as noted in Subjective Physical Exam Physical Exam: Constitutional: obese F in NAD but uncomfortable HEENT: NC/AT, Mucous membranes moist. Lungs: Clear to auscultation, decreased, no wheezes rales or rhonchi CV: S1-S2, regular Abdomen: Soft, diffusely tender, minimal guarding, no rigidity, no distention Extremities: No significant edema, moves extremities Neuro: awake, alert, answers appropriately, speech fluent, moves extremities Psych: Cooperative, normal mood Results & Data Results & Data Vital Signs (Past 12 Hours) Vital Signs Temp Pulse Resp BP Pulse Ox O2 Del Method 03/09/24 21:44 36.7 C 89 16 111/75 92 Room Air Laboratory Results 03/10/24 Range/Units 05:25 WBC 8.94 (4.8-10.8) K/ul RBC 4.13 L (4.20-5.40) M/uL Hgb 12.2 (12.0-16.0) g/dl Hct 37.2 (37.0-47.0) % MCV 90.1 (80.0-100.0) fL MCH 29.5 (25.0-34.0) pg MCHC 32.8 (32.0-36.0) g/dL RDW Std Deviation 44.5 (36.4-46.3) fL RDW Coeff of Brent 13.5 (11.5-14.5) % Plt Count 266 (130-400) K/uL MPV 11.5 (9.4-12.4) fL Sodium 141 (136-145) mmol/L Potassium 3.6 (3.5-5.1) mmol/L Chloride 105 (98-107) mmol/L Carbon Dioxide 28 (21-32) mmol/L Anion Gap 8 (3-11) BUN 12 (6-23) mg/dl Creatinine 0.86 (0.6-1.2) mg/dl Est Cr Clr Drug Dosing 90.4 ml/min eGFR 84.32 BUN/Creatinine Ratio 14.0 (10-20) Glucose 87 (70-99(Fasting)) mg/dl Calcium 8.8 (8.6-10.3) mg/dl Phosphorus 4.2 (2.5-4.9) mg/dl Magnesium 1.8 (1.7-2.4) mg/dl Medications Administered Current Inpatient Medications Acetaminophen (Acetaminophen 500 Mg Tab) 1,000 mg PO TID [facility] Stop: 04/08/24 13:59 Last Admin: 03/10/24 07:50 Dose: 1,000 mg Bisacodyl (Bisacodyl 10 Mg Supp) 10 mg ID DAILY PRN PRN Reason: Constipation Stop: 04/07/24 11:02 Last Admin: 03/08/24 21:02 Dose: 10 mg Cetirizine HCl (Cetirizine Hcl 10 Mg Tablet) 10 mg PO DAILY [facility] Stop: 04/06/24 08:59 Last Admin: 03/10/24 07:51 Dose: 10 mg Ciprofloxacin (Ciprofloxacin 500 Mg Tab) 500 mg PO BID [facility]; Protocol Stop: 03/18/24 20:59 Last Admin: 03/10/24 07:51 Dose: 500 mg Dicyclomine HCl (Dicyclomine Hcl 10 Mg Cap) 20 mg PO TID [facility] Stop: 04/08/24 13:59 Last Admin: 03/10/24 07:51 Dose: 20 mg Enoxaparin Sodium (Enoxaparin Inj 40 Mg/0.4 Ml Syr) 40 mg SQ QAM [facility] Stop: 04/06/24 08:59 Last Admin: 03/10/24 07:52 Dose: Not Given Fluticasone Propionate (Fluticasone Propionate Na Spr 16 Gm Btl) 2 sprays NA DAILY [facility] Stop: 04/06/24 08:59 Last Admin: 03/10/24 07:52 Dose: 2 sprays Lorazepam (Lorazepam 0.5 Mg Tab) 0.5 mg PO TID PRN PRN Reason: Anxiety Stop: 04/05/24 23:51 Last Admin: 03/09/24 18:07 Dose: 0.5 mg Metronidazole (Metronidazole 500 Mg Tab) 500 mg PO Q8H [facility]; Protocol Stop: 03/11/24 08:59 Last Admin: 03/10/24 07:52 Dose: 500 mg Montelukast Sodium (Montelukast Sodium 10 Mg Tablet) 10 mg PO DAILY [facility] Stop: 04/06/24 08:59 Last Admin: 03/10/24 07:53 Dose: 10 mg Ondansetron HCl (Ondansetron Inj 2 Mg/Ml 2 Ml Vial) 4 mg IV Q6H PRN PRN Reason: Nausea And Vomiting Stop: 04/05/24 23:52 Last Admin: 03/10/24 06:00 Dose: 4 mg Oxycodone HCl (Oxycodone Hcl Ir 5 Mg Tab (Immediate Release)) 5 mg PO Q6H PRN PRN Reason: Pain Stop: 03/23/24 09:59 Last Admin: 03/10/24 06:08 Dose: 5 mg Pantoprazole Sodium (Pantoprazole 40 Mg Tab) 40 mg PO BID [facility] Stop: 04/06/24 08:59 Last Admin: 03/10/24 07:53 Dose: 40 mg Polyethylene Glycol (Polyethylene (Miralax) 17 Gm Pack) 17 gm PO DAILY [facility] Stop: 04/07/24 11:14 Last Admin: 03/10/24 07:53 Dose: 17 gm Potassium Chloride (Potassium Chloride Crtab 20 Meq Tabcr) [facility]q [facility] [place] Stop: 04/06/24 08:59 Last Admin: 03/10/24 07:53 Dose: 20 meq Sennosides (Senna 8.6 Mg Tab) 17.2 mg PO [facility] Stop: 04/08/24 20:59 Last Admin: 03/09/24 21:18 Dose: 17.2 mg Tamsulosin HCl (Tamsulosin Hcl 0.4 Mg Cap) 0.4 mg PO [facility] Stop: 04/06/24 12:44 Last Admin: 03/10/24 07:53 Dose: 0.4 mg Trazodone HCl (Trazodone Hcl 100 Mg Tab) 200 mg PO [facility] Stop: 04/06/24 20:59 Last Admin: 03/09/24 21:19 Dose: 200 mg
[2024-03-11 06:44] LABS: Hematocrit (blood only) 38.5 % (37.0-47.0); Hemoglobin 12.8 g/dl (12.0-16.0); Mean Corpuscular Hgb Conc 33.2 g/dL (32.0-36.0); Mean Corpuscular Volume 90.2 fL (80.0-100.0); Mean Platelet Volume 11.8 fL (9.4-12.4); Platelet Count 292 K/uL (130-400); RDW Coefficient of Variation 13.5 % (11.5-14.5); RDW Standard Deviation 44.4 fL (36.4-46.3); Red Blood Count 4.27 M/uL (4.20-5.40); White Blood Count 8.48 K/ul (4.8-10.8)
[2024-03-11 06:58] LABS: BUN Creatinine Ratio 16.9 (10-20); Calcium 8.9 mg/dl (8.6-10.3); Creatinine Clr Calc Pharmacy 87.4 ml/min; Magnesium 1.9 mg/dl (1.7-2.4); Potassium 3.6 mmol/L (3.5-5.1)
--- NOTE | 2024-03-11 15:53 | Hospitalist Progress Note ---
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 WBCs have also significantly improved/ normalized. Would treat for a total of 7 days. Will continue oral Flagyl at this time. Patient is a carrier of C. difficile gene, will continue Flagyl as long as she is on the ciprofloxacin. Pt continues to have abdominal pain and discomfort, minimal po intake Cont. Bentyl for her abdominal pain and cramping. suspect her irritable bowel syndrome has flared in the setting of this acute colitis. Scheduled Tylenol for pain control As needed oxycodone stop MiraLAX and senna - discussed w/ GI (only as needed to prevent constipation) GI consulted - Agree with antibiotic therapy and symptomatic treatment. Would advance to lactose restricted diet as tolerated. Should have OP evaluation with repeat CT or colonoscopy in about 8 weeks if stable. Anticipate discharge home in 1 to 2 days if pain has significantly improved. Nephrolithiasis - urology consulted - follow-up with urology outpatient Admission and Anticipated Discharge Date Admission Date: March 08, 2024 Subjective Pt seen in follow up of Yersinia colitis Continues to have abd. pain and cramping, but cramping now slightly improved Several loose stools today Says she has been ambulating when her visits and helps her Review of Systems Review of Systems: All systems reviewed & are unremarkable except as noted in Subjective Physical Exam Physical Exam: Constitutional: obese F in NAD HEENT: NC/AT, Mucous membranes moist. Lungs: Clear to auscultation, decreased, no wheezes rales or rhonchi CV: regular Abdomen: Soft, diffusely tender, no guarding, no rigidity, no distention Extremities: No significant edema, moves extremities Neuro: awake, alert, answers appropriately, speech fluent, moves extremities Psych: Cooperative, normal mood Results & Data Results & Data Vital Signs (Past 12 Hours) Vital Signs Temp Pulse Pulse Resp BP Pulse Ox O2 Del Method 03/11/24 15:08 36.7 C 71 18 119/81 96 Room Air 03/11/24 07:41 36.6 C 68 18 126/83 96 Room Air Laboratory Results 03/11/24 Range/Units 05:55 WBC 8.48 (4.8-10.8) K/ul RBC 4.27 (4.20-5.40) M/uL Hgb 12.8 (12.0-16.0) g/dl Hct 38.5 (37.0-47.0) % MCV 90.2 (80.0-100.0) fL MCH 30.0 (25.0-34.0) pg MCHC 33.2 (32.0-36.0) g/dL RDW Std Deviation 44.4 (36.4-46.3) fL RDW Coeff of Brent 13.5 (11.5-14.5) % Plt Count 292 (130-400) K/uL MPV 11.8 (9.4-12.4) fL Sodium 142 (136-145) mmol/L Potassium 3.6 (3.5-5.1) mmol/L Chloride 107 (98-107) mmol/L Carbon Dioxide 28 (21-32) mmol/L Anion Gap 7 (3-11) BUN 15 (6-23) mg/dl Creatinine 0.89 (0.6-1.2) mg/dl Est Cr Clr Drug Dosing 87.4 ml/min eGFR 80.92 BUN/Creatinine Ratio 16.9 (10-20) Glucose 84 (70-99(Fasting)) mg/dl Calcium 8.9 (8.6-10.3) mg/dl Phosphorus 4.0 (2.5-4.9) mg/dl Magnesium 1.9 (1.7-2.4) mg/dl Medications Administered Current Inpatient Medications Acetaminophen (Acetaminophen 500 Mg Tab) 1,000 mg PO TID [facility] Stop: 04/08/24 13:59 Last Admin: 03/11/24 14:44 Dose: 1,000 mg Bisacodyl (Bisacodyl 10 Mg Supp) 10 mg [place] DAILY PRN PRN Reason: Constipation Stop: 04/07/24 11:02 Last Admin: 03/08/24 21:02 Dose: 10 mg Calcium Carbonate (Calcium Carbonate 500 Mg Chewable Tab) 500 mg PO Q4H PRN PRN Reason: Indigestion Stop: 04/09/24 17:08 Cetirizine HCl (Cetirizine Hcl 10 Mg Tablet) 10 mg PO DAILY [facility] Stop: 04/06/24 08:59 Last Admin: 03/11/24 07:54 Dose: 10 mg Ciprofloxacin (Ciprofloxacin 500 Mg Tab) 500 mg PO BID [facility]; Protocol Stop: 03/13/24 21:01 Last Admin: 03/11/24 07:54 Dose: 500 mg Dicyclomine HCl (Dicyclomine Hcl 10 Mg Cap) 20 mg PO TID [facility] Stop: 04/08/24 13:59 Last Admin: 03/11/24 14:44 Dose: 20 mg Enoxaparin Sodium (Enoxaparin Inj 40 Mg/0.4 Ml Syr) 40 mg SQ QAM [facility] Stop: 04/06/24 08:59 Last Admin: 03/11/24 07:53 Dose: Not Given Fluticasone Propionate (Fluticasone Propionate Na Spr 16 Gm Btl) 2 sprays NA DAILY [facility] Stop: 04/06/24 08:59 Last Admin: 03/11/24 07:55 Dose: 2 sprays Lorazepam (Lorazepam 0.5 Mg Tab) 0.5 mg PO TID PRN PRN Reason: Anxiety Stop: 04/05/24 23:51 Last Admin: 03/09/24 18:07 Dose: 0.5 mg Metronidazole (Metronidazole 500 Mg Tab) 500 mg PO Q8H [facility]; Protocol Stop: 03/13/24 23:59 Last Admin: 03/11/24 07:54 Dose: 500 mg Montelukast Sodium (Montelukast Sodium 10 Mg Tablet) 10 mg PO DAILY [facility] Stop: 04/06/24 08:59 Last Admin: 03/11/24 07:53 Dose: 10 mg Ondansetron HCl (Ondansetron Inj 2 Mg/Ml 2 Ml Vial) 4 mg IV Q6H PRN PRN Reason: Nausea And Vomiting Stop: 04/05/24 23:52 Last Admin: 03/10/24 06:00 Dose: 4 mg Oxycodone HCl (Oxycodone Hcl Ir 5 Mg Tab (Immediate Release)) 5 mg PO Q6H PRN PRN Reason: Pain Stop: 03/23/24 09:59 Last Admin: 03/11/24 06:16 Dose: 5 mg Pantoprazole Sodium (Pantoprazole 40 Mg Tab) 40 mg PO BID [facility] Stop: 04/06/24 08:59 Last Admin: 03/11/24 07:54 Dose: 40 mg Potassium Chloride (Potassium Chloride Crtab 20 Meq Tabcr) 20 meq PO QAM [facility] Stop: 04/06/24 08:59 Last Admin: 03/11/24 07:56 Dose: 20 meq Tamsulosin HCl (Tamsulosin Hcl 0.4 Mg Cap) 0.4 mg PO QAM [facility] Stop: 04/06/24 12:44 Last Admin: 03/11/24 07:54 Dose: 0.4 mg Trazodone HCl (Trazodone Hcl 100 Mg Tab) 200 mg PO [facility] Stop: 04/06/24 20:59 Last Admin: 03/10/24 20:23 Dose: 200 mg
[2024-03-11] MEDS: POTASSIUM CHLORIDE CRTAB 20 MEQ TABCR PO STA (17:31)
[2024-03-12 06:24] LABS: BUN Creatinine Ratio 14.9 (10-20); Calcium 9.2 mg/dl (8.6-10.3); Creatinine Clr Calc Pharmacy 89.4 ml/min; Magnesium 1.9 mg/dl (1.7-2.4); Phosphorus 3.5 mg/dl (2.5-4.9); Potassium 3.5 mmol/L (3.5-5.1)
[2024-03-12 06:47] LABS: Hematocrit (blood only) 39.9 % (37.0-47.0); Hemoglobin 13.3 g/dl (12.0-16.0); Mean Corpuscular Hemoglobin 29.8 pg (25.0-34.0); Mean Corpuscular Hgb Conc 33.3 g/dL (32.0-36.0); Mean Corpuscular Volume 89.3 fL (80.0-100.0); Mean Platelet Volume 11.7 fL (9.4-12.4); Platelet Count 316 K/uL (130-400); RDW Coefficient of Variation 13.6 % (11.5-14.5); RDW Standard Deviation 44.7 fL (36.4-46.3); Red Blood Count 4.47 M/uL (4.20-5.40); White Blood Count 10.25 K/ul (4.8-10.8)
--- NOTE | 2024-03-12 11:51 | Hospitalist Progress Note ---
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 WBCs have significantly improved/ normalized. However pt continues to have abd. pain and cramping. Multiple loose stools. Patient is a carrier of C. difficile gene. She has been treated with Ciprofloxacin and Flagyl. Pt continues to have abdominal pain and discomfort, minimal po intake Cont. Bentyl for her abdominal pain and cramping. suspect her irritable bowel syndrome has flared in the setting of this acute colitis. Scheduled Tylenol for pain control As needed oxycodone stopped MiraLAX and senna - discussed w/ GI (only as needed to prevent constipation) Given poor improvement in symptoms, hx of splenectomy, consulted w/ ID and discussed with, Assessment: Y enterolitica gastroenteritis Suspected C diff infection (first episode) Hx of IBS (constipation-dominant), diverticulosis, ITP s/p splenectomy Hx of allergy to sulfa, PCN Recommendations: - Stop ciprofloxacin and metronidazole - Start doxycycline 100 mg po bid (last dose on 03/20/24) for the suspected Y. enterocolitica ileocolitis. - Start fidoxomicin 200 mg po bid x10 days if covered by her insurance for outpatient. If not start oral vancomycin 125 mg po qid x14 days GI consulted - Agree with antibiotic therapy and symptomatic treatment. Would advance to lactose restricted diet as tolerated. Should have OP evaluation with repeat CT or colonoscopy in about 8 weeks if stable. Anticipate discharge home in 1 to 2 days if pain has significantly improved. Nephrolithiasis - urology consulted - follow-up with urology outpatient Admission and Anticipated Discharge Date Admission Date: March 08, 2024 Subjective Pt seen in follow up of Yersinia colitis Continues to have abd. pain and cramping, feeling worse today than yesterday, having a lot of loose stools today Pt's present at the bedside ID consulted and discussed with (telemedicine) at the bedside Review of Systems Review of Systems: All systems reviewed & are unremarkable except as noted in Subjective Physical Exam Physical Exam: Constitutional: obese F in NAD HEENT: NC/AT, Mucous membranes moist. Lungs: Clear to auscultation, decreased, no wheezes rales or rhonchi CV: regular Abdomen: Soft, diffusely tender, no guarding, no rigidity, no distention Extremities: No significant edema, moves extremities Neuro: awake, alert, answers appropriately, speech fluent, moves extremities Psych: Cooperative, normal mood Results & Data Results & Data Vital Signs (Past 12 Hours) Vital Signs Temp Pulse Resp BP Pulse Ox O2 Del Method 03/12/24 07:29 36.6 C 71 16 114/75 95 Room Air Laboratory Results 03/12/24 Range/Units 05:22 WBC 10.25 (4.8-10.8) K/ul RBC 4.47 (4.20-5.40) M/uL Hgb 13.3 (12.0-16.0) g/dl Hct 39.9 (37.0-47.0) % MCV 89.3 (80.0-100.0) fL MCH 29.8 (25.0-34.0) pg MCHC 33.3 (32.0-36.0) g/dL RDW Std Deviation 44.7 (36.4-46.3) fL RDW Coeff of Brent 13.6 (11.5-14.5) % Plt Count 316 (130-400) K/uL MPV 11.7 (9.4-12.4) fL Sodium 140 (136-145) mmol/L Potassium 3.5 (3.5-5.1) mmol/L Chloride 106 (98-107) mmol/L Carbon Dioxide 28 (21-32) mmol/L Anion Gap 6 (3-11) BUN 13 (6-23) mg/dl Creatinine 0.87 (0.6-1.2) mg/dl Est Cr Clr Drug Dosing 89.4 ml/min eGFR 83.16 BUN/Creatinine Ratio 14.9 (10-20) Glucose 90 (70-99(Fasting)) mg/dl Calcium 9.2 (8.6-10.3) mg/dl Phosphorus 3.5 (2.5-4.9) mg/dl Magnesium 1.9 (1.7-2.4) mg/dl Medications Administered Current Inpatient Medications Acetaminophen (Acetaminophen 500 Mg Tab) 1,000 mg PO TID [facility] Stop: 04/08/24 13:59 Last Admin: 03/12/24 07:59 Dose: 1,000 mg Bisacodyl (Bisacodyl 10 Mg Supp) 10 mg [place] DAILY PRN PRN Reason: Constipation Stop: 04/07/24 11:02 Last Admin: 03/08/24 21:02 Dose: 10 mg Calcium Carbonate (Calcium Carbonate 500 Mg Chewable Tab) 500 mg PO Q4H PRN PRN Reason: Indigestion Stop: 04/09/24 17:08 Cetirizine HCl (Cetirizine Hcl 10 Mg Tablet) 10 mg PO DAILY [facility] Stop: 04/06/24 08:59 Last Admin: 03/12/24 08:00 Dose: 10 mg Ciprofloxacin (Ciprofloxacin 500 Mg Tab) 500 mg PO BID [facility]; Protocol Stop: 03/13/24 21:01 Last Admin: 03/12/24 08:00 Dose: 500 mg Dicyclomine HCl (Dicyclomine Hcl 10 Mg Cap) 20 mg PO TID [facility] Stop: 04/08/24 13:59 Last Admin: 03/12/24 07:59 Dose: 20 mg Enoxaparin Sodium (Enoxaparin Inj 40 Mg/0.4 Ml Syr) 40 mg SQ QAM [facility] Stop: 04/06/24 08:59 Last Admin: 03/12/24 08:01 Dose: 40 mg Fluticasone Propionate (Fluticasone Propionate Na Spr 16 Gm Btl) 2 sprays NA DAILY [facility] Stop: 04/06/24 08:59 Last Admin: 03/12/24 08:01 Dose: 2 sprays Lorazepam (Lorazepam 0.5 Mg Tab) 0.5 mg PO TID PRN PRN Reason: Anxiety Stop: 04/05/24 23:51 Last Admin: 03/09/24 18:07 Dose: 0.5 mg Metronidazole (Metronidazole 500 Mg Tab) 500 mg PO Q8H [facility]; Protocol Stop: 03/13/24 23:59 Last Admin: 03/12/24 08:01 Dose: 500 mg Montelukast Sodium (Montelukast Sodium 10 Mg Tablet) 10 mg PO DAILY [facility] Stop: 04/06/24 08:59 Last Admin: 03/12/24 08:00 Dose: 10 mg Ondansetron HCl (Ondansetron Inj 2 Mg/Ml 2 Ml Vial) 4 mg IV Q6H PRN PRN Reason: Nausea And Vomiting Stop: 04/05/24 23:52 Last Admin: 03/12/24 10:46 Dose: 4 mg Oxycodone HCl (Oxycodone Hcl Ir 5 Mg Tab (Immediate Release)) 5 mg PO Q6H PRN PRN Reason: Pain Stop: 03/23/24 09:59 Last Admin: 03/12/24 03:57 Dose: 5 mg Pantoprazole Sodium (Pantoprazole 40 Mg Tab) 40 mg PO BID [facility] Stop: 04/06/24 08:59 Last Admin: 03/12/24 08:00 Dose: 40 mg Potassium Chloride (Potassium Chloride Crtab 20 Meq Tabcr) 20 meq PO QAM [facility] Stop: 04/06/24 08:59 Last Admin: 03/12/24 07:59 Dose: 20 meq Tamsulosin HCl (Tamsulosin Hcl 0.4 Mg Cap) 0.4 mg PO QAM [facility] Stop: 04/06/24 12:44 Last Admin: 03/12/24 08:00 Dose: 0.4 mg Trazodone HCl (Trazodone Hcl 100 Mg Tab) 200 mg PO HS [facility] Stop: 04/06/24 20:59 Last Admin: 03/11/24 21:09 Dose: 200 mg
[2024-03-12] MEDS: POTASSIUM CHLORIDE CRTAB 20 MEQ TABCR PO STA (12:39)
--- NOTE | 2024-03-12 14:47 | Infectious Disease Consult ---
Date of Service March 12, 2024 Telehealth Information I performed this visit using a real-time telehealth connection between my location and the patients location ([facility]). After connecting through interactive tele-video, patient was identified by name and date of and/or wristband check.Patient (or authorized healthcare marketing representative) was informed that this was a telemedicine visit and it was being conducted confidentially over secure lines. My office door was closed and no one else was present in the room with me.Patient (or authorized healthcare marketing representative) provided consent to proceed with the visit, expressed an understanding of privacy and security of the telemedicine visit, and gave permission to have a hospital marketing representative in the room in order to assist with the visit and to conduct portions of the visit, as needed. I informed the patient (or authorized healthcare marketing representative) that I reviewed their record and presented the opportunity for them to ask any questions regarding the visit today. The patient agreed to participate. Assessment & Plan (1) Enteritis, Yersinia enterocolitica: Plan: Assessment: Y enterolitica gastroenteritis Suspected C diff infection (first episode) Hx of IBS (constipation-dominant), diverticulosis, ITP s/p splenectomy Hx of allergy to sulfa, PCN Recommendations: - Stop ciprofloxacin and metronidazole - Start doxycycline 100 mg po bid (last dose on 03/20/24) for the suspected Y. enterocolitica ileocolitis. - Start fidoxomicin 200 mg po bid x10 days if covered by her insurance for outpatient. If not start oral vancomycin 125 mg po qid x14 days - Please, avoid laxative I am not sure if the patient has active C diff on top of Y enterocolitica infection. The affected region, the terminal ileum, is the typical site of Y enterocolitica infection, but it is possible that the patient has active C diff infection in the ascending colon area. She has never had C diff infection in the past per patient. I would stop cipro and metronidazole as both agents may disrupt GI rachel significantly, increasing the risk of worsening C diff infection, if there is any, or at least increase the risk of recurrent infection in the setting of C diff carrier state. Metronidazole has activity against C diff but again it disrupts the GI rachel. It has fallen out of favor as the first line therapy for C diff. Doxycycline is a reasonable alternative for the Y enterocolitica, and it has been associated less w/ C diff compared to cipro. Use of fidoxomicin is increased as the first line for C diff given its superiority in preventing recurrent C diff infection. However, the medication cost is usually the issue w/ this medication. I recommend po vanco if fidoxomicin is not covered by her insurance. I spent a total of 60 minutes coordinating, documenting, and providing care for this patient excluding time spent in the performance of separately billed services or time spent by another provider/QHP. (2) C. difficile colitis: History of Present Illness History of Present Illness This is a 48 y/o female ([place]iry) w/ hx of IBS, diverticulosis, internal hemorrhoids, adenomatous polyps w/ last colonscopy (2022), HTN, GERD, ITP s/p splenectomy, cervical cancer s/p surgery, endometriosis s/p GULSHAN, cholecystectomy, , fibromyalgia, JONY, and pseudotumor cerebri s/p shunt w/ chronic CONCEPCION. The patient presented to [facility] on 03/06/24 for diarrhea and stomach cramps. She had watery diarrhea (3-4 times a day) alone for about 1 week follo wed by stomach cramping, starting on 03/04. No n/v. No fever but leukocytosis w/ WBC of 17K was notd on presentation. She has been on cipro and metronidazole w/ some improvement: WBC 17K ->-> 10.25K. She feels she is getting better slowly: BM is still soft but more formed. However, she had 14 times of BM today after she received miralax: she was given miralax because she was not able to give stool sample per report. But that is confusing as the patient states that she has had several BMs everyday. He is now able to eat some food but not much. No f/c. Abd cramping has been coming and going. No coughing, cp, sob, or urinary symptoms. She has never had C diff infection. Allergies Allergy/AdvReac Type Severity Reaction Status Date / Time Penicillins Allergy Verified 10/28/19 13:36 pregabalin [From Lyrica] Allergy Verified 10/28/19 13:36 prochlorperazine Allergy Verified 10/28/19 13:36 [From Compazine] Sulfa (Sulfonamide Allergy Verified 10/28/19 13:36 Antibiotics) Home Medications Medication Instructions Recorded Confirmed Type Maxalt 10 mg PO DIRECTED PRN Migraine 03/07/24 03/07/24 History Headache [place] 3 Fish Oil 1,000 mg PO DAILY 03/07/24 03/07/24 History Ventolin HFA 108 mcg inhalation DIRECTED PRN 03/07/24 03/07/24 History Cough Zofran 4 mg PO DIRECTED PRN Nausea And 03/07/24 03/07/24 History Vomiting aspirin 325 mg tablet,delayed 325 mg PO DAILY 03/07/24 03/07/24 History release cetirizine 10 mg tablet (Zyrtec) 10 mg PO AC 03/07/24 03/07/24 History conjugated estrogens 0.625 mg/gram 0.625 mg vaginal HS 03/07/24 03/07/24 History vaginal cream (Premarin) esomeprazole magnesium 20 mg 20 mg PO BID 03/07/24 03/07/24 History capsule,delayed release fluticasone propionate 50 50 mcg intranasal BID 03/07/24 03/07/24 History mcg/actuation nasal spray,suspension losartan 25 mg tablet 25 mg PO DAILY 03/07/24 03/07/24 History montelukast 10 mg tablet 10 mg PO DAILY 03/07/24 03/07/24 History nystatin 100,000 units topical 2XD 03/07/24 03/07/24 History potassium chloride 20 mEq 20 meq PO DAILY 03/07/24 03/07/24 History tablet,extended release red yeast rice extract 600 mg PO DAILY 03/07/24 03/07/24 History trazodone 100 mg tablet 200 mg PO HS 03/07/24 03/07/24 History fidaxomicin 200 mg tablet (Dificid) 200 mg PO BID 9 days #18 tabs 03/12/24 Rx Patient History Medical History Cerebritis Stomach ulcer Surgical History History of surgery 3 LP SHUNTS History of hysterectomy History of sinus surgery POLYPECTOMY History of laparoscopy Resulting in Splenectomy and cholecystectomy Surgeries for endometriosis. 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 Beliefs That Will Affect Care: None marital status: Current Living Situation: Spouse current occupational status: employed current occupation: [employer] Feels Safe at Home: Yes Assistive Devices: None Review of Systems as above and all others negative Physical Exam General: no acute distress Lungs: breathing comfortably on room air Neuro: alert & oriented x3 Results & Data Vital Signs (Past 12 Hours) Vital Signs Temp Pulse Resp BP Pulse Ox O2 Del Method 03/12/24 07:29 36.6 C 71 16 114/75 95 Room Air Laboratory Results Labs WBC 17K ->-> 10.25K H 13.3 Plt 316K Cr 0.87 LFT ast 40, alt 71 UA (03/06): neg LE C diff pcr (03/09): positive GI pathogen panel (03/09): positive for Y. enterocolitica CT A/P (03/06): Circumferential low-density mild mucosal/wall thickening of the terminal ileum and cecum/ascending colon. Liquid stool in the ascending and transverse colon. QTcB Int : 454 ms
[2024-03-12] MEDS: FIDAXOMICIN 200 MG TAB PO ONE (16:16)
[2024-03-12] MEDS: DOXYCYCLINE HYCLATE 100 MG CAP PO SCH (21:46)
[2024-03-13 06:12] LABS: BUN Creatinine Ratio 15.5 (10-20); Calcium 9.2 mg/dl (8.6-10.3); Creatinine Clr Calc Pharmacy 92.6 ml/min; Magnesium 1.9 mg/dl (1.7-2.4); Phosphorus 3.9 mg/dl (2.5-4.9); Potassium 3.7 mmol/L (3.5-5.1)
[2024-03-13 06:24] LABS: Hematocrit (blood only) 38.9 % (37.0-47.0); Hemoglobin 13.3 g/dl (12.0-16.0); Mean Corpuscular Hemoglobin 30.4 pg (25.0-34.0); Mean Corpuscular Hgb Conc 34.2 g/dL (32.0-36.0); Mean Platelet Volume 11.7 fL (9.4-12.4); Platelet Count 319 K/uL (130-400); RDW Coefficient of Variation 13.7 % (11.5-14.5); RDW Standard Deviation 44.1 fL (36.4-46.3); Red Blood Count 4.37 M/uL (4.20-5.40); White Blood Count 9.23 K/ul (4.8-10.8)
--- NOTE | 2024-03-13 07:30 | Hospitalist Progress Note ---
Date of Service March 13, 2024 Assessment & Plan (1) Colitis due to Yersinia enterocolitica: (2) Irritable bowel syndrome: (3) Clostridioides difficile carrier: (4) GERD (gastroesophageal reflux disease): (5) Autoimmune disorder: Plan Abdominal pain Patient test positive for Yersinia enterocolitis, continue ciprofloxacin. WBCs have significantly improved/ normalized. However pt continues to have abd. pain and cramping. Multiple loose stools. Patient is a carrier of C. difficile gene. She has been treated with Ciprofloxacin and Flagyl. Pt continues to have abdominal pain and discomfort, minimal po intake Cont. Bentyl for her abdominal pain and cramping. suspect her irritable bowel syndrome has flared in the setting of this acute colitis. Scheduled Tylenol for pain control As needed oxycodone stopped MiraLAX and senna - discussed w/ GI (only as needed to prevent constipation) GI consulted - Agree with antibiotic therapy and symptomatic treatment. Would advance to lactose restricted diet as tolerated. Should have OP evaluation with repeat CT or colonoscopy in about 8 weeks if stable. Anticipate discharge home in 1 to 2 days if pain has significantly improved. Given poor improvement in symptoms, hx of splenectomy, consulted w/ ID and discussed with, Assessment: Y enterolitica gastroenteritis Suspected C diff infection (first episode) Hx of IBS (constipation-dominant), diverticulosis, ITP s/p splenectomy Hx of allergy to sulfa, PCN Recommendations: - Stop ciprofloxacin and metronidazole - Start doxycycline 100 mg po bid (last dose on 03/20/24) for the suspected Y. enterocolitica ileocolitis. - Start fidoxomicin 200 mg po bid x10 days if covered by her insurance for outpatient. If not start oral vancomycin 125 mg po qid x14 days Nephrolithiasis - urology consulted - follow-up with urology outpatient Admission and Anticipated Discharge Date Admission Date: March 08, 2024 Subjective Pt seen in follow up of Yersinia colitis Continues to have abd. pain and cramping Pt's present at the bedside ID consulted and discussed with yesterday 2 loose stools today Review of Systems Review of Systems: All systems reviewed & are unremarkable except as noted in Subjective Physical Exam 2 Physical Exam: Constitutional: obese F in NAD HEENT: NC/AT, Mucous membranes moist. Lungs: Clear to auscultation, decreased, no wheezes rales or rhonchi CV: regular Abdomen: Soft, diffusely tender, no guarding, no rigidity, no distention Extremities: No significant edema, moves extremities Neuro: awake, alert, answers appropriately, speech fluent, moves extremities Psych: Cooperative, normal mood Results & Data Results & Data Vital Signs (Past 12 Hours) Vital Signs Temp Pulse Pulse Resp BP Pulse Ox O2 Del Method 03/13/24 07:26 36.7 C 68 16 100/63 96 Room Air 03/12/24 19:47 36.9 C 70 18 115/79 94 Room Air Laboratory Results 03/13/24 Range/Units 05:21 WBC 9.23 (4.8-10.8) K/ul RBC 4.37 (4.20-5.40) M/uL Hgb 13.3 (12.0-16.0) g/dl Hct 38.9 (37.0-47.0) % MCV 89.0 (80.0-100.0) fL MCH 30.4 (25.0-34.0) pg MCHC 34.2 (32.0-36.0) g/dL RDW Std Deviation 44.1 (36.4-46.3) fL RDW Coeff of Brent 13.7 (11.5-14.5) % Plt Count 319 (130-400) K/uL MPV 11.7 (9.4-12.4) fL Sodium 140 (136-145) mmol/L Potassium 3.7 (3.5-5.1) mmol/L Chloride 108 H (98-107) mmol/L Carbon Dioxide 26 (21-32) mmol/L Anion Gap 6 (3-11) BUN 13 (6-23) mg/dl Creatinine 0.84 (0.6-1.2) mg/dl Est Cr Clr Drug Dosing 92.6 ml/min eGFR 86.74 BUN/Creatinine Ratio 15.5 (10-20) Glucose 87 (70-99(Fasting)) mg/dl Calcium 9.2 (8.6-10.3) mg/dl Phosphorus 3.9 (2.5-4.9) mg/dl Magnesium 1.9 (1.7-2.4) mg/dl Medications Administered Current Inpatient Medications Acetaminophen (Acetaminophen 500 Mg Tab) 1,000 mg PO TID [facility] Stop: 04/08/24 13:59 Last Admin: 03/12/24 21:45 Dose: 1,000 mg Bisacodyl (Bisacodyl 10 Mg Supp) 10 mg MT DAILY PRN PRN Reason: Constipation Stop: 04/07/24 11:02 Last Admin: 03/08/24 21:02 Dose: 10 mg Calcium Carbonate (Calcium Carbonate 500 Mg Chewable Tab) 500 mg PO Q4H PRN PRN Reason: Indigestion Stop: 04/09/24 17:08 Cetirizine HCl (Cetirizine Hcl 10 Mg Tablet) 10 mg PO DAILY [facility] Stop: 04/06/24 08:59 Last Admin: 03/12/24 08:00 Dose: 10 mg Dicyclomine HCl (Dicyclomine Hcl 10 Mg Cap) 20 mg PO TID [facility] Stop: 04/08/24 13:59 Last Admin: 03/12/24 21:45 Dose: 20 mg Doxycycline Hyclate (Doxycycline Hyclate 100 Mg Cap) 100 mg PO BID [facility] Stop: 03/22/24 20:59 Last Admin: 03/12/24 21:46 Dose: 100 mg Enoxaparin Sodium (Enoxaparin Inj 40 Mg/0.4 Ml Syr) 40 mg SQ QAM [facility] Stop: 04/06/24 08:59 Last Admin: 03/12/24 08:01 Dose: 40 mg Fidaxomicin (Fidaxomicin 200 Mg Tab) 200 mg PO BID [facility] Stop: 03/22/24 20:59 Fluticasone Propionate (Fluticasone Propionate Na Spr 16 Gm Btl) 2 sprays NA DAILY [facility] Stop: 04/06/24 08:59 Last Admin: 03/12/24 08:01 Dose: 2 sprays Lorazepam (Lorazepam 0.5 Mg Tab) 0.5 mg PO TID PRN PRN Reason: Anxiety Stop: 04/05/24 23:51 Last Admin: 03/09/24 18:07 Dose: 0.5 mg Montelukast Sodium (Montelukast Sodium 10 Mg Tablet) 10 mg PO DAILY [facility] Stop: 04/06/24 08:59 Last Admin: 03/12/24 08:00 Dose: 10 mg Ondansetron HCl (Ondansetron Inj 2 Mg/Ml 2 Ml Vial) 4 mg IV Q6H PRN PRN Reason: Nausea And Vomiting Stop: 04/05/24 23:52 Last Admin: 03/12/24 10:46 Dose: 4 mg Oxycodone HCl (Oxycodone Hcl Ir 5 Mg Tab (Immediate Release)) 5 mg PO Q6H PRN PRN Reason: Pain Stop: 03/23/24 09:59 Last Admin: 03/12/24 17:52 Dose: 5 mg Pantoprazole Sodium (Pantoprazole 40 Mg Tab) 40 mg PO BID [facility] Stop: 04/06/24 08:59 Last Admin: 03/12/24 22:19 Dose: 40 mg Potassium Chloride (Potassium Chloride Crtab 20 Meq Tabcr) 20 meq PO QAM [facility] Stop: 04/06/24 08:59 Last Admin: 03/12/24 07:59 Dose: 20 meq Tamsulosin HCl (Tamsulosin Hcl 0.4 Mg Cap) 0.4 mg PO QAM [facility] Stop: 04/06/24 12:44 Last Admin: 03/12/24 08:00 Dose: 0.4 mg Trazodone HCl (Trazodone Hcl 100 Mg Tab) 200 mg PO HS [facility] Stop: 04/06/24 20:59 Last Admin: 03/12/24 22:19 Dose: 200 mg
[2024-03-13] MEDS: FIDAXOMICIN 200 MG TAB PO SCH (09:37)
[2024-03-13] MEDS ORDERED: HYDROCORTISONE 1% OINT 30 GM TUBE EXT PRN (16:55)
[2024-03-13] MEDS: CALCIUM CARBONATE 500 MG CHEWABLE TAB PO PRN (23:33)
[2024-03-14 05:55] LABS: BUN Creatinine Ratio 20.5 (10-20); Calcium 9.5 mg/dl (8.6-10.3); Creatinine Clr Calc Pharmacy 93.7 ml/min; Magnesium 1.8 mg/dl (1.7-2.4); Phosphorus 4.6 mg/dl (2.5-4.9); Potassium 3.6 mmol/L (3.5-5.1)
[2024-03-14 06:05] LABS: Hematocrit (blood only) 42.1 % (37.0-47.0); Hemoglobin 13.9 g/dl (12.0-16.0); Mean Corpuscular Volume 90.9 fL (80.0-100.0); Mean Platelet Volume 11.4 fL (9.4-12.4); Platelet Count 304 K/uL (130-400); RDW Coefficient of Variation 13.9 % (11.5-14.5); RDW Standard Deviation 46.4 fL (36.4-46.3); Red Blood Count 4.63 M/uL (4.20-5.40); White Blood Count 11.75 K/ul (4.8-10.8)
--- NOTE | 2024-03-14 09:44 | Hospitalist Progress Note ---
Date of Service March 14, 2024 Assessment & Plan (1) Colitis due to Yersinia enterocolitica: (2) Irritable bowel syndrome: (3) Clostridioides difficile carrier: (4) GERD (gastroesophageal reflux disease): (5) Autoimmune disorder: Plan Abdominal pain Patient test positive for Yersinia enterocolitis, continue ciprofloxacin. WBCs have significantly improved/ normalized. However pt continues to have abd. pain and cramping. Multiple loose stools. Patient is a carrier of C. difficile gene. She has been treated with Ciprofloxacin and Flagyl. Pt continues to have abdominal pain and discomfort, minimal po intake Cont. Bentyl for her abdominal pain and cramping. suspect her irritable bowel syndrome has flared in the setting of this acute colitis. Scheduled Tylenol for pain control As needed oxycodone stopped MiraLAX and senna - discussed w/ GI (only as needed to prevent constipation) GI consulted - Agree with antibiotic therapy and symptomatic treatment. Would advance to lactose restricted diet as tolerated. Should have OP evaluation with repeat CT or colonoscopy in about 8 weeks if stable. Anticipate discharge home in 1 to 2 days if pain has significantly improved. Given poor improvement in symptoms, hx of splenectomy, consulted w/ ID and discussed with, Assessment: Y enterolitica gastroenteritis Suspected C diff infection (first episode) Hx of IBS (constipation-dominant), diverticulosis, ITP s/p splenectomy Hx of allergy to sulfa, PCN Recommendations: - Stop ciprofloxacin and metronidazole - Start doxycycline 100 mg po bid (last dose on 03/20/24) for the suspected Y. enterocolitica ileocolitis. - Start fidoxomicin 200 mg po bid x10 days if covered by her insurance for outpatient. If not start oral vancomycin 125 mg po qid x14 days Nephrolithiasis - urology consulted - follow-up with urology outpatient Admission and Anticipated Discharge Date Admission Date: March 08, 2024 Subjective Pt seen in follow up of Yersinia colitis Continues to have abd. pain and cramping Pt's present at the bedside ID consulted and discussed with - abx changed to doxy and dificid 3 loose stools today, also cramping and loose stools overnight, no blood in the stool. minimal po intake Review of Systems Review of Systems: All systems reviewed & are unremarkable except as noted in Subjective Physical Exam Physical Exam: Constitutional: obese F in NAD HEENT: NC/AT, Mucous membranes moist. Lungs: Clear to auscultation, decreased, no wheezes rales or rhonchi CV: regular Abdomen: Soft, diffusely tender, no guarding, no rigidity, no distention Extremities: No significant edema, moves extremities Neuro: awake, alert, answers appropriately, speech fluent, moves extremities Psych: Cooperative, normal mood Results & Data Results & Data Vital Signs (Past 12 Hours) Vital Signs Temp Pulse Resp BP Pulse Ox O2 Del Method 03/14/24 07:17 36.7 C 74 16 114/73 94 Room Air Laboratory Results 03/14/24 Range/Units 05:22 WBC 11.75 H (4.8-10.8) K/ul RBC 4.63 (4.20-5.40) M/uL Hgb 13.9 (12.0-16.0) g/dl Hct 42.1 (37.0-47.0) % MCV 90.9 (80.0-100.0) fL MCH 30.0 (25.0-34.0) pg MCHC 33.0 (32.0-36.0) g/dL RDW Std Deviation 46.4 H (36.4-46.3) fL RDW Coeff of Brent 13.9 (11.5-14.5) % Plt Count 304 (130-400) K/uL MPV 11.4 (9.4-12.4) fL Sodium 141 (136-145) mmol/L Potassium 3.6 (3.5-5.1) mmol/L Chloride 107 (98-107) mmol/L Carbon Dioxide 27 (21-32) mmol/L Anion Gap 7 (3-11) BUN 17 (6-23) mg/dl Creatinine 0.83 (0.6-1.2) mg/dl Est Cr Clr Drug Dosing 93.7 ml/min eGFR 87.99 BUN/Creatinine Ratio 20.5 H (10-20) Glucose 86 (70-99(Fasting)) mg/dl Calcium 9.5 (8.6-10.3) mg/dl Phosphorus 4.6 (2.5-4.9) mg/dl Magnesium 1.8 (1.7-2.4) mg/dl Medications Administered Current Inpatient Medications Acetaminophen (Acetaminophen 500 Mg Tab) 1,000 mg PO TID [facility] Stop: 04/08/24 13:59 Last Admin: 03/13/24 20:45 Dose: 1,000 mg Bisacodyl (Bisacodyl 10 Mg Supp) 10 mg OR DAILY PRN PRN Reason: Constipation Stop: 04/07/24 11:02 Last Admin: 03/08/24 21:02 Dose: 10 mg Calcium Carbonate (Calcium Carbonate 500 Mg Chewable Tab) 500 mg PO Q4H PRN PRN Reason: Indigestion Stop: 04/09/24 17:08 Last Admin: 03/13/24 23:33 Dose: 500 mg Cetirizine HCl (Cetirizine Hcl 10 Mg Tablet) 10 mg PO DAILY [facility] Stop: 04/06/24 08:59 Last Admin: 03/13/24 09:37 Dose: 10 mg Dicyclomine HCl (Dicyclomine Hcl 10 Mg Cap) 20 mg PO TID [facility] Stop: 04/08/24 13:59 Last Admin: 03/13/24 20:45 Dose: 20 mg Doxycycline Hyclate (Doxycycline Hyclate 100 Mg Cap) 100 mg PO BID [facility] Stop: 03/22/24 20:59 Last Admin: 03/13/24 21:07 Dose: 100 mg Enoxaparin Sodium (Enoxaparin Inj 40 Mg/0.4 Ml Syr) 40 mg SQ QAM [facility] Stop: 04/06/24 08:59 Last Admin: 03/13/24 09:20 Dose: Not Given Fidaxomicin (Fidaxomicin 200 Mg Tab) 200 mg PO BID [facility] Stop: 03/22/24 20:59 Last Admin: 03/13/24 20:44 Dose: 200 mg Fluticasone Propionate (Fluticasone Propionate Na Spr 16 Gm Btl) 2 sprays NA DAILY [facility] Stop: 04/06/24 08:59 Last Admin: 03/13/24 09:20 Dose: 2 sprays Hydrocortisone (Hydrocortisone 1% Oint 30 Gm Tube) 1 appln EXT BID PRN PRN Reason: Itching Stop: 04/12/24 16:54 Lorazepam (Lorazepam 0.5 Mg Tab) 0.5 mg PO TID PRN PRN Reason: Anxiety Stop: 04/05/24 23:51 Last Admin: 03/09/24 18:07 Dose: 0.5 mg Montelukast Sodium (Montelukast Sodium 10 Mg Tablet) 10 mg PO DAILY [facility] Stop: 04/06/24 08:59 Last Admin: 03/13/24 09:37 Dose: 10 mg Ondansetron HCl (Ondansetron Inj 2 Mg/Ml 2 Ml Vial) 4 mg IV Q6H PRN PRN Reason: Nausea And Vomiting Stop: 04/05/24 23:52 Last Admin: 03/12/24 10:46 Dose: 4 mg Oxycodone HCl (Oxycodone Hcl Ir 5 Mg Tab (Immediate Release)) 5 mg PO Q6H PRN PRN Reason: Pain Stop: 03/23/24 09:59 Last Admin: 03/14/24 08:41 Dose: 5 mg Pantoprazole Sodium (Pantoprazole 40 Mg Tab) 40 mg PO BID [facility] Stop: 04/06/24 08:59 Last Admin: 03/13/24 20:46 Dose: 40 mg Potassium Chloride (Potassium Chloride Crtab 20 Meq Tabcr) 20 meq PO QAM [facility] Stop: 04/06/24 08:59 Last Admin: 03/13/24 09:37 Dose: 20 meq Tamsulosin HCl (Tamsulosin Hcl 0.4 Mg Cap) 0.4 mg PO QAM [facility] Stop: 04/06/24 12:44 Last Admin: 03/13/24 09:37 Dose: 0.4 mg Trazodone HCl (Trazodone Hcl 100 Mg Tab) 200 mg PO HS [facility] Stop: 04/06/24 20:59 Last Admin: 03/14/24 00:41 Dose: 200 mg
[2024-03-15 01:07] LABS: ANCA Screen Negative (Negative); Myeloperoxidase Ab <1.0 AI (<1.0); Proteinase-3 AB <1.0 AI (<1.0)
[2024-03-15 06:50] LABS: Hemoglobin 13.9 g/dl (12.0-16.0); Mean Corpuscular Hgb Conc 33.1 g/dL (32.0-36.0); Mean Corpuscular Volume 90.5 fL (80.0-100.0); Mean Platelet Volume 11.3 fL (9.4-12.4); Platelet Count 315 K/uL (130-400); RDW Coefficient of Variation 14.1 % (11.5-14.5); Red Blood Count 4.64 M/uL (4.20-5.40); White Blood Count 10.51 K/ul (4.8-10.8)
[2024-03-15 07:04] LABS: BUN Creatinine Ratio 20.7 (10-20); Calcium 9.5 mg/dl (8.6-10.3); Creatinine Clr Calc Pharmacy 89.4 ml/min; Magnesium 1.8 mg/dl (1.7-2.4); Phosphorus 4.1 mg/dl (2.5-4.9); Potassium 3.8 mmol/L (3.5-5.1)
--- NOTE | 2024-03-15 08:43 | Hospitalist Progress Note ---
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 WBCs have significantly improved/ normalized. However pt continues to have abd. pain and cramping. Multiple loose stools. Patient is a carrier of C. difficile gene. She has been treated with Ciprofloxacin and Flagyl. Pt continues to have abdominal pain and discomfort, minimal po intake Cont. Bentyl for her abdominal pain and cramping. suspect her irritable bowel syndrome has flared in the setting of this acute colitis. Scheduled Tylenol for pain control As needed oxycodone stopped MiraLAX and senna - discussed w/ GI (only as needed to prevent constipation) GI consulted - Agree with antibiotic therapy and symptomatic treatment. Would advance to lactose restricted diet as tolerated. Should have OP evaluation with repeat CT or colonoscopy in about 8 weeks if stable. Anticipate discharge home in 1 to 2 days if pain has significantly improved. Given poor improvement in symptoms, hx of splenectomy, consulted w/ ID and discussed with, Assessment: Y enterolitica gastroenteritis Suspected C diff infection (first episode) Hx of IBS (constipation-dominant), diverticulosis, ITP s/p splenectomy Hx of allergy to sulfa, PCN Recommendations: - Stop ciprofloxacin and metronidazole - Start doxycycline 100 mg po bid (last dose on 03/20/24) for the suspected Y. enterocolitica ileocolitis. - Start fidoxomicin 200 mg po bid x10 days if covered by her insurance for outpatient. If not start oral vancomycin 125 mg po qid x14 days > prior auth for dificid was denied -> switch to PO vanco Nephrolithiasis - urology consulted - follow-up with urology outpatient Admission and Anticipated Discharge Date Admission Date: March 08, 2024 Subjective Pt seen in follow up of Yersinia colitis Continues to have abd. pain and cramping ID consulted and discussed with - abx changed to doxy and dificid -> prior auth for dificid was denied -> switch to PO vanco Continues to have loose stools today, no blood in the stool. minimal po intake Review of Systems Review of Systems: All systems reviewed & are unremarkable except as noted in Subjective Physical Exam Physical Exam: Constitutional: obese F in NAD HEENT: NC/AT, Mucous membranes moist. Lungs: Clear to auscultation, decreased, no wheezes rales or rhonchi CV: regular Abdomen: Soft, diffusely tender, no guarding, no rigidity, no distention Extremities: No significant edema, moves extremities Neuro: awake, alert, answers appropriately, speech fluent, moves extremities Psych: Cooperative, normal mood Results & Data Results & Data Vital Signs (Past 12 Hours) Vital Signs Temp Pulse Resp BP Pulse Ox O2 Del Method 03/15/24 08:10 36.4 C L 88 18 119/79 92 Room Air Laboratory Results 03/15/24 03/07/24 Range/Units 06:16 12:21 WBC 10.51 (4.8-10.8) K/ul RBC 4.64 (4.20-5.40) M/uL Hgb 13.9 (12.0-16.0) g/dl Hct 42.0 (37.0-47.0) % MCV 90.5 (80.0-100.0) fL MCH 30.0 (25.0-34.0) pg MCHC 33.1 (32.0-36.0) g/dL RDW Std Deviation 46.0 (36.4-46.3) fL RDW Coeff of Brent 14.1 (11.5-14.5) % Plt Count 315 (130-400) K/uL MPV 11.3 (9.4-12.4) fL Sodium 143 (136-145) mmol/L Potassium 3.8 (3.5-5.1) mmol/L Chloride 108 H (98-107) mmol/L Carbon Dioxide 28 (21-32) mmol/L Anion Gap 7 (3-11) BUN 18 (6-23) mg/dl Creatinine 0.87 (0.6-1.2) mg/dl Est Cr Clr Drug Dosing 89.4 ml/min eGFR 83.16 BUN/Creatinine Ratio 20.7 H (10-20) Glucose 85 (70-99(Fasting)) mg/dl Calcium 9.5 (8.6-10.3) mg/dl Phosphorus 4.1 (2.5-4.9) mg/dl Magnesium 1.8 (1.7-2.4) mg/dl Anti-Proteinase 3 <1.0 (<1.0) AI Anti-Myeloperoxidase <1.0 (<1.0) AI ANCA Negative (Negative) S.cerevisiae IgG Ab 7.7 (<=20.0) U S.cerevisiae IgA Ab 5.1 (<=20.0) U Medications Administered Current Inpatient Medications Acetaminophen (Acetaminophen 500 Mg Tab) 1,000 mg PO TID ROBLES Stop: 04/08/24 13:59 Last Admin: 03/15/24 08:31 Dose: 1,000 mg Bisacodyl (Bisacodyl 10 Mg Supp) 10 mg VA DAILY PRN PRN Reason: Constipation Stop: 04/07/24 11:02 Last Admin: 03/08/24 21:02 Dose: 10 mg Calcium Carbonate (Calcium Carbonate 500 Mg Chewable Tab) 500 mg PO Q4H PRN PRN Reason: Indigestion Stop: 04/09/24 17:08 Last Admin: 03/13/24 23:33 Dose: 500 mg Cetirizine HCl (Cetirizine Hcl 10 Mg Tablet) 10 mg PO DAILY ROBLES Stop: 04/06/24 08:59 Last Admin: 03/15/24 08:33 Dose: 10 mg Dicyclomine HCl (Dicyclomine Hcl 10 Mg Cap) 20 mg PO TID ROBLES Stop: 04/08/24 13:59 Last Admin: 03/15/24 08:32 Dose: 20 mg Doxycycline Hyclate (Doxycycline Hyclate 100 Mg Cap) 100 mg PO BID ROBLES Stop: 03/22/24 20:59 Last Admin: 03/15/24 08:33 Dose: 100 mg Enoxaparin Sodium (Enoxaparin Inj 40 Mg/0.4 Ml Syr) 40 mg SQ QAM ROBLES Stop: 04/06/24 08:59 Last Admin: 03/15/24 08:34 Dose: Not Given Fidaxomicin (Fidaxomicin 200 Mg Tab) 200 mg PO BID ROBLES Stop: 03/22/24 20:59 Last Admin: 03/15/24 08:42 Dose: 200 mg Fluticasone Propionate (Fluticasone Propionate Na Spr 16 Gm Btl) 2 sprays NA DAILY ROBLES Stop: 04/06/24 08:59 Last Admin: 03/15/24 08:34 Dose: 2 sprays Hydrocortisone (Hydrocortisone 1% Oint 30 Gm Tube) 1 appln EXT BID PRN PRN Reason: Itching Stop: 04/12/24 16:54 Lorazepam (Lorazepam 0.5 Mg Tab) 0.5 mg PO TID PRN PRN Reason: Anxiety Stop: 04/05/24 23:51 Last Admin: 03/09/24 18:07 Dose: 0.5 mg Montelukast Sodium (Montelukast Sodium 10 Mg Tablet) 10 mg PO DAILY ROBLES Stop: 04/06/24 08:59 Last Admin: 03/15/24 08:33 Dose: 10 mg Ondansetron HCl (Ondansetron Inj 2 Mg/Ml 2 Ml Vial) 4 mg IV Q6H PRN PRN Reason: Nausea And Vomiting Stop: 04/05/24 23:52 Last Admin: 03/12/24 10:46 Dose: 4 mg Oxycodone HCl (Oxycodone Hcl Ir 5 Mg Tab (Immediate Release)) 5 mg PO Q6H PRN PRN Reason: Pain Stop: 03/23/24 09:59 Last Admin: 03/15/24 07:32 Dose: 5 mg Pantoprazole Sodium (Pantoprazole 40 Mg Tab) 40 mg PO BID ROBLES Stop: 04/06/24 08:59 Last Admin: 03/15/24 07:33 Dose: 40 mg Potassium Chloride (Potassium Chloride Crtab 20 Meq Tabcr) 20 meq PO QAM ROBLES Stop: 04/06/24 08:59 Last Admin: 03/15/24 08:42 Dose: 20 meq Tamsulosin HCl (Tamsulosin Hcl 0.4 Mg Cap) 0.4 mg PO QAM ROBLES Stop: 04/06/24 12:44 Last Admin: 03/15/24 08:33 Dose: 0.4 mg Trazodone HCl (Trazodone Hcl 100 Mg Tab) 200 mg PO HS ROBLES Stop: 04/06/24 20:59 Last Admin: 03/15/24 00:32 Dose: 200 mg Vancomycin HCl (Vancomycin Hcl 125 Mg/2.5ml Soln) 125 mg PO Q6 [facility]; Protocol Stop: 03/25/24 11:59
[2024-03-15] MEDS: CHERRY SYRUP 5 ML UDP PO SCH (11:25)
[2024-03-15] MEDS: VANCOMYCIN HCL 125 MG/2.5ML SOLN PO SCH (11:26)
[2024-03-15] MEDS ORDERED: CHERRY SYRUP 5 ML UDP PO SCH (12:00)
[2024-03-16 08:12] LABS: BUN Creatinine Ratio 23.8 (10-20); Calcium 9.4 mg/dl (8.6-10.3); Creatinine Clr Calc Pharmacy 97.2 ml/min; Magnesium 1.8 mg/dl (1.7-2.4); Phosphorus 4.2 mg/dl (2.5-4.9); Potassium 3.5 mmol/L (3.5-5.1)
[2024-03-16 08:21] LABS: Hematocrit (blood only) 39.8 % (37.0-47.0); Hemoglobin 13.6 g/dl (12.0-16.0); Mean Corpuscular Hemoglobin 30.6 pg (25.0-34.0); Mean Corpuscular Hgb Conc 34.2 g/dL (32.0-36.0); Mean Corpuscular Volume 89.4 fL (80.0-100.0); Mean Platelet Volume 11.6 fL (9.4-12.4); Platelet Count 306 K/uL (130-400); RDW Coefficient of Variation 14.1 % (11.5-14.5); RDW Standard Deviation 45.6 fL (36.4-46.3); Red Blood Count 4.45 M/uL (4.20-5.40); White Blood Count 9.46 K/ul (4.8-10.8)
--- NOTE | 2024-03-16 13:50 | Hospitalist Progress Note ---
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 Antibiotics changed yesterday to doxycycline for possible resistant Yersinia. Vancomycin started to treat for possible C. difficile diarrhea due to the fact the patient is a raz r. Continue to monitor with this recent change of antibiotics Trial of Questran for her diarrhea Continue Bentyl Encourage activity Increase potassium replacement Admission and Anticipated Discharge Date Admission Date: March 08, 2024 Subjective Patient with several loose stools this morning. Still with abdominal pain, cramping as well as some symptoms from her kidney stone as well. She did states she is tolerating a diet however still pain and diarrhea Physical Exam Physical Exam: Constitutional: Alert, nontoxic in appearance, moderate distress HEENT: Mucous membranes moist. Lungs: Clear to auscultation, decreased, no wheezes rales or rhonchi CV: S1-S2, regular Abdomen: Soft, some generalized tenderness, no guarding or rigidity Extremities: No significant edema Neuro: No focal deficits Psych: Cooperative, normal mood Results & Data Results & Data Vital Signs (Past 12 Hours) Vital Signs Temp Pulse Resp BP Pulse Ox O2 Del Method 03/16/24 07:46 36.6 C 74 16 107/76 94 Room Air Diagnostic Findings Reviewed imaging, laboratory and diagnostic studies. Pertinent findings as below.
[2024-03-16] MEDS: CHOLESTYRAMINE LIGHT 4 GM PKT PO SCH (20:46)
[2024-03-16] MEDS: POTASSIUM CHLORIDE CRTAB 20 MEQ TABCR PO SCH (20:47)
[2024-03-16] MEDS: ONDANSETRON 4 MG OD TAB PO PRN (23:27)
[2024-03-17] MEDS: RIZATRIPTAN BENZOATE 10 MG TAB PO PRN (12:17)
--- NOTE | 2024-03-17 14:49 | Hospitalist Progress Note ---
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 difficile colitis it seems to be slowly improving with a subsequent acute flare of her irritable bowel. Continue Bentyl Continue current oral antibiotics Michael started to help with diarrhea yesterday, continue Discussed increasing her activity. Maxalt for her migraine which she uses at home Discussed with her that with this infection flaring her irritable bowel she might not have complete resolution of her symptoms before discharge. Our goal will be to have her symptoms manageable. We discussed setting a goal of discharge on Friday. She is agreeable to this plan. Continue to monitor stools Admission and Anticipated Discharge Date Admission Date: March 08, 2024 Subjective Patient continues to report abdominal cramping. Reports had 3 loose stools again this morning. Seems like her symptoms are worse in the morning and then improves throughout the day. Complaining of migraine headache today which is her typical. Physical Exam Physical Exam: Constitutional: Alert, nontoxic HEENT: Mucous membranes moist. Lungs: Clear to auscultation, decreased, no wheezes rales or rhonchi CV: S1-S2, regular Abdomen: Soft, diffuse tenderness, no guarding or rigidity Extremities: No significant edema Neuro: No focal deficits Psych: Cooperative, normal mood Results & Data Results & Data Vital Signs (Past 12 Hours) Vital Signs Temp Pulse Resp BP BP Pulse Ox O2 Del Method 03/17/24 14:29 36.3 C L 70 16 113/75 95 Room Air 03/17/24 07:49 36.9 C 82 18 109/71 95 Room Air
[2024-03-18 06:40] LABS: Hematocrit (blood only) 39.8 % (37.0-47.0); Hemoglobin 13.4 g/dl (12.0-16.0); Mean Corpuscular Hemoglobin 30.7 pg (25.0-34.0); Mean Corpuscular Hgb Conc 33.7 g/dL (32.0-36.0); Mean Corpuscular Volume 91.1 fL (80.0-100.0); Mean Platelet Volume 11.8 fL (9.4-12.4); Platelet Count 285 K/uL (130-400); RDW Coefficient of Variation 14.1 % (11.5-14.5); RDW Standard Deviation 47.5 fL (36.4-46.3); Red Blood Count 4.37 M/uL (4.20-5.40); White Blood Count 10.15 K/ul (4.8-10.8)
[2024-03-18 06:44] LABS: BUN Creatinine Ratio 15.9 (10-20); Calcium 9.1 mg/dl (8.6-10.3); Creatinine Clr Calc Pharmacy 88.3 ml/min; Potassium 4.1 mmol/L (3.5-5.1)
--- NOTE | 2024-03-18 15:37 | Hospitalist Progress Note ---
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 Stool starting to form. Patient has completed a full course of treatment for the Yersinia including Cipro and doxycycline courses. Will discontinue doxycycline Continue vancomycin for possible C. difficile flare as she is a carrier Discussed possible discharge either this afternoon or tomorrow as she continues to improve. When reevaluated this afternoon she is improving but would like to wait at least until tomorrow Change Bentyl to before meals, seems most of her cramping is right after she eats Continue Questran Patient's updated via phone Anticipate discharge tomorrow morning, patient aware and agreeable with the plan Admission and Anticipated Discharge Date Admission Date: March 08, 2024 Subjective Patient actually feeling a bit better today. Migraine headache resolved. Abdominal cramping not as severe. Stool starting to form Physical Exam Physical Exam: Constitutional: Alert, nontoxic HEENT: Mucous membranes moist. Lungs: Clear to auscultation, decreased, no wheezes rales or rhonchi CV: S1-S2, regular Abdomen: Soft, mild generalized tenderness, improved, no guarding or rigidity Extremities: No significant edema Neuro: No focal deficits Psych: Cooperative, normal mood Results & Data Results & Data Vital Signs (Past 12 Hours) Vital Signs Temp Pulse Resp BP Pulse Ox O2 Del Method 03/18/24 08:00 36.6 C 68 16 106/73 95 Room Air Laboratory Results Reviewed imaging, laboratory and diagnostic studies. Pertinent findings as below. CBC and BMP reviewed, stable
[2024-03-18] MEDS: DICYCLOMINE HCL 10 MG CAP PO SCH (16:24)
[2024-03-19 06:44] LABS: Creatinine Clr Calc Pharmacy 92.6 ml/min
[2024-03-19 07:16] VITALS: BP 104/70; PULSE 77; RESP 18; TEMP 98.8; O2SAT 96
--- NOTE | 2024-03-19 12:07 | Discharge Summary ---
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 Imaging revealed some signs of colitis. She was referred for admission. Patient was admitted to the hospital empirically started on Cipro and Flagyl. When she was admitted she did not have any recur rent diarrhea immediately. GI consultation was obtained as well. She actually needed to be given some medications to induce the stool. Once we had stool was able to be tested and tested positive for Yersinia. Patient continued to have significant amounts of abdominal pain which was treated with various medications. She then started to have recurrent diarrhea. She was continued on ciprofloxacin for the Yersinia. She continued diarrhea despite this treatment. She was tested for C. difficile colitis. It was proven to have gene carrier but toxin negative. Despite adequate treatment she continued to have significant mimi of abdominal pain. Infectious disease consultation was obtained. They recommended transitioning the Cipro to doxycycline and empirically treating her with vancomycin for presumed C. difficile colitis. With this intervention patient is slowly started to improve. Unfortunately patient was also suffering from some renal calculi. These were nonobstructive. She was seen by urology while here in the hospital. Was recommended that they treat her symptomatically and follow-up outpatient when she has improved from this infection. Patient completed a full course of antibiotics for her uricemia infection here in the hospital. She was continue for a 10-day course of oral vancomycin. She was started on some Questran. She was given Bentyl for abdominal cramping. Her stools have started to form. On the day of discharge her abdominal pain had significantly improved. She was tolerating a diet. Her abdominal pain was tolerable. She also reported a significant history of irritable bowel syndrome. Suspected that this has significantly flared with these infections. She was counseled numerous times that will take some time for this to settle down. Re commend high-fiber diet when she is discharge as treatment for her irritable bowel. She will follow-up with her outpatient continuous improvement coach. She will follow-up with urology. She will follow-up with her PCP. She be discharged from to continue her care and recuperation. Notes For Next Care Provider Follow-up with GI Follow-up with urology Medication Changes From Visit Vancomycin for presumed C. difficile colitis Questran Tamsulosin Bentyl Admission HPI Per Admitting Provider History obtained from patient, family, and records. Medical history significant for hypertension, hyperlipidemia, JONY currently not requiring CPAP, pseudotumor cerebri status post surgery, migraine, GERD, IBS constipation predominant as per patient, ITP status postsplenectomy, cervical cancer status post surgery, endometriosis, fibromyalgia, RLS, allergic rhinitis, past tobacco abuse. 1 week history of achy lower abdominal pain with watery neon green diarrhea symptoms. Some nausea without emesis symptoms. Usual headache symptoms. Denies chest pain, SOB. No fever, no chills. Not sure about recent sick contacts. No recent out-of-town travel or new restaurants. No recent antibiotic Rx. Medical History as above 2022 colonoscopy showed diverticulosis/internal hemorrhoids/adenomatous polyps Surgical History : Knee surgeries, breast biopsy, vascular procedures, VPS, laparoscopy for endometriosis, section, splenectomy, tonsillectomy, cholecystectomy, sinus surgery, [facility] Family History : Migraine, ITP, autism; negative IBD Personal/Social history : Past tobacco abuse, occasional EtOH intake, homemaker Admission Exam Per Admitting Provider See H&P Discharge Exam Constitutional: Alert, nontoxic HEENT: Mucous membranes moist. Lungs: Clear to auscultation, decreased, no wheezes rales or rhonchi CV: S1-S2, regular Abdomen: Soft, very mild epigastric/diffuse tenderness, no guarding, no rigidity, no distention Extremities: No significant edema Neuro: No focal deficits Psych: Cooperative, normal mood Updated Medication List Medication Instructions Recorded Confirmed Type Maxalt 10 mg PO DIRECTED PRN Migraine 03/07/24 03/07/24 History Headache [place] 3 Fish Oil 1,000 mg PO DAILY 03/07/24 03/07/24 History Ventolin HFA 108 mcg inhalation DIRECTED PRN 03/07/24 03/07/24 History Cough Zofran 4 mg PO DIRECTED PRN Nausea And 03/07/24 03/07/24 History Vomiting aspirin 325 mg tablet,delayed 325 mg PO DAILY 03/07/24 03/07/24 History release cetirizine 10 mg tablet (Zyrtec) 10 mg PO AC 03/07/24 03/07/24 History conjugated estrogens 0.625 mg/gram 0.625 mg vaginal HS 03/07/24 03/07/24 History vaginal cream (Premarin) esomeprazole magnesium 20 mg 20 mg PO BID 03/07/24 03/07/24 History capsule,delayed release fluticasone propionate 50 50 mcg intranasal BID 03/07/24 03/07/24 History mcg/actuation nasal spray,suspension losartan 25 mg tablet 25 mg PO DAILY 03/07/24 03/07/24 History montelukast 10 mg tablet 10 mg PO DAILY 03/07/24 03/07/24 History nystatin 100,000 units topical 2XD 03/07/24 03/07/24 History red yeast rice extract 600 mg PO DAILY 03/07/24 03/07/24 History trazodone 100 mg tablet 200 mg PO HS 03/07/24 03/07/24 History cholestyramine-aspartame 4 gram 1 ea PO BID@1000,2200 10 days #20 03/18/24 Rx oral powder for susp in a packet ea (Prevalite) dicyclomine 10 mg capsule 20 mg (2 x 10 mg) PO AC 15 days 03/18/24 Rx #90 caps potassium chloride 20 mEq 20 meq PO BID #60 tabs 03/18/24 Rx tablet,extended release tamsulosin 0.4 mg capsule 0.4 mg PO QAM 30 days #30 caps 03/18/24 Rx vancomycin 125 mg capsule 125 mg PO QID 5 days #20 caps 03/18/24 Rx oxycodone 5 mg tablet 5 mg PO Q6H PRN pain #7 tabs 03/19/24 Rx Hospital Stay Data Consultations 03/06/24 23:41 ED Decision to Admit Stat 03/07/24 07:33 Consult Urology Routine 03/07/24 08:36 Consult Gastroenterology Routine 03/12/24 11:42 Consult Infectious Diseases Routine Diagnostic Imagining Performed 03/06/24 19:42 CT abd pelvis IV con only Stat Reviewed imaging, laboratory and diagnostic studies. Pertinent findings as below. WBCs 10.1 Hemoglobin 13.4 Platelets 285 Electrolytes stable Creatinine 0.84 Stool was positive for Yersinia C. difficile gene positive, toxin negative Pending Results Patient Have Any Pending Studies at Discharge: No Discharge Instructions Given to Patient (Per Discharging Provider) Recommend follow-up with gastroenterology for ongoing GI issues Follow-up with urology for definitive treatment on stone Total Time Total Time Spent Total Time Spent (In Minutes): 34
== END 2024-03-19 15:25 | disposition home or self-care (01) | DRG 372 ==
LOC: 3E 19:29 → ED 19:29 → SUATTDRO 23:55 → 3E 03-07 00:50 → SUATTDRO 03-08 09:13